=== PATIENT | female | born 1945 | race Caucasian/White ===

== ENCOUNTER 2020-12-09 00:31 | Inpatient (IN) | payer MEDICARE, SELFPAY ==
[2020-12-09] VITALS (24 sets, daily range): BP systolic 102–173; BP diastolic 44–76; PULSE 63–99; RESP 14–22; TEMP 35.9–36.9; O2SAT 63–98; BMI 30.2
--- NOTE | ~2020-12-09 | XR_ITS ---
EXAMINATION: XR CHEST CLINICAL INFORMATION: Post right thoracentesis COMPARISON: None TECHNIQUE: 2 views of the chest were obtained. FINDINGS: Post right thoracentesis is no visible pneumothorax. Bandlike atelectasis right middle lobe. There is opacification of left lung base likely from pleural effusion. The upper lungs are clear. Heart size is normal. There are surgical kimberly in the right axilla and lateral thorax from previous intervention. No gross bony abnormality seen. XR/XR chest 2V IMPRESSION: Post right thoracentesis there is no visible pneumothorax. There is a right middle lobe atelectasis. Suspect small left pleural effusion with underlying atelectasis.
--- NOTE | ~2020-12-09 | XR_ITS ---
EXAMINATION: XR ELBOW, LEFT CLINICAL INFORMATION: Fall, pain COMPARISON: None TECHNIQUE: AP, lateral, and oblique views of the left elbow. FINDINGS: Osseous alignment is anatomic. No acute fracture is seen. Small metallic foreign body is noted near the medial epicondyle of the humerus. No significant effusion is seen. XR/XR elbow LT 2V IMPRESSION: No acute findings identified.
--- NOTE | ~2020-12-09 | XR_ITS ---
EXAMINATION: XR CHEST CLINICAL INFORMATION: Respiratory failure COMPARISON: December 28, 2020 and December 25, 2020 TECHNIQUE: AP portable respiratory inspiration and expiration views FINDINGS: Compared to previous day's study there is no significant change in appearance. There remains some right base disease. Heart normal size. No evidence of pulmonary edema. No pneumothorax. Small right pleural effusion not excluded. Status post previous right axillary surgery. There is a minimally displaced left humeral head fracture evident. XR/XR chest 2V IMPRESSION: Stable appearance of the chest with right base disease.
--- NOTE | ~2020-12-09 | XR_ITS ---
EXAMINATION: XR CHEST CLINICAL INFORMATION: Hypoxia COMPARISON: Previous chest x-ray most recent 12/18/2020 TECHNIQUE: Frontal view of the chest was obtained. FINDINGS: The cardiac silhouette does not appear enlarged. Hilar and mediastinal contours are unremarkable. The lungs are clear. There are moderate bilateral pleural effusions that do not appear appreciably changed. There are degenerative changes of the spine. There are surgical clips in the right axilla. XR/XR chest 1V IMPRESSION: Moderate-sized bilateral pleural effusions not appreciably changed from previous exams.
--- NOTE | ~2020-12-09 | US_ITS ---
PROCEDURE: ULTRASOUND-GUIDED THORACENTESIS CLINICAL INFORMATION: Hypoxia. Right-sided effusion. COMPARISON: Chest x-ray 12/22/2020. TECHNIQUE: Following explaining ultrasound-guided right thoracentesis procedure, benefits and risk, a written consent was obtained from the patient. Patient was placed upright sitting on patient's stretcher and preliminary ultrasound imaging was obtained through the right mid chest. An optimal site was selected along the lateral scapular margin and marked on the skin. The skin site was cleaned and draped in the usual sterile manner. 1% lidocaine was injected at puncture site. Through a small skin incision a 5 [place] Ducatt catheter was advanced into the pleural space. After observing fluid return, stylet was withdrawn and catheter connected to vaccuum bottle via connecting cannula. After obtaining all fluid and observing no more fluid return, catheter was withdrawn making sure no air leaked in. Sterile dressing was applied postprocedure. FINDINGS: On preliminary ultrasound imaging there is small to moderate free fluid in the right pleural space. Approximately 400 mL of clear fluid was drained from the right pleural space. Part of this fluid was sent to lab as per referring physician's orders. US/US drain thoracentesis IMPRESSION: Successful ultrasound-guided right thoracentesis performed. Chest x-ray was to be obtained postprocedure.
--- NOTE | ~2020-12-09 | XR_ITS ---
EXAMINATION: XR CHEST CLINICAL INFORMATION: Follow-up effusions. COMPARISON: CTA chest 12/13/2020, chest radiograph 12/09/2020. TECHNIQUE: Portable upright AP view of the chest was obtained. FINDINGS: There are moderate bilateral effusions similar to decreased when compared with the CTA chest 12/13/2020. Comparison for subtle change is difficult because current exam is upright and prior exam is supine. The heart is normal in size. The vascularity is normal. There is no pneumothorax or pleural reaction. The hilar and mediastinal contours are normal. Bony structures are stable. Again, there is recent fracture proximal left humerus and multilevel degenerative changes thoracic spine. XR/XR chest 1V IMPRESSION: Moderate bilateral effusions similar to decreased when compared with the CTA chest 12/13/2020.
--- NOTE | ~2020-12-09 | CT_ITS ---
EXAMINATION: CT ANGIOGRAM OF THE CHEST WITH AND WITHOUT CONTRAST (CT PULMONARY ANGIOGRAM FOR PE) CLINICAL INFORMATION: Desaturations COMPARISON: None TECHNIQUE: Prior to contrast administration, noncontrast localization images were obtained. Subsequently, multidetector volumetric imaging was performed from the thoracic inlet to below the diaphragms following the administration of 70 mL Omnipaque 350 intravenous contrast. No contrast reaction reported Sagittal, coronal, and MIP oblique sagittal reformatted images were obtained on the CT workstation, uploaded to PACS, and reviewed. This CT examination was performed using dose optimization techniques as appropriate, variously including the following: *Automated exposure control *Adjustment of mA and/or kV according to patient size (this includes techniques or standardized protocols for targeted exams where dose is matched to indication/reason for exam; i.e. extremities or head) *Use of iterative reconstruction technique Total exam dose-length product 445 mGy-cm FINDINGS: QUALITY OF STUDY/CONTRAST BOLUS: Satisfactory. PULMONARY ARTERIES: Limited assessment of subsegmental pulmonary arteries in the areas of pulmonary consolidation involving the lower lobes. No filling defects are appreciated. THORACIC AORTA: Atherosclerosis thoracic aorta without evidence of aneurysm, dissection or stenosis. LUNG: Complete consolidation of the lower lobes. Centrilobular emphysematous changes of the aerated upper lobes. 0.6 cm triangular nodule lateral segment right middle lobe (series 6 image 304). PLEURA: Moderate bilateral pleural effusions. No pneumothorax. MEDIASTINUM: Heart size is normal. No pericardial effusion. Coronary artery calcifications. No mediastinal or hilar adenopathy. Limited views of the thyroid demonstrate substernal extension of a heterogeneous nodule that measures 1.6 x 1.2 cm. No evidence of septal bowing or right heart strain. CHEST WALL/AXILLA: Right axillary surgical clips. OSSEOUS STRUCTURES: Acute fracture left humeral head, better described on the dedicated radiographs performed on 12/09/2020. Degenerative changes of the spine. UPPER ABDOMEN: Nodular enlargement of the adrenal glands bilaterally. Left renal cysts, partially imaged. No reflux of contrast into the hepatic veins to suggest elevated right heart pressures. CT/CT angio chest PE protocol IMPRESSION: 1. No evidence of pulmonary embolism. Assessment of the subsegmental pulmonary arteries within the lower lobes is limited due to consolidations. 2. Complete consolidation of the lower lobes bilaterally, possibly due to compressive atelectasis from moderate bilateral pleural effusions. 3. There is a 1.6 x 1.2 cm heterogeneous nodule extending from the inferior margin of the thyroid gland into the substernal space. Although follow-up thyroid ultrasound is indicated, visualization may be difficult due to the substernal location. 4. Pulmonary emphysema. 5. Coronary artery disease. 6. Acute humeral head fracture, better seen on dedicated radiographs performed recently. 7. Nodular enlargement of the adrenal glands bilaterally, nonspecific but likely due to adrenal hyperplasia. VTE: negative
--- NOTE | ~2020-12-09 | XR_ITS ---
EXAMINATION: XR SHOULDER, LEFT CLINICAL INFORMATION: Rule out humeral fracture COMPARISON: None TECHNIQUE: Three views of the left shoulder. FINDINGS: There is a mildly displaced proximal humeral fracture involving the greater tuberosity and humeral neck. Alignment across the glenohumeral joint appears anatomic. Acromial clavicular joint is intact with mild degenerative change. XR/XR shoulder LT min 2V IMPRESSION: Mildly displaced fracture of the proximal humerus involving the neck and greater tuberosity.
--- NOTE | ~2020-12-09 | XR_ITS ---
EXAMINATION: XR HIP, LEFT CLINICAL INFORMATION: Fall, pain, unable to bear weight COMPARISON: None TECHNIQUE: Two views of the left hip. FINDINGS: There is a shortened appearance of the left femoral neck suspicious for acute fracture in the setting of trauma. Alignment across the hip joint appears maintained. Moderate degenerative changes noted in both hips. Sacroiliac joints and pubic symphysis appear intact. Vascular calcification is present. XR/XR hip LT w PEL1V IMPRESSION: Shortened appearance of the left femoral neck suspicious for impacted fracture in the setting of trauma.
--- NOTE | ~2020-12-09 | CT_ITS ---
EXAMINATION: NONCONTRAST HEAD CT NONCONTRAST CERVICAL SPINE CT INDICATION INFORMATION: Fall COMPARISON: None TECHNIQUE: Separate noncontrast CT examinations of the head and cervical spine were performed. Coronal head CT images and coronal and sagittal cervical spine images were created at the technologist workstation. DLP: 1134 mGy-cm DOSE LOWERING TECHNIQUES: This CT examination was performed using dose optimization techniques as appropriate, variously including the following: - Automated exposure control - Adjustment of mA and/or kV according to patient size (this includes techniques or standardized protocols for targeted exams were dose is matched to indication/reason for exam; i.e. extremities or head) - Use of iterative reconstruction technique FINDINGS: Head: There is no evidence of acute intracranial hemorrhage or territorial infarction. No abnormal mass-effect or midline shift is seen. Delgado to white matter differentiation is well preserved. No extra-axial fluid collections are identified. The ventricles are normal in size. There is mild periventricular white matter hypoattenuation consistent with chronic small vessel ischemic disease. The osseous structures and soft tissues are normal. There is partial opacification of the left sphenoid sinus. Partially opacified right mastoid air cells. Cervical spine: There is grade 1 anterolisthesis of C3 and C4 and minimal retrolisthesis of C5 on C6, favored to be chronic/degenerative in nature. Vertebral body heights are maintained. There is disc space narrowing throughout the mid and lower cervical spine with associated endplate osteophytes. Scattered facet arthropathy is present, left-sided greater than right. No evidence of acute fracture. No prevertebral soft tissue swelling. Visualized portions of the lung apices are well-aerated. The thyroid gland is unremarkable. CT/CT cervical spine wo con IMPRESSION: No acute findings identified in the head or cervical spine. Degenerative changes of the cervical spine.
--- NOTE | ~2020-12-09 | XR_ITS ---
EXAMINATION: XR CHEST CLINICAL INFORMATION: Shortness of breath. COMPARISON: Most recent chest radiograph dated 12/25/2020. TECHNIQUE: 2 views of the chest were obtained. FINDINGS: Trace right-sided pleural effusion, new when compared to the prior examination. Previously seen small left-sided pleural effusion no longer identified. No focal airspace consolidation. No pneumothorax. Stable cardiac mediastinal silhouette. Right axillary surgical clips. XR/XR chest 2V IMPRESSION: Trace right-sided pleural effusion, new when compared to the prior examination. Resolution of the previously seen probable left-sided pleural effusion.
--- NOTE | ~2020-12-09 | XR_ITS ---
EXAMINATION: XR CHEST CLINICAL INFORMATION: Shortness of breath COMPARISON: None TECHNIQUE: Frontal view of the chest was obtained. FINDINGS: Lung volumes are symmetric. Coarsened appearance of interstitial markings bilaterally without focal consolidation. No evidence of pneumothorax or pleural effusion. Cardiac size is within normal limits. Calcification is present at the aortic arch. Right axillary clips are noted. No acute osseous findings are seen. XR/XR chest 1V IMPRESSION: Coarsened interstitial markings may reflect acute or chronic airways disease. No focal consolidation.
--- NOTE | ~2020-12-09 | FL_ITS ---
EXAMINATION: XR FLUOROSCOPY WITH IMAGES CLINICAL INFORMATION: Left hip fracture COMPARISON: Previous x-ray December 09, 2020 TECHNIQUE: Fluoroscopy performed by Dr. Hare Instrwes. Fluoroscopy time: 1 minutes DAP: 0.2 mGycm2 Images: 2 FINDINGS: Images demonstrate 2 screws transfixing the right femoral neck fracture. FL/FL guidance in OR IMPRESSION: Fluoroscopic guidance for ORIF of right femoral neck fracture.
--- NOTE | ~2020-12-09 | XR_ITS ---
EXAMINATION: XR CHEST CLINICAL INFORMATION: Follow up pleural effusions. COMPARISON: December 29, 2020 TECHNIQUE: Respiratory and expiratory views of the chest FINDINGS: Patient is status post previous right axillary surgery. Chronic proximal left humeral fracture is seen. There is hazy density seen about the right lung base which is increased since study of December 29, 2020 and is consistent with enlarging pleural effusion. There is some blunting of the left costophrenic angle consistent with cysts small amount of fluid. There is some retroareolar cardiac disease present within the left lower lobe. This may represent atelectasis or pneumonitis. Heart normal size. No evidence of pulmonary edema. No pneumothorax is seen. XR/XR chest 2V IMPRESSION: Enlarging right pleural effusion. Left lower lobe disease which may relate to atelectasis or pneumonitis.
--- NOTE | ~2020-12-09 | XR_ITS ---
EXAMINATION: XR CHEST CLINICAL INFORMATION: Follow-up pleural effusion COMPARISON: Previous chest x-ray most recent 12/15/2020 TECHNIQUE: Frontal view of the chest was obtained. FINDINGS: The cardiac and mediastinal contours are stable. There are moderate bilateral pleural effusions similar to previous chest x-ray. The lungs are clear. There are surgical clips in the right axilla. There is a left proximal humerus fracture. There are degenerative changes of the spine. XR/XR chest 1V IMPRESSION: Moderate bilateral pleural effusions. No change from previous exam.
--- NOTE | ~2020-12-09 | XR_ITS ---
EXAMINATION: XR SHOULDER, LEFT CLINICAL INFORMATION: Humerus fracture COMPARISON: Radiographs of the left shoulder 12/09/2020 TECHNIQUE: AP and lateral scapular Y views of the left shoulder. FINDINGS: Redemonstration of comminuted left humeral head fracture which remains in alignment with the shoulder. Overall major fracture fragment components are similar to the prior study. There is acromioclavicular osteoarthritis which is unchanged. XR/XR shoulder LT min 2V IMPRESSION: Overall relatively stable appearance of the comminuted left proximal humeral fracture.
--- NOTE | ~2020-12-09 | XR_ITS ---
EXAMINATION: XR CHEST CLINICAL INFORMATION: Follow-up pleural effusion COMPARISON: January 11, 2021 TECHNIQUE: AP portable view of the chest was obtained. FINDINGS: There is again noted to be hazy density about the right lung base similar to previous study consistent with layering of pleural fluid. There is also mild blunting of the left costophrenic angle with increase in retrocardiac density and obscuration of the left hemidiaphragm likely related to small amount of fluid and increase in left lower lobe airspace disease. No pneumothorax is evident. Heart normal size. No evidence of pulmonary edema. Status post previous right axillary surgery. Old proximal left humeral fracture again noted. XR/XR chest 1V IMPRESSION: Stable appearance of right hemithorax. Increase in retrocardiac density consistent with left lower lobe disease.
--- NOTE | 2020-12-09 00:59 | ECG_ITS ---
Test Reason : FALL Blood Pressure : / mmHG Vent. Rate : 097 BPM Atrial Rate : 097 BPM P-R Int : 140 ms QRS Dur : 068 ms QT Int : 348 ms P-R-T Axes : 077 053 064 degrees QTc Int : 441 ms Normal sinus rhythm Biatrial enlargement Abnormal ECG No previous ECGs available Referred By: Andree Crocker Electronically Signed By:CECELIA RAY MD
--- NOTE | 2020-12-09 01:01 | ED_ITS ---
HPI - Fall General Chief Complaint: Fall Stated Complaint: fall shoulder leg pain Time Seen by Provider: 12/09/20 00:48 Source: patient and EMS Mode of arrival: EMS Limitations: no limitations History of Present Illness HPI Narrative: Patient comes emergency room complaining of a fall. House, patient got dizzy, left on the left side approximately 5 hours prior to arrival. Patient denies hitting her head or losing consciousness, denies being on blood thinners. Patient denies neck pain. Patient reports that she is unable to bear weight due to pain on the left hip. At this time, patient states that if she do es not move, she does not have any pain. Patient states the dizziness lasted only for a few seconds and self resolved at this time patient denies dizziness, no chest pain. Patient does have chronic shortness of breath, O2 dependent due to COPD complaint: fall Related Data Allergies Allergy/AdvReac Type Severity Reaction Status Date / Time No Known Allergies Allergy Verified 12/09/20 00:58 Review of Systems Review of Systems: Appearance: Alert. Oriented X3. No acute distress. Eyes: Pupils equal, round and reactive to light. ENT: Pharynx normal. Neck: Normal inspection. Neck supple. No lymph nodes noted. No crepitus CVS: Normal heart rate and rhythm. Pulses normal. Normal S1 and S2 Respiratory: No respiratory distress. Loud wheezing at baseline Abdomen: Soft and nontender. No rigidity. No distention. good BS x4 Skin: Skin warm and dry. Normal skin color. Normal skin turgor. Extremities: Complaining of left-sided hip pain and left shoulder pain Neuro: Oriented X 3. No motor deficit. No sensory deficit. Moving all extermities. No slurred speech. [facility] Past Medical History Medical History (Updated 12/09/20 @ 04:01 by Andree Crocker MD) COPD (chronic obstructive pulmonary disease) Hypertension Social History Social History Advance Directives: No Advance Directives Information Provided: No Physical Exam Vital Signs: Vital Signs: Last Vital Signs Temp 98.1 F 12/09/20 00:40 Pulse 92 12/09/20 02:00 Resp 18 12/09/20 02:00 BP 125/62 12/09/20 02:00 Pulse Ox 97 12/09/20 02:00 Body Mass Index 30.2 Appearance: Alert. Oriented X3. No acute distress. Eyes: Pupils equal, round and reactive to light. ENT: Pharynx normal. Neck: Normal inspection. Neck supple. No lymph nodes noted. No crepitus CVS: Normal heart rate and rhythm. Pulses normal. Normal S1 and S2 Respiratory: No respiratory distress. On oxygen, O2 dependent. Bilateral wheezing with diminished inspiratory breath sounds Abdomen: Soft and nontender. No rigidity. No distention. good BS x4 Skin: Skin warm and dry. Normal skin color. Normal skin turgor. Extremities: +1 bilateral pitting edema, pain to hip flexion and extension on the left side, pain to palpation over the left shoulder, unable to bear weight Neuro: Oriented X 3. No motor deficit. No sensory deficit. Moving all extermities. No slurred speech. Course Course Course Narrative: Patient's white blood cell count is 15.9, patient uses inhaled steroids daily for COPD. I discussed the x-rays with the patient, patient does have displaced fracture at of the proximal humeral neck and also a left femoral neck fracture. Patient will need orthopedics consult in the morning. I discussed the patient with Dr. Diaz, patient being admitted. Aware of the orthopedics consult pending for tomorrow MDM - Fall Lab Data Result diagrams: 12/09/20 01:13 12/09/20 01:13 Labs: Lab Results 12/09/20 12/09/20 12/09/20 Range/Units 01:13 01:13 01:13 WBC 15.9 H (4.8-10.8) X10*3/uL RBC 3.69 L (4.20-5.50) X10*6/uL Hgb 11.4 L (12.0-16.0) g/dl Hct 36.8 L (37-47) % MCV 99.7 H (80-98) fL MCH 30.9 (27.0-33.0) pg MCHC 31.0 (31.0-35.0) g/dl RDW 12.0 (11.0-16.0) % Plt Count 224 (160-400) X10*3/uL MPV 7.9 L (9.4-12.3) fL Immature Gran % (Auto) 0.6 H (0.0-0.4) % Neut % (Auto) 87.0 H (45-73) % Lymph % (Auto) 5.5 L (20-40) % [place] % (Auto) 6.5 (2-11) % Eos % (Auto) 0.1 (0-4) % Baso % (Auto) 0.3 (0-2) % Lymph # (Auto) 0.9 L (1.2-4.9) X10*3/uL [place] # (Auto) 1.0 (0.1-1.2) X10*3/uL Eos # (Auto) 0.0 (0.0-0.4) X10*3/uL Baso # (Auto) 0.1 (0.0-0.2) X10*3/uL Abs Immat Gran (auto) 0.09 H (0.00-0.03) X10*3/uL Absolute Neuts (auto) 13.8 H (2.0-8.3) X10*3/uL Absolute Nucleated RBC 0.000 (0.0-0.012) X10*3/uL Nucleated RBC % (auto) 0.0 (0.0-0.2) /100WBC Sodium 132 L (135-145) mmol/L Potassium 4.6 (3.3-5.1) mmol/L Chloride 83 L (96-108) mmol/L Carbon Dioxide 46 H* (22-29) mmol/L Anion Gap 8 L (12-20) BUN 10 (9-16) mg/dL Creatinine 0.55 (0.5-1.4) mg/dL Estim Creat Clear Calc 76.1 Estimated GFR > 60 Random Glucose 132 H (60-115) mg/dL Calcium 8.9 (8.4-10.2) mg/dL Troponin I High Sens 11.2 (<3.5-17.0) ng/L Urine Color Urine Appearance Urine pH (5.0-8.0) Ur Specific [place] (1.005-1.025) Urine Protein (NEG-TRACE) MG/DL Urine Glucose (UA) (NEG) MG/DL Urine Ketones (NEG) MG/DL Urine Blood (NEG) Urine Nitrite (NEG) Ur Leukocyte Esterase (NEG) Urine RBC (0) /HPF Urine WBC (0-4) /HPF Ur Squamous Epith Cells /LPF Urine Bacteria /LPF 12/09/20 Range/Units 01:13 WBC (4.8-10.8) X10*3/uL RBC (4.20-5.50) X10*6/uL Hgb (12.0-16.0) g/dl Hct (37-47) % MCV (80-98) fL MCH (27.0-33.0) pg MCHC (31.0-35.0) g/dl RDW (11.0-16.0) % Plt Count (160-400) X10*3/uL MPV (9.4-12.3) fL Immature Gran % (Auto) (0.0-0.4) % Neut % (Auto) (45-73) % Lymph % (Auto) (20-40) % [place] % (Auto) (2-11) % Eos % (Auto) (0-4) % Baso % (Auto) (0-2) % Lymph # (Auto) (1.2-4.9) X10*3/uL [place] # (Auto) (0.1-1.2) X10*3/uL Eos # (Auto) (0.0-0.4) X10*3/uL Baso # (Auto) (0.0-0.2) X10*3/uL Abs Immat Gran (auto) (0.00-0.03) X10*3/uL Absolute Neuts (auto) (2.0-8.3) X10*3/uL Absolute Nucleated RBC (0.0-0.012) X10*3/uL Nucleated RBC % (auto) (0.0-0.2) /100WBC Sodium (135-145) mmol/L Potassium (3.3-5.1) mmol/L Chloride (96-108) mmol/L Carbon Dioxide (22-29) mmol/L Anion Gap (12-20) BUN (9-16) mg/dL Creatinine (0.5-1.4) mg/dL Estim Creat Clear Calc Estimated GFR Random Glucose (60-115) mg/dL Calcium (8.4-10.2) mg/dL Troponin I High Sens (<3.5-17.0) ng/L Urine Color YELLOW Urine Appearance CLOUDY Urine pH 7.0 (5.0-8.0) Ur Specific [place] 1.020 (1.005-1.025) Urine Protein 2+ H (NEG-TRACE) MG/DL Urine Glucose (UA) NEG (NEG) MG/DL Urine Ketones 5 (NEG) MG/DL Urine Blood NEG (NEG) Urine Nitrite NEG (NEG) Ur Leukocyte Esterase 2+ H (NEG) Urine RBC 0 (0) /HPF Urine WBC 5-9 H (0-4) /HPF Ur Squamous Epith Cells 1+ /LPF Urine Bacteria 4+ /LPF Imaging Data Hip x-ray: Radiologist's impression: There is a shortened appearance of the left femoral neck suspicious for acute fracture in the setting of trauma. Alignment across the hip joint appears maintained. Moderate degenerative changes noted in both hips. Sacroiliac joints and pubic symphysis appear intact. Vascular calcification is present. XR/XR hip LT w PEL1V IMPRESSION: Shortened appearance of the left femoral neck suspicious for impacted fracture in the setting of trauma. Shoulder fracture: Radiologist's impression: FINDINGS: There is a mildly displaced proximal humeral fracture involving the greater tuberosity and humeral neck. Alignment across the glenohumeral joint appears anatomic. Acromial clavicular joint is intact with mild degenerative change. XR/XR shoulder LT min 2V IMPRESSION: Mildly displaced fracture of the proximal humerus involving the neck and greater tuberosity. Head and cervical spine CT: Radiologist's impression: Head: There is no evidence of acute intracranial hemorrhage or territorial infarction. No abnormal mass-effect or midline shift is seen. [place] to white matter differentiation is well preserved. No extra-axial fluid collections are identified. The ventricles are normal in size. There is mild periventricular white matter hypoattenuation consistent with chronic small vessel ischemic disease. The osseous structures and soft tissues are normal. There is partial opacification of the left sphenoid sinus. Partially opacified right mastoid air cells. Cervical spine: There is grade 1 anterolisthesis of C3 and C4 and minimal retrolisthesis of C5 on C6, favored to be chronic/degenerative in nature. Vertebral body heights are maintained. There is disc space narrowing throughout the mid and lower cervical spine with associated endplate osteophytes. Scattered facet arthropathy is present, left-sided greater than right. No evidence of acute fracture. No prevertebral soft tissue swelling. Visualized portions of the lung apices are well-aerated. The thyroid gland is unremarkable. CT/CT head/brain wo con IMPRESSION: No acute findings identified in the head or cervical spine. Degenerative changes of the cervical spine. Elbow fracture: Radiologist's impression: FINDINGS: Osseous alignment is anatomic. No acute fracture is seen. Small metallic foreign body is noted near the medial epicondyle of the humerus. No significant effusion is seen. XR/XR elbow LT 2V IMPRESSION: No acute findings identified. ECG Data Attestation: I personally reviewed and interpreted this ECG as follows: (Normal sinus rhythm, heart rate 97, no ST segment depression elevation, likely atrial enlargement, QTC 441) Discharge Plan Discharge Clinical Impression: Femoral neck fracture, Fracture of neck of humerus, Acute UTI Patient Disposition: Admitted As Inpatient
[2020-12-09 01:17] LABS: MANUAL DIFF FLAG NO
[2020-12-09 01:18] LABS: Basophils Absolute Auto 0.1 X10*3/uL (0.0-0.2); Basophils Percent Auto 0.3 % (0-2); Eosinophils Percent Auto 0.1 % (0-4); Hematocrit 36.8 % (37-47); Hemoglobin 11.4 g/dl (12.0-16.0); Imm Gran Abs Auto 0.09 X10*3/uL (0.00-0.03); Imm Gran Pct Auto 0.6 % (0.0-0.4); Lymphocytes Absolute Auto 0.9 X10*3/uL (1.2-4.9); Lymphocytes Percent Auto 5.5 % (20-40); Mean Corpuscular Hemoglobin 30.9 pg (27.0-33.0); Mean Corpuscular Volume 99.7 fL (80-98); Mean Platelet Volume 7.9 fL (9.4-12.3); Monocytes Percent Auto 6.5 % (2-11); Neutrophils Absolute Auto 13.8 X10*3/uL (2.0-8.3); Platelet Count 224 X10*3/uL (160-400); Red Blood Count 3.69 X10*6/uL (4.20-5.50); White Blood Count 15.9 X10*3/uL (4.8-10.8)
[2020-12-09] MEDS: traMADoL HCL 50 MG TABLET PO (01:19)
[2020-12-09 01:44] LABS: Troponin-I High Sensitivity 11.2 ng/L (<3.5-17.0)
[2020-12-09 01:45] LABS: Glucose Urine UA NEG (NEG); Leukocyte Esterase Urine 2+ (NEG); Nitrite Urine NEG (NEG); UACC Culture Trigger YES; Urine Blood NEG (NEG); Urine Ketones 5 MG/DL (NEG); Urine Protein 2+ MG/DL (NEG-TRACE)
[2020-12-09 01:46] LABS: Appearance Urine CLOUDY; Color Urine YELLOW
[2020-12-09 01:52] LABS: Bacteria Urine 4+ /LPF; RBC Urine 0 /HPF (0); Squamous Epithelial Cell Urine 1+ /LPF
[2020-12-09 01:58] LABS: Anion Gap 8 (12-20); Blood Urea Nitrogen 10 mg/dL (9-16); Calcium 8.9 mg/dL (8.4-10.2); Carbon Dioxide 46 mmol/L (22-29); Chloride 83 mmol/L (96-108); Creatinine Clr Calc Pharmacy 76.1; Estimated Glomerular Filt Rate > 60; Glucose Random 132 mg/dL (60-115); Potassium 4.6 mmol/L (3.3-5.1); Sodium 132 mmol/L (135-145)
[2020-12-09] MEDS: cefTRIAXone sodium 1 GM in 0.9 % Sodium Chloride 50 ML IV (03:08)
--- NOTE | 2020-12-09 04:25 | PM.IMHP ---
History of Present Illness Date of Service: 12/09/20 Chief Complaint: Fall 75-year-old female past medical history of hypertension, COPD-on home oxygen of 2 L continuously, depression presented to the hospital with a chief complaint of fall. Most of the history obtained from the patient, patient's family at bedside. Spoke to ER staff as well. Reportedly patient's daughter heart card on the floor and when to in check on the patient patient was alert away but lying on the floor; patient reported that she fell on the floor did not hit her head did not lose consciousness did denies any chest pain lightheadedness or dizziness at the time of the event. Complained of the pain in the hip. Subsequently brought to the ER further evaluation. For patient's daughter patient also had fall on ; denies any loss of consciousness. Patient denies any fever chills cough. Complains of mild shortness of breath. Denies any GI complaints. Review of all other systems is negative except mentioned above ER course: Per ER team patient noted to have pain and left upper and lower extremities; noted to have left femoral neck and left humerus fracture on the imaging; CT head and CT C-spine showed no acute findings. On labs noted to have abnormal urinalysis consistent UTI-given ceftriaxone; EKG was nonischemic; initial troponin negative, follow-up troponin pending [facility] Medical History (Updated 12/15/20 @ 17:26 by Mika Fernandez MD) Acute and chronic respiratory failure COPD (chronic obstructive pulmonary disease) COPD exacerbation Hypertension Pleural effusion, bacterial Respiratory failure, acute and chronic Social History Household Members: Children Housing: House Do you presently have visiting nurse or other home services: No Patient Tobacco Use Status: Current everyday Tobacco user Tobacco use type: Cigarette Cigarette Packs Per Day: 1 Cigarettes Per Day: 20.0 Smoked in Last 30 Days: Yes e-Cigarette/Vaping Use: Never Used Patient Interested in Nicotine Replacement: No Patient Given Instructions on How to Stop Smoking: Yes Date Education Initiated: 12/09/20 Use of substances other than those prescribed or required for medical reasons: No Currently Displaying Signs/Symptoms of Drug Intoxication Withdrawal: No Have you been hit, kicked, punched, or otherwise hurt by someone within the past year? If so, by whom?: No Do you feel safe in your current relationship?: Yes Is there a partner from a previous relationship who is making you feel unsafe now?: No Are you made to feel afraid or neglected: No Advance Directives: No Advance Directives Information Provided: No Do you have thoughts of harming others: None Do you have a plan to hurt others: No Plan Recently lost weight without trying: No Eating poorly because of decreased appetite: No Nutrition Risks: No Nutritional Risk Patient : No : No Poor oral hygiene: No service: No Current occupational status: retired [employer] Allergies Allergy/AdvReac Type Severity Reaction Status Date / Time No Known Allergies Allergy Verified 12/09/20 00:58 Active Medications: Current Medications Generic Name Dose Route Start Last Admin Trade Name Freq PRN Reason Stop Dose Admin Acetaminophen 650 mg 12/09/20 04:20 Acetaminophen 325 Mg Tablet PO Q6H PRN Pain, Mild (Pain Scale 1-3) Albuterol/Ipratropium 3 ml 12/09/20 08:00 Albuterol/Iprat 2.5/0.5mg 3 Ml Ampul.Neb INHALE RQ4H WHILE AWAKE OMID Albuterol/Ipratropium 3 ml 12/09/20 04:20 Albuterol/Iprat 2.5/0.5mg 3 Ml Ampul.Neb INHALE RQ4H PRN Shortness of Breath/Wheezing Azithromycin 500 mg 12/09/20 04:30 Azithromycin 500 Mg Tablet PO Q24H OMID Hydromorphone HCl 0.5 mg 12/09/20 04:20 Hydromorphone Hcl 0.5 Mg/0.5 Ml Syringe IVPUSH Q4H PRN Pain, Severe (Pain Scale 7-10) Dextrose/Sodium Chloride 1,000 mls @ 50 mls/hr 12/09/20 04:30 D51/2ns IVCONT .Q20H OMID Ceftriaxone Sodium 1 gm/ 100 mls @ 200 mls/hr 12/09/20 04:30 Sodium Chloride IV Q24H OMID Magnesium Hydroxide 30 ml 12/09/20 04:20 Milk Of Magnesia 30 Ml Oral.Susp PO DAILY PRN Constipation Melatonin 6 mg 12/09/20 04:20 Melatonin 3 Mg Tablet PO BEDTIME PRN Insomnia Methylprednisolone Sodium Succinate 40 mg 12/09/20 04:30 Methylprednisolone Sod Succ 40 Mg/Ml Vial IVPUSH Q6H OMID Sodium Chloride 3 ml 12/09/20 08:00 0.9 % Sodium Chloride Flush 3 Ml Syringe IVFLUSH QSHIFT [facility] Physical Exam Vital Signs and Narrative: Vital Signs: Last Vital Signs Temp 98.1 F 12/09/20 00:40 Pulse 92 12/09/20 02:00 Resp 18 12/09/20 02:00 BP 125/62 12/09/20 02:00 Pulse Ox 97 12/09/20 02:00 Body Mass Index 30.2 Gen: Appears be in no acute distress HEENT: NCAT, Moist mucosa. Pulmonary: Diminished breath sounds bilaterally CVS: Normal S1-S2 Abdomen: BS+, Soft, Nontender Extremities: Warm well perfused upper and lower extremity exam limited secondary to the pain. Neurovascularly intact. Neuro: Alert and awake. Results Labs CBC and Chem 7: 12/17/20 05:17 12/18/20 08:24 Labs: Laboratory Results - last 24 hr 12/09/20 12/09/20 12/09/20 01:13 01:13 01:13 MCV 99.7 H MCH 30.9 MCHC 31.0 RDW 12.0 Plt Count 224 MPV 7.9 L Immature Gran % (Auto) 0.6 H Neut % (Auto) 87.0 H Lymph % (Auto) 5.5 L [place] % (Auto) 6.5 Eos % (Auto) 0.1 Baso % (Auto) 0.3 Lymph # (Auto) 0.9 L [place] # (Auto) 1.0 Eos # (Auto) 0.0 Baso # (Auto) 0.1 Abs Immat Gran (auto) 0.09 H Absolute Neuts (auto) 13.8 H Absolute Nucleated RBC 0.000 Nucleated RBC % (auto) 0.0 Anion Gap 8 L Estim Creat Clear Calc 76.1 Estimated GFR > 60 Random Glucose 132 H Calcium 8.9 Troponin I High Sens 11.2 Urine Color Urine Appearance Urine pH Ur Specific [place] Urine Protein Urine Glucose (UA) Urine Ketones Urine Blood Urine Nitrite Ur Leukocyte Esterase Urine RBC Urine WBC Ur Squamous Epith Cells Urine Bacteria 12/09/20 01:13 MCV MCH MCHC RDW Plt Count MPV Immature Gran % (Auto) Neut % (Auto) Lymph % (Auto) [place] % (Auto) Eos % (Auto) Baso % (Auto) Lymph # (Auto) [place] # (Auto) Eos # (Auto) Baso # (Auto) Abs Immat Gran (auto) Absolute Neuts (auto) Absolute Nucleated RBC Nucleated RBC % (auto) Anion Gap Estim Creat Clear Calc Estimated GFR Random Glucose Calcium Troponin I High Sens Urine Color YELLOW Urine Appearance CLOUDY Urine pH 7.0 Ur Specific [place] 1.020 Urine Protein 2+ H Urine Glucose (UA) NEG Urine Ketones 5 Urine Blood NEG Urine Nitrite NEG Ur Leukocyte Esterase 2+ H Urine RBC 0 Urine WBC 5-9 H Ur Squamous Epith Cells 1+ Urine Bacteria 4+ Imaging Radiologist's Impressions: Impressions Cervical Spine CT 12/09/20 00:58 IMPRESSION: No acute findings identified in the head or cervical spine. Degenerative changes of the cervical spine. Elbow X-Ray 12/09/20 00:58 IMPRESSION: No acute findings identified. Head CT 12/09/20 00:58 IMPRESSION: No acute findings identified in the head or cervical spine. Degenerative changes of the cervical spine. Hip/Pelvis X-Ray 12/09/20 00:58 IMPRESSION: Shortened appearance of the left femoral neck suspicious for impacted fracture in the setting of trauma. Shoulder X-Ray 12/09/20 00:58 IMPRESSION: Mildly displaced fracture of the proximal humerus involving the neck and greater tuberosity. Assessment and Plan (1) Femoral neck fracture: Status: Acute 75-year-old female with a past medical history of COPD on home oxygen, hypertension presented to the hospital with a chief complaint of fall. Recurrent falls: Likely in the setting of UTI. Reported mechanical fall. Denies any loss of consciousness. PT/OT eventually Left femoral neck fracture/left humerus fracture: Patient is neurovascularly intact. Exam of the left upper and lower extremity limited secondary to the pain. Orthopedics consult for further input. UTI: Continue ceftriaxone; follow-up cultures COPD exacerbation: Will keep the patient on Solu-Medrol and nebulizations standing and p.r.n.. Patient is an 2 L of home oxygen. Continue home supplemental oxygen via nasal cannula with goal oxygen saturation around 93%.. Azithromycin Pulmonary consult. Patient noted to elevated serum bicarb; will obtain blood Gas; patient not in respiratory distress. Speaks in full sentences. Chest x-ray pending Hypertension: Patient was supposed to be on lisinopril. Patient self discontinued lisinopril as per the patient's daughter. Vitals currently stable. Will continue to monitor. Preop evaluation: Patient is low METs score, low RCRI score; EKG nonischemic; troponins negative; patient denies any chest pain. Patient has low cardiac risk for perioperative complications; Patient has intermediate ARISCAT score for pulmonary complications in the perioperative. Routine postoperative pulmonary toileting is recommended. Currently patient in mild COPD exacerbation-will also consult pulmonology for preop evaluation Standard DVT prophylaxis in the perioperative period. Recommended. Overall patient is [id number] risk for intermediate risk surgery. DVT prophylaxis: No Venodyne boots given pain in the legs; no pharmacological agent in anticipation for procedure. Code status: Full code. Spoke to the patient patient's family at bedside. Quality Stroke Does the patient have a stroke diagnosis?: No VTE Prior VTE?: No VTE Risk Level:: Medical - moderate - high VTE Device Contraindication: Patient Refused VTE Drug Contraindication: Patient Refused
[2020-12-09 04:32] LABS: INTERNATIONAL NORM RATIO 0.9 (0.9-1.1); Prothrombin Time 10.6 SEC (9.9-13.0)
[2020-12-09 05:13] LABS: COVID-19 Test Negative (Negative)
[2020-12-09 05:20] LABS: MANUAL DIFF FLAG NO
[2020-12-09 05:21] LABS: Basophils Percent Auto 0.3 % (0-2); Eosinophils Percent Auto 0.1 % (0-4); Hematocrit 35.2 % (37-47); Hemoglobin 10.8 g/dl (12.0-16.0); Imm Gran Abs Auto 0.04 X10*3/uL (0.00-0.03); Imm Gran Pct Auto 0.3 % (0.0-0.4); Lymphocytes Absolute Auto 0.8 X10*3/uL (1.2-4.9); Lymphocytes Percent Auto 5.7 % (20-40); Mean Corpuscular HGB Conc 30.7 g/dl (31.0-35.0); Mean Corpuscular Hemoglobin 30.7 pg (27.0-33.0); Mean Platelet Volume 8.1 fL (9.4-12.3); Monocytes Absolute Auto 0.9 X10*3/uL (0.1-1.2); Monocytes Percent Auto 6.3 % (2-11); Neutrophils Absolute Auto 12.4 X10*3/uL (2.0-8.3); Neutrophils Percent Auto 87.3 % (45-73); Platelet Count 221 X10*3/uL (160-400); Red Blood Count 3.52 X10*6/uL (4.20-5.50); Red Cell Distribution Width 12.1 % (11.0-16.0); Venous Blood Gas Refer to POC result; White Blood Count 14.2 X10*3/uL (4.8-10.8)
[2020-12-09 05:22] LABS: VBG Base Excess 24.2 mmol/L; VBG HCO3 57 mmol/L (22-26); VBG pCO2 110 mmHg; VBG pH 7.32 (7.32-7.43); VBG pO2 59 mmHg
[2020-12-09 05:41] LABS: Troponin-I High Sensitivity 11.9 ng/L (<3.5-17.0)
[2020-12-09 05:51] LABS: Alanine Aminotransferase 24 U/L (0-31); Albumin Level 3.6 g/dL (3.5-5.0); Alkaline Phosphatase 52 U/L (39-117); Anion Gap 9 (12-20); Aspartate Amino Transferase 29 U/L (5-31); Bilirubin Total 0.4 mg/dL (0.0-1.0); Blood Urea Nitrogen 11 mg/dL (9-16); Calcium 8.5 mg/dL (8.4-10.2); Carbon Dioxide 45 mmol/L (22-29); Chloride 84 mmol/L (96-108); Creatinine Clr Calc Pharmacy 77.5; Estimated Glomerular Filt Rate > 60; Glucose Random 129 mg/dL (60-115); Potassium 4.6 mmol/L (3.3-5.1); Sodium 133 mmol/L (135-145); Total Protein 5.8 g/dL (6.5-8.0)
[2020-12-09] MEDS: Dextrose 5 % and 0.45 % NaCl 1,000 ML 50 ML IVCONT (06:19)
[2020-12-09] MEDS: methylPREDNISolone Sod Succ 40 MG/ML VIAL IVPUSH ×4 (06:35→20:45)
[2020-12-09] MEDS: Albuterol/Iprat 2.5/0.5MG 3 ML AMPUL.NEB INHALE ×4 (07:53→20:19)
[2020-12-09] MEDS: Azithromycin 500 MG TABLET PO (08:30)
[2020-12-09] MEDS: HYDROmorphone HCl 0.5 MG/0.5 ML SYRINGE IVPUSH ×2 (10:12→16:09)
--- NOTE | 2020-12-09 10:39 | PM.CNPUL ---
Assessment and Plan (1) Femoral neck fracture: Status: Acute (2) Fracture of neck of humerus: Status: Acute (3) COPD exacerbation: Status: Acute This patient does have evidence of chronic obstructive pulmonary disease, Currently seems to have an acute exacerbation due to acute bronchial inflammation. Plan: Treat with IV Solu-Medrol 40 mg q.8 hours, azithromycin 500 mg IV daily, oxygen supplementation to keep O2 sat just above 90%, DuoNeb updrafts Q 6 hours while awake, and albuterol updraft q.4 hours p.r.n.. (4) Respiratory failure, acute and chronic: Status: Acute Patient has significant CO2 retention, blood gases of or grossly abnormal, pH 7.32, pCO2 110, PO2 59, bicarb 57 is consistent with chronic respiratory failure. plan : I recommend that she should be treated with noninvasive ventilatory support ( BiPAP therapy ), 15/6 cm, to optimize her respiratory status, before surgery. For starting her on the noninvasive support she should be transferred to intensive care unit. History of Present Illness History of Present Illness Consult date: 12/09/20 Reason for consult: COPD Chief complaint: COPD/Hip Fx Narrative: This 75 years old female is admitted after a fall at home , and has Fr. humerus as well as femoral neck . This patient has history of chronic obstructive pulmonary disease, and being treated with home oxygen therapy as well as, Updrafts. Recently she has the evidence of urinary tract infection, she did have some increase in the cough and congested feeling but denied any chest pain or expectoration. Does complain of says increased cough with increased shortness of breath. She does have evidence of acute on chronic respiratory failure. At present her main complaint is pain in the left shoulder as well as in the left hip area due to the fall. She is relatively immobile while and quite weak at this time Review of Systems Review of Systems: Yes all other systems are reviewed and are negative [facility] Past Medical History Medical History (Updated 12/09/20 @ 10:56 by Juan Carlos Lopez MD) COPD (chronic obstructive pulmonary disease) COPD exacerbation Hypertension Respiratory failure, acute and chronic Social History Social History Household Members: Children Housing: House Do you presently have visiting nurse or other home services: No Patient Tobacco Use Status: Current everyday Tobacco user Tobacco use type: Cigarette Cigarette Packs Per Day: 1 Cigarettes Per Day: 20.0 Smoked in Last 30 Days: Yes e-Cigarette/Vaping Use: Never Used Patient Interested in Nicotine Replacement: No Patient Given Instructions on How to Stop Smoking: Yes Date Education Initiated: 12/09/20 Use of substances other than those prescribed or required for medical reasons: No Have you been hit, kicked, punched, or otherwise hurt by someone within the past year? If so, by whom?: No Do you feel safe in your current relationship?: Yes Is there a partner from a previous relationship who is making you feel unsafe now?: No Are you made to feel afraid or neglected: No Advance Directives: No Advance Directives Information Provided: No Do you have thoughts of harming others: None Do you have a plan to hurt others: No Plan Recently lost weight without trying: No Eating poorly because of decreased appetite: No Nutrition Risks: No Nutritional Risk Patient : No : No Poor oral hygiene: No Meds Allergies Allergy/AdvReac Type Severity Reaction Status Date / Time No Known Allergies Allergy Verified 12/09/20 00:58 Active Medications: Current Medications Generic Name Dose Route Start Last Admin Trade Name Freq PRN Reason Stop Dose Admin Acetaminophen 650 mg 12/09/20 04:20 Acetaminophen 325 Mg Tablet PO Q6H PRN Pain, Mild (Pain Scale 1-3) Albuterol/Ipratropium 3 ml 12/09/20 08:00 12/09/20 07:53 Albuterol/Iprat 2.5/0.5mg 3 Ml Ampul.Neb INHALE 3 ml RQ4H WHILE AWAKE OMID Administration Albuterol/Ipratropium 3 ml 12/09/20 04:20 Albuterol/Iprat 2.5/0.5mg 3 Ml Ampul.Neb INHALE RQ4H PRN Shortness of Breath/Wheezing Azithromycin 500 mg 12/09/20 05:00 12/09/20 08:30 Azithromycin 500 Mg Tablet PO 500 mg Q24H OMID Administration Hydromorphone HCl 0.5 mg 12/09/20 04:20 12/09/20 10:12 Hydromorphone Hcl 0.5 Mg/0.5 Ml Syringe IVPUSH 0.5 mg Q4H PRN Administration Pain, Severe (Pain Scale 7-10) Dextrose/Sodium Chloride 1,000 mls @ 50 mls/hr 12/09/20 04:30 12/09/20 06:38 D51/2ns IVCONT 50 mls/hr .Q20H OMID Infusion Ceftriaxone Sodium 1 gm/ 100 mls @ 200 mls/hr 12/10/20 03:00 Sodium Chloride IV Q24H OMID Magnesium Hydroxide 30 ml 12/09/20 04:20 Milk Of Magnesia 30 Ml Oral.Susp PO DAILY PRN Constipation Melatonin 6 mg 12/09/20 04:20 Melatonin 3 Mg Tablet PO BEDTIME PRN Insomnia Methylprednisolone Sodium Succinate 40 mg 12/09/20 06:00 12/09/20 06:35 Methylprednisolone Sod Succ 40 Mg/Ml Vial IVPUSH 40 mg Q6H OMID Administration Sodium Chloride 3 ml 12/09/20 08:00 12/09/20 08:59 0.9 % Sodium Chloride Flush 3 Ml Syringe IVFLUSH Not Given QSHIFT OMID Physical Exam Vital Signs: Vital Signs: Last Vital Signs Temp 97.2 F 12/09/20 09:44 Pulse 94 12/09/20 09:44 Resp 18 12/09/20 09:44 BP 164/76 H 12/09/20 09:44 Pulse Ox 95 12/09/20 09:44 Body Mass Index 30.2 Const: Other: Appears weak of a thin build and uncomfortable, but she is alert and conversing in small sentences. Orientation/consciousness: oriented to place HENMT: Other: Head and scalp are normal, Devin pharyngeal cavity shows no acute infection Eyes: General: appearance normal, both eyes and all related structures Neck: Neck: Yes normal visual inspection, Yes no lymphadenopathy and Yes no JVD Chest: Chest palpation & inspection: normal inspection of the chest, normal palpation of entire chest wall and no tenderness Resp: Other: She does have breath sounds on both sides which are somewhat distant,. There are scattered expiratory wheezes throughout the chest, no crepitations. Cardio: Jugular venous distension: no JVD Heart sounds: no gallops and no murmurs GI: Palpation (GI): Soft to palpation, nontender and no masses : General: Yes no CVA tenderness Back/Spine/Pelvis: Back: no CVA tenderness Skin: General skin exam: no rashes or lesions noted Neuro: General: oriented to place and no focal motor deficits Extrem: Other: Painful left shoulder and left hip, No pitting edema. Results Laboratory Findings CBC and BMP: 12/09/20 05:13 12/09/20 05:13 ABG, PT/INR, D-dimer: PT/INR, D-dimer PT 10.6 SEC (9.9-13.0) 12/09/20 04:21 INR 0.9 (0.9-1.1) 12/09/20 04:21 Abnormal lab findings: Abnormal Labs 12/09/20 12/09/20 12/09/20 01:13 01:13 01:13 WBC 15.9 H RBC 3.69 L Hgb 11.4 L Hct 36.8 L MCV 99.7 H MCHC MPV 7.9 L Immature Gran % (Auto) 0.6 H Neut % (Auto) 87.0 H Lymph % (Auto) 5.5 L Lymph # (Auto) 0.9 L Abs Immat Gran (auto) 0.09 H Absolute Neuts (auto) 13.8 H VBG HCO3 Sodium 132 L Chloride 83 L Carbon Dioxide 46 H* Anion Gap 8 L Random Glucose 132 H Total Protein Urine Protein 2+ H Ur Leukocyte Esterase 2+ H Urine WBC 5-9 H 12/09/20 12/09/20 12/09/20 05:13 05:13 05:13 WBC 14.2 H RBC 3.52 L Hgb 10.8 L Hct 35.2 L MCV 100.0 H MCHC 30.7 L MPV 8.1 L Immature Gran % (Auto) Neut % (Auto) 87.3 H Lymph % (Auto) 5.7 L Lymph # (Auto) 0.8 L Abs Immat Gran (auto) 0.04 H Absolute Neuts (auto) 12.4 H VBG HCO3 57 H Sodium 133 L Chloride 84 L Carbon Dioxide 45 H* Anion Gap 9 L Random Glucose 129 H Total Protein 5.8 L Urine Protein Ur Leukocyte Esterase Urine WBC Procedures Date of Service Date of Service: 12/09/20
--- NOTE | 2020-12-09 11:23 | P.EN_ITS ---
Event Note Date of Service: 12/09/20 Event Note: Informed of patient with hypoxia, and VBG from 5 showing CO2 of 110 from earlier, nurse patient has been sating 93 on 3 liter when she came from ED and was alert and talking, she is becoming hypoxic and private duty lpn recommend transfer to ICU for BiPAP, accepted by ICU
--- NOTE | 2020-12-09 12:24 | PC.NURSE ---
1130 pt was diaphoretic. O2 in the 60s on 3L NC. Dr. Contreras notified. Respiratory notified. Patient placed on Venti mask at 10L 40%. Patient transferred down to ICU. Report given to RITESH Logan.
--- NOTE | 2020-12-09 13:16 | MHC.CM.PN ---
Pt transferred to ICU with decompensating respiratory status: presented with fx hip from fall and noted to have increasingly worse COPD related hypoxia: Information obtained from EMR and phone conversation with dtr Karey. Per Karey, pt resides with her dtr Martha and requires assistance for all ADL's, transportation and misc. care needs. Pt processes information very slowly and responds slowly per Karey but is A&O x3. She does not have additional services at home or use adaptive equipment. If pt is deemed a candidate for surgery (likely ORIF) she will need STR. Dtr is receptive but did not want to pursue placement referrals at this time as her condition is fragile and overall prognosis is unknown. CM will follow for finalization of d/c planning. Requested a copy of HCP: dtr will bring in. IMM left in pt's room.
[2020-12-09] MEDS: Dextrose 5 % and 0.9 % NaCl 1,000 ML 60 ML IVCONT (13:40)
[2020-12-09] MEDS: acetaZOLAMIDE sodium 500 MG VIAL IVPUSH ×2 (13:40→20:43)
--- NOTE | 2020-12-09 15:12 | P.PNCC_ITS ---
Subjective Subjective Date of Service: 12/09/20 Interval History: Mrs. Roa is transferred to the ICU this afternoon because of hypercarbic respiratory failure with CO2 narcosis. The patient is a 75-year-old female with a past medical history of COPD on home oxygen 2L NC x 24 hrs, and hypertension. She has five daughters and one son. She lives in a house with a daughter and the son. According to her daughter, she is a lifelong smoker since the age of 7, still smoking. She is very stubborn, refuses to stops smoking, and avoids doctors and hospitals, doesn?t tell her children what is going on with her medically. She stopped taking her blood pressure medicine sometime ago. The last time she saw a doctor was Dr. Robert, maybe 3 years ago. The last time she was in the hospital was maybe in the early s when she had a bout of breast cancer. She?s never been to [facility] before. Functionally, she has significant dyspnea on exertion and she?s very weak. She sits in a chair all day long. She goes from her bed to the chair. She has a chronic productive cough, most recently productive of yellow sputum. She sleeps a lot. She is able to toilet and dress by herself, slowly. Her daughters help her with bathing. She does no house work. Her daughters do all the housework and cooking. She is able to eat by herself. She hasn?t left the house in two years. She stopped driving two years ago because it made her too nervous. ROS: The daughter tells me that she suspects that her mother has had a urinary tract infection recently because of a last month or so, her urine has had a smell and been cloudy. HISTORY OF PRESENT ILLNESS: The patient was brought in by ambulance to the ED just past midnight this morning because of left hip and shoulder pain following a mechanical fall which happened last night. For some hours the patient had refused to go to the hospital. The patient denied loss of consciousness. Vital signs in the ED were generally unremarkable other than for high systolic blood pressure. Sats were reportedly 96-98% on room air, then mid-90?s on 3LNC. X-rays showed a left femoral neck fracture and a left humeral neck fracture. Labs in the ED were notable for a white count of 15, hemoglobin 11.4, sodium 132, BUN and creatinine 10/0.5, bicarb 46, glucose 132, normal troponin. Urinalysis showed 5-9 wbc's, 4+ urine bacteria, 2+ leukocyte esterase, and negative urine nitrite. Her left arm was put in a sling. She was admitted to Medicine. She was put on bronchodilators, steroids, and Zithromax. She was also written for ceftriaxone for presumed urinary tract infection. Her sats dropped into the 60s-80s on NC. A blood gas on ?40% venturi mask showed 7.32/110/59/+24. She was seen by Dr. Lopez who rec BiPAP. The patient was transferred to ICU. On arrival to the ICU, she is somnolent but easily arousable. Pupils are small, about 2mm. Temperature is 95.6 degrees. Heart rate 89, respiratory rate about 20, blood pressure 138/62. Sat was 90% on 10L/40% venturi mask. No JVD at 30?. Chest has diffuse coarse insp and exp crackles/rhonchi about 2/3 up. Normal exp phase. Hardly able to hear any heart tones. Abdomen is benign. At most trace edema, if any. LABORATORY DATA: As above, and below. ECHOCARDIOGRAM done by me at the bedside for hemodynamic monitoring: Image quality: Excellent. Findings: 1. Wall thickness probably normal. 2. LV cavity size is normal, with excellent LV fxn. EF at least 60%. No RWMA. 3. RV size normal. 4. Atria both normal size. 5. AoV not assessed. 6. MV morphologically normal. 7. TV morphologically normal. No Doppler done. 8. IVC small, about 1.2cm, with about 75% inspiratory collapse. Estimated CVP is about 3mm. IMPRESSION: 1. Tobacco abuse. 2. End stage COPD, oxygen dependent, with chronic CO2 retention and what sounds like chronic CO2 narcosis. Started her on Diamox. 3. Acute hypercarbic respiratory failure. Rx BDs, steroids, BiPAP. Check VBG and BNP in AM. 4. Acute COPD exacerbation, acute or [id number] bronchitis. Continue Zithromax. 5. Femoral neck fx. She needs day or two of medical mx of her COPD and resp failure before she goes to the OR. Hopefully she?ll have the procedure under spinal anesthesia. 6. Humeral neck fx. Nonoperative mx? 7. ? UTI. I agree with five days of ceftriaxone. 8. Heparin for DVT proph. I spoke to her son and one of the daughters for some time in the waiting room, about her life and medical hx, as noted above. I asked about end-of-life wishes. The son said that their mother had previously clearly expressed that she never wanted to be on machines. When I described CPR and life support to them, they were pretty sure that their mother would never want that. I showed them the [place] MOLST form, went over it with them, and gave it to them to take home and go over w the other daughters. I told them that whatever their decision is, they should have it on the MOLST form, make sure to have the form filled out before they leave the hospital, and keep it at home in case anything happens. I believe that the children will wish to establish DNR status, but until they do, she remains with full code status. When the patient?s pCO2 comes down, that should be discussed with her. Critical care time: 100 min. Critical Care Time (minutes): 100 Physical Exam Vital Signs: Vital Signs: Last Vital Signs Temp 98.4 F 12/09/20 15:00 Pulse 88 12/09/20 15:00 Resp 20 12/09/20 15:00 BP 108/49 L 12/09/20 15:00 Pulse Ox 90 L 12/09/20 15:00 Body Mass Index 30.2 Objective Data Labs CBC & Chem 7: 12/10/20 05:13 12/10/20 05:13 Labs: Laboratory Results - last 24 hr 12/09/20 12/09/20 12/09/20 01:13 01:13 01:13 WBC 15.9 H RBC 3.69 L Hgb 11.4 L Hct 36.8 L MCV 99.7 H MCH 30.9 MCHC 31.0 RDW 12.0 Plt Count 224 MPV 7.9 L Immature Gran % (Auto) 0.6 H Neut % (Auto) 87.0 H Lymph % (Auto) 5.5 L Sanders % (Auto) 6.5 Eos % (Auto) 0.1 Baso % (Auto) 0.3 Lymph # (Auto) 0.9 L Sanders # (Auto) 1.0 Eos # (Auto) 0.0 Baso # (Auto) 0.1 Abs Immat Gran (auto) 0.09 H Absolute Neuts (auto) 13.8 H Absolute Nucleated RBC 0.000 Nucleated RBC % (auto) 0.0 PT INR VBG pH VBG pCO2 VBG pO2 VBG HCO3 VBG O2 Saturation VBG Base Excess Sodium 132 L Potassium 4.6 Chloride 83 L Carbon Dioxide 46 H* Anion Gap 8 L BUN 10 Creatinine 0.55 Estim Creat Clear Calc 76.1 Estimated GFR > 60 Random Glucose 132 H Calcium 8.9 Total Bilirubin AST ALT Alkaline Phosphatase Troponin I High Sens 11.2 Total Protein Albumin Urine Color Urine Appearance Urine pH Ur Specific [place] Urine Protein Urine Glucose (UA) Urine Ketones Urine Blood Urine Nitrite Ur Leukocyte Esterase Urine RBC Urine WBC Ur Squamous Epith Cells Urine Bacteria COVID-19 ([place]) COVID-19 [employer] Com 12/09/20 12/09/20 12/09/20 01:13 04:21 04:54 WBC RBC Hgb Hct MCV MCH MCHC RDW Plt Count MPV Immature Gran % (Auto) Neut % (Auto) Lymph % (Auto) Sanders % (Auto) Eos % (Auto) Baso % (Auto) Lymph # (Auto) Sanders # (Auto) Eos # (Auto) Baso # (Auto) Abs Immat Gran (auto) Absolute Neuts (auto) Absolute Nucleated RBC Nucleated RBC % (auto) PT 10.6 INR 0.9 VBG pH VBG pCO2 VBG pO2 VBG HCO3 VBG O2 Saturation VBG Base Excess Sodium Potassium Chloride Carbon Dioxide Anion Gap BUN Creatinine Estim Creat Clear Calc Estimated GFR Random Glucose Calcium Total Bilirubin AST ALT Alkaline Phosphatase Troponin I High Sens Total Protein Albumin Urine Color YELLOW Urine Appearance CLOUDY Urine pH 7.0 Ur Specific [place] 1.020 Urine Protein 2+ H Urine Glucose (UA) NEG Urine Ketones 5 Urine Blood NEG Urine Nitrite NEG Ur Leukocyte Esterase 2+ H Urine RBC 0 Urine WBC 5-9 H Ur Squamous Epith Cells 1+ Urine Bacteria 4+ COVID-19 ([place]) Negative COVID-19 Clin Com See Note 12/09/20 12/09/20 12/09/20 05:13 05:13 05:13 WBC 14.2 H RBC 3.52 L Hgb 10.8 L Hct 35.2 L MCV 100.0 H MCH 30.7 MCHC 30.7 L RDW 12.1 Plt Count 221 MPV 8.1 L Immature Gran % (Auto) 0.3 Neut % (Auto) 87.3 H Lymph % (Auto) 5.7 L Sanders % (Auto) 6.3 Eos % (Auto) 0.1 Baso % (Auto) 0.3 Lymph # (Auto) 0.8 L Sanders # (Auto) 0.9 Eos # (Auto) 0.0 Baso # (Auto) 0.0 Abs Immat Gran (auto) 0.04 H Absolute Neuts (auto) 12.4 H Absolute Nucleated RBC 0.000 Nucleated RBC % (auto) 0.0 PT INR VBG pH VBG pCO2 VBG pO2 VBG HCO3 VBG O2 Saturation VBG Base Excess Sodium 133 L Potassium 4.6 Chloride 84 L Carbon Dioxide 45 H* Anion Gap 9 L BUN 11 Creatinine 0.54 Estim Creat Clear Calc 77.5 Estimated GFR > 60 Random Glucose 129 H Calcium 8.5 Total Bilirubin 0.4 AST 29 ALT 24 Alkaline Phosphatase 52 Troponin I High Sens 11.9 Total Protein 5.8 L Albumin 3.6 Urine Color Urine Appearance Urine pH Ur Specific [place] Urine Protein Urine Glucose (UA) Urine Ketones Urine Blood Urine Nitrite Ur Leukocyte Esterase Urine RBC Urine WBC Ur Squamous Epith Cells Urine Bacteria COVID-19 ([place]) COVID-[employer] Com 12/09/20 05:13 WBC RBC Hgb Hct MCV MCH MCHC RDW Plt Count MPV Immature Gran % (Auto) Neut % (Auto) Lymph % (Auto) Sanders % (Auto) Eos % (Auto) Baso % (Auto) Lymph # (Auto) Sanders # (Auto) Eos # (Auto) Baso # (Auto) Abs Immat Gran (auto) Absolute Neuts (auto) Absolute Nucleated RBC Nucleated RBC % (auto) PT INR VBG pH 7.32 VBG pCO2 110 VBG pO2 59 VBG HCO3 57 H VBG O2 Saturation 87.0 VBG Base Excess 24.2 Sodium Potassium Chloride Carbon Dioxide Anion Gap BUN Creatinine Estim Creat Clear Calc Estimated GFR Random Glucose Calcium Total Bilirubin AST ALT Alkaline Phosphatase Troponin I High Sens Total Protein Albumin Urine Color Urine Appearance Urine pH Ur Specific [place] Urine Protein Urine Glucose (UA) Urine Ketones Urine Blood Urine Nitrite Ur Leukocyte Esterase Urine RBC Urine WBC Ur Squamous Epith Cells Urine Bacteria COVID-19 ([place]) COVID-19 Clin Com Quality Stroke Does the patient have a stroke diagnosis?: No VTE Prior VTE?: No VTE Risk Level:: Medical - moderate - high VTE Device Contraindication: Patient Refused VTE Drug Contraindication: Patient Refused Critical Care Time Critical Care Time (minutes): 90
[2020-12-09] MEDS: 0.9 % Sodium Chloride Flush 3 ML SYRINGE IVFLUSH ×2 (16:08→23:32)
[2020-12-09] MEDS: Heparin Sodium,Porcine 5,000 UNIT/ML VIAL 5000 UNIT SUBCUT ×2 (16:10→23:29)
[2020-12-10] VITALS (35 sets, daily range): BP systolic 95–170; BP diastolic 49–83; PULSE 81–102; RESP 13–36; TEMP 36.3–37.1; O2SAT 85–97; BMI 27.1
[2020-12-10] MEDS: HYDROmorphone HCl 0.5 MG/0.5 ML SYRINGE IVPUSH ×5 (01:51→22:06)
[2020-12-10] MEDS: cefTRIAXone sodium 1 GM in 0.9 % Sodium Chloride 100 ML IV (02:03)
[2020-12-10] MEDS: acetaZOLAMIDE sodium 500 MG VIAL IVPUSH ×2 (05:12→13:24)
[2020-12-10] MEDS: methylPREDNISolone Sod Succ 40 MG/ML VIAL IVPUSH ×2 (05:14→16:02)
[2020-12-10 05:20] LABS: VBG Base Excess 11.1 mmol/L; VBG HCO3 38 mmol/L (22-26); VBG pCO2 64 mmHg; VBG pH 7.38 (7.32-7.43); VBG pO2 58 mmHg
[2020-12-10 05:21] LABS: Venous Blood Gas Refer to POC result
[2020-12-10] MEDS: Azithromycin 500 MG TABLET PO (05:23)
[2020-12-10 05:29] LABS: Hematocrit 31.7 % (37-47); Hemoglobin 9.8 g/dl (12.0-16.0); Mean Corpuscular HGB Conc 30.9 g/dl (31.0-35.0); Mean Corpuscular Hemoglobin 30.9 pg (27.0-33.0); Mean Platelet Volume 8.5 fL (9.4-12.3); Platelet Count 214 X10*3/uL (160-400); Red Blood Count 3.17 X10*6/uL (4.20-5.50); Red Cell Distribution Width 12.1 % (11.0-16.0); White Blood Count 7.3 X10*3/uL (4.8-10.8)
[2020-12-10] MEDS: Albuterol/Iprat 2.5/0.5MG 3 ML AMPUL.NEB INHALE ×5 (05:32→20:50)
[2020-12-10 05:51] LABS: B Type Natriuretic Peptide 84 pg/mL (<100)
[2020-12-10 05:53] LABS: Alanine Aminotransferase 23 U/L (0-31); Albumin Level 3.3 g/dL (3.5-5.0); Alkaline Phosphatase 42 U/L (39-117); Anion Gap 9 (12-20); Aspartate Amino Transferase 44 U/L (5-31); Bilirubin Total 0.2 mg/dL (0.0-1.0); Blood Urea Nitrogen 14 mg/dL (9-16); Calcium 7.9 mg/dL (8.4-10.2); Carbon Dioxide 38 mmol/L (22-29); Chloride 88 mmol/L (96-108); Estimated Glomerular Filt Rate > 60; Glucose Random 132 mg/dL (60-115); Phosphorus 3.7 mg/dL (2.7-4.5); Potassium 3.9 mmol/L (3.3-5.1); Sodium 131 mmol/L (135-145); Total Protein 5.4 g/dL (6.5-8.0)
[2020-12-10 06:05] LABS: Procalcitonin 0.06 ng/mL
--- NOTE | 2020-12-10 06:26 | PC.NURSE ---
Pt on bipap mask all night at settings of 15/6. O2 started at 60% and weaned to 40%. At 0600, pt awake and repositioned sitting up. C&DB exercised done. Pt coughing up clear sputum. Bipap removed and nasal cannula applied at 6L. Pt is awake and alert, confused. Am labs drawn. Pt took one pill without difficulty with a few sips of water. O2 sat currently 89%
[2020-12-10] MEDS: Heparin Sodium,Porcine 5,000 UNIT/ML VIAL 5000 UNIT SUBCUT ×3 (08:05→22:18)
[2020-12-10] MEDS: Dextrose 5 % and 0.9 % NaCl 1,000 ML 60 ML IVCONT (08:06)
--- NOTE | 2020-12-10 12:35 | PM.CCPN ---
Subjective Subjective Date of Service: 12/10/20 Interval History: Mrs. Roa is transferred to the ICU this afternoon because of hypercarbic respiratory failure with CO2 narcosis. The patient is a 75-year-old female with a past medical history of COPD on home oxygen 2L NC x 24 hrs, and hypertension. She has five daughters and one son, lives in her house with a daughter and the son. According to her daughter, she is a lifelong smoker since the age of 7, still smoking. She's very stubborn, refuses to stops smoking, and avoids doctors and hospitals, doesn?t tell her children what is going on with her medically. She stopped taking her blood pressure medicine sometime ago. The last time she saw a doctor was Dr. Robert, maybe 3 years ago. The last time she was in the hospital was maybe in the early s when she had a bout of breast cancer. She?s never been to [facility] before. Functionally, she has significant dyspnea on exertion and she?s very weak. She sleeps a lot. She gets SOB walking from bed to chair, and sits in the chair all day long. She has a chronic productive cough, most recently productive of yellow sputum. She is able to toilet and dress by herself, slowly. Her daughters help her with bathing. She does no house work, her daughters do all the housework and cooking. She is able to eat by herself. She hasn?t left the house in two years. She stopped driving two years ago because it made her too nervous. HISTORY OF PRESENT ILLNESS: The patient was brought in by ambulance to the ED early yesterday morning because of left hip and shoulder pain following a mechanical fall which happened the previous night. The patient denied loss of consciousness. For some hours after her fall the patient had refused to go to the hospital. ROS: The daughter told me that she suspected that her mother has had a urinary tract infection because over a last month or so, her urine has had a foul smell and been cloudy. Vital signs in the ED were generally unremarkable other than for high systolic blood pressure. Sats were reportedly 96-98% on room air, then mid-90?s on 3LNC. X-rays showed a left femoral neck fracture and a left humeral neck fracture. Labs in the ED were notable for a white count of 15, hemoglobin 11.4, sodium 132, BUN and creatinine 10/0.5, bicarb 46, glucose 132, normal troponin. Urinalysis showed 5-9 wbc's, 4+ urine bacteria, 2+ leukocyte esterase, and negative urine nitrite. Her left arm was put in a sling. She was admitted to Medicine. She was put on bronchodilators, steroids, and Zithromax. She was also written for ceftriaxone for presumed urinary tract infection. Her sats dropped into the 60s-80s on NC. A blood gas on 40% venturi mask showed 7.32/110/59/+24. She was seen by Dr. Lopez who rec BiPAP, so the patient was transferred to ICU. On arrival to the ICU, she was somnolent but easily arousable. Pupils were small, about 2mm. Respiratory rate about 20, sat was 90% on 10L/40% venturi mask. No JVD at 30?. Chest had diffuse coarse insp and exp crackles/rhonchi about 2/3 up. Normal exp phase. At most trace edema, if any. ECHOCARDIOGRAM done by me at the bedside showed: 1. Wall thickness probably normal. 2. LV cavity size is normal, with excellent LV fxn. EF at least 60%. No RWMA. 3. RV size normal. 4. Atria both normal size. 5. AoV not assessed. 6. MV morphologically normal. 7. TV morphologically normal. No Doppler done. 8. IVC small, about 1.2cm, with about 75% inspiratory collapse. Estimated CVP is about 3mm. The patient was put on BiPAP 12/6/50%, continued on BDs, steroids, Zithromax and ceftriaxone, and high dose Diamox was added. Peripheral venous blood gas this morning showed 7.38/64, with the base excess down to +11 on the Diamox. She was switched over to 6L nasal cannula, satting in the low 90s. At about noon, sats dropped into the 80s so we put her on high flow 60 L/55%. Respiratory rate is about 15 and sat is 90%. Follow-up peripheral venous blood gas at 1pm showed 7.33/63/+6. See vital signs below. She is afebrile. No jugular venous distention with the head of the bed at 30 degrees. Chest is now clear to auscultation, with a normal expiratory phase. Regular rate and rhythm with normal-sounding S1 and S2, with no murmur or gallops. The abdomen is benign. She has trace edema, if any. LABORATORY DATA. As below. Notably, white count is way down today. D-dimer 994. Potassium is 3.9. IMPRESSION: 1. Tobacco abuse. 2. End stage COPD, oxygen dependent, with severe dyspnea on exertion, chronic CO2 retention, and what sounds like chronic CO2 narcosis. Started her on Diamox. I?ll cut the Diamox dose now to 250 mg bid. 3. Acute COPD exacerbation, w acute hypercarbic respiratory failure. Rx BDs & steroids, w NIV prn. 4. Acute or [id number] bronchitis. Continue Zithromax. 5. Femoral neck fx. She needs another day or two of medical mx of her COPD and resp failure before she goes to the OR. Hopefully she?ll have the procedure under spinal anesthesia. Consult orthopedics Friday morning. (I have not put the consult in yet.) 6. Humeral neck fx. Nonoperative mx? 7. UTI. Written for five days of ceftriaxone. 8. Replete potassium. I have spoken with the son and daughter Martha about end-of-life issues. See my note from yesterday. Last night they filled out a MOL[facility] form, choosing DNR/DNI status, which I agree with in Alexandra's situation. I have written DNR/DNI code status orders. Time: . Critical Care Time (minutes): 0 Physical Exam Vital Signs: Vital Signs: Last Vital Signs Temp 97.5 F 12/10/20 12:00 Pulse 93 12/10/20 12:27 Resp 17 12/10/20 12:00 BP 143/59 H 12/10/20 12:00 Pulse Ox 85 L 12/10/20 12:00 Body Mass Index 27.1 Objective Data Labs CBC & Chem 7: 12/10/20 05:13 12/10/20 05:13 Labs: Laboratory Results - last 24 hr 12/10/20 12/10/20 12/10/20 05:12 05:13 05:13 WBC 7.3 RBC 3.17 L Hgb 9.8 L Hct 31.7 L MCV 100.0 H MCH 30.9 MCHC 30.9 L RDW 12.1 Plt Count 214 MPV 8.5 L Absolute Nucleated RBC 0.000 Nucleated RBC % (auto) 0.0 VBG pH 7.38 VBG pCO2 64 VBG pO2 58 VBG HCO3 38 H VBG O2 Saturation 88.0 VBG Base Excess 11.1 Sodium Potassium Chloride Carbon Dioxide Anion Gap BUN Creatinine Estim Creat Clear Calc Estimated GFR Random Glucose Calcium Phosphorus Magnesium Total Bilirubin AST ALT Alkaline Phosphatase B-Natriuretic Peptide 84 Total Protein Albumin Procalcitonin 12/10/20 12/10/20 05:13 05:13 WBC RBC Hgb Hct MCV MCH MCHC RDW Plt Count MPV Absolute Nucleated RBC Nucleated RBC % (auto) VBG pH VBG pCO2 VBG pO2 VBG HCO3 VBG O2 Saturation VBG Base Excess Sodium 131 L Potassium 3.9 Chloride 88 L Carbon Dioxide 38 H Anion Gap 9 L BUN 14 Creatinine 0.55 Estim Creat Clear Calc 72.0 Estimated GFR > 60 Random Glucose 132 H Calcium 7.9 L D Phosphorus 3.7 Magnesium 2.0 Total Bilirubin 0.2 AST 44 H D ALT 23 Alkaline Phosphatase 42 B-Natriuretic Peptide Total Protein 5.4 L Albumin 3.3 L Procalcitonin 0.06 Microbiology Microbiology Results: Microbiology 12/09/20 Unknown Urine clean catch - Clean Catch Midstream Urine Culture - Final Streptococcus viridans group Quality Stroke Does the patient have a stroke diagnosis?: No VTE Prior VTE?: No VTE Risk Level:: Medical - moderate - high VTE Device Contraindication: Patient Refused VTE Drug Contraindication: Patient Refused
[2020-12-10 13:11] LABS: VBG Base Excess 6.5 mmol/L; VBG HCO3 34 mmol/L (22-26); VBG pCO2 63 mmHg; VBG pH 7.33 (7.32-7.43); VBG pO2 61 mmHg
[2020-12-10 13:13] LABS: Venous Blood Gas Refer to POC result
[2020-12-10] MEDS: Potassium Chloride/H20 10 MEQ/100 ML PIGGYBACK 100 MEQ IV ×3 (13:24→15:12)
[2020-12-10 13:36] LABS: D Dimer 994 NG/ML
[2020-12-10] MEDS: 0.9 % Sodium Chloride Flush 3 ML SYRINGE IVFLUSH (16:01)
[2020-12-10] MEDS: acetaZOLAMIDE sodium 500 MG VIAL 250 MG IVPUSH (22:05)
[2020-12-11] VITALS (32 sets, daily range): BP systolic 125–193; BP diastolic 52–100; PULSE 83–94; RESP 13–22; TEMP 36.1–36.9; O2SAT 88–94; BMI 27.1
[2020-12-11] MEDS: cefTRIAXone sodium 1 GM in 0.9 % Sodium Chloride 100 ML IV (02:09)
[2020-12-11] MEDS: HYDROmorphone HCl 0.5 MG/0.5 ML SYRINGE IVPUSH ×5 (02:12→23:59)
[2020-12-11] MEDS: Dextrose 5 % and 0.9 % NaCl 1,000 ML 60 ML IVCONT ×3 (03:55→22:24)
--- NOTE | 2020-12-11 04:54 | PC.NURSE ---
Afebrile. NSR on tele, HR 80-90s. SBP 130-170s, MAP > 65. Pt alert to person, otherwise disoriented. Breathing easy, but orthopneic, with non-productive cough. HFNC titrated to 60L/45% to maintain SpO2 goal 88-93%. LS diminished, occasional wheezing/rhonchi. Tolerating small sips of water. Lopez in place, yellow/cloudy, UOP approx 30 mL/hr. Sling to L shoulder, repositioned as tolerated r/t hip fx- neurovascularly intact. Medicated per emar for pain. No skin integrity issues, buttocks red but blanchable.
[2020-12-11] MEDS: methylPREDNISolone Sod Succ 40 MG/ML VIAL IVPUSH ×2 (05:11→16:46)
[2020-12-11 05:18] LABS: VBG Base Excess 4.4 mmol/L; VBG HCO3 30 mmol/L (22-26); VBG pCO2 53 mmHg; VBG pH 7.36 (7.32-7.43); VBG pO2 61 mmHg
[2020-12-11 05:23] LABS: Venous Blood Gas Refer to POC result
[2020-12-11 05:35] LABS: Hemoglobin 10.1 g/dl (12.0-16.0); Mean Corpuscular HGB Conc 31.6 g/dl (31.0-35.0); Mean Corpuscular Hemoglobin 30.9 pg (27.0-33.0); Mean Corpuscular Volume 97.9 fL (80-98); Mean Platelet Volume 8.6 fL (9.4-12.3); Platelet Count 243 X10*3/uL (160-400); Red Blood Count 3.27 X10*6/uL (4.20-5.50); Red Cell Distribution Width 12.2 % (11.0-16.0); White Blood Count 9.8 X10*3/uL (4.8-10.8)
[2020-12-11 06:03] LABS: Anion Gap 8 (12-20); Blood Urea Nitrogen 18 mg/dL (9-16); Calcium 7.9 mg/dL (8.4-10.2); Carbon Dioxide 34 mmol/L (22-29); Chloride 96 mmol/L (96-108); Creatinine Clr Calc Pharmacy 74.8; Estimated Glomerular Filt Rate > 60; Glucose Random 107 mg/dL (60-115); Magnesium 2.1 mg/dL (1.6-2.6); Phosphorus 2.7 mg/dL (2.7-4.5); Potassium 4.2 mmol/L (3.3-5.1); Sodium 134 mmol/L (135-145)
[2020-12-11] MEDS: 0.9 % Sodium Chloride Flush 3 ML SYRINGE IVFLUSH ×2 (07:46→16:45)
[2020-12-11] MEDS: Heparin Sodium,Porcine 5,000 UNIT/ML VIAL 5000 UNIT SUBCUT ×2 (09:10→16:45)
[2020-12-11] MEDS: Albuterol/Iprat 2.5/0.5MG 3 ML AMPUL.NEB INHALE ×4 (09:12→20:26)
--- NOTE | 2020-12-11 12:21 | PM.CNOR ---
Assessment and Plan (1) Femoral neck fracture: Status: Acute I discussed the case with the ICU physician. The patient is maxed out on non-rebreather. If she were to be brought to the operating room she would have to be intubated and then brought right back to ICU while still intubated. They would wean her off while in ICU. If we do not operate then she would be bed-bound for at least 6 weeks which would cause more harm to her heart and lungs. I discussed the case with Dr. Medina. A discussion was had with some of the family today and they are waiting to speak with the rest of the family later today. They will decide whether or not they want their mom to proceed with surgical intervention or treat this non operatively. The patient was switched to a DNR/DNI. The ICU physician will contact the orthopedic team once the family has made a decision. (2) Fracture of neck of humerus: Status: Acute Proximal humerus fracture will be treated non operatively with the sling and range of motion of the elbow and wrist. History of Present Illness HPI Consult date: 12/11/20 Chief complaint: COPD/Hip Fx Narrative: 75-year-old female past medical history of hypertension, COPD-on home oxygen of 2 L continuously, depression presented to the hospital with a chief complaint of fall. She lives at home, has not been out of her house in 2 years. She fell on to her left side. Unable to get up and ambulate. Subsequently brought to the ER further evaluation. Xrays obtained and showed left impacted femoral neck fracture. She was admitted to the medical service and orthopedics was consulted. While in the hospital patient became Hypoxic and transferred to the ICU for acute on chronic COPD exacerbation. Patient was made DNR/DNI. Review of Systems Review of Systems: Yes all other systems are reviewed and are negative [facility] Past Medical History Medical History COPD (chronic obstructive pulmonary disease) COPD exacerbation Hypertension Respiratory failure, acute and chronic Social History Social History Household Members: Children Housing: House Do you presently have visiting nurse or other home services: No Patient Tobacco Use Status: Current everyday Tobacco user Tobacco use type: Cigarette Cigarette Packs Per Day: 1 Cigarettes Per Day: 20.0 Smoked in Last 30 Days: Yes e-Cigarette/Vaping Use: Never Used Patient Interested in Nicotine Replacement: No Patient Given Instructions on How to Stop Smoking: Yes Date Education Initiated: 12/09/20 Use of substances other than those prescribed or required for medical reasons: No Currently Displaying Signs/Symptoms of Drug Intoxication Withdrawal: No Have you been hit, kicked, punched, or otherwise hurt by someone within the past year? If so, by whom?: No Do you feel safe in your current relationship?: Yes Is there a partner from a previous relationship who is making you feel unsafe now?: No Are you made to feel afraid or neglected: No Advance Directives: No Advance Directives Information Provided: No Do you have thoughts of harming others: None Do you have a plan to hurt others: No Plan Recently lost weight without trying: No Eating poorly because of decreased appetite: No Nutrition Risks: No Nutritional Risk Patient : No : No Poor oral hygiene: No service: No Current occupational status: [employer] Allergies Allergy/AdvReac Type Severity Reaction Status Date / Time No Known Allergies Allergy Verified 12/09/20 00:58 Active Medications: Current Medications Generic Name Dose Route Start Last Admin Trade Name Freq PRN Reason Stop Dose Admin Acetaminophen 650 mg 12/09/20 04:20 Acetaminophen 325 Mg Tablet PO Q6H PRN Pain, Mild (Pain Scale 1-3) Albuterol/Ipratropium 3 ml 12/09/20 08:00 12/11/20 11:43 Albuterol/Iprat 2.5/0.5mg 3 Ml Ampul.Neb INHALE 3 ml RQ4H WHILE AWAKE OMID Administration Albuterol/Ipratropium 3 ml 12/09/20 04:20 12/10/20 05:32 Albuterol/Iprat 2.5/0.5mg 3 Ml Ampul.Neb INHALE 3 ml RQ4H PRN Administration Shortness of Breath/Wheezing Azithromycin 500 mg 12/09/20 05:00 12/10/20 21:32 Azithromycin 500 Mg Tablet PO Not Given Q24H OMID Heparin Sodium (Porcine) 5,000 unit 12/09/20 16:00 12/11/20 09:10 Heparin Sodium,Porcine 5,000 Unit/Ml Vial SUBCUT 5,000 unit Q8H OMID Administration Hydromorphone HCl 0.5 mg 12/09/20 04:20 12/11/20 09:10 Hydromorphone Hcl 0.5 Mg/0.5 Ml Syringe IVPUSH 0.5 mg Q4H PRN Administration Pain, Severe (Pain Scale 7-10) Ceftriaxone Sodium 1 gm/ 100 mls @ 200 mls/hr 12/10/20 03:00 12/11/20 02:23 Sodium Chloride IV Infused Q24H OMID Infusion Dextrose/Sodium Chloride 1,000 mls @ 60 mls/hr 12/09/20 13:00 12/11/20 03:55 D5ns IVCONT 60 mls/hr .[id number] OMID Administration Magnesium Hydroxide 30 ml 12/09/20 04:20 Milk Of Magnesia 30 Ml Oral.Susp PO DAILY PRN Constipation Methylprednisolone Sodium Succinate 40 mg 12/10/20 17:00 12/11/20 05:11 Methylprednisolone Sod Succ 40 Mg/Ml Vial IVPUSH 40 mg Q12H OMID Administration Sodium Chloride 3 ml 12/09/20 08:00 12/11/20 07:46 0.9 % Sodium Chloride Flush 3 Ml Syringe IVFLUSH 3 ml QSHIFT OMID Administration Physical Exam Vital Signs: Vital Signs: Last Vital Signs Temp 96.9 F 12/11/20 08:00 Pulse 87 12/11/20 12:00 Resp 17 12/11/20 12:00 BP 145/66 H 12/11/20 12:00 Pulse Ox 88 L 12/11/20 12:00 Body Mass Index 27.1 Const: General: cooperative and no acute distress Orientation/consciousness: patient oriented x3 Resp: Effort & Inspection: normal respiratory effort and able to speak in complete sentences Cardio: Peripheral pulses: Peripheral pulses 2+ throughout Neuro: General: patient oriented x3 Extrem: Other: Left hip skin intact. No tenderness to palpation over lateral aspect the hip. Minimal discomfort with log roll. Peripheral pulses intact. Left shoulder in a sling. Skin intact. She has mild tenderness to palpation over the proximal humerus. Anterior deltoid sensation intact. Wrist range of motion and hand finger range of motion intact. Neurovascularly intact. Results Labs Result Diagrams: 12/11/20 05:12 12/11/20 05:12 Labs: Abnormal lab results 12/10/20 12/11/20 12/11/20 Range/Units 13:03 05:10 05:12 RBC 3.27 L (4.20-5.50) X10*6/uL Hgb 10.1 L (12.0-16.0) g/dl Hct 32.0 L (37-47) % MPV 8.6 L (9.4-12.3) fL VBG HCO3 34 H 30 H (22-26) mmol/L Sodium (135-145) mmol/L Carbon Dioxide (22-29) mmol/L Anion Gap (12-20) BUN (9-16) mg/dL Calcium (8.4-10.2) mg/dL 12/11/20 Range/Units 05:12 RBC (4.20-5.50) X10*6/uL Hgb (12.0-16.0) g/dl Hct (37-47) % MPV (9.4-12.3) fL VBG HCO3 (22-26) mmol/L Sodium 134 L (135-145) mmol/L Carbon Dioxide 34 H (22-29) mmol/L Anion Gap 8 L (12-20) BUN 18 H (9-16) mg/dL Calcium 7.9 L (8.4-10.2) mg/dL H & H 12/09/20 12/09/20 12/10/20 Range/Units 01:13 05:13 05:13 Hgb 11.4 L 10.8 L 9.8 L (12.0-16.0) g/dl Hct 36.8 L 35.2 L 31.7 L (37-47) % 12/11/20 Range/Units 05:12 Hgb 10.1 L (12.0-16.0) g/dl Hct 32.0 L (37-47) % Coagulation 12/09/20 Range/Units 04:21 INR 0.9 (0.9-1.1) All other labs normal. Procedures Date of Service Date of Service: 12/11/20
--- NOTE | 2020-12-11 16:58 | PM.CCPN ---
Subjective Subjective Date of Service: 12/11/20 Interval History: 75-year-old female who had a syncopal event resulting in left hip and left [place] role head fractures probably on the basis of acute on chronic hypercarbic respiratory failure with secondary in no acute hypoxemia as well and she is known to be in oxygen-dependent COPD from chronic cigarette smoking and at this point is compensating on nasal high-flow at maximum 60 liter/minute flow with pCO2 of 53 compensated pH and were just got consent from family to proceed with an and an open reduction and internal fixation of her left hip obviously high risk also high risk because her rehab after the operation will be difficulty and hampered by the [place] oral fracture and as explained to the family she might very well also be a prolonged intubation and a difficult wean but it represents to better of the 2 options Critical Care Time (minutes): 60 Physical Exam Vital Signs: Vital Signs: Last Vital Signs Temp 98.4 F 12/11/20 15:56 Pulse 89 12/11/20 16:11 Resp 19 12/11/20 16:11 BP 169/77 H 12/11/20 15:56 Pulse Ox 93 12/11/20 15:56 Body Mass Index 27.1 Const: Other: Awake appropriate nonfocal neurologically Good bilateral carotid upstrokes and no neck vein distension and no gallops Chest with diminished breath sounds but no adventitious sounds Abdomen benign normal bowel sounds soft with no organomegaly No edema and skin color is normal with no acrocyanosis Objective Data Labs CBC & Chem 7: 12/11/20 05:12 12/11/20 05:12 Labs: Laboratory Results - last 24 hr 12/11/20 12/11/20 12/11/20 05:10 05:12 05:12 WBC 9.8 RBC 3.27 L Hgb 10.1 L Hct 32.0 L MCV 97.9 MCH 30.9 MCHC 31.6 RDW 12.2 Plt Count 243 MPV 8.6 L Absolute Nucleated RBC 0.000 Nucleated RBC % (auto) 0.0 VBG pH 7.36 VBG pCO2 53 VBG pO2 61 VBG HCO3 30 H VBG O2 Saturation 88.0 VBG Base Excess 4.4 Sodium 134 L Potassium 4.2 Chloride 96 Carbon Dioxide 34 H Anion Gap 8 L BUN 18 H Creatinine 0.53 Estim Creat Clear Calc 74.8 Estimated GFR > 60 Random Glucose 107 Calcium 7.9 L Phosphorus 2.7 Magnesium 2.1 Microbiology Microbiology Results: Microbiology 12/09/20 Unknown Urine clean catch - Clean Catch Midstream Urine Culture - Final Streptococcus viridans group Quality Stroke Does the patient have a stroke diagnosis?: No VTE Prior VTE?: No VTE Risk Level:: Medical - moderate - high VTE Device Contraindication: Patient Refused VTE Drug Contraindication: Patient Refused Progress Note: A&P Assessment and plan (1) Respiratory failure, acute and chronic: Status: Acute (2) COPD exacerbation: Status: Acute (3) Acute UTI: Status: Acute (4) Femoral neck fracture: Status: Acute (5) Fracture of neck of humerus: Status: Acute (6) Syncope and collapse: Status: Acute Assessment and Plan: Very likely syncopal episode from acute hypercarbic and hypoxic respiratory failure and compensated on nasal high-flow at at at maximum and probably will go to the OR in the morning at which time she will be intubated and probably return here for a weaning process from the ventilator We will make her NPO and withhold any further DVT prophylaxis
[2020-12-11] MEDS: Azithromycin 500 MG TABLET PO (23:45)
[2020-12-12] VITALS (31 sets, daily range): BP systolic 134–204; BP diastolic 58–91; PULSE 80–106; RESP 14–25; TEMP 36.3–36.9; O2SAT 87–95; BMI 29.2
--- NOTE | 2020-12-12 00:29 | PC.NURSE ---
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.CURRENTLY RESTFUL/NAPPING
[2020-12-12] MEDS: cefTRIAXone sodium 1 GM in 0.9 % Sodium Chloride 100 ML IV (02:06)
[2020-12-12] MEDS: methylPREDNISolone Sod Succ 40 MG/ML VIAL IVPUSH ×2 (04:13→16:23)
[2020-12-12 05:09] LABS: VBG HCO3 25 mmol/L (22-26); VBG pCO2 40 mmHg; VBG pO2 63 mmHg
[2020-12-12 05:09] LABS: MANUAL DIFF FLAG NO
[2020-12-12] MEDS: HYDROmorphone HCl 0.5 MG/0.5 ML SYRINGE IVPUSH (05:10)
[2020-12-12 05:13] LABS: Venous Blood Gas Refer to POC result
[2020-12-12 05:19] LABS: Basophils Percent Auto 0.1 % (0-2); Hematocrit 34.1 % (37-47); Hemoglobin 10.7 g/dl (12.0-16.0); Imm Gran Abs Auto 0.03 X10*3/uL (0.00-0.03); Imm Gran Pct Auto 0.4 % (0.0-0.4); Lymphocytes Absolute Auto 0.8 X10*3/uL (1.2-4.9); Lymphocytes Percent Auto 9.8 % (20-40); Mean Corpuscular HGB Conc 31.4 g/dl (31.0-35.0); Mean Corpuscular Hemoglobin 30.7 pg (27.0-33.0); Mean Corpuscular Volume 97.7 fL (80-98); Mean Platelet Volume 8.7 fL (9.4-12.3); Monocytes Absolute Auto 0.7 X10*3/uL (0.1-1.2); Neutrophils Absolute Auto 6.5 X10*3/uL (2.0-8.3); Neutrophils Percent Auto 80.7 % (45-73); Platelet Count 251 X10*3/uL (160-400); Red Blood Count 3.49 X10*6/uL (4.20-5.50); Red Cell Distribution Width 12.4 % (11.0-16.0); White Blood Count 8.1 X10*3/uL (4.8-10.8)
[2020-12-12 05:24] LABS: INTERNATIONAL NORM RATIO 0.9 (0.9-1.1); Prothrombin Time 10.7 SEC (9.9-13.0)
[2020-12-12 05:27] LABS: D Dimer 638 NG/ML; Partial Thromboplastin Time 27.5 SEC (24.1-38.0)
[2020-12-12 05:45] LABS: Anion Gap 6 (12-20); Blood Urea Nitrogen 17 mg/dL (9-16); Calcium 7.8 mg/dL (8.4-10.2); Carbon Dioxide 34 mmol/L (22-29); Chloride 100 mmol/L (96-108); Creatinine Clr Calc Pharmacy 85.6; Estimated Glomerular Filt Rate > 60; Glucose Random 124 mg/dL (60-115); Phosphorus 2.5 mg/dL (2.7-4.5); Sodium 136 mmol/L (135-145)
[2020-12-12] MEDS: hydrALAZINE HCl 20 MG/ML VIAL 10 MG IVPUSH (08:06)
[2020-12-12] MEDS: Albuterol/Iprat 2.5/0.5MG 3 ML AMPUL.NEB INHALE ×4 (08:16→20:17)
[2020-12-12] MEDS: niCARdipine HCL 25 MG in 0.9 % Sodium Chloride 250 ML 52 MG IVCONT (09:31)
[2020-12-12] MEDS: LORazepam 2 MG/ML VIAL 0.5 MG IVPUSH (10:00)
--- NOTE | 2020-12-12 11:20 | PC.NURSE ---
Addendum entered by Ellen Almaraz RN 12/12/20 17:28: Returned from OR at 12:55. Patient continues to be drowsy, responding to deep stimulation briefly. VBG done post-op show pCO2 to be 32. Remains on 50% VM maintaining SpO2 90%. Left hip surgical site with 2x2 dressing C/D/I. Heel boots in place as well as SCDs. IVfluids changed to D5 1/2NS with 20mEq KCl, ordered to infuse at 42mL/hr. Other scheduled meds as ordered. Family in to visit since return from OR. Updated with all questions answered. Original Note: Patient in ICU for monitoring of respiratory status, on NC Highflow O2. NPO since 00:00 today in prep for surgical repair (L) hip fracture. Chlorhexidine bath given as well as Oral care this AM. Upper dentures removed, place in soaking cup. Thumb rings (5) removed, placed in bedside table for return. d/t desaturation with bathing this AM, SpO2 down to 81 on 60L/45%, RT called O2 was titrated up to 60L/85% BP with systolic max 193. PRN hydralazine given IVP as ordered. Nicardipine drip hung at 0930. BPs trended down nicely to 140s systolic, but dipped to 125 after 0.5mg IVP Ativan was given per order for anxiety/mild agitation. Nicardipine drip turned off per MD once SBP reached 125; since that time SNP has remained 140s. Per anesthesia, weaned from Highflow to 100%NRB. SpO2 remained stable and climbed to 96% 11:10 patient was changed to 55% VM at 14L flow. SpO2 returned to patient's baseline goal of 88-92% Patient is sleeping at this time. Awaiting call from OR
--- NOTE | 2020-12-12 12:01 | HO.ANESPROP2 ---
[facility] Active Problems Active Problems: All Active Problems (Updated 12/11/20 @ 17:02 by Sandra Louis MD) Syncope and collapse (Acute) Respiratory failure, acute and chronic (Acute) COPD exacerbation (Acute) Acute UTI (Acute) Femoral neck fracture (Acute) Fracture of neck of humerus (Acute) Past Medical History Medical History COPD (chronic obstructive pulmonary disease) COPD exacerbation Hypertension Respiratory failure, acute and chronic Social History Social History Household Members: Children Housing: House Do you presently have visiting nurse or other home services: No Patient Tobacco Use Status: Current everyday Tobacco user Tobacco use type: Cigarette Cigarette Packs Per Day: 1 Cigarettes Per Day: 20.0 Smoked in Last 30 Days: Yes e-Cigarette/Vaping Use: Never Used Patient Interested in Nicotine Replacement: No Patient Given Instructions on How to Stop Smoking: Yes Date Education Initiated: 12/09/20 Use of substances other than those prescribed or required for medical reasons: No Currently Displaying Signs/Symptoms of Drug Intoxication Withdrawal: No Have you been hit, kicked, punched, or otherwise hurt by someone within the past year? If so, by whom?: No Do you feel safe in your current relationship?: Yes Is there a partner from a previous relationship who is making you feel unsafe now?: No Are you made to feel afraid or neglected: No Advance Directives: No Advance Directives Information Provided: No Do you have thoughts of harming others: None Do you have a plan to hurt others: No Plan Recently lost weight without trying: No Eating poorly because of decreased appetite: No Nutrition Risks: No Nutritional Risk Patient : No : No Poor oral hygiene: No service: No Current occupational status: retired [employer] Allergies Allergy/AdvReac Type Severity Reaction Status Date / Time No Known Allergies Allergy Verified 12/09/20 00:58 Active Medications: Current Medications Generic Name Dose Route Start Last Admin Trade Name Freq PRN Reason Stop Dose Admin Acetaminophen 650 mg 12/09/20 04:20 Acetaminophen 325 Mg Tablet PO Q6H PRN Pain, Mild (Pain Scale 1-3) Albuterol/Ipratropium 3 ml 12/09/20 08:00 12/12/20 08:16 Albuterol/Iprat 2.5/0.5mg 3 Ml Ampul.Neb INHALE 3 ml RQ4H WHILE AWAKE OMID Administration Albuterol/Ipratropium 3 ml 12/09/20 04:20 12/10/20 05:32 Albuterol/Iprat 2.5/0.5mg 3 Ml Ampul.Neb INHALE 3 ml RQ4H PRN Administration Shortness of Breath/Wheezing Azithromycin 500 mg 12/09/20 05:00 12/11/20 23:45 Azithromycin 500 Mg Tablet PO 500 mg Q24H OMID Administration Heparin Sodium (Porcine) 5,000 unit 12/09/20 16:00 12/11/20 16:45 Heparin Sodium,Porcine 5,000 Unit/Ml Vial SUBCUT 5,000 unit Q8H OMID Administration Hydromorphone HCl 0.5 mg 12/09/20 04:20 12/12/20 05:10 Hydromorphone Hcl 0.5 Mg/0.5 Ml Syringe IVPUSH 0.5 mg Q4H PRN Administration Pain, Severe (Pain Scale 7-10) Ceftriaxone Sodium 1 gm/ 100 mls @ 200 mls/hr 12/10/20 03:00 12/12/20 02:48 Sodium Chloride IV Infused Q24H OMID Infusion Dextrose/Sodium Chloride 1,000 mls @ 60 mls/hr 12/09/20 13:00 12/12/20 11:39 D5ns IVCONT 0 mls/hr .[id number] OMID Infusion Nicardipine HCl 25 mg/ Sodium 260 mls @ 0 mls/hr 12/12/20 09:15 12/12/20 10:15 Chloride IVCONT 0 mg/hr .Q0M OMID 0 mls/hr Titration Protocol Per Protocol Magnesium Hydroxide 30 ml 12/09/20 04:20 Milk Of Magnesia 30 Ml Oral.Susp PO DAILY PRN Constipation Methylprednisolone Sodium Succinate 40 mg 12/10/20 17:00 12/12/20 04:13 Methylprednisolone Sod Succ 40 Mg/Ml Vial IVPUSH 40 mg Q12H OMID Administration Sodium Chloride 3 ml 12/09/20 08:00 12/12/20 07:24 0.9 % Sodium Chloride Flush 3 Ml Syringe IVFLUSH Not Given QSHIFT [facility] Exam Exam Date and Time: December 12, 2020 1201 Height,Weight and Vital Signs: Height 5 ft Weight 67.8 kg Last Vital Signs Temp 98.3 F 12/12/20 08:00 Pulse 88 12/12/20 11:00 Resp 20 12/12/20 11:00 BP 141/63 H 12/12/20 11:00 Pulse Ox 95 12/12/20 11:00 Pertinent Lab Results Pertinent Lab Results: Laboratory Tests 12/09/20 12/09/20 12/09/20 01:13 01:13 01:13 WBC 15.9 H RBC 3.69 L Hgb 11.4 L Hct 36.8 L MCV 99.7 H MCH 30.9 MCHC 31.0 RDW 12.0 Plt Count 224 MPV 7.9 L Immature Gran % (Auto) 0.6 H Neut % (Auto) 87.0 H Lymph % (Auto) 5.5 L [place] % (Auto) 6.5 Eos % (Auto) 0.1 Baso % (Auto) 0.3 Lymph # (Auto) 0.9 L [place] # (Auto) 1.0 Eos # (Auto) 0.0 Baso # (Auto) 0.1 Abs Immat Gran (auto) 0.09 H Absolute Neuts (auto) 13.8 H Absolute Nucleated RBC 0.000 Nucleated RBC % (auto) 0.0 PT INR APTT D-Dimer VBG pH VBG pCO2 VBG pO2 VBG HCO3 VBG O2 Saturation VBG Base Excess Sodium 132 L Potassium 4.6 Chloride 83 L Carbon Dioxide 46 H* Anion Gap 8 L BUN 10 Creatinine 0.55 Estim Creat Clear Calc 76.1 Estimated GFR > 60 Random Glucose 132 H Calcium 8.9 Phosphorus Magnesium Total Bilirubin AST ALT Alkaline Phosphatase Troponin I High Sens 11.2 B-Natriuretic Peptide Total Protein Albumin Procalcitonin Urine Color Urine Appearance Urine pH Ur Specific [place] Urine Protein Urine Glucose (UA) Urine Ketones Urine Blood Urine Nitrite Ur Leukocyte Esterase Urine RBC Urine WBC Ur Squamous Epith Cells Urine Bacteria COVID-19 ([place]) COVID-19 Clin Com Blood Type Antibody Screen 12/09/20 12/09/20 12/09/20 01:13 04:21 04:54 WBC RBC Hgb Hct MCV MCH MCHC RDW Plt Count MPV Immature Gran % (Auto) Neut % (Auto) Lymph % (Auto) [place] % (Auto) Eos % (Auto) Baso % (Auto) Lymph # (Auto) [place] # (Auto) Eos # (Auto) Baso # (Auto) Abs Immat Gran (auto) Absolute Neuts (auto) Absolute Nucleated RBC Nucleated RBC % (auto) PT 10.6 INR 0.9 APTT D-Dimer VBG pH VBG pCO2 VBG pO2 VBG HCO3 VBG O2 Saturation VBG Base Excess Sodium Potassium Chloride Carbon Dioxide Anion Gap BUN Creatinine Estim Creat Clear Calc Estimated GFR Random Glucose Calcium Phosphorus Magnesium Total Bilirubin AST ALT Alkaline Phosphatase Troponin I High Sens B-Natriuretic Peptide Total Protein Albumin Procalcitonin Urine Color YELLOW Urine Appearance CLOUDY Urine pH 7.0 Ur Specific [place] 1.020 Urine Protein 2+ H Urine Glucose (UA) NEG Urine Ketones 5 Urine Blood NEG Urine Nitrite NEG Ur Leukocyte Esterase 2+ H Urine RBC 0 Urine WBC 5-9 H Ur Squamous Epith Cells 1+ Urine Bacteria 4+ COVID-19 ([place]) Negative COVID-19 Clin Com See Note Blood Type Antibody Screen 12/09/20 12/09/20 12/09/20 05:13 05:13 05:13 WBC 14.2 H RBC 3.52 L Hgb 10.8 L Hct 35.2 L MCV 100.0 H MCH 30.7 MCHC 30.7 L RDW 12.1 Plt Count 221 MPV 8.1 L Immature Gran % (Auto) 0.3 Neut % (Auto) 87.3 H Lymph % (Auto) 5.7 L [place] % (Auto) 6.3 Eos % (Auto) 0.1 Baso % (Auto) 0.3 Lymph # (Auto) 0.8 L [place] # (Auto) 0.9 Eos # (Auto) 0.0 Baso # (Auto) 0.0 Abs Immat Gran (auto) 0.04 H Absolute Neuts (auto) 12.4 H Absolute Nucleated RBC 0.000 Nucleated RBC % (auto) 0.0 PT INR APTT D-Dimer VBG pH VBG pCO2 VBG pO2 VBG HCO3 VBG O2 Saturation VBG Base Excess Sodium 133 L Potassium 4.6 Chloride 84 L Carbon Dioxide 45 H* Anion Gap 9 L BUN 11 Creatinine 0.54 Estim Creat Clear Calc 77.5 Estimated GFR > 60 Random Glucose 129 H Calcium 8.5 Phosphorus Magnesium Total Bilirubin 0.4 AST 29 ALT 24 Alkaline Phosphatase 52 Troponin I High Sens 11.9 B-Natriuretic Peptide Total Protein 5.8 L Albumin 3.6 Procalcitonin Urine Color Urine Appearance Urine pH Ur Specific [place] Urine Protein Urine Glucose (UA) Urine Ketones Urine Blood Urine Nitrite Ur Leukocyte Esterase Urine RBC Urine WBC Ur Squamous Epith Cells Urine Bacteria COVID-19 ([place]) COVID-19 Clin Com Blood Type Antibody Screen 12/09/20 12/10/20 12/10/20 05:13 05:12 05:13 WBC RBC Hgb Hct MCV MCH MCHC RDW Plt Count MPV Immature Gran % (Auto) Neut % (Auto) Lymph % (Auto) [place] % (Auto) Eos % (Auto) Baso % (Auto) Lymph # (Auto) [place] # (Auto) Eos # (Auto) Baso # (Auto) Abs Immat Gran (auto) Absolute Neuts (auto) Absolute Nucleated RBC Nucleated RBC % (auto) PT INR APTT D-Dimer VBG pH 7.32 7.38 VBG pCO2 110 64 VBG pO2 59 58 VBG HCO3 57 H 38 H VBG O2 Saturation 87.0 88.0 VBG Base Excess 24.2 11.1 Sodium Potassium Chloride Carbon Dioxide Anion Gap BUN Creatinine Estim Creat Clear Calc Estimated GFR Random Glucose Calcium Phosphorus Magnesium Total Bilirubin AST ALT Alkaline Phosphatase Troponin I High Sens B-Natriuretic Peptide 84 Total Protein Albumin Procalcitonin Urine Color Urine Appearance Urine pH Ur Specific [place] Urine Protein Urine Glucose (UA) Urine Ketones Urine Blood Urine Nitrite Ur Leukocyte Esterase Urine RBC Urine WBC Ur Squamous Epith Cells Urine Bacteria COVID-19 ([place]) COVID-19 [facility] Com Blood Type Antibody Screen 12/10/20 12/10/20 12/10/20 05:13 05:13 05:13 WBC 7.3 RBC 3.17 L Hgb 9.8 L Hct 31.7 L MCV 100.0 H MCH 30.9 MCHC 30.9 L RDW 12.1 Plt Count 214 MPV 8.5 L Immature Gran % (Auto) Neut % (Auto) Lymph % (Auto) [place] % (Auto) Eos % (Auto) Baso % (Auto) Lymph # (Auto) [place] # (Auto) Eos # (Auto) Baso # (Auto) Abs Immat Gran (auto) Absolute Neuts (auto) Absolute Nucleated RBC 0.000 Nucleated RBC % (auto) 0.0 PT INR APTT D-Dimer VBG pH VBG pCO2 VBG pO2 VBG HCO3 VBG O2 Saturation VBG Base Excess Sodium 131 L Potassium 3.9 Chloride 88 L Carbon Dioxide 38 H Anion Gap 9 L BUN 14 Creatinine 0.55 Estim Creat Clear Calc 72.0 Estimated GFR > 60 Random Glucose 132 H Calcium 7.9 L D Phosphorus 3.7 Magnesium 2.0 Total Bilirubin 0.2 AST 44 H D ALT 23 Alkaline Phosphatase 42 Troponin I High Sens B-Natriuretic Peptide Total Protein 5.4 L Albumin 3.3 L Procalcitonin 0.06 Urine Color Urine Appearance Urine pH Ur Specific [place] Urine Protein Urine Glucose (UA) Urine Ketones Urine Blood Urine Nitrite Ur Leukocyte Esterase Urine RBC Urine WBC Ur Squamous Epith Cells Urine Bacteria COVID-19 ([place]) COVID-19 [facility] Com Blood Type Antibody Screen 12/10/20 12/10/20 12/11/20 13:03 13:03 05:10 WBC RBC Hgb Hct MCV MCH MCHC RDW Plt Count MPV Immature Gran % (Auto) Neut % (Auto) Lymph % (Auto) [place] % (Auto) Eos % (Auto) Baso % (Auto) Lymph # (Auto) [place] # (Auto) Eos # (Auto) Baso # (Auto) Abs Immat Gran (auto) Absolute Neuts (auto) Absolute Nucleated RBC Nucleated RBC % (auto) PT INR APTT D-Dimer 994 VBG pH 7.33 7.36 VBG pCO2 63 53 VBG pO2 61 61 VBG HCO3 34 H 30 H VBG O2 Saturation 88.0 88.0 VBG Base Excess 6.5 4.4 Sodium Potassium Chloride Carbon Dioxide Anion Gap BUN Creatinine Estim Creat Clear Calc Estimated GFR Random Glucose Calcium Phosphorus Magnesium Total Bilirubin AST ALT Alkaline Phosphatase Troponin I High Sens B-Natriuretic Peptide Total Protein Albumin Procalcitonin Urine Color Urine Appearance Urine pH Ur Specific [place] Urine Protein Urine Glucose (UA) Urine Ketones Urine Blood Urine Nitrite Ur Leukocyte Esterase Urine RBC Urine WBC Ur Squamous Epith Cells Urine Bacteria COVID-19 ([place]) COVID-19 [facility] Com Blood Type Antibody Screen 12/11/20 12/11/20 12/12/20 05:12 05:12 05:00 WBC 9.8 RBC 3.27 L Hgb 10.1 L Hct 32.0 L MCV 97.9 MCH 30.9 MCHC 31.6 RDW 12.2 Plt Count 243 MPV 8.6 L Immature Gran % (Auto) Neut % (Auto) Lymph % (Auto) [place] % (Auto) Eos % (Auto) Baso % (Auto) Lymph # (Auto) [place] # (Auto) Eos # (Auto) Baso # (Auto) Abs Immat Gran (auto) Absolute Neuts (auto) Absolute Nucleated RBC 0.000 Nucleated RBC % (auto) 0.0 PT INR APTT D-Dimer VBG pH 7.40 VBG pCO2 40 VBG pO2 63 VBG HCO3 25 VBG O2 Saturation 90.0 VBG Base Excess 1.0 Sodium 134 L Potassium 4.2 Chloride 96 Carbon Dioxide 34 H Anion Gap 8 L BUN 18 H Creatinine 0.53 Estim Creat Clear Calc 74.8 Estimated GFR > 60 Random Glucose 107 Calcium 7.9 L Phosphorus 2.7 Magnesium 2.1 Total Bilirubin AST ALT Alkaline Phosphatase Troponin I High Sens B-Natriuretic Peptide Total Protein Albumin Procalcitonin Urine Color Urine Appearance Urine pH Ur Specific [place] Urine Protein Urine Glucose (UA) Urine Ketones Urine Blood Urine Nitrite Ur Leukocyte Esterase Urine RBC Urine WBC Ur Squamous Epith Cells Urine Bacteria COVID-19 ([place]) COVID-19 Clin Com Blood Type Antibody Screen 12/12/20 12/12/20 12/12/20 05:01 05:01 05:01 WBC 8.1 RBC 3.49 L Hgb 10.7 L Hct 34.1 L MCV 97.7 MCH 30.7 MCHC 31.4 RDW 12.4 Plt Count 251 MPV 8.7 L Immature Gran % (Auto) 0.4 Neut % (Auto) 80.7 H Lymph % (Auto) 9.8 L [place] % (Auto) 9.0 Eos % (Auto) 0.0 Baso % (Auto) 0.1 Lymph # (Auto) 0.8 L [place] # (Auto) 0.7 Eos # (Auto) 0.0 Baso # (Auto) 0.0 Abs Immat Gran (auto) 0.03 Absolute Neuts (auto) 6.5 Absolute Nucleated RBC 0.000 Nucleated RBC % (auto) 0.0 PT 10.7 INR 0.9 APTT 27.5 D-Dimer 638 VBG pH VBG pCO2 VBG pO2 VBG HCO3 VBG O2 Saturation VBG Base Excess Sodium 136 Potassium 4.0 Chloride 100 Carbon Dioxide 34 H Anion Gap 6 L BUN 17 H Creatinine 0.48 L Estim Creat Clear Calc 85.6 Estimated GFR > 60 Random Glucose 124 H Calcium 7.8 L Phosphorus 2.5 L Magnesium 2.0 Total Bilirubin AST ALT Alkaline Phosphatase Troponin I High Sens B-Natriuretic Peptide Total Protein Albumin Procalcitonin Urine Color Urine Appearance Urine pH Ur Specific [place] Urine Protein Urine Glucose (UA) Urine Ketones Urine Blood Urine Nitrite Ur Leukocyte Esterase Urine RBC Urine WBC Ur Squamous Epith Cells Urine Bacteria COVID-19 ([place]) COVID-19 Clin Com Blood Type Antibody Screen 12/12/20 05:01 WBC RBC Hgb Hct MCV MCH MCHC RDW Plt Count MPV Immature Gran % (Auto) Neut % (Auto) Lymph % (Auto) [place] % (Auto) Eos % (Auto) Baso % (Auto) Lymph # (Auto) [place] # (Auto) Eos # (Auto) Baso # (Auto) Abs Immat Gran (auto) Absolute Neuts (auto) Absolute Nucleated RBC Nucleated RBC % (auto) PT INR APTT D-Dimer VBG pH VBG pCO2 VBG pO2 VBG HCO3 VBG O2 Saturation VBG Base Excess Sodium Potassium Chloride Carbon Dioxide Anion Gap BUN Creatinine Estim Creat Clear Calc Estimated GFR Random Glucose Calcium Phosphorus Magnesium Total Bilirubin AST ALT Alkaline Phosphatase Troponin I High Sens B-Natriuretic Peptide Total Protein Albumin Procalcitonin Urine Color Urine Appearance Urine pH Ur Specific [place] Urine Protein Urine Glucose (UA) Urine Ketones Urine Blood Urine Nitrite Ur Leukocyte Esterase Urine RBC Urine WBC Ur Squamous Epith Cells Urine Bacteria COVID-19 ([place]) COVID-19 Clin Com Blood Type O Positive Antibody Screen NEGATIVE Airway Mallampati Class: II TM Dist: <=3cm Neck ROM: Full Denture: Upper and Lower Assessment and Plan Assessment Anesthesia Assessment: Anesthesia Plan Discussed and Chart Reviewed Final Anesthetic Review NPO: Yes ASA Class: IV Final Preanesthetic Review: No Changes in Pt Med Stat, Meds/Allgs Chart Reviewed, Consent Obtained/Reviewed and Anes Risks/Benef Reviewed Patient Risk: High Procedure Risk: Low Assessment/Block/Sedation in SS: Assess/Block/Sedation-SS Anesthetic Plan Anesthetic Plan: GA Disposition: Standard PACU
--- NOTE | 2020-12-12 12:42 | P.OP_ITS ---
Operative Note Operative Note Date of Service: 12/12/20 Narrative: OPERATIVE PROCEDURE NOTE SURGEON: Dr. Hare (Laisha) Instrum BULK TANK CAR UNLOADER: Lee Peterson PAC PREOP DIAGNOSIS: Garden 1 subcapital fracture left hip POSTOP DIAGNOSIS: OPERATIVE PROCEDURE: Same operative fixation left hip with percutaneous screws CLINICAL NOTE: This lady who is currently in ICU due to respiratory issues fell and injured her left arm in her left hip on the date of her admission. Shoulder fracture demonstrated a Neer type 1 fracture with fracture lines through the surgical neck and greater tuberosity. However she also suffered a valgus impacted Garden 1 subcapital fracture of the left hip. After discussions between the family and the retail wireless associate as well as a discussion of the risks, benefits and alternatives with the healthcare proxy it was mutually agreed upon to carry out the following procedure OPERATIVE PROCEDURE Under general anesthetic the patient placed supine on the fracture table. A standard traction boot was placed and the leg was placed in standard traction with minimal weight. The right leg was flexed abducted externally rotated out of the way. The left leg was then prepped and draped in standard fashion. A stab incision was made laterally. Under fluoroscopic guidance 2 wires were inserted in parallel fashion on AP and lateral fluoroscopy. They were measured. They both measured to an 80 mm length. They were drilled and the screws were then inserted with excellent purchase in the subchondral bone. The guidewires were then removed. Final imaging was taken in AP and lateral plane demonstrating the fracture to be reduced in a good position. The screws to be in appropriate position and length. And therefore proceeded to closure. Wound was irrigated. The skin was approximated using interrupted 2 0 Dexon. Dermabond Steri-Strips and sterile dressing were then applied. The patient then [facility] the [facility] They were then transferred supine to the room bed where there anesthesia was reversed. They were then transferred to the ICU. Intraoperatively there was 20 cc blood loss no complications.
[2020-12-12] MEDS: KCl 20 mEq in 5% Dex/0.45% Sod 20 MEQ/1,000 ML IV.SOLN 42 MEQ IVCONT (13:37)
[2020-12-12 14:24] LABS: VBG Base Excess 0.6 mmol/L; VBG HCO3 23 mmol/L (22-26); VBG pCO2 32 mmHg; VBG pH 7.46 (7.32-7.43); VBG pO2 55 mmHg
--- NOTE | 2020-12-12 14:44 | PM.CCPN ---
Subjective Subjective Date of Service: 12/12/20 Interval History: 75-year-old female with severe severe COPD from smoking presented with acute on chronic hypercarbic and hypoxic respiratory failure with syncope resulting in left femur fracture at the neck and left you murmur all fracture and just underwent a quick 1-1/2 hour operative fixation with screws in the OR never requiring intubation currently with pCO2 of 32 on a 50% Venti mask with oxygen saturation of 90% and stayed normal sinus rhythm and looking comfortable Critical Care Time (minutes): 45 Physical Exam Vital Signs: Vital Signs: Last Vital Signs Temp 97.4 F 12/12/20 14:15 Pulse 88 12/12/20 14:15 Resp 14 12/12/20 14:15 BP 144/63 H 12/12/20 14:15 Pulse Ox 91 L 12/12/20 14:15 Body Mass Index 29.2 Const: Other: Nonfocal neurologic Normal vital signs in sinus rhythm with normal skin color no acrocyanosis No neck vein distension and good bilateral carotid upstrokes no gallops and bedside echo showing normal LV size and function Chest with diminished bilateral breath sounds and no adventitious sounds Objective Data Labs CBC & Chem 7: 12/12/20 05:01 12/12/20 05:01 Labs: Laboratory Results - last 24 hr 12/12/20 12/12/20 12/12/20 05:00 05:01 05:01 WBC 8.1 RBC 3.49 L Hgb 10.7 L Hct 34.1 L MCV 97.7 MCH 30.7 MCHC 31.4 RDW 12.4 Plt Count 251 MPV 8.7 L Immature Gran % (Auto) 0.4 Neut % (Auto) 80.7 H Lymph % (Auto) 9.8 L [place] % (Auto) 9.0 Eos % (Auto) 0.0 Baso % (Auto) 0.1 Lymph # (Auto) 0.8 L [place] # (Auto) 0.7 Eos # (Auto) 0.0 Baso # (Auto) 0.0 Abs Immat Gran (auto) 0.03 Absolute Neuts (auto) 6.5 Absolute Nucleated RBC 0.000 Nucleated RBC % (auto) 0.0 PT 10.7 INR 0.9 APTT 27.5 D-Dimer 638 VBG pH 7.40 VBG pCO2 40 VBG pO2 63 VBG HCO3 25 VBG O2 Saturation 90.0 VBG Base Excess 1.0 Sodium Potassium Chloride Carbon Dioxide Anion Gap BUN Creatinine Estim Creat Clear Calc Estimated GFR Random Glucose Calcium Phosphorus Magnesium Blood Type Antibody Screen 12/12/20 12/12/20 12/12/20 05:01 05:01 14:16 WBC RBC Hgb Hct MCV MCH MCHC RDW Plt Count MPV Immature Gran % (Auto) Neut % (Auto) Lymph % (Auto) [place] % (Auto) Eos % (Auto) Baso % (Auto) Lymph # (Auto) [place] # (Auto) Eos # (Auto) Baso # (Auto) Abs Immat Gran (auto) Absolute Neuts (auto) Absolute Nucleated RBC Nucleated RBC % (auto) PT INR APTT D-Dimer VBG pH 7.46 H VBG pCO2 32 VBG pO2 55 VBG HCO3 23 VBG O2 Saturation 87.0 VBG Base Excess 0.6 Sodium 136 Potassium 4.0 Chloride 100 Carbon Dioxide 34 H Anion Gap 6 L BUN 17 H Creatinine 0.48 L Estim Creat Clear Calc 85.6 Estimated GFR > 60 Random Glucose 124 H Calcium 7.8 L Phosphorus 2.5 L Magnesium 2.0 Blood Type O Positive Antibody Screen NEGATIVE Microbiology Microbiology Results: Microbiology 12/09/20 Unknown Urine clean catch - Clean Catch Midstream Urine Culture - Final Streptococcus viridans group Quality Stroke Does the patient have a stroke diagnosis?: No VTE Prior VTE?: No VTE Risk Level:: Medical - moderate - high VTE Device Contraindication: Patient Refused VTE Drug Contraindication: Patient Refused Progress Note: A&P Assessment and plan (1) Syncope and collapse: Status: Acute (2) Respiratory failure, acute and chronic: Status: Acute (3) COPD exacerbation: Status: Acute (4) Acute UTI: Status: Acute (5) Femoral neck fracture: Status: Acute (6) Fracture of neck of humerus: Status: Acute Assessment and Plan: Status post ORIF of left hip without complication maintaining respiratory status on 50% Venti mask Will track her VBG again tonight support her with nasal high-flow if pCO2 begins to elevate
[2020-12-12 18:52] LABS: Venous Blood Gas Refer to POC result
[2020-12-12] MEDS: 0.9 % Sodium Chloride Flush 3 ML SYRINGE IVFLUSH (23:45)
[2020-12-13] VITALS (21 sets, daily range): BP systolic 132–185; BP diastolic 63–78; PULSE 85–103; RESP 16–24; TEMP 36.6–37.3; O2SAT 88–99; BMI 30.2
[2020-12-13] MEDS: cefTRIAXone sodium 1 GM in 0.9 % Sodium Chloride 100 ML IV (02:10)
--- NOTE | 2020-12-13 02:21 | PC.NURSE ---
CARE ASSUMED 23:15...DROWSY WHEN AWAKENED..SPEECH SLOW BUT CLEAR...O2 50% VIA VENTI-MASK..NO DISTRESS AT REST..OCCASSIONAL NON-PRODUCTIVE COUGH..SAO2 87-89%...RT PRESENT AND CHANGED TO HI-ALYSSA CANNULA 50% O2 AND 60 L/M...SAO2 87%..TITRATED TO 60% FIO2..SAO2 89-90%..DENIED SOB OR PAIN...SBP 185...NICARDIPINE DRIP RESUMED 3 MG/HR..ICU PA PRESENT AND AWARE..NSR..RARE PAC/PVC
[2020-12-13] MEDS: HYDROmorphone HCl 0.5 MG/0.5 ML SYRINGE IVPUSH ×4 (03:45→22:34)
[2020-12-13 05:38] LABS: VBG Base Excess 2.5 mmol/L; VBG HCO3 26 mmol/L (22-26); VBG pCO2 40 mmHg; VBG pH 7.43 (7.32-7.43); VBG pO2 58 mmHg
[2020-12-13 06:11] LABS: Hematocrit 34.7 % (37-47); Hemoglobin 11.2 g/dl (12.0-16.0); Imm Gran Abs Auto 0.09 X10*3/uL (0.00-0.03); Imm Gran Pct Auto 1.1 % (0.0-0.4); Lymphocytes Absolute Auto 0.7 X10*3/uL (1.2-4.9); Lymphocytes Percent Auto 8.8 % (20-40); MANUAL DIFF FLAG NO; Mean Corpuscular HGB Conc 32.3 g/dl (31.0-35.0); Mean Corpuscular Hemoglobin 30.8 pg (27.0-33.0); Mean Corpuscular Volume 95.3 fL (80-98); Mean Platelet Volume 8.6 fL (9.4-12.3); Monocytes Absolute Auto 0.8 X10*3/uL (0.1-1.2); Monocytes Percent Auto 10.4 % (2-11); Neutrophils Absolute Auto 6.3 X10*3/uL (2.0-8.3); Neutrophils Percent Auto 79.7 % (45-73); Platelet Count 266 X10*3/uL (160-400); Red Blood Count 3.64 X10*6/uL (4.20-5.50); Red Cell Distribution Width 12.5 % (11.0-16.0); White Blood Count 7.9 X10*3/uL (4.8-10.8)
[2020-12-13 06:20] LABS: INTERNATIONAL NORM RATIO 0.9 (0.9-1.1); Prothrombin Time 10.7 SEC (9.9-13.0)
[2020-12-13 06:22] LABS: Anion Gap 10 (12-20); Blood Urea Nitrogen 14 mg/dL (9-16); Calcium 7.7 mg/dL (8.4-10.2); Carbon Dioxide 33 mmol/L (22-29); Chloride 98 mmol/L (96-108); Creatinine Clr Calc Pharmacy 87.5; Estimated Glomerular Filt Rate > 60; Glucose Random 130 mg/dL (60-115); Partial Thromboplastin Time 25.8 SEC (24.1-38.0); Phosphorus 2.1 mg/dL (2.7-4.5); Potassium 3.9 mmol/L (3.3-5.1); Sodium 137 mmol/L (135-145)
[2020-12-13 06:33] LABS: D Dimer 1719 NG/ML
[2020-12-13] MEDS: methylPREDNISolone Sod Succ 40 MG/ML VIAL IVPUSH ×2 (06:33→16:27)
[2020-12-13] MEDS: Azithromycin 500 MG TABLET PO (06:34)
[2020-12-13] MEDS: Albuterol/Iprat 2.5/0.5MG 3 ML AMPUL.NEB INHALE ×4 (07:34→19:47)
--- NOTE | 2020-12-13 07:43 | PM.PNORT ---
Subjective Subjective Date of Service: 12/13/20 Interval history: POD1 s/p lt hip percutaneous screws with Dr. Medina. No overnight events. Pain is well managed. Patient is resting in bed. Denies CP or abd pain. Physical Exam Vital Signs: Vital Signs: Last Vital Signs Temp 97.8 F 12/13/20 04:00 Pulse 89 12/13/20 07:38 Resp 17 12/13/20 07:38 BP 138/63 12/13/20 06:00 Pulse Ox 89 L 12/13/20 06:00 Body Mass Index 30.2 Const: General: cooperative, healthy appearing and no acute distress Resp: Effort & Inspection: normal respiratory effort and able to speak in complete sentences Cardio: Rate: regular rate Peripheral pulses: Peripheral pulses 2+ throughout GI: Palpation (GI): Soft to palpation Skin: Lesions: no lesions Rashes: no rashes Extrem: Other: Left hip no ecchymosis, redness, or drainage. Bandages are clean. dry, and intact. NVI. Procedures Date of Service Date of Service: 12/13/20 Progress Note: A&P Assessment and plan (1) Femoral neck fracture: Status: Acute Assessment and Plan: Continue pain mgmnt Begin dvt ppx per ICU recommendation begin PT for left hip percutaneous screws Dispo planning-Pending PT eval, pain mgmnt Fall Risk Details Current Medications: Current Medications Generic Name Dose Route Start Last Admin Trade Name Freq PRN Reason Stop Dose Admin Acetaminophen 650 mg 12/09/20 04:20 Acetaminophen 325 Mg Tablet PO Q6H PRN Pain, Mild (Pain Scale 1-3) Albuterol/Ipratropium 3 ml 12/09/20 08:00 12/13/20 07:34 Albuterol/Iprat 2.5/0.5mg 3 Ml Ampul.Neb INHALE 3 ml RQ4H WHILE AWAKE OMID Administration Albuterol/Ipratropium 3 ml 12/09/20 04:20 12/10/20 05:32 Albuterol/Iprat 2.5/0.5mg 3 Ml Ampul.Neb INHALE 3 ml RQ4H PRN Administration Shortness of Breath/Wheezing Azithromycin 500 mg 12/09/20 05:00 12/13/20 06:34 Azithromycin 500 Mg Tablet PO 500 mg Q24H OMID Administration Heparin Sodium (Porcine) 5,000 unit 12/09/20 16:00 12/11/20 16:45 Heparin Sodium,Porcine 5,000 Unit/Ml Vial SUBCUT 5,000 unit Q8H OMID Administration Hydromorphone HCl 0.5 mg 12/09/20 04:20 12/13/20 03:45 Hydromorphone Hcl 0.5 Mg/0.5 Ml Syringe IVPUSH 0.5 mg Q4H PRN Administration Pain, Severe (Pain Scale 7-10) Ceftriaxone Sodium 1 gm/ 100 mls @ 200 mls/hr 12/10/20 03:00 12/13/20 02:45 Sodium Chloride IV Infused Q24H OMID Infusion Nicardipine HCl 25 mg/ Sodium 260 mls @ 0 mls/hr 12/12/20 09:15 12/13/20 00:29 Chloride IVCONT 3 mg/hr .Q0M OMID 31.2 mls/hr Titration Protocol Per Protocol Potassium Chloride/Dextrose/Sod Cl 20 meq in 1,000 mls @ 42 mls/hr 12/12/20 14:00 12/12/20 13:37 IVCONT 42 mls/hr .[id number] OMID Administration Magnesium Hydroxide 30 ml 12/09/20 04:20 Milk Of Magnesia 30 Ml Oral.Susp PO DAILY PRN Constipation Methylprednisolone Sodium Succinate 40 mg 12/10/20 17:00 12/13/20 06:33 Methylprednisolone Sod Succ 40 Mg/Ml Vial IVPUSH 40 mg Q12H OMID Administration Sodium Chloride 3 ml 12/12/20 16:00 12/12/20 23:45 0.9 % Sodium Chloride Flush 3 Ml Syringe IVFLUSH 3 ml QSHIFT OMID Administration Time Spent With Patient Time: Total time spent is greater than 50% in coordination of care (as documented) at patient's floor/unit and/or counseling patient: Time with patient: less than 15 minutes Quality Stroke Does the patient have a stroke diagnosis?: No VTE Prior VTE?: No VTE Risk Level:: Medical - moderate - high VTE Device Contraindication: Patient Refused VTE Drug Contraindication: Patient Refused
[2020-12-13] MEDS: niCARdipine HCL 25 MG in 0.9 % Sodium Chloride 250 ML 31.2 MG IVCONT ×2 (07:59→16:27)
[2020-12-13 08:03] LABS: VBG Base Excess 2.2 mmol/L; VBG HCO3 26 mmol/L (22-26); VBG pCO2 38 mmHg; VBG pH 7.43 (7.32-7.43); VBG pO2 66 mmHg
[2020-12-13 08:18] LABS: Venous Blood Gas Refer to POC result
--- NOTE | 2020-12-13 08:19 | HO.POSTANES ---
Post Anesthesia Evaluation Post Anesthesia Evaluation Vital Signs: Vital Signs Temp Pulse Resp BP Pulse Ox 12/13/20 07:38 89 17 12/13/20 06:18 18 12/13/20 06:00 86 20 138/63 89 L 12/13/20 05:00 90 18 149/68 H 89 L 12/13/20 04:00 97.8 F 94 18 143/67 H 90 L 12/13/20 02:57 97.9 F 92 20 151/73 H 90 L 12/13/20 02:00 86 18 132/64 88 L 12/13/20 01:00 94 20 160/71 H 99 12/13/20 00:28 100 24 H 185/78 H 89 L 12/13/20 00:07 20 12/13/20 00:00 98.0 F 100 24 H 183/76 H 88 L Anesthesia: General Mental Status: Awake Pain Control: Satisfactory Nausea/Vomiting: None Hydration: Adequate Anesthesia-Related Issues: No Anes. Related Issues
[2020-12-13] MEDS: KCl 20 mEq in 5% Dex/0.45% Sod 20 MEQ/1,000 ML IV.SOLN 42 MEQ IVCONT (14:02)
--- NOTE | 2020-12-13 14:10 | P.PNCC_ITS ---
Subjective Subjective Date of Service: 12/13/20 Interval History: 75-year-old female with syncope based on her chronic COPD and acute hypercarbic/hypoxic respiratory failure resulting in left hip fracture which also 24 hours status post nailing and never intubated currently remains on 55 liters/minute of flow as well as 55% FiO2 able to eat with with good mental status maintaining normal sinus rhythm and oxygen saturations 87-90% Also controlled hypertensive with no manifestations of failure and she is on low-dose Cardene drip Critical Care Time (minutes): 40 Physical Exam Vital Signs: Vital Signs: Last Vital Signs Temp 99.2 F 12/13/20 14:00 Pulse 91 12/13/20 14:00 Resp 20 12/13/20 14:00 BP 152/68 H 12/13/20 14:00 Pulse Ox 90 L 12/13/20 14:00 Body Mass Index 30.2 She is awake alert and nonfocal neurologically Skin is intact with no livedo no acrocyanosis and no edema Good bilateral carotid upstrokes no neck vein distension good LV function by bedside echo chest with diminished breath sounds bilaterally and no event issues sounds Abdomen soft with good bowel sounds no organomegaly Objective Data Labs CBC & Chem 7: 12/13/20 05:05 12/13/20 05:05 Labs: Laboratory Results - last 24 hr 12/12/20 12/13/20 12/13/20 14:16 05:04 05:05 WBC 7.9 RBC 3.64 L Hgb 11.2 L Hct 34.7 L MCV 95.3 MCH 30.8 MCHC 32.3 RDW 12.5 Plt Count 266 MPV 8.6 L Immature Gran % (Auto) 1.1 H Neut % (Auto) 79.7 H Lymph % (Auto) 8.[address] [place] % (Auto) 10.4 Eos % (Auto) 0.0 Baso % (Auto) 0.0 Lymph # (Auto) 0.[address] [place] # (Auto) 0.8 Eos # (Auto) 0.0 Baso # (Auto) 0.0 Abs Immat Gran (auto) 0.09 H Absolute Neuts (auto) 6.3 Absolute Nucleated RBC 0.000 Nucleated RBC % (auto) 0.0 PT INR APTT D-Dimer VBG pH 7.46 H 7.43 VBG pCO2 32 40 VBG pO2 55 58 VBG HCO3 23 26 VBG O2 Saturation 87.0 86.0 VBG Base Excess 0.6 2.5 Sodium Potassium Chloride Carbon Dioxide Anion Gap BUN Creatinine Estim Creat Clear Calc Estimated GFR Random Glucose Calcium Phosphorus Magnesium 12/13/20 12/13/20 12/13/20 05:05 05:05 07:54 WBC RBC Hgb Hct MCV MCH MCHC RDW Plt Count MPV Immature Gran % (Auto) Neut % (Auto) Lymph % (Auto) [place] % (Auto) Eos % (Auto) Baso % (Auto) Lymph # (Auto) [place] # (Auto) Eos # (Auto) Baso # (Auto) Abs Immat Gran (auto) Absolute Neuts (auto) Absolute Nucleated RBC Nucleated RBC % (auto) PT 10.7 INR 0.9 APTT 25.8 D-Dimer 1719 VBG pH 7.43 VBG pCO2 38 VBG pO2 66 VBG HCO3 26 VBG O2 Saturation 92.0 VBG Base Excess 2.2 Sodium 137 Potassium 3.9 Chloride 98 Carbon Dioxide 33 H Anion Gap 10 L BUN 14 Creatinine 0.47 L Estim Creat Clear Calc 87.5 Estimated GFR > 60 Random Glucose 130 H Calcium 7.7 L Phosphorus 2.1 L Magnesium 2.0 Microbiology Microbiology Results: Microbiology 12/09/20 Unknown Urine clean catch - Clean Catch Midstream Urine Culture - Final Streptococcus viridans group Quality Stroke Does the patient have a stroke diagnosis?: No VTE Prior VTE?: No VTE Risk Level:: Medical - moderate - high VTE Device Contraindication: Patient Refused VTE Drug Contraindication: Patient Refused Progress Note: A&P Assessment and plan (1) Syncope and collapse: Status: Acute (2) Respiratory failure, acute and chronic: Status: Acute (3) COPD exacerbation: Status: Acute (4) Acute UTI: Status: Acute (5) Femoral neck fracture: Status: Acute (6) Fracture of neck of humerus: Status: Acute Assessment and Plan: Plan is to slowly wean L flow as well as FiO2 and once down to approximately 40/40 with probably be a candidate for transfer to the floor to proceed with her physical therapy
--- NOTE | 2020-12-13 14:49 | MHC.CM.PN ---
Met with pt and dtr/HCP Karey to review d/c plans. Pt resides at home - 2 of her 5 children live in additions on the home and are available to assist pt. Pt is O2 dependent on 2 liters ([facility]) and does not have services at this time. Pt's goal is to return to home and understands rehab may be needed. Pt fell and sustained a hip and humeral fx: She had the hip surgically repaired but the right arm is in a sling. Discussed STR selection based on payor and geographical locations. Pt and dtr understood and would like a broad search initiated: Pt did not want HHN pursued. Of note, pt is not COVID vaccinated. Referrals placed: awaiting acceptance at this time. [facility] and HCP on file
--- NOTE | 2020-12-13 18:44 | PC.NURSE ---
Patient remains in ICU for monitoring while in [place]. Unable to successfully wean patient's O2 requirement. Settings since this afternoon shortly after lunchtime have remained 60L/60%. Lungs rhonchorous and wheezy Coarse, junky non-productive cough noted periodically throughout the day. No sputum produced this shift. Unable to transfer OOB with PT today. Rapid desaturation with movement and talking. (+) weakness, slightly aletered when first awakens d/t drowsiness from Dilaudid. Pain to Left hip fracture pinning 5/10 throughout most of the day while awake. Slept often in naps. Attempted PO for lunch, rapid desaturation and patient became nervous to continue eating. Tolerates small sips of water. Left hip 2x2 C/D/I from OR. Nicardipine drip continues for maintenence of SBP below 160. IV fluids continue as ordered for gentle hydration. Family visited throughout the day, updated by RN and MD.
[2020-12-13] MEDS: iohexoL 350 MG/ML 100 ML INFUS..BTL IV (21:19)
--- NOTE | 2020-12-13 22:41 | PC.NURSE ---
P- Approx 1930, patient desatting to high 70's on HFNC 55%/55LPM. Increasingly disoriented. I- FIO2 titrated to 100%/60 LPM with some effect. NRB added temporarily while sats recovering. PA and RT at bedside. Updraft given. Patient sent to [facility]. VBG's ordered. E-Patient remains on HFNC @ 100%/60 LPM, satting 88-90%. RR 20's. Any activity, including speaking, results in desat to low 80's/high 70's.
[2020-12-13 22:58] LABS: VBG Base Excess 7.5 mmol/L; VBG HCO3 30 mmol/L (22-26); VBG pCO2 37 mmHg; VBG pH 7.51 (7.32-7.43); VBG pO2 74 mmHg
[2020-12-13 23:34] LABS: Venous Blood Gas Refer to POC result
[2020-12-14] VITALS (27 sets, daily range): BP systolic 156–195; BP diastolic 57–89; PULSE 82–109; RESP 15–28; TEMP 36.3–36.8; O2SAT 82–94; BMI 29.7
[2020-12-14] MEDS: cefTRIAXone sodium 1 GM in 0.9 % Sodium Chloride 100 ML IV (03:36)
[2020-12-14] MEDS: methylPREDNISolone Sod Succ 40 MG/ML VIAL IVPUSH ×2 (03:36→16:21)
[2020-12-14] MEDS: Azithromycin 500 MG TABLET PO (03:36)
[2020-12-14 05:27] LABS: VBG Base Excess 4.9 mmol/L; VBG HCO3 29 mmol/L (22-26); VBG pCO2 43 mmHg; VBG pH 7.44 (7.32-7.43); VBG pO2 50 mmHg
[2020-12-14 05:32] LABS: Venous Blood Gas Refer to POC result
[2020-12-14 05:42] LABS: MANUAL DIFF FLAG NO
[2020-12-14 05:48] LABS: Hematocrit 36.4 % (37-47); Hemoglobin 11.9 g/dl (12.0-16.0); Imm Gran Abs Auto 0.04 X10*3/uL (0.00-0.03); Imm Gran Pct Auto 0.5 % (0.0-0.4); Lymphocytes Absolute Auto 0.5 X10*3/uL (1.2-4.9); Lymphocytes Percent Auto 6.3 % (20-40); Mean Corpuscular HGB Conc 32.7 g/dl (31.0-35.0); Mean Corpuscular Hemoglobin 30.7 pg (27.0-33.0); Mean Corpuscular Volume 94.1 fL (80-98); Mean Platelet Volume 8.4 fL (9.4-12.3); Monocytes Absolute Auto 0.6 X10*3/uL (0.1-1.2); Monocytes Percent Auto 6.8 % (2-11); Neutrophils Absolute Auto 7.5 X10*3/uL (2.0-8.3); Neutrophils Percent Auto 86.4 % (45-73); Platelet Count 295 X10*3/uL (160-400); Red Blood Count 3.87 X10*6/uL (4.20-5.50); Red Cell Distribution Width 12.5 % (11.0-16.0); White Blood Count 8.6 X10*3/uL (4.8-10.8)
[2020-12-14 05:55] LABS: Prothrombin Time 11.4 SEC (9.9-13.0)
[2020-12-14 05:57] LABS: Partial Thromboplastin Time 26.4 SEC (24.1-38.0)
[2020-12-14 06:04] LABS: D Dimer 1475 NG/ML
[2020-12-14 06:16] LABS: Anion Gap 11 (12-20); Blood Urea Nitrogen 12 mg/dL (9-16); Carbon Dioxide 32 mmol/L (22-29); Chloride 95 mmol/L (96-108); Estimated Glomerular Filt Rate > 60; Glucose Random 127 mg/dL (60-115); Magnesium 2.1 mg/dL (1.6-2.6); Phosphorus 2.6 mg/dL (2.7-4.5); Potassium 4.2 mmol/L (3.3-5.1); Sodium 134 mmol/L (135-145)
[2020-12-14] MEDS: 0.9 % Sodium Chloride Flush 3 ML SYRINGE IVFLUSH ×2 (07:45→16:22)
--- NOTE | 2020-12-14 07:59 | PM.PNORT ---
Subjective Subjective Date of Service: 12/14/20 Interval history: POD2 s/p left hip percutaneous screws with Dr. Medina. Patient states pain is well managed. No overnight events. No additional complaints. Physical Exam Vital Signs: Vital Signs: Last Vital Signs Temp 98.4 F 12/13/20 22:00 Pulse 85 12/14/20 06:00 Resp 16 12/14/20 06:00 BP 179/79 H 12/14/20 06:00 Pulse Ox 90 L 12/14/20 06:00 Body Mass Index 29.7 Extrem: Other: Left hip dressing clean. dry, and intact. No ecchymosis, redness, or drainage. NVI. Procedures Date of Service Date of Service: 12/14/20 Progress Note: A&P Assessment and plan (1) Femoral neck fracture: Status: Acute Assessment and Plan: Continue pain mgmnt Begin Lovenox for dvt ppx begin PT for left hip percutaneous screws Dispo planning-Pending PT eval, pain mgmnt (2) Fracture of neck of humerus: Status: Acute Assessment and Plan: Continue sling use Elbow hand and wrist ROM Fall Risk Details Current Medications: Current Medications Generic Name Dose Route Start Last Admin Trade Name Freq PRN Reason Stop Dose Admin Acetaminophen 650 mg 12/09/20 04:20 Acetaminophen 325 Mg Tablet PO Q6H PRN Pain, Mild (Pain Scale 1-3) Albuterol/Ipratropium 3 ml 12/09/20 08:00 12/13/20 19:47 Albuterol/Iprat 2.5/0.5mg 3 Ml Ampul.Neb INHALE 3 ml RQ4H WHILE AWAKE OMID Administration Albuterol/Ipratropium 3 ml 12/09/20 04:20 12/10/20 05:32 Albuterol/Iprat 2.5/0.5mg 3 Ml Ampul.Neb INHALE 3 ml RQ4H PRN Administration Shortness of Breath/Wheezing Azithromycin 500 mg 12/09/20 05:00 12/14/20 03:36 Azithromycin 500 Mg Tablet PO 500 mg Q24H OMID Administration Heparin Sodium (Porcine) 5,000 unit 12/09/20 16:00 12/11/20 16:45 Heparin Sodium,Porcine 5,000 Unit/Ml Vial SUBCUT 5,000 unit Q8H OMID Administration Ceftriaxone Sodium 1 gm/ 100 mls @ 200 mls/hr 12/10/20 03:00 12/14/20 04:41 Sodium Chloride IV Infused Q24H OMID Infusion Nicardipine HCl 25 mg/ Sodium 260 mls @ 0 mls/hr 12/12/20 09:15 12/14/20 00:36 Chloride IVCONT 0 mg/hr .Q0M OMID 0 mls/hr Titration Protocol Per Protocol Potassium Chloride/Dextrose/Sod Cl 20 meq in 1,000 mls @ 42 mls/hr 12/12/20 14:00 12/13/20 14:02 IVCONT 42 mls/hr .[id number] OMID Administration Magnesium Hydroxide 30 ml 12/09/20 04:20 Milk Of Magnesia 30 Ml Oral.Susp PO DAILY PRN Constipation Methylprednisolone Sodium Succinate 40 mg 12/10/20 17:00 12/14/20 03:36 Methylprednisolone Sod Succ 40 Mg/Ml Vial IVPUSH 40 mg Q12H OMID Administration Sodium Chloride 3 ml 12/12/20 16:00 12/14/20 07:45 0.9 % Sodium Chloride Flush 3 Ml Syringe IVFLUSH 3 ml QSHIFT OMID Administration Time Spent With Patient Time: Total time spent is greater than 50% in coordination of care (as documented) at patient's floor/unit and/or counseling patient: Time with patient: less than 15 minutes Quality Stroke Does the patient have a stroke diagnosis?: No VTE Prior VTE?: No VTE Risk Level:: Medical - moderate - high VTE Device Contraindication: Patient Refused VTE Drug Contraindication: Patient Refused
[2020-12-14] MEDS: Enoxaparin Sodium 40 MG/0.4 ML SYRINGE SUBCUT (08:28)
[2020-12-14] MEDS: Albuterol/Iprat 2.5/0.5MG 3 ML AMPUL.NEB INHALE ×4 (08:28→20:21)
[2020-12-14] MEDS: KCl 20 mEq in 5% Dex/0.45% Sod 20 MEQ/1,000 ML IV.SOLN 42 MEQ IVCONT (12:51)
--- NOTE | 2020-12-14 15:34 | P.PNCC_ITS ---
Subjective Subjective Date of Service: 12/14/20 Interval History: 75-year-old female severe longstanding smoking related COPD presented with acute hypercarbic and hypoxic respiratory failure with syncope resulting in left hip and left you murmur all fractures and had a nailing of the hip and and has been dependent on high L flow nasal cannula at 55 L and high FiO2 of 70% to maintain oxygen saturation of 89-90% and a normal pCO2 as been doing well with no distress has been on Rocephin because of a strep viridans urinary tract infection and on last night's CT scan done because of worsening hypoxemia we noted moderate bilateral pleural effusions probably 1 to 1.5 L with some underlying lung atelectasis In addition today we noted that she has a pustular perineal lesions wound care is going to come see her in and possibly even obtain a swab culture and I am going to start an anti staphylococcal probably vancomycin Critical Care Time (minutes): 45 Physical Exam Vital Signs: Vital Signs: Last Vital Signs Temp 98.2 F 12/14/20 12:00 Pulse 98 12/14/20 15:00 Resp 22 H 12/14/20 15:00 BP 174/78 H 12/14/20 15:00 Pulse Ox 94 12/14/20 15:00 Body Mass Index 29.7 Awake and alert oriented and nonfocal neurologically Cardiac exam with flat neck veins good bilateral carotid upstrokes no murmurs and bedside echo showing normal left ventricular size and function Chest diminished bilateral breath sounds but no adventitious sounds no increase in respiratory effort Abdomen benign no organomegaly no bruits Skin with the pustular perineal lesion but no skin breakdown no cellulitis no acrocyanosis Objective Data Labs CBC & Chem 7: 12/14/20 05:20 12/14/20 05:20 Labs: Laboratory Results - last 24 hr 12/13/20 12/14/20 12/14/20 22:50 05:19 05:20 WBC 8.6 RBC 3.87 L Hgb 11.9 L Hct 36.4 L MCV 94.1 MCH 30.7 MCHC 32.7 RDW 12.5 Plt Count 295 MPV 8.4 L Immature Gran % (Auto) 0.5 H Neut % (Auto) 86.4 H Lymph % (Auto) 6.3 L [place] % (Auto) 6.8 Eos % (Auto) 0.0 Baso % (Auto) 0.0 Lymph # (Auto) 0.5 L [place] # (Auto) 0.6 Eos # (Auto) 0.0 Baso # (Auto) 0.0 Abs Immat Gran (auto) 0.04 H Absolute Neuts (auto) 7.5 Absolute Nucleated RBC 0.000 Nucleated RBC % (auto) 0.0 PT INR APTT D-Dimer VBG pH 7.51 H 7.44 H VBG pCO2 37 43 VBG pO2 74 50 VBG HCO3 30 H 29 H VBG O2 Saturation 95.0 79.0 VBG Base Excess 7.5 4.9 Sodium Potassium Chloride Carbon Dioxide Anion Gap BUN Creatinine Estim Creat Clear Calc Estimated GFR Random Glucose Calcium Phosphorus Magnesium 12/14/20 12/14/20 05:20 05:20 WBC RBC Hgb Hct MCV MCH MCHC RDW Plt Count MPV Immature Gran % (Auto) Neut % (Auto) Lymph % (Auto) [place] % (Auto) Eos % (Auto) Baso % (Auto) Lymph # (Auto) [place] # (Auto) Eos # (Auto) Baso # (Auto) Abs Immat Gran (auto) Absolute Neuts (auto) Absolute Nucleated RBC Nucleated RBC % (auto) PT 11.4 INR 1.0 APTT 26.4 D-Dimer 1475 VBG pH VBG pCO2 VBG pO2 VBG HCO3 VBG O2 Saturation VBG Base Excess Sodium 134 L Potassium 4.2 Chloride 95 L Carbon Dioxide 32 H Anion Gap 11 L BUN 12 Creatinine 0.44 L Estim Creat Clear Calc 95.0 Estimated GFR > 60 Random Glucose 127 H Calcium 8.0 L Phosphorus 2.6 L Magnesium 2.1 Microbiology Microbiology Results: Microbiology 12/09/20 Unknown Urine clean catch - Clean Catch Midstream Urine Culture - Final Streptococcus viridans group Quality Stroke Does the patient have a stroke diagnosis?: No VTE Prior VTE?: No VTE Risk Level:: Medical - moderate - high VTE Device Contraindication: Patient Refused VTE Drug Contraindication: Patient Refused Progress Note: A&P Assessment and plan (1) Syncope and collapse: Status: Acute (2) Respiratory failure, acute and chronic: Status: Acute (3) COPD exacerbation: Status: Acute (4) Acute UTI: Status: Acute (5) Femoral neck fracture: Status: Acute (6) Fracture of neck of humerus: Status: Acute Assessment and Plan: All told on going to a add vancomycin for the skin lesions and obtain wound care consult for possible culturing of 1 of the pustules and I have offered 1 side at a time thoracentesis so I would sample the the fluid vault for cytology pH and white count but the also to gain mechanical advantage for her breathing reduce the atelectasis and the right to left shunt and hopefully be more able to wean the FiO2
[2020-12-14] MEDS: Losartan Potassium 25 MG TABLET PO (16:21)
[2020-12-14] MEDS: vancomycin HCL 1,000 MG in 0.9 % Sodium Chloride 250 ML 270 MG IV (16:21)
[2020-12-14] MEDS: Spironolactone 25 MG TABLET PO (16:22)
--- NOTE | 2020-12-14 16:48 | PC.NURSE ---
Afebrile, WBC 8.6 A&O x3, vague w/ situation ; Pupils 3mm PERRLA SR, HR 80-90's, PVCs SBP 170-180's - started on Losartan & Spironolactone Lovenox restarted by Ortho LS dim throughout, no secretions Continued on highflox 70%/55L - Spo2 88-90% Abdomen soft, nontender Last BM 12/08 - MD aware Fluids discontinued ; Tolerating regular diet, eating 25-50% Lopez discontinued @ 1500 - DTV @ 2100 - [place] in place Continued on Ceftriaxone for +UTI Significant bruising to left side of body L hip dressing C/D/I Multiple white pustules to labia - wound consult pending Started on Vancomycin 1g IV q12 for ? staph per Bathed, repo q2hr, airloss bed & prevlon system in place PT at bedside ; pending OT consult Family updated
[2020-12-14] MEDS: hydrALAZINE HCl 20 MG/ML VIAL 5 MG IVPUSH (19:59)
[2020-12-14] MEDS: LORazepam 2 MG/ML VIAL 0.5 MG IVPUSH (22:30)
--- NOTE | 2020-12-14 23:43 | PC.NURSE ---
Pt was restless and anxious. Was on High flow NC at 70% and 55L. She kept desatting as low as 77% with little improvement with C&DB or position change. High flow O2 increased to 100% and 60L and NRB mask added. Resp thereapy gave updraft treatment with some effect to bring O2 sat up to 88% but pt continued to be uncooperative and pulling mask off. She is a little confused. Lorazepam 0.5 mg iv ordered and given with good effect. Pt is much calmer now and O2 sat up to 92%
[2020-12-15] VITALS (20 sets, daily range): BP systolic 146–200; BP diastolic 68–88; PULSE 84–109; RESP 18–25; TEMP 36.1–36.7; O2SAT 88–97; BMI 29.7
[2020-12-15] MEDS: 0.9 % Sodium Chloride Flush 3 ML SYRINGE IVFLUSH ×3 (00:52→17:21)
[2020-12-15] MEDS: cefTRIAXone sodium 1 GM in 0.9 % Sodium Chloride 100 ML IV (01:54)
[2020-12-15] MEDS: vancomycin HCL 1,000 MG in 0.9 % Sodium Chloride 250 ML 270 MG IV ×2 (02:30→17:20)
[2020-12-15] MEDS: Labetalol HCL 100 MG/20 ML VIAL 10 MG IVPUSH (03:22)
[2020-12-15] MEDS: methylPREDNISolone Sod Succ 40 MG/ML VIAL IVPUSH ×2 (04:14→17:20)
[2020-12-15 05:58] LABS: MANUAL DIFF FLAG NO
[2020-12-15 06:01] LABS: VBG Base Excess 7.1 mmol/L; VBG HCO3 31 mmol/L (22-26); VBG pCO2 42 mmHg; VBG pH 7.47 (7.32-7.43); VBG pO2 32 mmHg
[2020-12-15 06:06] LABS: Basophils Percent Auto 0.1 % (0-2); Hematocrit 38.8 % (37-47); Hemoglobin 12.9 g/dl (12.0-16.0); Imm Gran Abs Auto 0.07 X10*3/uL (0.00-0.03); Imm Gran Pct Auto 0.5 % (0.0-0.4); Lymphocytes Absolute Auto 0.7 X10*3/uL (1.2-4.9); Lymphocytes Percent Auto 4.9 % (20-40); Mean Corpuscular HGB Conc 33.2 g/dl (31.0-35.0); Mean Corpuscular Hemoglobin 31.2 pg (27.0-33.0); Mean Corpuscular Volume 93.9 fL (80-98); Mean Platelet Volume 8.4 fL (9.4-12.3); Monocytes Absolute Auto 1.2 X10*3/uL (0.1-1.2); Monocytes Percent Auto 9.1 % (2-11); Neutrophils Absolute Auto 11.5 X10*3/uL (2.0-8.3); Neutrophils Percent Auto 85.4 % (45-73); Platelet Count 329 X10*3/uL (160-400); Red Blood Count 4.13 X10*6/uL (4.20-5.50); Red Cell Distribution Width 12.9 % (11.0-16.0); White Blood Count 13.4 X10*3/uL (4.8-10.8)
[2020-12-15 06:32] LABS: Anion Gap 9 (12-20); Blood Urea Nitrogen 18 mg/dL (9-16); Calcium 8.5 mg/dL (8.4-10.2); Carbon Dioxide 35 mmol/L (22-29); Chloride 96 mmol/L (96-108); Creatinine Clr Calc Pharmacy 79.7; Estimated Glomerular Filt Rate > 60; Glucose Random 115 mg/dL (60-115); Magnesium 2.1 mg/dL (1.6-2.6); Phosphorus 2.5 mg/dL (2.7-4.5); Potassium 3.7 mmol/L (3.3-5.1); Sodium 136 mmol/L (135-145)
[2020-12-15 07:00] LABS: Prothrombin Time 11.2 SEC (9.9-13.0)
[2020-12-15] MEDS: Albuterol/Iprat 2.5/0.5MG 3 ML AMPUL.NEB INHALE ×4 (07:05→19:40)
[2020-12-15 07:09] LABS: Venous Blood Gas Refer to POC result
[2020-12-15 07:10] LABS: D Dimer 2153 NG/ML
--- NOTE | 2020-12-15 07:43 | PC.NURSE ---
Skin assessment completed this morning. Patient has blanchable redness to buttocks and white pustules to labia. A wound consult has been placed for pustules, unsure of what the cause of the pustules. EPC cream applied to buttocks daily.
--- NOTE | 2020-12-15 07:44 | PM.PNORT ---
Subjective Subjective Date of Service: 12/15/20 Interval history: POD3 s/p left hip percutaneous screws with Dr. Medina. Patient states pain is well managed. No overnight events. No additional complaints. Physical Exam Vital Signs: Vital Signs: Last Vital Signs Temp 97.3 F 12/15/20 07:28 Pulse 91 12/15/20 07:28 Resp 18 12/15/20 07:28 BP 170/88 H 12/15/20 07:28 Pulse Ox 96 12/15/20 07:28 Body Mass Index 29.7 Extrem: Other: Left hip dressing clean. dry, and intact. No ecchymosis, redness, or drainage. NVI. Right upper extremity: Left shoulder in a sling.? Skin intact.? She has mild tenderness to palpation over the proximal humerus.? Anterior deltoid sensation intact.? Wrist range of motion and hand finger ROM intact. NVI. Procedures Date of Service Date of Service: 12/15/20 Progress Note: A&P Assessment and plan (1) Femoral neck fracture: Status: Acute Assessment and Plan: Continue Lovenox for dvt ppx Continue PT for left hip percutaneous screws Dispo planning-Pending PT eval, pain mgmnt, and critical care/medical clearance for d/c (2) Fracture of neck of humerus: Status: Acute Assessment and Plan: Continue sling use. Elbow, wrist and hand range of motion. Left upper extremity nonweightbearing Fall Risk Details Current Medications: Current Medications Generic Name Dose Route Start Last Admin Trade Name Freq PRN Reason Stop Dose Admin Acetaminophen 650 mg 12/09/20 04:20 Acetaminophen 325 Mg Tablet PO Q6H PRN Pain, Mild (Pain Scale 1-3) Albuterol/Ipratropium 3 ml 12/09/20 08:00 12/15/20 07:05 Albuterol/Iprat 2.5/0.5mg 3 Ml Ampul.Neb INHALE 3 ml RQ4H WHILE AWAKE OMID Administration Albuterol/Ipratropium 3 ml 12/09/20 04:20 12/10/20 05:32 Albuterol/Iprat 2.5/0.5mg 3 Ml Ampul.Neb INHALE 3 ml RQ4H PRN Administration Shortness of Breath/Wheezing Enoxaparin Sodium 40 mg 12/14/20 08:00 12/14/20 08:28 Enoxaparin Sodium 40 Mg/0.4 Ml Syringe SUBCUT 40 mg Q24H OMID Administration Ceftriaxone Sodium 1 gm/ 100 mls @ 200 mls/hr 12/10/20 03:00 12/15/20 02:30 Sodium Chloride IV Infused Q24H OMID Infusion Vancomycin HCl 1,000 mg/ 270 mls @ 270 mls/hr 12/14/20 16:00 12/15/20 03:45 Sodium Chloride IV Infused Q12H OMID Infusion Losartan Potassium 25 mg 12/14/20 15:45 12/14/20 16:21 Losartan Potassium 25 Mg Tablet PO 25 mg DAILY OMID Administration Protocol Magnesium Hydroxide 30 ml 12/09/20 04:20 Milk Of Magnesia 30 Ml Oral.Susp PO DAILY PRN Constipation Methylprednisolone Sodium Succinate 40 mg 12/10/20 17:00 12/15/20 04:14 Methylprednisolone Sod Succ 40 Mg/Ml Vial IVPUSH 40 mg Q12H OMID Administration Pharmacy Consult 1 each 12/14/20 15:30 Consult Rx Vancomycin Dosing MISCELLANE DAILY PRN Consult order Sodium Chloride 3 ml 12/12/20 16:00 12/15/20 00:52 0.9 % Sodium Chloride Flush 3 Ml Syringe IVFLUSH 3 ml QSHIFT OMID Administration Spironolactone 25 mg 12/14/20 15:45 12/14/20 16:22 Spironolactone 25 Mg Tablet PO 25 mg DAILY OMID Administration Protocol Time Spent With Patient Time: Total time spent is greater than 50% in coordination of care (as documented) at patient's floor/unit and/or counseling patient: Time with patient: less than 15 minutes Quality Stroke Does the patient have a stroke diagnosis?: No VTE Prior VTE?: No VTE Risk Level:: Medical - moderate - high VTE Device Contraindication: Patient Refused VTE Drug Contraindication: Patient Refused
[2020-12-15] MEDS: Furosemide 20 MG/2 ML VIAL IVPUSH (08:11)
[2020-12-15] MEDS: Spironolactone 25 MG TABLET PO (08:11)
[2020-12-15] MEDS: Enoxaparin Sodium 40 MG/0.4 ML SYRINGE SUBCUT (08:11)
[2020-12-15] MEDS: Losartan Potassium 25 MG TABLET PO (08:11)
[2020-12-15] MEDS: Omeprazole 40 MG CAPSULE.DR PO (10:35)
[2020-12-15] MEDS: Loperamide HCl 2 MG CAPSULE PO (10:37)
--- NOTE | 2020-12-15 11:08 | PC.NURSE ---
0750 patient's BP manually was 170/88, MD made aware, no new orders placed, given scheduled AM meds. At 1050 BP taken again still elevated at 198/78, manually, MD made aware again, awaiting response. Patient is asymptomatic, will continue to assess.
--- NOTE | 2020-12-15 14:59 | P.PNIM_ITS ---
Subjective Subjective Date of Service: 12/15/20 Interval History: the patient was seen and evaluated this morning Laying in bed, f still requiring high-flow oxygen Complaining of diarrhea Denies any fever, chills or shortness of breath No reported other overnight events. Systemic review: No fever, chills or weakness No chest pain, palpitation Shortness of breath with minimal exertion, still on high-flow oxygen No abdominal pain, nausea or vomiting but has diarrhea No urinary symptoms No any rash or wounds Physical Exam Vital Signs: Vital Signs: Last Vital Signs Temp 97.0 F 12/15/20 10:45 Pulse 89 12/15/20 11:11 Resp 20 12/15/20 11:11 BP 198/78 H 12/15/20 10:45 Pulse Ox 95 12/15/20 10:45 Body Mass Index 29.7 Const: Other: Constitutional : Alert, oriented, in mild respiratory distress, on high-flow oxygen supplement Neck : Normal inspection, Supple Cardiovascular : RRR, S1 S2, no lower extremity edema Respiratory : Decreased bilateral air entry mainly at the bases with fine bilateral basal crackles, no wheezes or rhonchi Gastrointestinal: soft, lax, Normal bowel sounds, Non tender Skin : Warm/Dry Neurological : Alert & oriented x3, No focal deficit Objective Data Current Medications Generic Name Dose Route Start Last Admin Trade Name Freq PRN Reason Stop Dose Admin Acetaminophen 650 mg 12/09/20 04:20 Acetaminophen 325 Mg Tablet PO Q6H PRN Pain, Mild (Pain Scale 1-3) Acetylcysteine 400 mg 12/15/20 08:00 12/15/20 07:53 Acetylcysteine 10 % 400 Mg/4 Ml Vial INHALE Not Given RBID OMID Albuterol/Ipratropium 3 ml 12/09/20 08:00 12/15/20 11:11 Albuterol/Iprat 2.5/0.5mg 3 Ml Ampul.Neb INHALE 3 ml RQ4H WHILE AWAKE [facility] Administration Albuterol/Ipratropium 3 ml 12/09/20 04:20 12/10/20 05:32 Albuterol/Iprat 2.5/0.5mg 3 Ml Ampul.Neb INHALE 3 ml RQ4H PRN Administration Shortness of Breath/Wheezing Amlodipine Besylate 2.5 mg 12/16/20 09:00 Amlodipine Besylate 2.5 Mg Tablet PO DAILY [facility] Protocol Enoxaparin Sodium 40 mg 12/14/20 08:00 12/15/20 08:11 Enoxaparin Sodium 40 Mg/0.4 Ml Syringe SUBCUT 40 mg Q24H [facility] Administration Furosemide 20 mg 12/15/20 09:00 12/15/20 08:11 Furosemide 20 Mg/2 Ml Vial IVPUSH 20 mg DAILY [facility] Administration Protocol Ceftriaxone Sodium 1 gm/ 100 mls @ 200 mls/hr 12/10/20 03:00 12/15/20 02:30 Sodium Chloride IV Infused Q24H [facility] Infusion Vancomycin HCl 1,000 mg/ 270 mls @ 270 mls/hr 12/14/20 16:00 12/15/20 03:45 Sodium Chloride IV Infused Q12H [facility] Infusion Loperamide HCl 2 mg 12/15/20 10:12 12/15/20 10:37 Loperamide Hcl 2 Mg Capsule PO 2 mg Q4H PRN Administration diarrhea Losartan Potassium 25 mg 12/14/20 15:45 12/15/20 08:11 Losartan Potassium 25 Mg Tablet PO 25 mg DAILY [facility] Administration Protocol Magnesium Hydroxide 30 ml 12/09/20 04:20 Milk Of Magnesia 30 Ml Oral.Susp PO DAILY PRN Constipation Methylprednisolone Sodium Succinate 40 mg 12/10/20 17:00 12/15/20 04:14 Methylprednisolone Sod Succ 40 Mg/Ml Vial IVPUSH 40 mg Q12H [facility] Administration Omeprazole 40 mg 12/15/20 10:15 12/15/20 10:35 Omeprazole 40 Mg Capsule.Dr PO 40 mg DAILY@0630 [facility] Administration Pharmacy Consult 1 each 12/14/20 15:30 Consult Rx Vancomycin Dosing MISCELLANE DAILY PRN Consult order Sodium Chloride 3 ml 12/12/20 16:00 12/15/20 08:17 0.9 % Sodium Chloride Flush 3 Ml Syringe IVFLUSH 3 ml QSHIFT [facility] Administration Spironolactone 25 mg 12/14/20 15:45 12/15/20 08:11 Spironolactone 25 Mg Tablet PO 25 mg DAILY [facility] Administration Protocol Labs CBC & Chem 7: 12/15/20 05:48 12/15/20 05:48 Labs: Laboratory Results - last 24 hr 12/15/20 12/15/20 12/15/20 05:48 05:48 05:48 MCV 93.9 MCH 31.2 MCHC 33.2 RDW 12.9 Plt Count 329 MPV 8.4 L Immature Gran % (Auto) 0.5 H Neut % (Auto) 85.4 H Lymph % (Auto) 4.9 L [place] % (Auto) 9.1 Eos % (Auto) 0.0 Baso % (Auto) 0.1 Lymph # (Auto) 0.7 L [place] # (Auto) 1.2 Eos # (Auto) 0.0 Baso # (Auto) 0.0 Abs Immat Gran (auto) 0.07 H Absolute Neuts (auto) 11.5 H Absolute Nucleated RBC 0.000 Nucleated RBC % (auto) 0.0 PT 11.2 INR 1.0 APTT 25.0 D-Dimer 2153 VBG pH VBG pCO2 VBG pO2 VBG HCO3 VBG O2 Saturation VBG Base Excess Anion Gap 9 L Estim Creat Clear Calc 79.7 Estimated GFR > 60 Random Glucose 115 Calcium 8.5 D Phosphorus 2.5 L Magnesium 2.1 12/15/20 05:51 MCV MCH MCHC RDW Plt Count MPV Immature Gran % (Auto) Neut % (Auto) Lymph % (Auto) [place] % (Auto) Eos % (Auto) Baso % (Auto) Lymph # (Auto) [place] # (Auto) Eos # (Auto) Baso # (Auto) Abs Immat Gran (auto) Absolute Neuts (auto) Absolute Nucleated RBC Nucleated RBC % (auto) PT INR APTT D-Dimer VBG pH 7.47 H VBG pCO2 42 VBG pO2 32 VBG HCO3 31 H VBG O2 Saturation 48.0 VBG Base Excess 7.1 Anion Gap Estim Creat Clear Calc Estimated GFR Random Glucose Calcium Phosphorus Magnesium Assessment and Plan (1) Respiratory failure, acute and chronic: Status: Acute (2) COPD exacerbation: Status: Acute (3) Acute UTI: Status: Acute (4) Femoral neck fracture: Status: Acute (5) Acute respiratory failure with hypoxia: Status: Acute (6) Atelectasis: Status: Acute Assessment and Plan: Acute respiratory failure with hypoxia Secondary to COPD exacerbation On high flow oxygen 100% 70 L Continue steroids Consider thoracentesis Continue nebulizers On antibiotics vancomycin and ceftriaxone Pulmonology following UTI Continue ceftriaxone day 6 Pending cultures Atelectasis Pleural effusions Start diuresis Start chest physical therapy, incentive spirometry To do Mucomyst nebulizer Covered with antibiotics Pulmonology consult Hip fracture Postop, followed by orthopedic team To do physical therapy Left humeral fracture In sling, pain under control Orthopedic team following Nonweightbearing DVT PPX Lovenox Quality Stroke Does the patient have a stroke diagnosis?: No VTE Prior VTE?: No VTE Risk Level:: Medical - moderate - high VTE Device Contraindication: Patient Refused VTE Drug Contraindication: Patient Refused
--- NOTE | 2020-12-15 15:51 | MHC.CM.PN ---
per rounds pt not expected to dc over the weekend cm will continue to follow
--- NOTE | 2020-12-15 17:21 | PM.CNPUL ---
History of Present Illness History of Present Illness Consult date: 12/15/20 Chief complaint: COPD/Hip Fx Narrative: ?75-year-old female severe longstanding smoking related COPD, O2 dependednt presented with acute hypercarbic and hypoxic respiratory failure with syncope resulting in left hip and left you murmur all fractures and had a nailing of the hip and and has been dependent on high L flow nasal cannula at 55 L and high FiO2 of 70% to maintain oxygen saturation of 89-90% and a normal pCO2 as been doing well with no distress has been on Rocephin because of a strep viridans urinary tract infection and on last night's CT scan done because of worsening hypoxemia we noted moderate bilateral pleural effusions. Now on HF 100%. Review of Systems Constitutional: Constitutional: Reports fatigue, Reports malaise and Denies night sweats ENT: Denies change in voice, Denies lip swelling, Denies mouth pain, Reports nasal congestion, Reports nasal discharge and Denies tongue swelling Cardiovascular: Cardiovascular: Denies chest pain and Reports dyspnea Respiratory: Respiratory: Reports cough and Reports dyspnea Gastrointestinal: Gastrointestinal: Denies abdominal pain Musculoskeletal: Musculoskeletal: Denies no additional musculoskeletal complaints Neurologic: Denies Neuro-related abnormal movements Psychiatric: Psychiatric: Denies no additional psychiatric complaints Endocrine: Endocrine: Reports fatigue Hematologic/Lymphatic: Hematologic/Lymphatic: Denies easy bleeding and Denies lymphadenopathy Allergic/Immunologic: Allergic/Immunologic: Denies lip swelling and Denies tongue swelling [facility] Past Medical History Medical History (Updated 12/15/20 @ 17:26 by Mika Fernandez MD) Acute and chronic respiratory failure COPD (chronic obstructive pulmonary disease) COPD exacerbation Hypertension Pleural effusion, bacterial Respiratory failure, acute and chronic Social History Social History Household Members: Children Housing: House Do you presently have visiting nurse or other home services: No Patient Tobacco Use Status: Current everyday Tobacco user Tobacco use type: Cigarette Cigarette Packs Per Day: 1 Cigarettes Per Day: 20.0 Smoked in Last 30 Days: Yes e-Cigarette/Vaping Use: Never Used Patient Interested in Nicotine Replacement: No Patient Given Instructions on How to Stop Smoking: Yes Date Education Initiated: 12/09/20 Use of substances other than those prescribed or required for medical reasons: No Currently Displaying Signs/Symptoms of Drug Intoxication Withdrawal: No Have you been hit, kicked, punched, or otherwise hurt by someone within the past year? If so, by whom?: No Do you feel safe in your current relationship?: Yes Is there a partner from a previous relationship who is making you feel unsafe now?: No Are you made to feel afraid or neglected: No Advance Directives: No Advance Directives Information Provided: No Do you have thoughts of harming others: None Do you have a plan to hurt others: No Plan Recently lost weight without trying: No Eating poorly because of decreased appetite: No Nutrition Risks: No Nutritional Risk Patient : No : No Poor oral hygiene: No service: No Current occupational status: retired [employer] Allergies Allergy/AdvReac Type Severity Reaction Status Date / Time No Known Allergies Allergy Verified 12/09/20 00:58 Active Medications: Current Medications Generic Name Dose Route Start Last Admin Trade Name Freq PRN Reason Stop Dose Admin Acetaminophen 650 mg 12/09/20 04:20 Acetaminophen 325 Mg Tablet PO Q6H PRN Pain, Mild (Pain Scale 1-3) Acetylcysteine 400 mg 12/15/20 08:00 12/15/20 07:53 Acetylcysteine 10 % 400 Mg/4 Ml Vial INHALE Not Given RBID OMID Albuterol/Ipratropium 3 ml 12/09/20 08:00 12/15/20 15:13 Albuterol/Iprat 2.5/0.5mg 3 Ml Ampul.Neb INHALE 3 ml RQ4H WHILE AWAKE [facility] Administration Albuterol/Ipratropium 3 ml 12/09/20 04:20 12/10/20 05:32 Albuterol/Iprat 2.5/0.5mg 3 Ml Ampul.Neb INHALE 3 ml RQ4H PRN Administration Shortness of Breath/Wheezing Amlodipine Besylate 5 mg 12/16/20 09:00 Amlodipine Besylate 5 Mg Tablet PO DAILY [facility] Protocol Enoxaparin Sodium 40 mg 12/14/20 08:00 12/15/20 08:11 Enoxaparin Sodium 40 Mg/0.4 Ml Syringe SUBCUT 40 mg Q24H [facility] Administration Furosemide 20 mg 12/15/20 09:00 12/15/20 08:11 Furosemide 20 Mg/2 Ml Vial IVPUSH 20 mg DAILY [facility] Administration Protocol Ceftriaxone Sodium 1 gm/ 100 mls @ 200 mls/hr 12/10/20 03:00 12/15/20 02:30 Sodium Chloride IV Infused Q24H [facility] Infusion Vancomycin HCl 1,000 mg/ 270 mls @ 270 mls/hr 12/14/20 16:00 12/15/20 17:20 Sodium Chloride IV 270 mls/hr Q12H [facility] Administration Loperamide HCl 2 mg 12/15/20 10:12 12/15/20 10:37 Loperamide Hcl 2 Mg Capsule PO 2 mg Q4H PRN Administration diarrhea Losartan Potassium 25 mg 12/14/20 15:45 12/15/20 08:11 Losartan Potassium 25 Mg Tablet PO 25 mg DAILY [facility] Administration Protocol Magnesium Hydroxide 30 ml 12/09/20 04:20 Milk Of Magnesia 30 Ml Oral.Susp PO DAILY PRN Constipation Methylprednisolone Sodium Succinate 40 mg 12/10/20 17:00 12/15/20 17:20 Methylprednisolone Sod Succ 40 Mg/Ml Vial IVPUSH 40 mg Q12H [facility] Administration Omeprazole 40 mg 12/15/20 10:15 12/15/20 10:35 Omeprazole 40 Mg Capsule. PO 40 mg DAILY@0630 [facility] Administration Pharmacy Consult 1 each 12/14/20 15:30 Consult Rx Vancomycin Dosing MISCELLANE DAILY PRN Consult order Sodium Chloride 3 ml 12/12/20 16:00 12/15/20 17:21 0.9 % Sodium Chloride Flush 3 Ml Syringe IVFLUSH 3 ml QSHIFT [facility] Administration Spironolactone 25 mg 12/14/20 15:45 12/15/20 08:11 Spironolactone 25 Mg Tablet PO 25 mg DAILY [facility] Administration Protocol Physical Exam Vital Signs: Vital Signs: Last Vital Signs Temp 97.8 F 12/15/20 15:18 Pulse 94 12/15/20 15:18 Resp 18 12/15/20 15:18 BP 146/80 H 12/15/20 15:18 Pulse Ox 93 12/15/20 15:18 Body Mass Index 29.7 Const: General: alert and tired appearing Neck: Neck: Yes normal visual inspection, Yes full ROM and Yes no lymphadenopathy Chest: Chest palpation & inspection: normal inspection of the chest Resp: Auscultation: diminished lung sounds Cardio: Rate: regular rate Rhythm: regular rhythm Heart sounds: S1 normal heart sound present and S2 normal heart sound present GI: Palpation (GI): Soft to palpation and nontender Auscultation: normal bowel sounds Skin: General skin exam: rashes and/or lesions noted Results Laboratory Findings CBC and BMP: 12/15/20 05:48 12/15/20 05:48 ABG, PT/INR, D-dimer: PT/INR, D-dimer PT 11.2 SEC (9.9-13.0) 12/15/20 05:48 INR 1.0 (0.9-1.1) 12/15/20 05:48 D-Dimer 2153 NG/ML 12/15/20 05:48 Abnormal lab findings: Abnormal Labs 12/09/20 12/09/20 12/09/20 01:13 01:13 01:13 WBC 15.9 H RBC 3.69 L Hgb 11.4 L Hct 36.8 L MCV 99.7 H MCHC MPV 7.9 L Immature Gran % (Auto) 0.6 H Neut % (Auto) 87.0 H Lymph % (Auto) 5.5 L Lymph # (Auto) 0.9 L Abs Immat Gran (auto) 0.09 H Absolute Neuts (auto) 13.8 H VBG pH VBG HCO3 Sodium 132 L Chloride 83 L Carbon Dioxide 46 H* Anion Gap 8 L BUN Creatinine Random Glucose 132 H Calcium Phosphorus AST Total Protein Albumin Urine Protein 2+ H Ur Leukocyte Esterase 2+ H Urine WBC 5-9 H 12/09/20 12/09/20 12/09/20 05:13 05:13 05:13 WBC 14.2 H RBC 3.52 L Hgb 10.8 L Hct 35.2 L MCV 100.0 H MCHC 30.7 L MPV 8.1 L Immature Gran % (Auto) Neut % (Auto) 87.3 H Lymph % (Auto) 5.7 L Lymph # (Auto) 0.8 L Abs Immat Gran (auto) 0.04 H Absolute Neuts (auto) 12.4 H VBG pH VBG HCO3 57 H Sodium 133 L Chloride 84 L Carbon Dioxide 45 H* Anion Gap 9 L BUN Creatinine Random Glucose 129 H Calcium Phosphorus AST Total Protein 5.8 L Albumin Urine Protein Ur Leukocyte Esterase Urine WBC 12/10/20 12/10/20 12/10/20 05:12 05:13 05:13 WBC RBC 3.17 L Hgb 9.8 L Hct 31.7 L MCV 100.0 H MCHC 30.9 L MPV 8.5 L Immature Gran % (Auto) Neut % (Auto) Lymph % (Auto) Lymph # (Auto) Abs Immat Gran (auto) Absolute Neuts (auto) VBG pH VBG HCO3 38 H Sodium 131 L Chloride 88 L Carbon Dioxide 38 H Anion Gap 9 L BUN Creatinine Random Glucose 132 H Calcium 7.9 L D Phosphorus AST 44 H D Total Protein 5.4 L Albumin 3.3 L Urine Protein Ur Leukocyte Esterase Urine WBC 12/10/20 12/11/20 12/11/20 13:03 05:10 05:12 WBC RBC 3.27 L Hgb 10.1 L Hct 32.0 L MCV MCHC MPV 8.6 L Immature Gran % (Auto) Neut % (Auto) Lymph % (Auto) Lymph # (Auto) Abs Immat Gran (auto) Absolute Neuts (auto) VBG pH VBG HCO3 34 H 30 H Sodium Chloride Carbon Dioxide Anion Gap BUN Creatinine Random Glucose Calcium Phosphorus AST Total Protein Albumin Urine Protein Ur Leukocyte Esterase Urine WBC 12/11/20 12/12/20 12/12/20 05:12 05:01 05:01 WBC RBC 3.49 L Hgb 10.7 L Hct 34.1 L MCV MCHC MPV 8.7 L Immature Gran % (Auto) Neut % (Auto) 80.7 H Lymph % (Auto) 9.8 L Lymph # (Auto) 0.8 L Abs Immat Gran (auto) Absolute Neuts (auto) VBG pH VBG HCO3 Sodium 134 L Chloride Carbon Dioxide 34 H 34 H Anion Gap 8 L 6 L BUN 18 H 17 H Creatinine 0.48 L Random Glucose 124 H Calcium 7.9 L 7.8 L Phosphorus 2.5 L AST Total Protein Albumin Urine Protein Ur Leukocyte Esterase Urine WBC 12/12/20 12/13/20 12/13/20 14:16 05:05 05:05 WBC RBC 3.64 L Hgb 11.2 L Hct 34.7 L MCV MCHC MPV 8.6 L Immature Gran % (Auto) 1.1 H Neut % (Auto) 79.7 H Lymph % (Auto) 8.8 L Lymph # (Auto) 0.7 L Abs Immat Gran (auto) 0.09 H Absolute Neuts (auto) VBG pH 7.46 H VBG HCO3 Sodium Chloride Carbon Dioxide 33 H Anion Gap 10 L BUN Creatinine 0.47 L Random Glucose 130 H Calcium 7.7 L Phosphorus 2.1 L AST Total Protein Albumin Urine Protein Ur Leukocyte Esterase Urine WBC 12/13/20 12/14/20 12/14/20 22:50 05:19 05:20 WBC RBC 3.87 L Hgb 11.9 L Hct 36.4 L MCV MCHC MPV 8.4 L Immature Gran % (Auto) 0.5 H Neut % (Auto) 86.4 H Lymph % (Auto) 6.3 L Lymph # (Auto) 0.5 L Abs Immat Gran (auto) 0.04 H Absolute Neuts (auto) VBG pH 7.51 H 7.44 H VBG HCO3 30 H 29 H Sodium Chloride Carbon Dioxide Anion Gap BUN Creatinine Random Glucose Calcium Phosphorus AST Total Protein Albumin Urine Protein Ur Leukocyte Esterase Urine WBC 12/14/20 12/15/20 12/15/20 05:20 05:48 05:48 WBC 13.4 H RBC 4.13 L Hgb Hct MCV MCHC MPV 8.4 L Immature Gran % (Auto) 0.5 H Neut % (Auto) 85.4 H Lymph % (Auto) 4.9 L Lymph # (Auto) 0.7 L Abs Immat Gran (auto) 0.07 H Absolute Neuts (auto) 11.5 H VBG pH VBG HCO3 Sodium 134 L Chloride 95 L Carbon Dioxide 32 H 35 H Anion Gap 11 L 9 L BUN 18 H Creatinine 0.44 L Random Glucose 127 H Calcium 8.0 L Phosphorus 2.6 L 2.5 L AST Total Protein Albumin Urine Protein Ur Leukocyte Esterase Urine WBC 12/15/20 05:51 WBC RBC Hgb Hct MCV MCHC MPV Immature Gran % (Auto) Neut % (Auto) Lymph % (Auto) Lymph # (Auto) Abs Immat Gran (auto) Absolute Neuts (auto) VBG pH 7.47 H VBG HCO3 31 H Sodium Chloride Carbon Dioxide Anion Gap BUN Creatinine Random Glucose Calcium Phosphorus AST Total Protein Albumin Urine Protein Ur Leukocyte Esterase Urine WBC Microbiology: Microbiology 12/09/20 Unknown Urine clean catch - Clean Catch Midstream Urine Culture - Final Streptococcus viridans group Assessment and Plan (1) Atelectasis: Status: Acute (2) Acute and chronic respiratory failure: Qualifiers: Respiratory failure complication: hypoxia and hypercapnia Qualified Code(s): J96.21 - Acute and chronic respiratory failure with hypoxia; J96.22 - Acute and chronic respiratory failure with hypercapnia Status: Acute (3) COPD exacerbation: Status: Acute (4) Pleural effusion, bacterial: Status: Acute Diuresis as tolerated. Consider Lasix drip Continue high-flow for now ABG if worsens Serial chest x-rays to monitor the effusions if no better by Friday the patient should undergo repeat thoracentesis Continue DuoNeb therapy Continue ceftriaxone Consider switching to p.o. prednisone to minimize adverse effects from the steroids affecting the wound healing and the recent surgery Procedures Date of Service Date of Service: 12/15/20
[2020-12-15] MEDS: Acetylcysteine 10 % 400 MG/4 ML VIAL INHALE (19:40)
--- NOTE | 2020-12-15 19:41 | PC.NURSE ---
at 1940 pt has elevated bp 200/88 manual right arm. MD notified, currently awaiting orders.
[2020-12-15] MEDS: hydrALAZINE HCl 20 MG/ML VIAL 5 MG IVPUSH (20:05)
[2020-12-16] VITALS (13 sets, daily range): BP systolic 140–186; BP diastolic 76–90; PULSE 82–96; RESP 18–20; TEMP 36.1–37.1; O2SAT 90–98; BMI 29.4
[2020-12-16] MEDS: oxyCODONE HCl Immed Release 5 MG TABLET PO (00:37)
[2020-12-16] MEDS: cefTRIAXone sodium 1 GM in 0.9 % Sodium Chloride 100 ML IV (02:54)
[2020-12-16] MEDS: 0.9 % Sodium Chloride Flush 3 ML SYRINGE IVFLUSH ×4 (02:58→20:02)
[2020-12-16 03:36] LABS: Vancomycin Trough 10.9 mcg/mL (10.0-20.0)
[2020-12-16] MEDS: vancomycin HCL 1,000 MG in 0.9 % Sodium Chloride 250 ML 270 MG IV ×2 (04:13→16:53)
[2020-12-16] MEDS: Omeprazole 40 MG CAPSULE.DR PO (05:30)
[2020-12-16] MEDS: methylPREDNISolone Sod Succ 40 MG/ML VIAL IVPUSH (05:30)
[2020-12-16 06:20] LABS: Hematocrit 34.3 % (37-47); Hemoglobin 11.2 g/dl (12.0-16.0); Mean Corpuscular HGB Conc 32.7 g/dl (31.0-35.0); Mean Corpuscular Hemoglobin 30.8 pg (27.0-33.0); Mean Corpuscular Volume 94.2 fL (80-98); Mean Platelet Volume 8.4 fL (9.4-12.3); Platelet Count 319 X10*3/uL (160-400); Red Blood Count 3.64 X10*6/uL (4.20-5.50); Red Cell Distribution Width 13.2 % (11.0-16.0); White Blood Count 13.5 X10*3/uL (4.8-10.8)
[2020-12-16 06:24] LABS: Venous Blood Gas Refer to POC result
[2020-12-16 06:25] LABS: VBG Base Excess 13.7 mmol/L; VBG HCO3 40 mmol/L (22-26); VBG pCO2 63 mmHg; VBG pH 7.41 (7.32-7.43); VBG pO2 46 mmHg
[2020-12-16 06:41] LABS: Anion Gap 8 (12-20); Blood Urea Nitrogen 21 mg/dL (9-16); Calcium 8.2 mg/dL (8.4-10.2); Carbon Dioxide 37 mmol/L (22-29); Chloride 98 mmol/L (96-108); Creatinine Clr Calc Pharmacy 84.2; Estimated Glomerular Filt Rate > 60; Glucose Random 103 mg/dL (60-115); Phosphorus 4.4 mg/dL (2.7-4.5); Potassium 4.4 mmol/L (3.3-5.1); Sodium 139 mmol/L (135-145)
[2020-12-16 07:00] LABS: Prothrombin Time 11.4 SEC (9.9-13.0)
[2020-12-16 07:03] LABS: D Dimer 1016 NG/ML; Partial Thromboplastin Time 25.3 SEC (24.1-38.0)
[2020-12-16] MEDS: Acetylcysteine 10 % 400 MG/4 ML VIAL INHALE ×2 (07:41→19:58)
[2020-12-16] MEDS: Albuterol/Iprat 2.5/0.5MG 3 ML AMPUL.NEB INHALE (07:41)
[2020-12-16] MEDS: Enoxaparin Sodium 40 MG/0.4 ML SYRINGE SUBCUT (09:29)
[2020-12-16] MEDS: predniSONE 20 MG TABLET 40 MG PO (09:30)
[2020-12-16] MEDS: amLODIPine Besylate 5 MG TABLET PO (09:30)
[2020-12-16] MEDS: Spironolactone 25 MG TABLET PO (09:30)
[2020-12-16] MEDS: Losartan Potassium 25 MG TABLET PO (09:31)
[2020-12-16] MEDS: Furosemide 20 MG/2 ML VIAL IVPUSH (09:32)
--- NOTE | 2020-12-16 13:10 | HO.PM.IMPN ---
Subjective Subjective Date of Service: 12/16/20 Interval History: the patient was seen and evaluated this morning Laying in bed, f still requiring high-flow oxygen Diarrhea Better controlled Denies any fever, chills or shortness of breath No reported other overnight events. Systemic review: No fever, chills or weakness No chest pain, palpitation Shortness of breath with minimal exertion, still on high-flow oxygen No abdominal pain, nausea or vomiting but has diarrhea No urinary symptoms No any rash or wounds Physical Exam Vital Signs: Vital Signs: Last Vital Signs Temp 97.8 F 12/16/20 10:53 Pulse 96 12/16/20 10:53 Resp 20 12/16/20 11:31 BP 178/84 H 12/16/20 10:53 Pulse Ox 90 L 12/16/20 10:53 Body Mass Index 29.4 Const: Other: Constitutional : Alert, oriented, in mild respiratory distress, on high-flow oxygen supplement Neck : Normal inspection, Supple Cardiovascular : RRR, S1 S2, no lower extremity edema Respiratory : Decreased bilateral air entry mainly at the bases with fine bilateral basal crackles, no wheezes or rhonchi Gastrointestinal: soft, lax, Normal bowel sounds, Non tender Skin : Warm/Dry Neurological : Alert & oriented x3, No focal deficit Objective Data Current Medications Generic Name Dose Route Start Last Admin Trade Name Freq PRN Reason Stop Dose Admin Acetaminophen 650 mg 12/09/20 04:20 Acetaminophen 325 Mg Tablet PO Q6H PRN Pain, Mild (Pain Scale 1-3) Acetylcysteine 400 mg 12/15/20 08:00 12/16/20 07:41 Acetylcysteine 10 % 400 Mg/4 Ml Vial INHALE 400 mg RBID [facility] Administration Amlodipine Besylate 5 mg 12/16/20 09:00 12/16/20 09:30 Amlodipine Besylate 5 Mg Tablet PO 5 mg DAILY [facility] Administration Protocol Enoxaparin Sodium 40 mg 12/14/20 08:00 12/16/20 09:29 Enoxaparin Sodium 40 Mg/0.4 Ml Syringe SUBCUT 40 mg Q24H [facility] Administration Furosemide 20 mg 12/15/20 09:00 12/16/20 09:32 Furosemide 20 Mg/2 Ml Vial IVPUSH 20 mg DAILY [facility] Administration Protocol Ceftriaxone Sodium 1 gm/ 100 mls @ 200 mls/hr 12/10/20 03:00 12/16/20 03:38 Sodium Chloride IV Infused Q24H [facility] Infusion Vancomycin HCl 1,000 mg/ 270 mls @ 270 mls/hr 12/14/20 16:00 12/16/20 05:26 Sodium Chloride IV Infused Q12H [facility] Infusion Loperamide HCl 2 mg 12/15/20 10:12 12/15/20 10:37 Loperamide Hcl 2 Mg Capsule PO 2 mg Q4H PRN Administration diarrhea Losartan Potassium 25 mg 12/14/20 15:45 12/16/20 09:31 Losartan Potassium 25 Mg Tablet PO 25 mg DAILY [facility] Administration Protocol Magnesium Hydroxide 30 ml 12/09/20 04:20 Milk Of Magnesia 30 Ml Oral.Susp PO DAILY PRN Constipation Morphine Sulfate 2 mg 12/16/20 12:59 Morphine Sulfate 2 Mg/Ml Cartridge IVPUSH Q6H PRN Pain, Severe (Pain Scale 7-10) Omeprazole 40 mg 12/15/20 10:15 12/16/20 05:30 Omeprazole 40 Mg Capsule. PO 40 mg DAILY@0630 [facility] Administration Pharmacy Consult 1 each 12/14/20 15:30 Consult Rx Vancomycin Dosing MISCELLANE DAILY PRN Consult order Prednisone 40 mg 12/16/20 09:00 12/16/20 09:30 Prednisone 20 Mg Tablet PO 40 mg DAILY [facility] Administration Sodium Chloride 3 ml 12/12/20 16:00 12/16/20 09:30 0.9 % Sodium Chloride Flush 3 Ml Syringe IVFLUSH 3 ml QSHIFT [facility] Administration Spironolactone 25 mg 12/14/20 15:45 12/16/20 09:30 Spironolactone 25 Mg Tablet PO 25 mg DAILY [facility] Administration Protocol Labs CBC & Chem 7: 12/16/20 06:03 12/16/20 06:03 Labs: Laboratory Results - last 24 hr 12/16/20 12/16/20 12/16/20 02:56 06:03 06:03 MCV 94.2 MCH 30.8 MCHC 32.7 RDW 13.2 Plt Count 319 MPV 8.4 L Immature Gran % (Auto) Cancelled Neut % (Auto) Cancelled Lymph % (Auto) Cancelled [place] % (Auto) Cancelled Eos % (Auto) Cancelled Baso % (Auto) Cancelled Lymph # (Auto) Cancelled [place] # (Auto) Cancelled Eos # (Auto) Cancelled Baso # (Auto) Cancelled Abs Immat Gran (auto) Cancelled Absolute Neuts (auto) Cancelled Absolute Nucleated RBC 0.000 Nucleated RBC % (auto) 0.0 PT INR APTT D-Dimer VBG pH VBG pCO2 VBG pO2 VBG HCO3 VBG O2 Saturation VBG Base Excess Anion Gap 8 L Estim Creat Clear Calc 84.2 Estimated GFR > 60 Random Glucose 103 Calcium 8.2 L Phosphorus 4.4 Magnesium 2.0 Vancomycin Trough 10.9 12/16/20 12/16/20 06:03 06:06 MCV MCH MCHC RDW Plt Count MPV Immature Gran % (Auto) Neut % (Auto) Lymph % (Auto) [place] % (Auto) Eos % (Auto) Baso % (Auto) Lymph # (Auto) [place] # (Auto) Eos # (Auto) Baso # (Auto) Abs Immat Gran (auto) Absolute Neuts (auto) Absolute Nucleated RBC Nucleated RBC % (auto) PT 11.4 INR 1.0 APTT 25.3 D-Dimer 1016 VBG pH 7.41 VBG pCO2 63 VBG pO2 46 VBG HCO3 40 H VBG O2 Saturation 70.0 VBG Base Excess 13.7 Anion Gap Estim Creat Clear Calc Estimated GFR Random Glucose Calcium Phosphorus Magnesium Vancomycin Trough Assessment and Plan (1) Pleural effusion, bacterial: Status: Acute (2) Acute and chronic respiratory failure: Status: Acute (3) Atelectasis: Status: Acute (4) Acute respiratory failure with hypoxia: Status: Acute (5) Syncope and collapse: Status: Acute Assessment and Plan: A 75 years old lady with PMH of COPD presented to the hospital after having syncopal episode and hip fracture. Required admission to ICU for acute hypoxic respiratory failure. Acute respiratory failure with hypoxia Secondary to COPD exacerbation On high flow oxygen 100% 70 L Continue steroids Consider thoracentesis Continue nebulizers Continue vancomycin, Azithromycin Pulmonology following UTI Discontinue, finished ceftriaxone day 7 Urine culture grew Streptococcus viridans Atelectasis Pleural effusions Start diuresis Start chest physical therapy, incentive spirometry To do Mucomyst nebulizer Covered with antibiotics Pulmonology consult Hip fracture Postop, followed by orthopedic team To do physical therapy Left humeral fracture In sling, pain under control Orthopedic team following Nonweightbearing DVT PPX Lovenox Quality Stroke Does the patient have a stroke diagnosis?: No VTE Prior VTE?: No VTE Risk Level:: Medical - moderate - high VTE Device Contraindication: Patient Refused VTE Drug Contraindication: Patient Refused
[2020-12-16] MEDS: Morphine Sulfate 2 MG/ML CARTRIDGE IVPUSH ×2 (13:26→20:02)
[2020-12-16] MEDS: Azithromycin 500 MG TABLET PO (13:26)
[2020-12-17] VITALS (17 sets, daily range): BP systolic 135–174; BP diastolic 67–88; PULSE 74–96; RESP 18–22; TEMP 36.4–36.8; O2SAT 90–100; BMI 29.5
[2020-12-17] MEDS: vancomycin HCL 1,000 MG in 0.9 % Sodium Chloride 250 ML 270 MG IV ×2 (04:22→15:54)
[2020-12-17 05:26] LABS: MANUAL DIFF FLAG NO
[2020-12-17 05:30] LABS: VBG HCO3 45 mmol/L (22-26); VBG pCO2 80 mmHg; VBG pH 7.35 (7.32-7.43); VBG pO2 101 mmHg
[2020-12-17 05:30] LABS: Venous Blood Gas Refer to POC result
[2020-12-17 05:35] LABS: Basophils Percent Auto 0.1 % (0-2); Eosinophils Percent Auto 0.2 % (0-4); Hematocrit 34.4 % (37-47); Imm Gran Abs Auto 0.09 X10*3/uL (0.00-0.03); Imm Gran Pct Auto 0.7 % (0.0-0.4); Lymphocytes Absolute Auto 1.5 X10*3/uL (1.2-4.9); Lymphocytes Percent Auto 10.7 % (20-40); Mean Corpuscular Hemoglobin 30.8 pg (27.0-33.0); Mean Corpuscular Volume 96.4 fL (80-98); Mean Platelet Volume 8.5 fL (9.4-12.3); Monocytes Absolute Auto 1.5 X10*3/uL (0.1-1.2); Monocytes Percent Auto 10.8 % (2-11); Neutrophils Absolute Auto 10.7 X10*3/uL (2.0-8.3); Neutrophils Percent Auto 77.5 % (45-73); Platelet Count 282 X10*3/uL (160-400); Red Blood Count 3.57 X10*6/uL (4.20-5.50); Red Cell Distribution Width 13.2 % (11.0-16.0); White Blood Count 13.8 X10*3/uL (4.8-10.8)
[2020-12-17 05:36] LABS: Prothrombin Time 10.8 SEC (9.9-13.0)
[2020-12-17 05:39] LABS: D Dimer 1031 NG/ML
[2020-12-17 05:48] LABS: Partial Thromboplastin Time 22.4 SEC (24.1-38.0)
[2020-12-17 06:08] LABS: Anion Gap 11 (12-20); Blood Urea Nitrogen 21 mg/dL (9-16); Carbon Dioxide 32 mmol/L (22-29); Chloride 99 mmol/L (96-108); Creatinine Clr Calc Pharmacy 88.1; Estimated Glomerular Filt Rate > 60; Glucose Random 87 mg/dL (60-115); Magnesium 2.1 mg/dL (1.6-2.6); Phosphorus 4.5 mg/dL (2.7-4.5); Potassium 4.2 mmol/L (3.3-5.1); Sodium 138 mmol/L (135-145)
[2020-12-17] MEDS: Acetylcysteine 10 % 400 MG/4 ML VIAL INHALE ×2 (07:19→19:38)
[2020-12-17] MEDS: Furosemide 20 MG/2 ML VIAL IVPUSH (08:11)
[2020-12-17] MEDS: 0.9 % Sodium Chloride Flush 3 ML SYRINGE IVFLUSH ×2 (08:11→11:46)
[2020-12-17] MEDS: amLODIPine Besylate 5 MG TABLET PO (08:15)
[2020-12-17] MEDS: Losartan Potassium 25 MG TABLET PO (08:15)
[2020-12-17] MEDS: Spironolactone 25 MG TABLET PO (08:15)
[2020-12-17] MEDS: predniSONE 20 MG TABLET 40 MG PO (08:15)
[2020-12-17] MEDS: Enoxaparin Sodium 40 MG/0.4 ML SYRINGE SUBCUT (08:16)
--- NOTE | 2020-12-17 11:36 | HO.PM.IMPN ---
Subjective Subjective Date of Service: 12/17/20 Interval History: The patient was seen and evaluated this morning Laying in bed, still requiring high-flow oxygen Diarrhea Better controlled Denies any fever, chills or shortness of breath No reported other overnight events. Systemic review: No fever, chills or weakness No chest pain, palpitation Oxygen level drops to 80s with minimal exertion, still on high-flow oxygen No abdominal pain, nausea or vomiting but has diarrhea No urinary symptoms No any rash or wounds Physical Exam Vital Signs: Vital Signs: Last Vital Signs Temp 98 F 12/17/20 11:11 Pulse 86 12/17/20 11:11 Resp 20 12/17/20 11:11 BP 135/67 12/17/20 11:11 Pulse Ox 92 12/17/20 11:11 Body Mass Index 29.5 Const: Other: Constitutional : Alert, oriented, in mild respiratory distress, on high-flow oxygen supplement Neck : Normal inspection, Supple Cardiovascular : RRR, S1 S2, no lower extremity edema Respiratory : Decreased bilateral air entry mainly at the bases with fine bilateral basal crackles, no wheezes or rhonchi Gastrointestinal: soft, lax, Normal bowel sounds, Non tender Skin : Warm/Dry Neurological : Alert & oriented x3, No focal deficit Objective Data Current Medications Generic Name Dose Route Start Last Admin Trade Name Freq PRN Reason Stop Dose Admin Acetaminophen 650 mg 12/09/20 04:20 Acetaminophen 325 Mg Tablet PO Q6H PRN Pain, Mild (Pain Scale 1-3) Acetylcysteine 400 mg 12/15/20 08:00 12/17/20 07:19 Acetylcysteine 10 % 400 Mg/4 Ml Vial INHALE 400 mg RBID [facility] Administration Amlodipine Besylate 5 mg 12/16/20 09:00 12/17/20 08:15 Amlodipine Besylate 5 Mg Tablet PO 5 mg DAILY [facility] Administration Protocol Azithromycin 500 mg 12/16/20 13:30 12/16/20 13:26 Azithromycin 500 Mg Tablet PO 500 mg Q24H [facility] Administration Enoxaparin Sodium 40 mg 12/14/20 08:00 12/17/20 08:16 Enoxaparin Sodium 40 Mg/0.4 Ml Syringe SUBCUT 40 mg Q24H [facility] Administration Furosemide 20 mg 12/15/20 09:00 12/17/20 08:11 Furosemide 20 Mg/2 Ml Vial IVPUSH 20 mg DAILY [facility] Administration Protocol Vancomycin HCl 1,000 mg/ 270 mls @ 270 mls/hr 12/14/20 16:00 12/17/20 05:22 Sodium Chloride IV Infused Q12H [facility] Infusion Loperamide HCl 2 mg 12/15/20 10:12 12/15/20 10:37 Loperamide Hcl 2 Mg Capsule PO 2 mg Q4H PRN Administration diarrhea Losartan Potassium 25 mg 12/14/20 15:45 12/17/20 08:15 Losartan Potassium 25 Mg Tablet PO 25 mg DAILY [facility] Administration Protocol Magnesium Hydroxide 30 ml 12/09/20 04:20 Milk Of Magnesia 30 Ml Oral.Susp PO DAILY PRN Constipation Morphine Sulfate 2 mg 12/16/20 12:59 12/16/20 20:02 Morphine Sulfate 2 Mg/Ml Cartridge IVPUSH 2 mg Q6H PRN Administration Pain, Severe (Pain Scale 7-10) Omeprazole 40 mg 12/15/20 10:15 12/17/20 06:31 Omeprazole 40 Mg Capsule.Dr SNYDER Not Given DAILY@0630 [facility] Pharmacy Consult 1 each 12/14/20 15:30 Consult Rx Vancomycin Dosing MISCELLANE DAILY PRN Consult order Prednisone 40 mg 12/16/20 09:00 12/17/20 08:15 Prednisone 20 Mg Tablet PO 40 mg DAILY [facility] Administration Sodium Chloride 3 ml 12/12/20 16:00 12/17/20 08:11 0.9 % Sodium Chloride Flush 3 Ml Syringe IVFLUSH 3 ml QSHIFT [facility] Administration Spironolactone 25 mg 12/14/20 15:45 12/17/20 08:15 Spironolactone 25 Mg Tablet PO 25 mg DAILY [facility] Administration Protocol Labs CBC & Chem 7: 12/17/20 05:17 12/17/20 05:17 Labs: Laboratory Results - last 24 hr 12/17/20 12/17/20 12/17/20 05:17 05:17 05:17 MCV 96.4 MCH 30.8 MCHC 32.0 RDW 13.2 Plt Count 282 MPV 8.5 L Immature Gran % (Auto) 0.7 H Neut % (Auto) 77.5 H Lymph % (Auto) 10.7 L [place] % (Auto) 10.8 Eos % (Auto) 0.2 Baso % (Auto) 0.1 Lymph # (Auto) 1.5 [place] # (Auto) 1.5 H Eos # (Auto) 0.0 Baso # (Auto) 0.0 Abs Immat Gran (auto) 0.09 H Absolute Neuts (auto) 10.7 H Absolute Nucleated RBC 0.000 Nucleated RBC % (auto) 0.0 PT 10.8 INR 1.0 APTT 22.4 L D-Dimer 1031 VBG pH VBG pCO2 VBG pO2 VBG HCO3 VBG O2 Saturation VBG Base Excess Anion Gap 11 L Estim Creat Clear Calc 88.1 Estimated GFR > 60 Random Glucose 87 Calcium 8.0 L Phosphorus 4.5 Magnesium 2.1 12/17/20 05:19 MCV MCH MCHC RDW Plt Count MPV Immature Gran % (Auto) Neut % (Auto) Lymph % (Auto) [place] % (Auto) Eos % (Auto) Baso % (Auto) Lymph # (Auto) [place] # (Auto) Eos # (Auto) Baso # (Auto) Abs Immat Gran (auto) Absolute Neuts (auto) Absolute Nucleated RBC Nucleated RBC % (auto) PT INR APTT D-Dimer VBG pH 7.35 VBG pCO2 80 VBG pO2 101 VBG HCO3 45 H VBG O2 Saturation 98.0 VBG Base Excess 16.0 Anion Gap Estim Creat Clear Calc Estimated GFR Random Glucose Calcium Phosphorus Magnesium Assessment and Plan (1) Pleural effusion, bacterial: Status: Acute (2) Acute and chronic respiratory failure: Status: Acute (3) Atelectasis: Status: Acute (4) Acute respiratory failure with hypoxia: Status: Acute Assessment and Plan: A 75 years old lady with PMH of COPD presented to the hospital after having syncopal episode and hip fracture. Required admission to ICU for acute hypoxic respiratory failure. Acute respiratory failure with hypoxia Secondary to COPD exacerbation On high flow oxygen 100% 60 L Continue steroids, started on p.o. Consider thoracentesis Continue nebulizers Continue vancomycin day 4, Azithromycin Day 2 Pulmonology following UTI Discontinue, finished ceftriaxone day 7 Urine culture grew Streptococcus viridans Atelectasis Pleural effusions Continue diuresis Continue chest physical therapy, incentive spirometry To do Mucomyst nebulizer Covered with antibiotics Pulmonology consult Hip fracture Postop, followed by orthopedic team To do physical therapy Left humeral fracture In sling, pain under control Orthopedic team following Nonweightbearing DVT PPX Lovenox Quality Stroke Does the patient have a stroke diagnosis?: No VTE Prior VTE?: No VTE Risk Level:: Medical - moderate - high VTE Device Contraindication: Patient Refused VTE Drug Contraindication: Patient Refused
[2020-12-17] MEDS: Azithromycin 500 MG TABLET PO (11:46)
--- NOTE | 2020-12-17 15:36 | PC.NURSE ---
Inquired w/MD on o2 sat goal for pt. Instructed to aim for 88-92% and to wean as lyric. Resp also closely involved.
[2020-12-17] MEDS: Morphine Sulfate 2 MG/ML CARTRIDGE IVPUSH (15:57)
--- NOTE | 2020-12-17 16:00 | PC.NURSE ---
pt complaining of pain on her bottom. Brought in waffle cushion to repo pt - pt felt cushion, refused at this time said she didnt want to be on that. Explained purpose- still refused at this time. Cont to enc repo, is on air loss mattress at this time. Pt buttocks pink & blanchable
[2020-12-17 16:06] LABS: Vancomycin Trough 13.7 mcg/mL (10.0-20.0)
[2020-12-18] VITALS (17 sets, daily range): BP systolic 135–186; BP diastolic 56–79; PULSE 79–92; RESP 20–22; TEMP 36.1–37.1; O2SAT 90–96; BMI 29.5
[2020-12-18] MEDS: 0.9 % Sodium Chloride Flush 3 ML SYRINGE IVFLUSH ×4 (00:07→23:30)
[2020-12-18] MEDS: vancomycin HCL 1,000 MG in 0.9 % Sodium Chloride 250 ML 270 MG IV (04:02)
[2020-12-18] MEDS: Omeprazole 40 MG CAPSULE.DR PO (05:29)
[2020-12-18] MEDS: Acetylcysteine 10 % 400 MG/4 ML VIAL INHALE ×2 (07:58→19:37)
[2020-12-18] MEDS: Furosemide 20 MG/2 ML VIAL IVPUSH (08:41)
[2020-12-18] MEDS: Losartan Potassium 25 MG TABLET PO (08:42)
[2020-12-18] MEDS: predniSONE 20 MG TABLET 40 MG PO (08:42)
[2020-12-18] MEDS: amLODIPine Besylate 5 MG TABLET PO (08:42)
[2020-12-18] MEDS: Spironolactone 25 MG TABLET PO (08:43)
[2020-12-18] MEDS: Enoxaparin Sodium 40 MG/0.4 ML SYRINGE SUBCUT (08:43)
[2020-12-18 09:22] LABS: Creatinine Clr Calc Pharmacy 93.9; Estimated Glomerular Filt Rate > 60
[2020-12-18 10:29] LABS: VBG Base Excess 20.5 mmol/L; VBG HCO3 49 mmol/L (22-26); VBG pCO2 77 mmHg; VBG pH 7.41 (7.32-7.43); VBG pO2 41 mmHg
[2020-12-18 10:30] LABS: Venous Blood Gas Refer to POC result
--- NOTE | 2020-12-18 13:28 | P.PNIM_ITS ---
Subjective Subjective Date of Service: 12/18/20 Interval History: The patient was seen and evaluated this morning Laying in bed, still requiring high-flow oxygen, weaning down as tolerated Feels little tired from all of this would like to be able to leave and woke Denies any fever, chills or shortness of breath No reported other overnight events. Systemic review: No fever, chills or weakness No chest pain, palpitation Oxygen level drops to 80s with minimal exertion, still on high-flow oxygen No abdominal pain, nausea or vomiting but has diarrhea No urinary symptoms No any rash or wounds Physical Exam Vital Signs: Vital Signs: Last Vital Signs Temp 98.8 F 12/18/20 11:10 Pulse 90 12/18/20 11:10 Resp 20 12/18/20 11:58 BP 135/65 12/18/20 11:10 Pulse Ox 91 L 12/18/20 11:10 Body Mass Index 29.5 Const: Other: Constitutional : Alert, oriented, in mild respiratory distress, on high-flow oxygen supplement Neck : Normal inspection, Supple Cardiovascular : RRR, S1 S2, no lower extremity edema Respiratory : Decreased bilateral air entry mainly at the bases with fine bilateral basal crackles, no wheezes or rhonchi Gastrointestinal: soft, lax, Normal bowel sounds, Non tender Skin : Warm/Dry Neurological : Alert & oriented x3, No focal deficit Objective Data Current Medications Generic Name Dose Route Start Last Admin Trade Name Freq PRN Reason Stop Dose Admin Acetaminophen 650 mg 12/09/20 04:20 Acetaminophen 325 Mg Tablet PO Q6H PRN Pain, Mild (Pain Scale 1-3) Acetylcysteine 400 mg 12/15/20 08:00 12/18/20 07:58 Acetylcysteine 10 % 400 Mg/4 Ml Vial INHALE 400 mg RBID [facility] Administration Amlodipine Besylate 5 mg 12/16/20 09:00 12/18/20 08:42 Amlodipine Besylate 5 Mg Tablet PO 5 mg DAILY [facility] Administration Protocol Azithromycin 500 mg 12/16/20 13:30 12/17/20 11:46 Azithromycin 500 Mg Tablet PO 500 mg Q24H [facility] Administration Enoxaparin Sodium 40 mg 12/14/20 08:00 12/18/20 08:43 Enoxaparin Sodium 40 Mg/0.4 Ml Syringe SUBCUT 40 mg Q24H [facility] Administration Fluticasone Propionate 1 spray 12/18/20 09:50 12/18/20 11:20 Fluticasone Propionate Nasal 16 Gm [place] NOSTRIL-B Not Given BID [facility] Furosemide 20 mg 12/15/20 09:00 12/18/20 08:41 Furosemide 20 Mg/2 Ml Vial IVPUSH 20 mg DAILY [facility] Administration Protocol Vancomycin HCl 1,000 mg/ 270 mls @ 270 mls/hr 12/14/20 16:00 12/18/20 05:05 Sodium Chloride IV Infused Q12H [facility] Infusion Loperamide HCl 2 mg 12/15/20 10:12 12/15/20 10:37 Loperamide Hcl 2 Mg Capsule PO 2 mg Q4H PRN Administration diarrhea Losartan Potassium 25 mg 12/14/20 15:45 12/18/20 08:42 Losartan Potassium 25 Mg Tablet PO 25 mg DAILY [facility] Administration Protocol Magnesium Hydroxide 30 ml 12/09/20 04:20 Milk Of Magnesia 30 Ml Oral.Susp PO DAILY PRN Constipation Morphine Sulfate 2 mg 12/16/20 12:59 12/17/20 15:57 Morphine Sulfate 2 Mg/Ml Cartridge IVPUSH 2 mg Q6H PRN Administration Pain, Severe (Pain Scale 7-10) Omeprazole 40 mg 12/15/20 10:15 12/18/20 05:29 Omeprazole 40 Mg Capsule. PO 40 mg DAILY@0630 [facility] Administration Pharmacy Consult 1 each 12/14/20 15:30 Consult Rx Vancomycin Dosing MISCELLANE DAILY PRN Consult order Prednisone 40 mg 12/16/20 09:00 12/18/20 08:42 Prednisone 20 Mg Tablet PO 40 mg DAILY [facility] Administration Sodium Chloride 3 ml 12/12/20 16:00 12/18/20 08:44 0.9 % Sodium Chloride Flush 3 Ml Syringe IVFLUSH 3 ml QSHIFT [facility] Administration Spironolactone 25 mg 12/14/20 15:45 12/18/20 08:43 Spironolactone 25 Mg Tablet PO 25 mg DAILY [facility] Administration Protocol Labs CBC & Chem 7: 12/17/20 05:17 12/18/20 08:24 Labs: Laboratory Results - last 24 hr 12/17/20 12/18/20 12/18/20 15:09 08:24 10:21 VBG pH 7.41 VBG pCO2 77 VBG pO2 41 VBG HCO3 49 H VBG O2 Saturation 63.0 VBG Base Excess 20.5 Estim Creat Clear Calc 93.9 Estimated GFR > 60 Vancomycin Trough 13.7 Assessment and Plan (1) Pleural effusion, bacterial: Status: Acute (2) Acute and chronic respiratory failure: Status: Acute (3) Atelectasis: Status: Acute (4) Acute respiratory failure with hypoxia: Status: Acute Assessment and Plan: A 75 years old lady with PMH of COPD presented to the hospital after having syncopal episode and hip fracture. Required admission to ICU for acute hypoxic respiratory failure. Acute respiratory failure with hypoxia Secondary to COPD exacerbation On high flow oxygen, down to 60% 60 L Continue steroids, started on p.o. Repeated x-ray showing bilateral effusions, consider thoracentesis Continue nebulizers Discontinue vancomycin day 5 Keep Azithromycin Day 3 Pulmonology evaluated the patient UTI Discontinue, finished ceftriaxone day 7 Urine culture grew Streptococcus viridans Atelectasis Pleural effusions Continue diuresis Continue chest physical therapy, incentive spirometry To do Mucomyst nebulizer Covered with antibiotics Pulmonology consult Hip fracture Postop, followed by orthopedic team To do physical therapy Left humeral fracture In sling, pain under control Orthopedic team following Nonweightbearing DVT PPX Lovenox Quality Stroke Does the patient have a stroke diagnosis?: No VTE Prior VTE?: No VTE Risk Level:: Medical - moderate - high VTE Device Contraindication: Patient Refused VTE Drug Contraindication: Patient Refused
[2020-12-18] MEDS: Morphine Sulfate 2 MG/ML CARTRIDGE IVPUSH ×2 (14:45→23:51)
[2020-12-18] MEDS: Azithromycin 500 MG TABLET PO (14:45)
--- NOTE | 2020-12-18 14:58 | MHC.CM.PN ---
per rounds dc plan [facility] when medically stable md weaning pt to a lower flow 02
[2020-12-19] VITALS (15 sets, daily range): BP systolic 124–160; BP diastolic 61–72; PULSE 79–91; RESP 16–20; TEMP 35.9–36.6; O2SAT 90–99; BMI 28.9
[2020-12-19 03:29] LABS: Vancomycin Trough 8.4 mcg/mL (10.0-20.0)
[2020-12-19] MEDS: Omeprazole 40 MG CAPSULE.DR PO (05:41)
[2020-12-19 06:42] LABS: Anion Gap 10 (12-20); Blood Urea Nitrogen 21 mg/dL (9-16); Calcium 8.5 mg/dL (8.4-10.2); Carbon Dioxide 42 mmol/L (22-29); Chloride 93 mmol/L (96-108); Estimated Glomerular Filt Rate > 60; Glucose Random 83 mg/dL (60-115); Potassium 4.2 mmol/L (3.3-5.1); Sodium 141 mmol/L (135-145)
--- NOTE | 2020-12-19 07:18 | PC.NURSE ---
0642; Critical carbon dioxide 42. Patient alert and oriented, currently on highflow 60 L at 75% with oxygen saturation of 96%. Dr. Diaz notified via [employer]. Per MD, bring down oxygen saturation to 93% This RN notified respiratory therapy, respiratory therapy on way to patient's room. Day shift RN made aware.
[2020-12-19] MEDS: Acetylcysteine 10 % 400 MG/4 ML VIAL INHALE ×2 (07:26→20:08)
[2020-12-19] MEDS: Furosemide 20 MG/2 ML VIAL IVPUSH (07:42)
[2020-12-19] MEDS: 0.9 % Sodium Chloride Flush 3 ML SYRINGE IVFLUSH ×3 (07:42→23:59)
[2020-12-19] MEDS: amLODIPine Besylate 5 MG TABLET PO (07:42)
[2020-12-19] MEDS: Morphine Sulfate 2 MG/ML CARTRIDGE IVPUSH (07:42)
[2020-12-19] MEDS: Losartan Potassium 25 MG TABLET PO (07:43)
[2020-12-19] MEDS: Spironolactone 25 MG TABLET PO (07:43)
[2020-12-19] MEDS: predniSONE 20 MG TABLET 40 MG PO (07:43)
[2020-12-19] MEDS: acetaZOLAMIDE 250 MG TABLET PO ×2 (08:33→20:23)
--- NOTE | 2020-12-19 14:08 | HO.PM.IMPN ---
Subjective Subjective Date of Service: 12/19/20 Interval History: The patient was seen and evaluated this morning Laying in bed, still requiring high-flow oxygen, weaning down as tolerated Denies any fever, chills or shortness of breath No reported other overnight events. Systemic review: No fever, chills or weakness No chest pain, palpitation Mild dyspnea with exertion still on high-flow oxygen No abdominal pain, nausea or vomiting but has diarrhea No urinary symptoms No any rash or wounds Physical Exam Vital Signs: Vital Signs: Last Vital Signs Temp 96.6 F L 12/19/20 10:52 Pulse 81 12/19/20 10:52 Resp 18 12/19/20 11:34 BP 131/63 12/19/20 10:52 Pulse Ox 97 12/19/20 10:52 Body Mass Index 28.9 Const: Other: Constitutional : Alert, oriented, in mild respiratory distress, on high-flow oxygen supplement Neck : Normal inspection, Supple Cardiovascular : RRR, S1 S2, no lower extremity edema Respiratory : Decreased bilateral air entry mainly at the bases with fine bilateral basal crackles, no wheezes or rhonchi Gastrointestinal: soft, lax, Normal bowel sounds, Non tender Skin : Warm/Dry Neurological : Alert & oriented x3, No focal deficit Objective Data Current Medications Generic Name Dose Route Start Last Admin Trade Name Freq PRN Reason Stop Dose Admin Acetaminophen 650 mg 12/09/20 04:20 Acetaminophen 325 Mg Tablet PO Q6H PRN Pain, Mild (Pain Scale 1-3) Acetazolamide 250 mg 12/19/20 09:00 12/19/20 08:33 Acetazolamide 250 Mg Tablet PO 250 mg BID [facility] Administration Acetylcysteine 400 mg 12/15/20 08:00 12/19/20 07:26 Acetylcysteine 10 % 400 Mg/4 Ml Vial INHALE 400 mg RBID [facility] Administration Amlodipine Besylate 5 mg 12/16/20 09:00 12/19/20 07:42 Amlodipine Besylate 5 Mg Tablet PO 5 mg DAILY [facility] Administration Protocol Azithromycin 500 mg 12/16/20 13:30 12/18/20 14:45 Azithromycin 500 Mg Tablet PO 500 mg Q24H [facility] Administration Enoxaparin Sodium 40 mg 12/14/20 08:00 12/19/20 08:23 Enoxaparin Sodium 40 Mg/0.4 Ml Syringe SUBCUT Not Given Q24H [facility] Fluticasone Propionate 1 spray 12/18/20 09:50 12/19/20 10:22 Fluticasone Propionate Nasal 16 Gm [place] NOSTRIL-B Not Given BID [facility] Furosemide 20 mg 12/15/20 09:00 12/19/20 07:42 Furosemide 20 Mg/2 Ml Vial IVPUSH 20 mg DAILY [facility] Administration Protocol Loperamide HCl 2 mg 12/15/20 10:12 12/15/20 10:37 Loperamide Hcl 2 Mg Capsule PO 2 mg Q4H PRN Administration diarrhea Losartan Potassium 25 mg 12/14/20 15:45 12/19/20 07:43 Losartan Potassium 25 Mg Tablet PO 25 mg DAILY [facility] Administration Protocol Magnesium Hydroxide 30 ml 12/09/20 04:20 Milk Of Magnesia 30 Ml Oral.Susp PO DAILY PRN Constipation Morphine Sulfate 2 mg 12/16/20 12:59 12/19/20 07:42 Morphine Sulfate 2 Mg/Ml Cartridge IVPUSH 2 mg Q6H PRN Administration Pain, Severe (Pain Scale 7-10) Omeprazole 40 mg 12/15/20 10:15 12/19/20 05:41 Omeprazole 40 Mg Capsule.Dr PO 40 mg DAILY@0630 [facility] Administration Prednisone 40 mg 12/16/20 09:00 12/19/20 07:43 Prednisone 20 Mg Tablet PO 40 mg DAILY [facility] Administration Sodium Chloride 3 ml 12/12/20 16:00 12/19/20 07:42 0.9 % Sodium Chloride Flush 3 Ml Syringe IVFLUSH 3 ml QSHIFT [facility] Administration Spironolactone 25 mg 12/14/20 15:45 12/19/20 07:43 Spironolactone 25 Mg Tablet PO 25 mg DAILY [facility] Administration Protocol Labs CBC & Chem 7: 12/17/20 05:17 12/19/20 05:27 Labs: Laboratory Results - last 24 hr 12/18/20 12/19/20 12/19/20 13:35 02:50 05:27 Anion Gap 10 L Estim Creat Clear Calc 87.0 Estimated GFR > 60 Random Glucose 83 Calcium 8.5 D Vancomycin Trough 8.4 L Blood Type O Positive Antibody Screen NEGATIVE Assessment and Plan (1) Pleural effusion, bacterial: Status: Acute (2) Acute respiratory failure with hypoxia: Status: Acute (3) Atelectasis: Status: Acute (4) Syncope and collapse: Status: Acute Assessment and Plan: A 75 years old lady with PMH of COPD presented to the hospital after having syncopal episode and hip fracture. Required admission to ICU for acute hypoxic respiratory failure. Acute respiratory failure with hypoxia Secondary to COPD exacerbation On high flow oxygen, down to 60% 55 L Continue steroids, started on p.o. Repeated x-ray showing bilateral effusions, consider thoracentesis Continue nebulizers Discontinue vancomycin day 5 Keep Azithromycin Day 4 Pulmonology evaluated the patient UTI Discontinue, finished ceftriaxone day 7 Urine culture grew Streptococcus viridans Atelectasis Pleural effusions Continue diuresis Continue chest physical therapy, incentive spirometry To do Mucomyst nebulizer Covered with antibiotics Pulmonology consult Hip fracture Postop, followed by orthopedic team To do physical therapy Left humeral fracture In sling, pain under control Orthopedic team following Nonweightbearing DVT PPX Lovenox Quality Stroke Does the patient have a stroke diagnosis?: No VTE Prior VTE?: No VTE Risk Level:: Medical - moderate - high VTE Device Contraindication: Patient Refused VTE Drug Contraindication: Patient Refused
[2020-12-19] MEDS: Azithromycin 500 MG TABLET PO (15:00)
[2020-12-20] VITALS (18 sets, daily range): BP systolic 102–160; BP diastolic 54–112; PULSE 79–89; RESP 16–20; TEMP 36.1–37; O2SAT 88–99; BMI 28.4
[2020-12-20] MEDS: Omeprazole 40 MG CAPSULE.DR PO (06:40)
[2020-12-20] MEDS: Morphine Sulfate 2 MG/ML CARTRIDGE IVPUSH ×2 (06:41→16:17)
[2020-12-20 06:46] LABS: Hematocrit 37.9 % (37-47); Hemoglobin 12.2 g/dl (12.0-16.0); Mean Corpuscular HGB Conc 32.2 g/dl (31.0-35.0); Mean Corpuscular Volume 96.2 fL (80-98); Mean Platelet Volume 9.1 fL (9.4-12.3); Platelet Count 329 X10*3/uL (160-400); Red Blood Count 3.94 X10*6/uL (4.20-5.50); Red Cell Distribution Width 12.5 % (11.0-16.0); White Blood Count 17.1 X10*3/uL (4.8-10.8)
[2020-12-20 07:10] LABS: Anion Gap 9 (12-20); Blood Urea Nitrogen 21 mg/dL (9-16); Calcium 8.7 mg/dL (8.4-10.2); Carbon Dioxide 38 mmol/L (22-29); Chloride 95 mmol/L (96-108); Creatinine Clr Calc Pharmacy 84.5; Estimated Glomerular Filt Rate > 60; Glucose Random 82 mg/dL (60-115); Potassium 3.9 mmol/L (3.3-5.1); Sodium 138 mmol/L (135-145)
[2020-12-20] MEDS: Acetylcysteine 10 % 400 MG/4 ML VIAL INHALE ×2 (07:28→20:22)
[2020-12-20] MEDS: Enoxaparin Sodium 40 MG/0.4 ML SYRINGE SUBCUT (09:05)
[2020-12-20] MEDS: acetaZOLAMIDE 250 MG TABLET PO ×2 (09:05→21:07)
[2020-12-20] MEDS: Losartan Potassium 25 MG TABLET PO (09:05)
[2020-12-20] MEDS: Furosemide 20 MG/2 ML VIAL IVPUSH (09:05)
[2020-12-20] MEDS: Spironolactone 25 MG TABLET PO (09:05)
[2020-12-20] MEDS: 0.9 % Sodium Chloride Flush 3 ML SYRINGE IVFLUSH ×3 (09:05→23:54)
[2020-12-20] MEDS: predniSONE 20 MG TABLET 40 MG PO (09:06)
[2020-12-20] MEDS: Fluticasone Propionate Nasal 16 GM SPRAY 1 SPRAY NOSTRIL-B (09:06)
[2020-12-20] MEDS: amLODIPine Besylate 5 MG TABLET PO (09:06)
[2020-12-20] MEDS: Acetaminophen 325 MG TABLET 650 MG PO (13:09)
[2020-12-20] MEDS: Azithromycin 500 MG TABLET PO (13:09)
--- NOTE | 2020-12-20 13:43 | P.PNIM_ITS ---
Subjective Subjective Date of Service: 12/20/20 Interval History: weak Cardiovascular Cardiovascular: Reports no additional cardiovascular complaints Respiratory Respiratory: Reports no additional respiratory complaints Physical Exam Vital Signs: Vital Signs: Last Vital Signs Temp 97.5 F 12/20/20 11:51 Pulse 88 12/20/20 11:51 Resp 20 12/20/20 11:51 BP 102/54 L 12/20/20 11:51 Pulse Ox 96 12/20/20 11:51 Body Mass Index 28.4 General: AO X 3, no acute distress Resp: diminsihed CVS: S1,S2,RRR GI: soft, non tender, non distended Neuro: motor grossly intact Psych: appropriate affect Objective Data Current Medications Generic Name Dose Route Start Last Admin Trade Name Freq PRN Reason Stop Dose Admin Acetaminophen 650 mg 12/09/20 04:20 12/20/20 13:09 Acetaminophen 325 Mg Tablet PO 650 mg Q6H PRN Administration Pain, Mild (Pain Scale 1-3) Acetazolamide 250 mg 12/19/20 09:00 12/20/20 09:05 Acetazolamide 250 Mg Tablet PO 250 mg BID [facility] Administration Acetylcysteine 400 mg 12/15/20 08:00 12/20/20 07:28 Acetylcysteine 10 % 400 Mg/4 Ml Vial INHALE 400 mg RBID [facility] Administration Amlodipine Besylate 5 mg 12/16/20 09:00 12/20/20 09:06 Amlodipine Besylate 5 Mg Tablet PO 5 mg DAILY [facility] Administration Protocol Azithromycin 500 mg 12/16/20 13:30 12/20/20 13:09 Azithromycin 500 Mg Tablet PO 500 mg Q24H [facility] Administration Enoxaparin Sodium 40 mg 12/14/20 08:00 12/20/20 09:05 Enoxaparin Sodium 40 Mg/0.4 Ml Syringe SUBCUT 40 mg Q24H [facility] Administration Fluticasone Propionate 1 spray 12/18/20 09:50 12/20/20 09:06 Fluticasone Propionate Nasal 16 Gm [place] NOSTRIL-B 1 spray BID [facility] Administration Furosemide 20 mg 12/15/20 09:00 12/20/20 09:05 Furosemide 20 Mg/2 Ml Vial IVPUSH 20 mg DAILY [facility] Administration Protocol Loperamide HCl 2 mg 12/15/20 10:12 12/15/20 10:37 Loperamide Hcl 2 Mg Capsule PO 2 mg Q4H PRN Administration diarrhea Losartan Potassium 25 mg 12/14/20 15:45 12/20/20 09:05 Losartan Potassium 25 Mg Tablet PO 25 mg DAILY [facility] Administration Protocol Magnesium Hydroxide 30 ml 12/09/20 04:20 Milk Of Magnesia 30 Ml Oral.Susp PO DAILY PRN Constipation Morphine Sulfate 2 mg 12/16/20 12:59 12/20/20 06:41 Morphine Sulfate 2 Mg/Ml Cartridge IVPUSH 2 mg Q6H PRN Administration Pain, Severe (Pain Scale 7-10) Omeprazole 40 mg 12/15/20 10:15 12/20/20 06:40 Omeprazole 40 Mg Capsule. PO 40 mg DAILY@0630 [facility] Administration Prednisone 40 mg 12/16/20 09:00 12/20/20 09:06 Prednisone 20 Mg Tablet PO 40 mg DAILY [facility] Administration Sodium Chloride 3 ml 12/12/20 16:00 12/20/20 09:05 0.9 % Sodium Chloride Flush 3 Ml Syringe IVFLUSH 3 ml QSHIFT [facility] Administration Spironolactone 25 mg 12/14/20 15:45 12/20/20 09:05 Spironolactone 25 Mg Tablet PO 25 mg DAILY [facility] Administration Protocol Labs CBC & Chem 7: 12/20/20 05:40 12/20/20 05:40 Labs: Laboratory Results - last 24 hr 12/20/20 12/20/20 05:40 05:40 MCV 96.2 MCH 31.0 MCHC 32.2 RDW 12.5 Plt Count 329 MPV 9.1 L Absolute Nucleated RBC 0.000 Nucleated RBC % (auto) 0.0 Anion Gap 9 L Estim Creat Clear Calc 84.5 Estimated GFR > 60 Random Glucose 82 Calcium 8.7 Assessment and Plan (1) Pleural effusion, bacterial: Status: Acute (2) Acute respiratory failure with hypoxia: Status: Acute (3) Atelectasis: Status: Acute (4) Syncope and collapse: Status: Acute Assessment and Plan: 75 years old lady with PMH of COPD presented to the hospital after having syncopal episode and hip fracture. Required admission to ICU for acute hypoxic respiratory failure. Acute respiratory failure with hypoxia Secondary to COPD exacerbation On high flow oxygen, continue to wean Continue steroids, started on p.o. Repeated x-ray showing bilateral effusions, consider thoracentesis Continue nebulizers Discontinue vancomycin day 5 Keep Azithromycin Day 5 Pulmonology following UTI Discontinue, finished ceftriaxone day 7 Urine culture grew Streptococcus viridans Atelectasis Pleural effusions Continue diuresis Continue chest physical therapy, incentive spirometry To do Mucomyst nebulizer Covered with antibiotics Hip fracture Postop, followed by orthopedic team To do physical therapy Left humeral fracture In sling, pain under control Orthopedic team following Nonweightbearing DVT PPX Lovenox Quality Stroke Does the patient have a stroke diagnosis?: No VTE Prior VTE?: No VTE Risk Level:: Medical - moderate - high VTE Device Contraindication: Patient Refused VTE Drug Contraindication: Patient Refused
--- NOTE | 2020-12-20 15:07 | MHC.CM.PN ---
per rounds no dc date at this time ..pt still being weaned from high flow o2
[2020-12-21] VITALS (17 sets, daily range): BP systolic 118–155; BP diastolic 51–72; PULSE 76–90; RESP 18–20; TEMP 35.9–37; O2SAT 91–98
[2020-12-21] MEDS: Omeprazole 40 MG CAPSULE.DR PO (06:08)
[2020-12-21] MEDS: Acetylcysteine 10 % 400 MG/4 ML VIAL INHALE ×2 (07:25→20:11)
[2020-12-21] MEDS: Spironolactone 25 MG TABLET PO (08:39)
[2020-12-21] MEDS: Losartan Potassium 25 MG TABLET PO (08:39)
[2020-12-21] MEDS: predniSONE 20 MG TABLET 40 MG PO (08:39)
[2020-12-21] MEDS: acetaZOLAMIDE 250 MG TABLET PO ×2 (08:39→21:21)
[2020-12-21] MEDS: amLODIPine Besylate 5 MG TABLET PO (08:40)
[2020-12-21] MEDS: Enoxaparin Sodium 40 MG/0.4 ML SYRINGE SUBCUT (08:40)
[2020-12-21] MEDS: 0.9 % Sodium Chloride Flush 3 ML SYRINGE IVFLUSH ×3 (08:40→21:21)
[2020-12-21] MEDS: Furosemide 20 MG/2 ML VIAL IVPUSH (08:40)
--- NOTE | 2020-12-21 11:21 | P.PNIM_ITS ---
Subjective Subjective Date of Service: 12/21/20 Interval History: sob, tired Constitutional Constitutional: Reports no additional constitutional complaints Cardiovascular Cardiovascular: Reports no additional cardiovascular complaints Physical Exam Vital Signs: Vital Signs: Last Vital Signs Temp 96.6 F L 12/21/20 07:32 Pulse 84 12/21/20 10:45 Resp 20 12/21/20 11:18 BP 135/53 L 12/21/20 10:45 Pulse Ox 93 12/21/20 07:32 Body Mass Index 28.4 General: AO X 3, no acute distress Resp:? diminsihed CVS: S1,S2,RRR GI: soft, non tender, non distended Neuro:? motor grossly intact Psych: appropriate affect Objective Data Current Medications Generic Name Dose Route Start Last Admin Trade Name Freq PRN Reason Stop Dose Admin Acetaminophen 650 mg 12/09/20 04:20 12/20/20 13:09 Acetaminophen 325 Mg Tablet PO 650 mg Q6H PRN Administration Pain, Mild (Pain Scale 1-3) Acetazolamide 250 mg 12/19/20 09:00 12/21/20 08:39 Acetazolamide 250 Mg Tablet PO 250 mg BID OMID Administration Acetylcysteine 400 mg 12/15/20 08:00 12/21/20 07:25 Acetylcysteine 10 % 400 Mg/4 Ml Vial INHALE 400 mg RBID OM[facility] Administration Amlodipine Besylate 5 mg 12/16/20 09:00 12/21/20 08:40 Amlodipine Besylate 5 Mg Tablet PO 5 mg DAILY [facility] Administration Protocol Azithromycin 500 mg 12/16/20 13:30 12/20/20 13:09 Azithromycin 500 Mg Tablet PO 500 mg Q24H [facility] Administration Enoxaparin Sodium 40 mg 12/14/20 08:00 12/21/20 08:40 Enoxaparin Sodium 40 Mg/0.4 Ml Syringe SUBCUT 40 mg Q24H [facility] Administration Fluticasone Propionate 1 spray 12/18/20 09:50 12/21/20 08:39 Fluticasone Propionate Nasal 16 Gm [place] NOSTRIL-B Not Given BID OMID Furosemide 20 mg 12/15/20 09:00 12/21/20 08:40 Furosemide 20 Mg/2 Ml Vial IVPUSH 20 mg DAILY [facility] Administration Protocol Loperamide HCl 2 mg 12/15/20 10:12 12/15/20 10:37 Loperamide Hcl 2 Mg Capsule PO 2 mg Q4H PRN Administration diarrhea Losartan Potassium 25 mg 12/14/20 15:45 12/21/20 08:39 Losartan Potassium 25 Mg Tablet PO 25 mg DAILY [facility] Administration Protocol Magnesium Hydroxide 30 ml 12/09/20 04:20 Milk Of Magnesia 30 Ml Oral.Susp PO DAILY PRN Constipation Morphine Sulfate 2 mg 12/16/20 12:59 12/20/20 16:17 Morphine Sulfate 2 Mg/Ml [place] IVPUSH 2 mg Q6H PRN Administration Pain, Severe (Pain Scale 7-10) Omeprazole 40 mg 12/15/20 10:15 12/21/20 06:08 Omeprazole 40 Mg Capsule.Dr PO 40 mg DAILY@0630 [facility] Administration Prednisone 40 mg 12/16/20 09:00 12/21/20 08:39 Prednisone 20 Mg Tablet PO 40 mg DAILY [facility] Administration Sodium Chloride 3 ml 12/12/20 16:00 12/21/20 08:40 0.9 % Sodium Chloride Flush 3 Ml Syringe IVFLUSH 3 ml QSHIFT [facility] Administration Spironolactone 25 mg 12/14/20 15:45 12/21/20 08:39 Spironolactone 25 Mg Tablet PO 25 mg DAILY OM[facility] Administration Protocol Labs CBC & Chem 7: 12/20/20 05:40 12/20/20 05:40 Assessment and Plan (1) Pleural effusion, bacterial: Status: Acute (2) Acute respiratory failure with hypoxia: Status: Acute (3) Atelectasis: Status: Acute (4) Syncope and collapse: Status: Acute Assessment and Plan: 75 years old lady with PMH of COPD presented to the hospital after having syncopal episode and hip fracture. Required admission to ICU for acute hypoxic respiratory failure. Acute respiratory failure with hypoxia Secondary to COPD exacerbation On high flow oxygen, continue to wean Continue steroids, started on p.o. Continue nebulizers Discontinue vancomycin competed 5 days Keep Azithromycin Day 6 Pulmonology following UTI Discontinue, finished ceftriaxone day 7 Urine culture grew Streptococcus viridans Atelectasis Pleural effusions Continue diuresis Continue chest physical therapy, incentive spirometry To do Mucomyst nebulizer Covered with antibiotics Hip fracture Postop, followed by orthopedic team To do physical therapy Left humeral fracture In sling, pain under control Orthopedic team following Nonweightbearing DVT PPX Lovenox Quality Stroke Does the patient have a stroke diagnosis?: No VTE Prior VTE?: No VTE Risk Level:: Medical - moderate - high VTE Device Contraindication: Patient Refused VTE Drug Contraindication: Patient Refused
[2020-12-21] MEDS: Morphine Sulfate 2 MG/ML CARTRIDGE IVPUSH (12:12)
[2020-12-21] MEDS: Azithromycin 500 MG TABLET PO (14:45)
[2020-12-21] MEDS: Acetaminophen 325 MG TABLET 650 MG PO ×2 (14:47→21:48)
[2020-12-21] MEDS: Fluticasone Propionate Nasal 16 GM SPRAY 1 SPRAY NOSTRIL-B (21:21)
[2020-12-22] VITALS (17 sets, daily range): BP systolic 116–153; BP diastolic 58–70; PULSE 74–91; RESP 18–25; TEMP 36.2–36.9; O2SAT 86–100; BMI 27.2
[2020-12-22] MEDS: Omeprazole 40 MG CAPSULE.DR PO (04:42)
[2020-12-22] MEDS: Furosemide 20 MG/2 ML VIAL IVPUSH (08:20)
[2020-12-22] MEDS: Enoxaparin Sodium 40 MG/0.4 ML SYRINGE SUBCUT (08:23)
[2020-12-22] MEDS: Losartan Potassium 25 MG TABLET PO (08:25)
[2020-12-22] MEDS: Spironolactone 25 MG TABLET PO (08:26)
[2020-12-22] MEDS: acetaZOLAMIDE 250 MG TABLET PO ×2 (08:26→20:27)
[2020-12-22] MEDS: amLODIPine Besylate 5 MG TABLET PO (08:27)
[2020-12-22] MEDS: predniSONE 20 MG TABLET 40 MG PO (08:32)
[2020-12-22] MEDS: 0.9 % Sodium Chloride Flush 3 ML SYRINGE IVFLUSH ×3 (08:46→20:27)
[2020-12-22] MEDS: Acetaminophen 325 MG TABLET 650 MG PO (10:13)
--- NOTE | 2020-12-22 11:00 | CA_ITS ---
Transthoracic Echocardiogram Patient (Last, First, Middle): Alexandra Roa A Gender: Female Date of : 1945 Age: 75 Procedure Date: 12/22/2020 Procedure Type: Transthoracic Echocardiogram [place] [facility] [place]: 152.4 cm Weight: 63.05 kg BSA: 1.60 m2 Heart Rate: bpm BP: 119 / 59 mmHg Flower Grower: MARCOS Referring MD: Mike Munoz MD Symptoms: hypoxia, pleural effusions, ?chf Study Quality: Technically Difficult Conclusions: - Technically limited study. - LV is poorly visualized and unable to comment about LVEF or RWMA. - Limited valvular assessment. - Recommend contrast in the future to improve endocardial definition. Findings Left Ventricle The left ventricle was not well visualized. Normal left ventricular cavity size. Regional wall motion abnormalities can not be excluded due to suboptimal endocardial definition. Diastolic function is indeterminate on the basis of available data. Right Ventricle Normal right ventricular cavity size and systolic function. Atria Both atria are normal in size. Aortic Valve The aortic valve structure and function is likely normal. There is no aortic valve stenosis. There is no aortic valve regurgitation. Mitral Valve There is severe mitral annular calcification. There is no mitral valve regurgitation. There is no mitral valve stenosis. Pulmonic Valve The pulmonic valve was not well visualized. Tricuspid Valve Normal tricuspid valve structure and function. There is trace tricuspid valve regurgitation. Tricuspid regurgitation envelope is inadequate for calculation of right ventricular systolic pressure. Normal right atrial pressure. Great Vessels All visible segments of the aorta are normal in size. The visualized portions of the pulmonary artery and branches are normal. Venous The inferior vena cava is normal in size and collapses greater than 50% with inspiration. Pericardium/Pleural There is no evidence of pericardial effusion. Prior Study Comparison No prior study available for comparison. Recommendations, Care & Conclusions Recommend contrast in the future to improve endocardial definition. Measurements 2D Linear Measurements Ao Root: 2.70 2.1-3.5 cm LVOT Diam: 1.90 3.0+(-)1.3 cm Mitral Valve MV VTI: 0.19 MV Pk Jorge: 1.57 MV Mn Jorge: 0.50 MV Pk Grad: 10.00 MV Mn Grad: 1.00 E'Lateral: 5.55 E'Medial: 5.55 PHT: 47.00 MVA PHT: 4.68 MVA Continuity: 2.81 Decel [place]: 3.35 Aortic Valve AoV Pk Jorge: 1.46 AoV Mn Jorge: 0.98 AoV VTI: 0.24 AoV Pk Grad: 9.00 Aov Mn Grad: 4.00 STEPHEN Cont.VTI: 2.22 LVOT LVOT Pk Jorge: 1.26 LVOT Mn Jorge: 0.81 LVOT VTI: 0.19 LVOT Pk Grad: 6.00 LVOT Mn Grad: 3.00 LVOT Diam: 1.90 LVOT Area: 2.84 Diastolic Function E'Medial: 5.55 E' Laterial: 5.55 Tricuspid Valve TR Pk Jorge: 1.53 TR Pk Grad: 9.00 RA Press: 3.00 Great Vessels Aorta Ao Root-2D: 2.70 2.0-3.7 cm Ao Asc: 2.90 2.1-3.4 cm Updated in Other Vendor System with Status of Final Johnny Buchanan MD electronically signed on 12/22/2020 10:52:53 PM with status of Final
--- NOTE | 2020-12-22 11:28 | P.PNIM_ITS ---
Subjective Subjective Date of Service: 12/22/20 Interval History: weak, sob Constitutional Constitutional: Reports no additional constitutional complaints ENT Ears, Nose, Mouth, and Throat: Reports system reviewed and no additional complaints, except as documented Physical Exam Vital Signs: Vital Signs: Last Vital Signs Temp 98.3 F 12/22/20 11:09 Pulse 91 12/22/20 11:09 Resp 18 12/22/20 11:18 BP 119/59 L 12/22/20 11:09 Pulse Ox 86 L 12/22/20 11:09 Body Mass Index 27.2 General: AO X 3, weak, ill appearing Resp: diminsihed CVS: S1,S2,RRR GI: soft, non tender, non distended Neuro: motor grossly intact Psych: appropriate affect Objective Data Current Medications Generic Name Dose Route Start Last Admin Trade Name Freq PRN Reason Stop Dose Admin Acetaminophen 650 mg 12/09/20 04:20 12/22/20 10:13 Acetaminophen 325 Mg Tablet PO 650 mg Q6H PRN Administration Pain, Mild (Pain Scale 1-3) Acetazolamide 250 mg 12/19/20 09:00 12/22/20 08:26 Acetazolamide 250 Mg Tablet PO 250 mg BID OMID Administration Acetylcysteine 400 mg 12/15/20 08:00 12/22/20 07:48 Acetylcysteine 10 % 400 Mg/4 Ml Vial INHALE Not Given RBID OMID Amlodipine Besylate 5 mg 12/16/20 09:00 12/22/20 08:27 Amlodipine Besylate 5 Mg Tablet PO 5 mg DAILY OMID Administration Protocol Azithromycin 500 mg 12/16/20 13:30 12/21/20 14:45 Azithromycin 500 Mg Tablet PO 500 mg Q24H OM[facility] Administration Enoxaparin Sodium 40 mg 12/14/20 08:00 12/22/20 08:23 Enoxaparin Sodium 40 Mg/0.4 Ml Syringe SUBCUT 40 mg Q24H OMID Administration Fluticasone Propionate 1 spray 12/18/20 09:50 12/22/20 08:37 Fluticasone Propionate Nasal 16 Gm [place] NOSTRIL-B Not Given BID OMID Furosemide 20 mg 12/15/20 09:00 12/22/20 08:20 Furosemide 20 Mg/2 Ml Vial IVPUSH 20 mg DAILY OMID Administration Protocol Loperamide HCl 2 mg 12/15/20 10:12 12/15/20 10:37 Loperamide Hcl 2 Mg Capsule PO 2 mg Q4H PRN Administration diarrhea Losartan Potassium 25 mg 12/14/20 15:45 12/22/20 08:25 Losartan Potassium 25 Mg Tablet PO 25 mg DAILY OM[facility] Administration Protocol Magnesium Hydroxide 30 ml 12/09/20 04:20 Milk Of Magnesia 30 Ml Oral.Susp PO DAILY PRN Constipation Omeprazole 40 mg 12/15/20 10:15 12/22/20 04:42 Omeprazole 40 Mg Capsule.Dr PO 40 mg DAILY@0630 [facility] Administration Prednisone 40 mg 12/16/20 09:00 12/22/20 08:32 Prednisone 20 Mg Tablet PO 40 mg DAILY OM[facility] Administration Sodium Chloride 3 ml 12/12/20 16:00 12/22/20 08:46 0.9 % Sodium Chloride Flush 3 Ml Syringe IVFLUSH 3 ml QSHIFT [facility] Administration Spironolactone 25 mg 12/14/20 15:45 12/22/20 08:26 Spironolactone 25 Mg Tablet PO 25 mg DAILY OMID Administration Protocol Labs CBC & Chem 7: 12/20/20 05:40 12/20/20 05:40 Assessment and Plan (1) Pleural effusion, bacterial: Status: Acute (2) Acute respiratory failure with hypoxia: Status: Acute (3) Atelectasis: Status: Acute (4) Syncope and collapse: Status: Acute Assessment and Plan: 75 years old lady with PMH of COPD presented to the hospital after having sync opal episode and hip fracture. Required admission to ICU for acute hypoxic respiratory failure. Acute respiratory failure with hypoxia Secondary to COPD exacerbation On high flow oxygen, continue to wean - still hypoxic on high settings Continue steroids, started on p.o. Continue nebulizers Discontinue vancomycin completed 5 days completed azithro 7 days check repeat cxr UTI Discontinue, finished ceftriaxone day 7 Urine culture grew Streptococcus viridans Atelectasis Pleural effusions Continue diuresis Continue chest physical therapy, incentive spirometry To do Mucomyst nebulizer Covered with antibiotics Hip fracture Postop, followed by orthopedic team To do physical therapy Left humeral fracture In sling, pain under control Orthopedic team following Nonweightbearing DVT PPX Lovenox Quality Stroke Does the patient have a stroke diagnosis?: No VTE Prior VTE?: No VTE Risk Level:: Medical - moderate - high VTE Device Contraindication: Patient Refused VTE Drug Contraindication: Patient Refused
--- NOTE | 2020-12-22 12:58 | HO.WOUNDCONS ---
History of Present Illness Data of Consult Service Date: 12/15/20 Requesting physician: Sandra Louis Primary Care Provider: Unknown Physician HPI Reason for consult: pustular perineal LATE ENTRY: Dr. Louis's ICU note was reviewed on December 15 prior to seeing the patient. This note indicated some type of need for culture of the perineum. The patient was then transfered to the nursing floor where she was seen briefly but declined services. [facility] Medical History (Updated 12/15/20 @ 17:26 by Mika Fernandez MD) Acute and chronic respiratory failure COPD (chronic obstructive pulmonary disease) COPD exacerbation Hypertension Pleural effusion, bacterial Respiratory failure, acute and chronic Social History Household Members: Children Housing: House Do you presently have visiting nurse or other home services: No Patient Tobacco Use Status: Current everyday Tobacco user Tobacco use type: Cigarette Cigarette Packs Per Day: 1 Cigarettes Per Day: 20.0 Smoked in Last 30 Days: Yes e-Cigarette/Vaping Use: Never Used Patient Interested in Nicotine Replacement: No Patient Given Instructions on How to Stop Smoking: Yes Date Education Initiated: 12/09/20 Use of substances other than those prescribed or required for medical reasons: No Currently Displaying Signs/Symptoms of Drug Intoxication Withdrawal: No Have you been hit, kicked, punched, or otherwise hurt by someone within the past year? If so, by whom?: No Do you feel safe in your current relationship?: Yes Is there a partner from a previous relationship who is making you feel unsafe now?: No Are you made to feel afraid or neglected: No Advance Directives: No Advance Directives Information Provided: No Do you have thoughts of harming others: None Do you have a plan to hurt others: No Plan Recently lost weight without trying: No Eating poorly because of decreased appetite: No Nutrition Risks: No Nutritional Risk Patient : No : No Poor oral hygiene: No service: No Current occupational status: retired [employer] Allergies Allergy/AdvReac Type Severity Reaction Status Date / Time No Known Allergies Allergy Verified 12/09/20 00:58 Active Medications: Current Medications Generic Name Dose Route Start Last Admin Trade Name Freq PRN Reason Stop Dose Admin Acetaminophen 650 mg 12/09/20 04:20 12/22/20 10:13 Acetaminophen 325 Mg Tablet PO 650 mg Q6H PRN Administration Pain, Mild (Pain Scale 1-3) Acetazolamide 250 mg 12/19/20 09:00 12/22/20 08:26 Acetazolamide 250 Mg Tablet PO 250 mg BID OMID Administration Acetylcysteine 400 mg 12/15/20 08:00 12/22/20 07:48 Acetylcysteine 10 % 400 Mg/4 Ml Vial INHALE Not Given RBID OMID Amlodipine Besylate 5 mg 12/16/20 09:00 12/22/20 08:27 Amlodipine Besylate 5 Mg Tablet PO 5 mg DAILY [facility] Administration Protocol Enoxaparin Sodium 40 mg 12/14/20 08:00 12/22/20 08:23 Enoxaparin Sodium 40 Mg/0.4 Ml Syringe SUBCUT 40 mg Q24H [facility] Administration Fluticasone Propionate 1 spray 12/18/20 09:50 12/22/20 08:37 Fluticasone Propionate Nasal 16 Gm [place] NOSTRIL-B Not Given BID [facility] Furosemide 20 mg 12/15/20 09:00 12/22/20 08:20 Furosemide 20 Mg/2 Ml Vial IVPUSH 20 mg DAILY [facility] Administration Protocol Loperamide HCl 2 mg 12/15/20 10:12 12/15/20 10:37 Loperamide Hcl 2 Mg Capsule PO 2 mg Q4H PRN Administration diarrhea Losartan Potassium 25 mg 12/14/20 15:45 12/22/20 08:25 Losartan Potassium 25 Mg Tablet PO 25 mg DAILY [facility] Administration Protocol Magnesium Hydroxide 30 ml 12/09/20 04:20 Milk Of Magnesia 30 Ml Oral.Susp PO DAILY PRN Constipation Omeprazole 40 mg 12/15/20 10:15 12/22/20 04:42 Omeprazole 40 Mg Capsule.Dr PO 40 mg DAILY@0630 OMID Administration Prednisone 40 mg 12/16/20 09:00 12/22/20 08:32 Prednisone 20 Mg Tablet PO 40 mg DAILY OMID Administration Sodium Chloride 3 ml 12/12/20 16:00 12/22/20 08:46 0.9 % Sodium Chloride Flush 3 Ml Syringe IVFLUSH 3 ml QSHIFT [facility]ID Administration Spironolactone 25 mg 12/14/20 15:45 12/22/20 08:26 Spironolactone 25 Mg Tablet PO 25 mg DAILY [facility] Administration Protocol Physical Exam Vital Signs and Narrative: Vital Signs: Last Vital Signs Temp 98.3 F 12/22/20 11:09 Pulse 91 12/22/20 11:16 Resp 18 12/22/20 11:18 BP 119/59 L 12/22/20 11:16 Pulse Ox 86 L 12/22/20 11:16 Body Mass Index 27.2 left arm in a sling patient tells me that wound care had already seen her Results Labs CBC and Chem 7: 12/20/20 05:40 12/20/20 05:40 Imaging Radiologist's Impressions: Impressions Chest X-Ray 12/22/20 12:02 IMPRESSION: Moderate-sized bilateral pleural effusions not appreciably changed from previous exams. Assessment and Plan (1) Femoral neck fracture: Status: Acute I checked with the nurse caring for the patient on the nursing floor. There were no concerns of device associated wounds such as valentin rectal ulceration with rectal tube placement as anticipated, nor pressure ulcer. The pustule was described to me as being on the labia. Labial cultures are not within the scope of practice for wound care. Suggest cotton program technician or ID colleagues take a look. [facility] text sent to hospitalist regarding my inability to help on December 15, which got forwarded to Payam Aguayo. My supervising physician, Dr. Edouard, was notified immediately following the above described event.
[2020-12-22] MEDS: Gabapentin 100 MG CAPSULE PO ×2 (16:34→20:27)
[2020-12-22] MEDS: Acetylcysteine 10 % 400 MG/4 ML VIAL INHALE (20:19)
[2020-12-22] MEDS: Fluticasone Propionate Nasal 16 GM SPRAY 1 SPRAY NOSTRIL-B (20:27)
[2020-12-23] VITALS (19 sets, daily range): BP systolic 90–139; BP diastolic 52–68; PULSE 75–97; RESP 15–20; TEMP 36.1–37.2; O2SAT 88–96; BMI 23.3
[2020-12-23] MEDS: Omeprazole 40 MG CAPSULE.DR PO (05:36)
[2020-12-23 06:52] LABS: Hematocrit 35.9 % (37-47); Hemoglobin 11.8 g/dl (12.0-16.0); Mean Corpuscular HGB Conc 32.9 g/dl (31.0-35.0); Mean Corpuscular Hemoglobin 31.1 pg (27.0-33.0); Mean Corpuscular Volume 94.5 fL (80-98); Mean Platelet Volume 9.2 fL (9.4-12.3); Platelet Count 296 X10*3/uL (160-400); Red Cell Distribution Width 12.7 % (11.0-16.0); White Blood Count 13.1 X10*3/uL (4.8-10.8)
[2020-12-23 07:19] LABS: Anion Gap 13 (12-20); Blood Urea Nitrogen 23 mg/dL (9-16); Calcium 8.2 mg/dL (8.4-10.2); Carbon Dioxide 29 mmol/L (22-29); Chloride 97 mmol/L (96-108); Creatinine Clr Calc Pharmacy 64.9; Estimated Glomerular Filt Rate > 60; Glucose Fasting 76 mg/dL (60-99); Potassium 4.3 mmol/L (3.3-5.1); Sodium 135 mmol/L (135-145)
[2020-12-23] MEDS: Acetylcysteine 10 % 400 MG/4 ML VIAL INHALE ×2 (07:35→19:45)
[2020-12-23] MEDS: Furosemide 20 MG/2 ML VIAL IVPUSH ×2 (07:49→18:03)
[2020-12-23] MEDS: Enoxaparin Sodium 40 MG/0.4 ML SYRINGE SUBCUT (07:52)
[2020-12-23] MEDS: predniSONE 20 MG TABLET 40 MG PO (07:54)
[2020-12-23] MEDS: acetaZOLAMIDE 250 MG TABLET PO (07:56)
[2020-12-23] MEDS: Gabapentin 100 MG CAPSULE PO ×3 (07:57→20:15)
[2020-12-23] MEDS: Losartan Potassium 25 MG TABLET PO (08:01)
[2020-12-23] MEDS: amLODIPine Besylate 5 MG TABLET PO (08:02)
[2020-12-23] MEDS: Spironolactone 25 MG TABLET PO (08:03)
[2020-12-23] MEDS: 0.9 % Sodium Chloride Flush 3 ML SYRINGE IVFLUSH ×3 (08:09→20:15)
--- NOTE | 2020-12-23 10:17 | P.PNIM_ITS ---
Subjective Subjective Date of Service: 12/23/20 Interval History: unchanged Constitutional Constitutional: Reports no additional constitutional complaints Eyes Eyes: Reports no additional eye complaints Physical Exam Vital Signs: Vital Signs: Last Vital Signs Temp 98.2 F 12/23/20 07:59 Pulse 77 12/23/20 08:03 Resp 16 12/23/20 07:59 BP 139/56 L 12/23/20 08:03 Pulse Ox 88 L 12/23/20 07:59 Body Mass Index 23.3 General: AO X 3, weak, ill appearing Resp:? diminsihed CVS: S1,S2,RRR GI: soft, non tender, non distended Neuro:? motor grossly intact Psych: appropriate affect Objective Data Current Medications Generic Name Dose Route Start Last Admin Trade Name Freq PRN Reason Stop Dose Admin Acetaminophen 650 mg 12/09/20 04:20 12/22/20 10:13 Acetaminophen 325 Mg Tablet PO 650 mg Q6H PRN Administration Pain, Mild (Pain Scale 1-3) Acetazolamide 250 mg 12/19/20 09:00 12/23/20 07:56 Acetazolamide 250 Mg Tablet PO 250 mg BID OMID Administration Acetylcysteine 400 mg 12/15/20 08:00 12/23/20 07:35 Acetylcysteine 10 % 400 Mg/4 Ml Vial INHALE 400 mg RBID [facility] Administration Amlodipine Besylate 5 mg 12/16/20 09:00 12/23/20 08:02 Amlodipine Besylate 5 Mg Tablet PO 5 mg DAILY [facility] Administration Protocol Enoxaparin Sodium 40 mg 12/14/20 08:00 12/23/20 07:52 Enoxaparin Sodium 40 Mg/0.4 Ml Syringe SUBCUT 40 mg Q24H [facility] Administration Fluticasone Propionate 1 spray 12/18/20 09:50 12/23/20 08:10 Fluticasone Propionate Nasal 16 Gm [place] NOSTRIL-B Not Given BID OMID Furosemide 20 mg 12/15/20 09:00 12/23/20 07:49 Furosemide 20 Mg/2 Ml Vial IVPUSH 20 mg DAILY [facility] Administration Protocol Gabapentin 100 mg 12/22/20 16:05 12/23/20 07:57 Gabapentin 100 Mg Capsule PO 100 mg TID OMID Administration Loperamide HCl 2 mg 12/15/20 10:12 12/15/20 10:37 Loperamide Hcl 2 Mg Capsule PO 2 mg Q4H PRN Administration diarrhea Losartan Potassium 25 mg 12/14/20 15:45 12/23/20 08:01 Losartan Potassium 25 Mg Tablet PO 25 mg DAILY OMID Administration Protocol Magnesium Hydroxide 30 ml 12/09/20 04:20 Milk Of Magnesia 30 Ml Oral.Susp PO DAILY PRN Constipation Omeprazole 40 mg 12/15/20 10:15 12/23/20 05:36 Omeprazole 40 Mg Capsule.Dr PO 40 mg DAILY@0630 OMID Administration Prednisone 40 mg 12/16/20 09:00 12/23/20 07:54 Prednisone 20 Mg Tablet PO 40 mg DAILY [facility] Administration Sodium Chloride 3 ml 12/12/20 16:00 12/23/20 08:09 0.9 % Sodium Chloride Flush 3 Ml Syringe IVFLUSH 3 ml QSHIFT [facility]ID Administration Spironolactone 25 mg 12/14/20 15:45 12/23/20 08:03 Spironolactone 25 Mg Tablet PO 25 mg DAILY [facility]ID Administration Protocol Labs CBC & Chem 7: 12/23/20 05:39 12/23/20 05:39 Labs: Laboratory Results - last 24 hr 12/23/20 12/23/20 05:39 05:39 MCV 94.5 MCH 31.1 MCHC 32.9 RDW 12.7 Plt Count 296 MPV 9.2 L Absolute Nucleated RBC 0.000 Nucleated RBC % (auto) 0.0 Anion Gap 13 Estim Creat Clear Calc 64.9 Estimated GFR > 60 Fasting Glucose 76 Calcium 8.2 L Assessment and Plan (1) Pleural effusion, bacterial: Status: Acute (2) Acute respiratory failure with hypoxia: Status: Acute (3) Atelectasis: Status: Acute (4) Syncope and collapse: Status: Acute Assessment and Plan: 75 years old lady with PMH of COPD presented to the hospital after having syncopal episode and hip fracture. Required admission to ICU for acute hypoxic respiratory failure. Acute respiratory failure with hypoxia Secondary to COPD exacerbation On high flow oxygen, continue to wean - still hypoxic on high settings Continue steroids, started on p.o. Continue nebulizers vancomycin completed 5 days completed azithro 7 days cxr unchanged UTI finished ceftriaxone day 7 Urine culture grew Streptococcus viridans Atelectasis Pleural effusions Continue diuresis - dc diamox, increased lasix to 20mg iv bid Continue chest physical therapy, incentive spirometry Hip fracture Postop, followed by orthopedic team To do physical therapy Left humeral fracture In sling, pain under control Orthopedic team following Nonweightbearing DVT PPX Lovenox Quality Stroke Does the patient have a stroke diagnosis?: No VTE Prior VTE?: No VTE Risk Level:: Medical - moderate - high VTE Device Contraindication: Patient Refused VTE Drug Contraindication: Patient Refused
[2020-12-23] MEDS: Acetaminophen 325 MG TABLET 650 MG PO (12:28)
[2020-12-23] MEDS: Fluticasone Propionate Nasal 16 GM SPRAY 1 SPRAY NOSTRIL-B (20:15)
[2020-12-24] VITALS (18 sets, daily range): BP systolic 80–146; BP diastolic 44–68; PULSE 77–98; RESP 18–20; TEMP 36.2–36.9; O2SAT 90–922
[2020-12-24] MEDS: Omeprazole 40 MG CAPSULE.DR PO (05:45)
[2020-12-24] MEDS: Furosemide 20 MG/2 ML VIAL IVPUSH ×2 (07:46→17:16)
[2020-12-24] MEDS: Enoxaparin Sodium 40 MG/0.4 ML SYRINGE SUBCUT (07:50)
[2020-12-24] MEDS: Gabapentin 100 MG CAPSULE PO ×2 (07:53→20:00)
[2020-12-24] MEDS: predniSONE 20 MG TABLET 40 MG PO (07:55)
[2020-12-24] MEDS: Losartan Potassium 25 MG TABLET PO (07:57)
[2020-12-24] MEDS: Acetylcysteine 10 % 400 MG/4 ML VIAL INHALE ×2 (07:58→20:08)
[2020-12-24] MEDS: Spironolactone 25 MG TABLET PO (07:58)
[2020-12-24] MEDS: amLODIPine Besylate 5 MG TABLET PO (07:59)
[2020-12-24] MEDS: 0.9 % Sodium Chloride Flush 3 ML SYRINGE IVFLUSH ×3 (08:11→20:00)
--- NOTE | 2020-12-24 09:43 | P.PNIM_ITS ---
Subjective Subjective Date of Service: 12/24/20 Interval History: sob Constitutional Constitutional: Reports no additional constitutional complaints Eyes Eyes: Reports no additional eye complaints Physical Exam Vital Signs: Vital Signs: Last Vital Signs Temp 98.4 F 12/24/20 08:00 Pulse 89 12/24/20 08:00 Resp 18 12/24/20 08:00 BP 146/61 H 12/24/20 08:00 Pulse Ox 90 L 12/24/20 08:00 Body Mass Index 23.3 General: AO X 3, weak, ill appearing Resp:? diminsihed CVS: S1,S2,RRR GI: soft, non tender, non distended Neuro:? motor grossly intact Psych: appropriate affect Objective Data Current Medications Generic Name Dose Route Start Last Admin Trade Name Freq PRN Reason Stop Dose Admin Acetaminophen 650 mg 12/09/20 04:20 12/23/20 12:28 Acetaminophen 325 Mg Tablet PO 650 mg Q6H PRN Administration Pain, Mild (Pain Scale 1-3) Acetylcysteine 400 mg 12/15/20 08:00 12/24/20 07:58 Acetylcysteine 10 % 400 Mg/4 Ml Vial INHALE 400 mg RBID [facility] Administration Amlodipine Besylate 5 mg 12/16/20 09:00 12/24/20 07:59 Amlodipine Besylate 5 Mg Tablet PO 5 mg DAILY [facility] Administration Protocol Fluticasone Propionate 1 spray 12/18/20 09:50 12/24/20 08:13 Fluticasone Propionate Nasal 16 Gm [place] NOSTRIL-B Not Given BID OMID Furosemide 20 mg 12/23/20 18:00 12/24/20 07:46 Furosemide 20 Mg/2 Ml Vial IVPUSH 20 mg BID@0900,1800 [facility] Administration Protocol Gabapentin 100 mg 12/22/20 16:05 12/24/20 07:53 Gabapentin 100 Mg Capsule PO 100 mg TID [facility] Administration Loperamide HCl 2 mg 12/15/20 10:12 12/15/20 10:37 Loperamide Hcl 2 Mg Capsule PO 2 mg Q4H PRN Administration diarrhea Losartan Potassium 25 mg 12/14/20 15:45 12/24/20 07:57 Losartan Potassium 25 Mg Tablet PO 25 mg DAILY [facility] Administration Protocol Magnesium Hydroxide 30 ml 12/09/20 04:20 Milk Of Magnesia 30 Ml Oral.Susp PO DAILY PRN Constipation Omeprazole 40 mg 12/15/20 10:15 12/24/20 05:45 Omeprazole 40 Mg Capsule. PO 40 mg DAILY@0630 [facility] Administration Prednisone 40 mg 12/16/20 09:00 12/24/20 07:55 Prednisone 20 Mg Tablet PO 40 mg DAILY [facility] Administration Sodium Chloride 3 ml 12/12/20 16:00 12/24/20 08:11 0.9 % Sodium Chloride Flush 3 Ml Syringe IVFLUSH 3 ml QSHIFT [facility] Administration Spironolactone 25 mg 12/14/20 15:45 12/24/20 07:58 Spironolactone 25 Mg Tablet PO 25 mg DAILY [facility] Administration Protocol Labs CBC & Chem 7: 12/23/20 05:39 12/23/20 05:39 Assessment and Plan (1) Pleural effusion, bacterial: Status: Acute (2) Acute respiratory failure with hypoxia: Status: Acute (3) Atelectasis: Status: Acute (4) Syncope and collapse: Status: Acute Assessment and Plan: 75 years old lady with PMH of COPD presented to the hospital after having syncopal episode and hip fracture. Required admission to ICU for acute hypoxic respiratory failure. Acute respiratory failure with hypoxia Secondary to COPD exacerbation/ pleyral effusions On high flow oxygen, continue to wean - still hypoxic on high settings Continue steroids Continue nebulizers vancomycin completed 5 days completed azithro 7 days cxr unchanged plan for right sided therapeutic thoracocentesis tomorrow UTI finished ceftriaxone day 7 Urine culture grew Streptococcus viridans Atelectasis Pleural effusions Continue lasix 20mg iv bid Continue chest physical therapy, incentive spirometry Hip fracture Postop, followed by orthopedic team physical therapy Left humeral fracture In sling, pain under control Orthopedic team following Nonweightbearing DVT PPX Lovenox Quality Stroke Does the patient have a stroke diagnosis?: No VTE Prior VTE?: No VTE Risk Level:: Medical - moderate - high VTE Device Contraindication: Patient Refused VTE Drug Contraindication: Patient Refused
[2020-12-24] MEDS: Acetaminophen 325 MG TABLET 650 MG PO ×2 (09:56→20:00)
--- NOTE | 2020-12-24 13:52 | PC.NURSE ---
At 1323 pt had 32 burst VT, Photo of EKG strip taken and DR Dr Munoz notified. Pt asymtomatic. No new orders
[2020-12-25] VITALS (19 sets, daily range): BP systolic 110–143; BP diastolic 53–75; PULSE 54–93; RESP 18–22; TEMP 36–37.1; O2SAT 84–100; BMI 26.9
[2020-12-25 05:55] LABS: Hematocrit 39.2 % (37-47); Hemoglobin 12.5 g/dl (12.0-16.0); Mean Corpuscular HGB Conc 31.9 g/dl (31.0-35.0); Mean Corpuscular Hemoglobin 30.9 pg (27.0-33.0); Mean Platelet Volume 9.1 fL (9.4-12.3); Platelet Count 319 X10*3/uL (160-400); Red Blood Count 4.04 X10*6/uL (4.20-5.50); Red Cell Distribution Width 13.1 % (11.0-16.0); White Blood Count 14.5 X10*3/uL (4.8-10.8)
[2020-12-25 06:13] LABS: Anion Gap 12 (12-20); Blood Urea Nitrogen 42 mg/dL (9-16); Calcium 8.7 mg/dL (8.4-10.2); Carbon Dioxide 40 mmol/L (22-29); Chloride 91 mmol/L (96-108); Creatinine Clr Calc Pharmacy 61.7; Estimated Glomerular Filt Rate > 60; Glucose Fasting 103 mg/dL (60-99); Potassium 4.7 mmol/L (3.3-5.1); Sodium 138 mmol/L (135-145)
[2020-12-25] MEDS: Acetylcysteine 10 % 400 MG/4 ML VIAL INHALE ×2 (09:20→19:46)
[2020-12-25] MEDS: Spironolactone 25 MG TABLET PO (09:36)
[2020-12-25] MEDS: Furosemide 20 MG/2 ML VIAL IVPUSH (09:37)
[2020-12-25] MEDS: predniSONE 20 MG TABLET 40 MG PO (09:37)
[2020-12-25] MEDS: Gabapentin 100 MG CAPSULE PO ×3 (09:49→21:58)
[2020-12-25] MEDS: 0.9 % Sodium Chloride Flush 3 ML SYRINGE IVFLUSH ×2 (09:50→21:58)
--- NOTE | 2020-12-25 11:16 | HO.PM.IMPN ---
Subjective Subjective Date of Service: 12/25/20 Interval History: sob Constitutional Constitutional: Reports no additional constitutional complaints Eyes Eyes: Reports no additional eye complaints Physical Exam Vital Signs: Vital Signs: Last Vital Signs Temp 97.6 F 12/25/20 07:29 Pulse 82 12/25/20 09:36 Resp 20 12/25/20 09:22 BP 119/57 L 12/25/20 09:36 Pulse Ox 90 L 12/25/20 07:29 Body Mass Index 26.9 General: AO X 3, weak, ill appearing Resp:? diminsihed CVS: S1,S2,RRR GI: soft, non tender, non distended Neuro:? motor grossly intact Psych: appropriate affect Objective Data Current Medications Generic Name Dose Route Start Last Admin Trade Name Freq PRN Reason Stop Dose Admin Acetaminophen 650 mg 12/09/20 04:20 12/24/20 20:00 Acetaminophen 325 Mg Tablet PO 650 mg Q6H PRN Administration Pain, Mild (Pain Scale 1-3) Acetylcysteine 400 mg 12/15/20 08:00 12/25/20 09:20 Acetylcysteine 10 % 400 Mg/4 Ml Vial INHALE 400 mg RBID OM[facility] Administration Amlodipine Besylate 5 mg 12/16/20 09:00 12/24/20 07:59 Amlodipine Besylate 5 Mg Tablet PO 5 mg DAILY [facility] Administration Protocol Fluticasone Propionate 1 spray 12/18/20 09:50 12/24/20 20:05 Fluticasone Propionate Nasal 16 Gm [place] NOSTRIL-B Not Given BID [facility] Furosemide 20 mg 12/23/20 18:00 12/25/20 09:37 Furosemide 20 Mg/2 Ml Vial IVPUSH 20 mg BID@0900,1800 [facility] Administration Protocol Gabapentin 100 mg 12/22/20 16:05 12/25/20 09:49 Gabapentin 100 Mg Capsule PO 100 mg TID [facility] Administration Loperamide HCl 2 mg 12/15/20 10:12 12/15/20 10:37 Loperamide Hcl 2 Mg Capsule PO 2 mg Q4H PRN Administration diarrhea Losartan Potassium 25 mg 12/14/20 15:45 12/24/20 07:57 Losartan Potassium 25 Mg Tablet PO 25 mg DAILY [facility] Administration Protocol Magnesium Hydroxide 30 ml 12/09/20 04:20 Milk Of Magnesia 30 Ml Oral.Susp PO DAILY PRN Constipation Omeprazole 40 mg 12/15/20 10:15 12/25/20 05:56 Omeprazole 40 Mg Capsule. PO Not Given DAILY@0630 [facility] Prednisone 40 mg 12/16/20 09:00 12/25/20 09:37 Prednisone 20 Mg Tablet PO 40 mg DAILY [facility] Administration Sodium Chloride 3 ml 12/12/20 16:00 12/25/20 09:50 0.9 % Sodium Chloride Flush 3 Ml Syringe IVFLUSH 3 ml QSHIFT [facility] Administration Spironolactone 25 mg 12/14/20 15:45 12/25/20 09:36 Spironolactone 25 Mg Tablet PO 25 mg DAILY [facility] Administration Protocol Labs CBC & Chem 7: 12/25/20 05:01 12/25/20 05:01 Labs: Laboratory Results - last 24 hr 12/25/20 12/25/20 05:01 05:01 MCV 97.0 MCH 30.9 MCHC 31.9 RDW 13.1 Plt Count 319 MPV 9.1 L Absolute Nucleated RBC 0.000 Nucleated RBC % (auto) 0.0 Anion Gap 12 Estim Creat Clear Calc 61.7 Estimated GFR > 60 Fasting Glucose 103 H D Calcium 8.7 D Assessment and Plan (1) Pleural effusion, bacterial: Status: Acute (2) Acute respiratory failure with hypoxia: Status: Acute (3) Atelectasis: Status: Acute (4) Syncope and collapse: Status: Acute Assessment and Plan: 75 years old lady with PMH of COPD presented to the hospital after having syncopal episode and hip fracture. Required admission to ICU for acute hypoxic respiratory failure. Acute respiratory failure with hypoxia Secondary to COPD exacerbation/ pleyral effusions On high flow oxygen, continue to wean - still hypoxic on high settings Continue steroids Continue nebulizers vancomycin completed 5 days completed azithro 7 days plan for right sided therapeutic thoracocentesis today UTI finished ceftriaxone day 7 Urine culture grew Streptococcus viridans Atelectasis Pleural effusions Continue lasix 20mg iv bid Continue chest physical therapy, incentive spirometry Hip fracture Postop, followed by orthopedic team physical therapy Left humeral fracture In sling, pain under control Orthopedic team following Nonweightbearing DVT PPX Lovenox Quality Stroke Does the patient have a stroke diagnosis?: No VTE Prior VTE?: No VTE Risk Level:: Medical - moderate - high VTE Device Contraindication: Patient Refused VTE Drug Contraindication: Patient Refused
[2020-12-25] MEDS: Acetaminophen 325 MG TABLET 650 MG PO (11:30)
--- NOTE | 2020-12-25 11:39 | MHC.CM.PN ---
per multi dis rounds pt remains on high flow 02 ,plan is for pt to have throrencitisis
[2020-12-25] MEDS: acetaZOLAMIDE 250 MG TABLET PO ×2 (15:25→21:58)
--- NOTE | 2020-12-25 15:34 | PC.NURSE ---
Skin assessment completed today. Due to patients refusal to be repositioned or moved from chair patient now has deep tissue injury to bilateral buttocks. A foam dressing applied for protection.
[2020-12-25] MEDS: Lidocaine HCl 1 % MPF 5 ML VIAL SUBCUT (16:48)
[2020-12-25 17:20] LABS: MN% 81.5 %; PMN% 18.5 %; WBC Pleural Fluid 0.124 X10*3/uL
[2020-12-25 17:23] LABS: RBC Pleural Fluid < 0.002 X10*3/uL
[2020-12-25 17:52] LABS: BF Shift QC OK YES; Lymphocytes Pleural Fluid 9 %; Monocytes Pleural Fluid 50 %; Neutrophils Pleural Fluid 24 %
[2020-12-25 17:53] LABS: Other Cells Plerual Fl 17 %
[2020-12-26] VITALS (15 sets, daily range): BP systolic 112–134; BP diastolic 58–80; PULSE 70–90; RESP 16–20; TEMP 36.1–36.9; O2SAT 91–97; BMI 26.6
[2020-12-26] MEDS: Acetaminophen 325 MG TABLET 650 MG PO ×2 (03:53→17:57)
[2020-12-26] MEDS: Omeprazole 40 MG CAPSULE.DR PO (05:57)
[2020-12-26] MEDS: Enoxaparin Sodium 40 MG/0.4 ML SYRINGE SUBCUT (05:57)
[2020-12-26 07:03] LABS: Hematocrit 38.6 % (37-47); Hemoglobin 12.4 g/dl (12.0-16.0); Mean Corpuscular HGB Conc 32.1 g/dl (31.0-35.0); Mean Corpuscular Hemoglobin 31.5 pg (27.0-33.0); Mean Platelet Volume 9.3 fL (9.4-12.3); Platelet Count 293 X10*3/uL (160-400); Red Blood Count 3.94 X10*6/uL (4.20-5.50); White Blood Count 13.9 X10*3/uL (4.8-10.8)
[2020-12-26 07:14] LABS: Glucose Pleural Fluid 140; LDH Pleural Fluid 219; Total Protein Pleural Fluid 2.5
[2020-12-26] MEDS: Acetylcysteine 10 % 400 MG/4 ML VIAL INHALE ×2 (07:27→19:45)
[2020-12-26 07:30] LABS: Anion Gap 12 (12-20); Blood Urea Nitrogen 47 mg/dL (9-16); Calcium 8.4 mg/dL (8.4-10.2); Carbon Dioxide 38 mmol/L (22-29); Chloride 91 mmol/L (96-108); Creatinine Clr Calc Pharmacy 53.8; Estimated Glomerular Filt Rate > 60; Glucose Fasting 113 mg/dL (60-99); Potassium 4.2 mmol/L (3.3-5.1); Sodium 137 mmol/L (135-145)
[2020-12-26 07:44] LABS: TSH reflex Free T4 0.19 uIU/mL (0.32-4.0)
[2020-12-26 08:16] LABS: Free T4 (Free Thyroxine) 1.03 ng/dL (0.71-1.85)
[2020-12-26] MEDS: predniSONE 20 MG TABLET 40 MG PO (08:25)
[2020-12-26] MEDS: Spironolactone 25 MG TABLET PO (08:25)
[2020-12-26] MEDS: acetaZOLAMIDE 250 MG TABLET PO ×2 (08:25→21:29)
[2020-12-26] MEDS: Gabapentin 100 MG CAPSULE PO ×3 (08:26→21:29)
[2020-12-26] MEDS: 0.9 % Sodium Chloride Flush 3 ML SYRINGE IVFLUSH (08:26)
--- NOTE | 2020-12-26 09:57 | HO.PM.IMPN ---
Subjective Subjective Date of Service: 12/26/20 Interval History: weak, sob Constitutional Constitutional: Reports no additional constitutional complaints Eyes Eyes: Reports no additional eye complaints Physical Exam Vital Signs: Vital Signs: Last Vital Signs Temp 97.7 F 12/26/20 08:00 Pulse 75 12/26/20 08:25 Resp 19 12/26/20 08:00 BP 112/62 12/26/20 08:25 Pulse Ox 95 12/26/20 08:00 Body Mass Index 26.6 General: AO X 3, weak, ill appearing Resp:? diminished CVS: S1,S2,RRR GI: soft, non tender, non distended Neuro:? motor grossly intact Psych: appropriate affect Objective Data Current Medications Generic Name Dose Route Start Last Admin Trade Name Freq PRN Reason Stop Dose Admin Acetaminophen 650 mg 12/09/20 04:20 12/26/20 03:53 Acetaminophen 325 Mg Tablet PO 650 mg Q6H PRN Administration Pain, Mild (Pain Scale 1-3) Acetazolamide 250 mg 12/25/20 14:00 12/26/20 08:25 Acetazolamide 250 Mg Tablet PO 12/27/20 13:59 250 mg BID [facility] Administration Acetylcysteine 400 mg 12/15/20 08:00 12/26/20 07:27 Acetylcysteine 10 % 400 Mg/4 Ml Vial INHALE 400 mg RBID [facility] Administration Amlodipine Besylate 5 mg 12/16/20 09:00 12/24/20 07:59 Amlodipine Besylate 5 Mg Tablet PO 5 mg DAILY [facility] Administration Protocol Enoxaparin Sodium 40 mg 12/26/20 06:00 12/26/20 05:57 Enoxaparin Sodium 40 Mg/0.4 Ml Syringe SUBCUT 40 mg Q24H [facility] Administration Fluticasone Propionate 1 spray 12/18/20 09:50 12/26/20 08:27 Fluticasone Propionate Nasal 16 Gm [place] NOSTRIL-B Not Given BID [facility] Gabapentin 100 mg 12/22/20 16:05 12/26/20 08:26 Gabapentin 100 Mg Capsule PO 100 mg TID [facility] Administration Loperamide HCl 2 mg 12/15/20 10:12 12/15/20 10:37 Loperamide Hcl 2 Mg Capsule PO 2 mg Q4H PRN Administration diarrhea Losartan Potassium 25 mg 12/14/20 15:45 12/24/20 07:57 Losartan Potassium 25 Mg Tablet PO 25 mg DAILY [facility] Administration Protocol Magnesium Hydroxide 30 ml 12/09/20 04:20 Milk Of Magnesia 30 Ml Oral.Susp PO DAILY PRN Constipation Omeprazole 40 mg 12/15/20 10:15 12/26/20 05:57 Omeprazole 40 Mg Capsule.Dr PO 40 mg DAILY@0630 [facility] Administration Prednisone 40 mg 12/16/20 09:00 12/26/20 08:25 Prednisone 20 Mg Tablet PO 40 mg DAILY [facility] Administration Sodium Chloride 3 ml 12/12/20 16:00 12/26/20 08:26 0.9 % Sodium Chloride Flush 3 Ml Syringe IVFLUSH 3 ml QSHIFT [facility] Administration Spironolactone 25 mg 12/14/20 15:45 12/26/20 08:25 Spironolactone 25 Mg Tablet PO 25 mg DAILY [facility] Administration Protocol Labs CBC & Chem 7: 12/26/20 05:51 12/26/20 05:51 Labs: Laboratory Results - last 24 hr 12/25/20 12/25/20 12/26/20 15:40 15:40 05:51 MCV 98.0 MCH 31.5 MCHC 32.1 RDW 13.0 Plt Count 293 MPV 9.3 L Absolute Nucleated RBC 0.000 Nucleated RBC % (auto) 0.0 Anion Gap Estim Creat Clear Calc Estimated GFR Fasting Glucose Calcium TSH Free T4 Pleural WBC 0.124 Pleural RBC < 0.002 Pleural Neutrophils 24 Pleural Lymphocytes 9 Pleural Monocytes 50 Pleural Other Cells 17 Pleural Total Protein 2.5 Pleural LDH 219 Pleural Glucose 140 12/26/20 05:51 MCV MCH MCHC RDW Plt Count MPV Absolute Nucleated RBC Nucleated RBC % (auto) Anion Gap 12 Estim Creat Clear Calc 53.8 Estimated GFR > 60 Fasting Glucose 113 H Calcium 8.4 TSH 0.19 L Free T4 1.03 Pleural WBC Pleural RBC Pleural Neutrophils Pleural Lymphocytes Pleural Monocytes Pleural Other Cells Pleural Total Protein Pleural LDH Pleural Glucose Assessment and Plan (1) Pleural effusion, bacterial: Status: Acute (2) Acute respiratory failure with hypoxia: Status: Acute (3) Atelectasis: Status: Acute (4) Syncope and collapse: Status: Acute Assessment and Plan: 75 years old lady with PMH of COPD presented to the hospital after having syncopal episode and hip fracture. Required admission to ICU for acute hypoxic respiratory failure. Acute respiratory failure with hypoxia Secondary to COPD exacerbation/ pleyral effusions On high flow oxygen - still hypoxic on high settings Continue prednisone Continue nebulizers vancomycin completed 5 days completed azithro 7 days CTA negative for PE on 12/13 s/p thoracocentesis 12/25/20, 400cc removed UTI finished ceftriaxone day 7 Urine culture grew Streptococcus viridans Atelectasis Continue chest physical therapy, incentive spirometry Hip fracture Postop, followed by orthopedic team physical therapy Left humeral fracture In sling, pain under control Orthopedic team following Nonweightbearing DVT PPX Lovenox DNR/DNI - overall poor porgnosis Quality Stroke Does the patient have a stroke diagnosis?: No VTE Prior VTE?: No VTE Risk Level:: Medical - moderate - high VTE Device Contraindication: Patient Refused VTE Drug Contraindication: Patient Refused
--- NOTE | 2020-12-26 12:09 | P.PNPL_ITS ---
Subjective Subjective Date of Service: 12/26/20 Principal diagnosis: RESP. FAILURE Interval history: I AM SEEING THIS 75 YEARS OLD FEMALE FOR PULMONARY FOLLOW-UP THIS MORNING. SHE IS A KNOWN CASE OF ADVANCED CHRONIC OBSTRUCTIVE PULMONARY DISEASE. ADMITTED AFTER A FALL DUE TO CO2 NARCOSIS, HAS HAD FRACTURE OF THE RIGHT HUMERUS WHICH IS BEING TREATED WITH A SLING, AND FRACTURE LEFT HIP WHICH HAS BEEN REPAIRED SURGICALLY. PATIENT HAS BEEN TREATED INITIALLY WITH NONINVASIVE VENTILATORY SUPPORT, FOLLOWED BY HIGH-FLOW OXYGEN, CURRENT PROBLEM IS THAT SHE CONTINUES TO NEED HIGH-FLOW O2 , TO MAINTAIN O2 SAT AROUND 90%. PCO2 LEVEL HAS COME DOWN TO A REASONABLE BASELINE LEVEL, BUT STILL SIGNIFICANTLY HIGH. AT PRESENT SHE DOES NOT HAVE ANY ACUTE RESPIRATORY INFECTION. PLEURAL EFFUSION ON THE RIGHT SIDE WAS DRAINED A FEW DAYS AGO IN THE FLUID CORRECTED WRIST [place] IS MORE LIKE TRANSUDATE. REPEAT CHEST X-RAY DOES NOT SHOW ANY RESIDUAL EFFUSION OR PNEUMOTHORAX, SHE DOES HAVE HYPERINFLATED LUNGS WITH SOME DEGREE OF ATELECTASIS OF THE RIGHT MIDDLE LOBE. Objective Data Labs CBC & Chem 7: 12/26/20 05:51 12/26/20 05:51 Labs: Laboratory Results - last 24 hr 12/25/20 12/25/20 12/26/20 15:40 15:40 05:51 WBC 13.9 H RBC 3.94 L Hgb 12.4 Hct 38.6 MCV 98.0 MCH 31.5 MCHC 32.1 RDW 13.0 Plt Count 293 MPV 9.3 L Absolute Nucleated RBC 0.000 Nucleated RBC % (auto) 0.0 Sodium Potassium Chloride Carbon Dioxide Anion Gap BUN Creatinine Estim Creat Clear Calc Estimated GFR Fasting Glucose Calcium TSH Free T4 Pleural WBC 0.124 Pleural RBC < 0.002 Pleural Neutrophils 24 Pleural Lymphocytes 9 Pleural Monocytes 50 Pleural Other Cells 17 Pleural Total Protein 2.5 Pleural LDH 219 Pleural Glucose 140 12/26/20 05:51 WBC RBC Hgb Hct MCV MCH MCHC RDW Plt Count MPV Absolute Nucleated RBC Nucleated RBC % (auto) Sodium 137 Potassium 4.2 Chloride 91 L Carbon Dioxide 38 H Anion Gap 12 BUN 47 H Creatinine 0.73 Estim Creat Clear Calc 53.8 Estimated GFR > 60 Fasting Glucose 113 H Calcium 8.4 TSH 0.19 L Free T4 1.03 Pleural WBC Pleural RBC Pleural Neutrophils Pleural Lymphocytes Pleural Monocytes Pleural Other Cells Pleural Total Protein Pleural LDH Pleural Glucose Microbiology Microbiology Results: Microbiology 12/09/20 Unknown Urine clean catch - Clean Catch Midstream Urine Culture - Final Streptococcus viridans group Review of Systems Constitutional: Reports fatigue and Reports weakness Eyes: Reports no additional eye complaints Reports system reviewed and no additional complaints, except as documented Cardiovascular: Denies chest pain, Denies leg edema and Reports dyspnea Respiratory: Reports as per HPI and Reports dyspnea Reports Abnormal speech present and Reports weakness Endocrine: Reports fatigue Physical Exam Vital Signs: Vital Signs: Last Vital Signs Temp 97.1 F 12/26/20 11:21 Pulse 70 12/26/20 11:21 Resp 19 12/26/20 11:21 BP 124/58 L 12/26/20 11:21 Pulse Ox 91 L 12/26/20 11:21 Body Mass Index 26.6 Const: General: comfortable (BUT VERY WEAK AND BED BOUND AT THIS TIME), no acute distress, alert and awake Orientation/consciousness: patient oriented x3 HENMT: Head: Yes normal to inspection General nose exam: No nasal polyps present and No nasal discharge present Face and sinus: Yes sinuses nontender Mouth: oropharynx normal Throat: Yes posterior oropharynx normal Eyes: General: appearance normal, both eyes and all related structures Neck: Neck: Yes normal visual inspection, Yes no lymphadenopathy, Yes trachea midline and Yes no JVD Thyroid: Thyroid normal Chest: Chest palpation & inspection: abnormal inspection of the chest, abnormal palpation of chest wall and no tenderness Resp: Other: SHE DOES HAVE EQUAL BREATH SOUNDS ON BOTH SIDES BUT THE BREATH SOUNDS ARE QUITE DISTANT WITH PROLONGED EXPIRATORY PHASE. NO WHEEZES OR RHONCHI ARE HEARD. Cardio: Palpation: normal PMI Rate: regular rate Rhythm: regular rhythm Heart sounds: no gallops and no murmurs GI: Palpation (GI): Soft to palpation, nontender, No hepatosplenomegaly presen t and no masses Auscultation: normal bowel sounds Back/Spine/Pelvis: Thoracic/Lumbar Spine: thoraco-lumbar ROM limited and thoraco-lumbar spasm Skin: General skin exam: no rashes or lesions noted Neuro: General: patient oriented x3, No gait normal (NON AMBULATORY ) and no focal motor deficits Cranial nerves: Yes CN's II-XII intact bilaterally Speech: Abnormal speech present Extrem: General: Yes normal to inspection, Yes no clubbing, cyanosis or edema, Yes no calf tenderness and Yes venous stasis dermatitis Psych: Speech and movement: Normal speech and movement present Procedures Date of Service Date of Service: 12/26/20 Assessment and Plan Assessment and plan (1) Respiratory failure, acute and chronic: Problem details: THIS PATIENT HAS CONTINUED RESPIRATORY FAILURE SECONDARY TO ADVANCED CHRONIC OBSTRUCTIVE PULMONARY DISEASE. LAST BLOOD GAS STUDY ON PH 7.41 PCO2 77 PO2 OF 40 BICARB OF 49, REPEAT SINCE CHRONIC, RESPIRATORY FAILURE. CURRENT ISSUE IS THAT SHE IS REQUIRING HIGH-FLOW O2, CODE STATUS DNR DNI IS NOTED. PATIENT WOULD NOT BE ABLE TO GO TO EVEN A REHAB FACILITY LONG SHE IS REQUIRING HIGH-FLOW OXYGEN. I SUGGEST THAT WE CAN TRY BIPAP 12/6 CMs ALONG WITH OXYGEN 4-5 L/MINUTE AND SEE IF ADEQUATE OXYGENATION CAN BE ACHIEVED. THAT WILL ALLOW HER TO GO TO A LONG-TERM REHAB FACILITY. ACETAZOLAMIDE CAN BE DROPPED DOWN TO 250 MG DAILY. REPEAT BLOOD GASES TODAY OR TOMORROW MORNING. Status: Acute (2) COPD exacerbation: Problem details: SHE HAS ADVANCED CHRONIC OBSTRUCTIVE PULMONARY DISEASE WHICH SEEMED TO BE RELATIVELY STABLE AT THIS TIME. I RECOMMEND THAT WE CONTINUE TO TREAT HER WITH DUONEB UPDRAFTS Q 6 HOURS W/A WEAN OFF PREDNISONE BY 10 MG EVERY WEEK. Status: Acute (3) Atelectasis: Status: Acute (4) Pleural effusion, bacterial: Problem details: STATUS POST THORACENTESIS, 400 ML THE FLUID CRACKED THIS TAKES ARE ONLY BORDERLINE EXUDATE EVENT THIS TIME. Status: Acute Time Spent With Patient Time: Total time spent is greater than 50% in coordination of care (as documented) at patient's floor/unit and/or counseling patient: Time with patient: 15 - 24 minutes Progress Note: Quality Stroke Does the patient have a stroke diagnosis?: No
[2020-12-26] MEDS: Milk of Magnesia 30 ML ORAL.SUSP PO (17:57)
[2020-12-27] VITALS (19 sets, daily range): BP systolic 90–130; BP diastolic 54–68; PULSE 62–78; RESP 12–20; TEMP 36.2–36.5; O2SAT 89–96; BMI 26.9
[2020-12-27] MEDS: 0.9 % Sodium Chloride Flush 3 ML SYRINGE IVFLUSH ×4 (00:40→19:45)
[2020-12-27] MEDS: Omeprazole 40 MG CAPSULE.DR PO (06:26)
[2020-12-27] MEDS: Enoxaparin Sodium 40 MG/0.4 ML SYRINGE SUBCUT (06:26)
[2020-12-27 07:24] LABS: Hematocrit 35.8 % (37-47); Hemoglobin 11.6 g/dl (12.0-16.0); Mean Corpuscular HGB Conc 32.4 g/dl (31.0-35.0); Mean Corpuscular Hemoglobin 31.1 pg (27.0-33.0); Mean Platelet Volume 9.2 fL (9.4-12.3); Platelet Count 282 X10*3/uL (160-400); Red Blood Count 3.73 X10*6/uL (4.20-5.50); Red Cell Distribution Width 12.7 % (11.0-16.0); White Blood Count 11.7 X10*3/uL (4.8-10.8)
[2020-12-27] MEDS: Acetylcysteine 10 % 400 MG/4 ML VIAL INHALE ×2 (07:28→19:40)
[2020-12-27 07:50] LABS: Anion Gap 9 (12-20); Blood Urea Nitrogen 36 mg/dL (9-16); Calcium 8.2 mg/dL (8.4-10.2); Carbon Dioxide 39 mmol/L (22-29); Chloride 89 mmol/L (96-108); Creatinine Clr Calc Pharmacy 61.6; Estimated Glomerular Filt Rate > 60; Glucose Fasting 89 mg/dL (60-99); Potassium 4.3 mmol/L (3.3-5.1); Sodium 133 mmol/L (135-145)
[2020-12-27] MEDS: Metoprolol Tartrate 25 MG TABLET PO (08:12)
[2020-12-27] MEDS: acetaZOLAMIDE 250 MG TABLET PO (08:12)
[2020-12-27] MEDS: Gabapentin 100 MG CAPSULE PO ×3 (08:12→19:45)
[2020-12-27] MEDS: Spironolactone 25 MG TABLET PO (08:13)
[2020-12-27] MEDS: predniSONE 20 MG TABLET 40 MG PO (08:13)
[2020-12-27] MEDS: Milk of Magnesia 30 ML ORAL.SUSP PO (08:38)
[2020-12-27] MEDS: 0.9 % Sodium Chloride 500 ML 999 ML IV (12:25)
--- NOTE | 2020-12-27 13:11 | P.PNIM_ITS ---
Subjective Subjective Date of Service: 12/27/20 Interval History: The patient was seen and evaluated this morning Laying in bed, still requiring high-flow oxygen, weaning down as tolerated Denies any fever, chills or shortness of breath No reported other overnight events. Systemic review: No fever, chills or weakness No chest pain, palpitation Mild dyspnea with exertion still on high-flow oxygen No abdominal pain, nausea or vomiting but has diarrhea No urinary symptoms No any rash or wounds Physical Exam Vital Signs: Vital Signs: Last Vital Signs Temp 97.4 F 12/27/20 11:20 Pulse 65 12/27/20 11:20 Resp 20 12/27/20 11:25 BP 90/54 L 12/27/20 11:20 Pulse Ox 90 L 12/27/20 11:20 Body Mass Index 26.9 Const: Other: Constitutional : Alert, oriented, in mild respiratory distress, on high-flow oxygen supplement Neck : Normal inspection, Supple Cardiovascular : RRR, S1 S2, no lower extremity edema Respiratory : Decreased bilateral air entry mainly at the bases with fine bilateral basal crackles, no wheezes or rhonchi Gastrointestinal: soft, lax, Normal bowel sounds, Non tender Skin : Warm/Dry Neurological : Alert & oriented x3, No focal deficit Objective Data Current Medications Generic Name Dose Route Start Last Admin Trade Name Freq PRN Reason Stop Dose Admin Acetaminophen 650 mg 12/09/20 04:20 12/26/20 17:57 Acetaminophen 325 Mg Tablet PO 650 mg Q6H PRN Administration Pain, Mild (Pain Scale 1-3) Acetazolamide 250 mg 12/25/20 14:00 12/27/20 08:12 Acetazolamide 250 Mg Tablet PO 12/27/20 13:59 250 mg BID [facility] Administration Acetylcysteine 400 mg 12/15/20 08:00 12/27/20 07:28 Acetylcysteine 10 % 400 Mg/4 Ml Vial INHALE 400 mg RBID [facility] Administration Enoxaparin Sodium 40 mg 12/26/20 06:00 12/27/20 06:26 Enoxaparin Sodium 40 Mg/0.4 Ml Syringe SUBCUT 40 mg Q24H [facility] Administration Fluticasone Propionate 1 spray 12/18/20 09:50 12/27/20 08:41 Fluticasone Propionate Nasal 16 Gm [place] NOSTRIL-B Not Given BID [facility] Gabapentin 100 mg 12/22/20 16:05 12/27/20 08:12 Gabapentin 100 Mg Capsule PO 100 mg TID [facility] Administration Loperamide HCl 2 mg 12/15/20 10:12 12/15/20 10:37 Loperamide Hcl 2 Mg Capsule PO 2 mg Q4H PRN Administration diarrhea Magnesium Hydroxide 30 ml 12/09/20 04:20 12/27/20 08:38 Milk Of Magnesia 30 Ml Oral.Susp PO 30 ml DAILY PRN Administration Constipation Metoprolol Tartrate 12.5 mg 12/27/20 21:00 Metoprolol Tartrate 12.5 Mg Halftab PO BID [facility] Protocol Omeprazole 40 mg 12/15/20 10:15 12/27/20 06:26 Omeprazole 40 Mg Capsule. PO 40 mg DAILY@0630 [facility] Administration Prednisone 40 mg 12/16/20 09:00 12/27/20 08:13 Prednisone 20 Mg Tablet PO 40 mg DAILY [facility] Administration Sodium Chloride 3 ml 12/12/20 16:00 12/27/20 08:12 0.9 % Sodium Chloride Flush 3 Ml Syringe IVFLUSH 3 ml QSHIFT [facility] Administration Spironolactone 25 mg 12/14/20 15:45 12/27/20 08:13 Spironolactone 25 Mg Tablet PO 25 mg DAILY [facility] Administration Protocol Labs CBC & Chem 7: 12/27/20 06:25 12/27/20 06:25 Labs: Laboratory Results - last 24 hr 12/27/20 12/27/20 06:25 06:25 MCV 96.0 MCH 31.1 MCHC 32.4 RDW 12.7 Plt Count 282 MPV 9.2 L Absolute Nucleated RBC 0.000 Nucleated RBC % (auto) 0.0 Anion Gap 9 L Estim Creat Clear Calc 61.6 Estimated GFR > 60 Fasting Glucose 89 Calcium 8.2 L Assessment and Plan (1) Acute respiratory failure with hypoxia: Status: Acute (2) COPD exacerbation: Status: Acute Assessment and Plan: 75 years old lady with PMH of COPD presented to the hospital after having syncopal episode and hip fracture.? Required admission to ICU for acute hypoxic respiratory failure. Acute respiratory failure with hypoxia Secondary to COPD exacerbation/ pleyral effusions On high flow oxygen - still hypoxic on high settings Continue prednisone Continue nebulizers vancomycin completed 5 days completed azithro 7 days CTA negative for PE on 12/13 s/p thoracocentesis 12/25/20, 400cc removed UTI ?finished ceftriaxone day 7 Urine culture grew Streptococcus viridans Atelectasis Continue chest physical therapy, incentive spirometry Hip fracture Postop, followed by orthopedic team physical therapy Left humeral fracture In sling, pain under control Orthopedic team following Nonweightbearing DVT PPX Lovenox DNR/DNI - overall poor porgnosisedic team following Nonweightbearing DVT PPX Lovenox Quality Stroke Does the patient have a stroke diagnosis?: No VTE Prior VTE?: No VTE Risk Level:: Medical - moderate - high VTE Device Contraindication: Patient Refused VTE Drug Contraindication: Patient Refused
[2020-12-27] MEDS: Metoprolol Tartrate 12.5 MG HALFTAB PO (19:45)
[2020-12-28] VITALS (14 sets, daily range): BP systolic 111–168; BP diastolic 55–73; PULSE 57–83; RESP 16–22; TEMP 36–36.9; O2SAT 88–100; BMI 25.9
[2020-12-28] MEDS: Enoxaparin Sodium 40 MG/0.4 ML SYRINGE SUBCUT (06:24)
[2020-12-28] MEDS: Omeprazole 40 MG CAPSULE.DR PO (06:24)
[2020-12-28 07:01] LABS: B Type Natriuretic Peptide 72 pg/mL (<100)
[2020-12-28 07:06] LABS: Anion Gap 10 (12-20); Blood Urea Nitrogen 27 mg/dL (9-16); Calcium 7.9 mg/dL (8.4-10.2); Carbon Dioxide 34 mmol/L (22-29); Chloride 94 mmol/L (96-108); Creatinine Clr Calc Pharmacy 71.9; Estimated Glomerular Filt Rate > 60; Glucose Random 79 mg/dL (60-115); Sodium 134 mmol/L (135-145)
[2020-12-28] MEDS: Acetylcysteine 10 % 400 MG/4 ML VIAL INHALE ×2 (07:14→19:05)
[2020-12-28] MEDS: predniSONE 20 MG TABLET 40 MG PO (08:19)
[2020-12-28] MEDS: Gabapentin 100 MG CAPSULE PO ×3 (08:20→21:19)
[2020-12-28] MEDS: Spironolactone 25 MG TABLET PO (08:20)
[2020-12-28] MEDS: 0.9 % Sodium Chloride Flush 3 ML SYRINGE IVFLUSH ×3 (08:20→21:19)
[2020-12-28] MEDS: Metoprolol Tartrate 12.5 MG HALFTAB PO ×2 (08:20→21:18)
--- NOTE | 2020-12-28 09:36 | PM.PNPUL ---
Subjective Subjective Date of Service: 12/28/20 Principal diagnosis: RESP. FAILURE Interval history: 75 YEARS OLD VERY PLEASANT LADY WITH ADVANCED CHRONIC OBSTRUCTIVE PULMONARY DISEASE, AND CHRONIC VENTILATORY FAILURE, CURRENTLY BEING TREATED WITH HIGH-FLOW BECAUSE SHE IS INTOLERANT TO BIPAP OR VENTIMASK. SHE IS RECOVERING FROM THE HIP SURGERY. CHEST X-RAY DOES SHOW HYPERINFLATED LUNGS BUT AND AN AREA OF ATELECTASIS IN THE RIGHT MIDDLE LOBE. TODAY SHE IS ON O2 40 L/MINUTE BY HIGH-FLOW. OTHERWISE SHE IS COMFORTABLE AND ALERT, AND DENIES ANY DISTRESS. Objective Data Labs CBC & Chem 7: 12/27/20 06:25 12/28/20 05:41 Labs: Laboratory Results - last 24 hr 12/28/20 12/28/20 05:41 05:41 Sodium 134 L Potassium 4.0 Chloride 94 L Carbon Dioxide 34 H Anion Gap 10 L BUN 27 H Creatinine 0.54 Estim Creat Clear Calc 71.9 Estimated GFR > 60 Random Glucose 79 Calcium 7.9 L B-Natriuretic Peptide 72 Microbiology Microbiology Results: Microbiology 12/09/20 Unknown Urine clean catch - Clean Catch Midstream Urine Culture - Final Streptococcus viridans group Physical Exam Vital Signs: Vital Signs: Last Vital Signs Temp 97.4 F 12/28/20 07:23 Pulse 68 12/28/20 07:23 Resp 16 12/28/20 07:23 BP 122/60 12/28/20 07:23 Pulse Ox 91 L 12/28/20 07:23 Body Mass Index 25.9 Const: Other: SHE IS ALERT, COMFORTABLE, HERE NOSE THROAT EXAMINATION IS NORMAL. NECK EXAMINATION NO JUGULAR VENOUS DISTENTION NOTED TRACHEA MIDLINE. CHEST TO HYPER-RESONANT BREATH SOUNDS ARE DISTANT WITH PROLONGED EXPIRATORY PHASE. INSPIRATORY CRACKLES ARE PRESENT OVER THE RIGHT MID CHEST, NO WHEEZES. O2 SAT 91% ON 40 L/MINUTE. Procedures Date of Service Date of Service: 12/28/20 Assessment and Plan Assessment and plan (1) Pleural effusion, bacterial: Problem details: STATUS POST THORACENTESIS, 400 ML THE FLUID CRACKED THIS TAKES ARE ONLY BORDERLINE EXUDATIVE AT THIS TIME. WATCH FOR RECURRENCE Status: Acute (2) COPD exacerbation: Problem details: SHE HAS ADVANCED CHRONIC OBSTRUCTIVE PULMONARY DISEASE WHICH SEEMS TO BE RELATIVELY STABLE AT THIS TIME. I RECOMMEND THAT WE CONTINUE TO TREAT HER WITH DUONEB UPDRAFTS Q 6 HOURS W/A WEAN OFF PREDNISONE BY 10 MG EVERY WEEK. Status: Acute (3) Acute and chronic respiratory failure: Status: Acute Assessment and Plan: SHE DOES HAVE EVIDENCE OF HYPOXEMIA AND HYPERCAPNIA. ACUTE HYPERCAPNIA WITH CO2 NARCOSIS ON ADMISSION HAS RESOLVED. SHE CONTINUES TO HAVE HYPOXEMIA REQUIRING HIGH-FLOW O2. THE IDEAL TREATMENT FOR IN HER CASE WOULD BE USE OF BIPAP OR TRILOGY WITH O2 SUPPLEMENTATION, BUT SHE JUST DID NOT TOLERATE THE BIPAP. SHOULD CONTINUE TO WEAN OFF HIGH-FLOW, SLOWLY. (4) Atelectasis: Status: Acute Assessment and Plan: ON THE CHEST X-RAY SHE DOES HAVE EVIDENCE OF 0 ATELECTASIS IN THE RIGHT MID CHEST, MAY BE SECONDARY TO MUCUS PLUGGING. CONTINUE TREATMENT WITH DUONEB UPDRAFTS, MUCOMYST, , FLUTTER VALVE , AT THIS TIME Time Spent With Patient Time: Total time spent is greater than 50% in coordination of care (as documented) at patient's floor/unit and/or counseling patient: Time with patient: 15 - 24 minutes Progress Note: Quality Stroke Does the patient have a stroke diagnosis?: No
--- NOTE | 2020-12-28 17:31 | HO.PM.IMPN ---
Subjective Subjective Date of Service: 12/28/20 Interval History: The patient was seen and evaluated this morning Laying in bed, increased oxygen requirement to high-flow and non-rebreather Complaining of chest tightness this afternoon Denies any fever, chills but reports feeling weak and shortness of breath No reported other overnight events. Systemic review: No fever, chills or weakness No chest pain, palpitation Dyspnea, chest tightness but no pain, mild shortness of breath No abdominal pain, nausea or vomiting but has diarrhea No urinary symptoms No any rash or wounds Physical Exam Vital Signs: Vital Signs: Last Vital Signs Temp 97.2 F 12/28/20 15:37 Pulse 70 12/28/20 15:37 Resp 20 12/28/20 15:37 BP 117/62 12/28/20 15:37 Pulse Ox 89 L 12/28/20 15:37 Body Mass Index 25.9 Const: Other: Constitutional : Alert, oriented, moderate respiratory distress, on high-flow oxygen supplement and non-rebreather mask Neck : Normal inspection, Supple Cardiovascular : RRR, S1 S2, no lower extremity edema Respiratory : Decreased bilateral air entry mainly at the bases with fine bilateral basal crackles, no wheezes or rhonchi Gastrointestinal: soft, lax, Normal bowel sounds, Non tender Skin : Warm/Dry Neurological : Alert & oriented x3, No focal deficit Objective Data Current Medications Generic Name Dose Route Start Last Admin Trade Name Freq PRN Reason Stop Dose Admin Acetaminophen 650 mg 12/09/20 04:20 12/26/20 17:57 Acetaminophen 325 Mg Tablet PO 650 mg Q6H PRN Administration Pain, Mild (Pain Scale 1-3) Acetylcysteine 400 mg 12/15/20 08:00 12/28/20 07:14 Acetylcysteine 10 % 400 Mg/4 Ml Vial INHALE 400 mg RBID OMID Administration Enoxaparin Sodium 40 mg 12/26/20 06:00 12/28/20 06:24 Enoxaparin Sodium 40 Mg/0.4 Ml Syringe SUBCUT 40 mg Q24H OMID Administration Fluticasone Propionate 1 spray 12/18/20 09:50 12/28/20 08:34 Fluticasone Propionate Nasal 16 Gm [place] NOSTRIL-B Not Given BID OMID Gabapentin 100 mg 12/22/20 16:05 12/28/20 17:11 Gabapentin 100 Mg Capsule PO 100 mg TID OMID Administration Loperamide HCl 2 mg 12/15/20 10:12 12/15/20 10:37 Loperamide Hcl 2 Mg Capsule PO 2 mg Q4H PRN Administration diarrhea Lorazepam 0.5 mg 12/28/20 21:00 Lorazepam 2 Mg/Ml Vial IVPUSH Q6H PRN anxiety/restlessness Magnesium Hydroxide 30 ml 12/09/20 04:20 12/27/20 08:38 Milk Of Magnesia 30 Ml Oral.Susp PO 30 ml DAILY PRN Administration Constipation Metoprolol Tartrate 12.5 mg 12/27/20 21:00 12/28/20 08:20 Metoprolol Tartrate 12.5 Mg Halftab PO 12.5 mg BID OMID Administration Protocol Morphine Sulfate 1 mg 12/28/20 16:42 Morphine Sulfate 2 Mg/Ml Cartridge IVPUSH Q2H PRN Shortness of Breath Protocol Omeprazole 40 mg 12/15/20 10:15 12/28/20 06:24 Omeprazole 40 Mg Capsule. PO 40 mg DAILY@0630 OMID Administration Prednisone 40 mg 12/16/20 09:00 12/28/20 08:19 Prednisone 20 Mg Tablet PO 40 mg DAILY OMID Administration Sodium Chloride 3 ml 12/12/20 16:00 12/28/20 16:11 0.9 % Sodium Chloride Flush 3 Ml Syringe IVFLUSH 3 ml QSHIFT OMID Administration Spironolactone 25 mg 12/14/20 15:45 12/28/20 08:20 Spironolactone 25 Mg Tablet PO 25 mg DAILY OMID Administration Protocol Labs CBC & Chem 7: 12/27/20 06:25 12/28/20 05:41 Labs: Laboratory Results - last 24 hr 12/28/20 12/28/20 05:41 05:41 Anion Gap 10 L Estim Creat Clear Calc 71.9 Estimated GFR > 60 Random Glucose 79 Calcium 7.9 L B-Natriuretic Peptide 72 Assessment and Plan (1) Acute and chronic respiratory failure: Status: Acute (2) Pleural effusion, bacterial: Status: Acute (3) Atelectasis: Status: Acute (4) Acute respiratory failure with hypoxia: Status: Acute Assessment and Plan: 75 years old lady with PMH of COPD presented to the hospital after having syncopal episode and hip fracture.? Required admission to ICU for acute hypoxic respiratory failure. Acute respiratory failure with hypoxia Secondary to COPD exacerbation/ pleyral effusions On high flow and non-rebreather oxygen Continue prednisone Continue nebulizers vancomycin completed 5 days completed azithro 7 days CTA negative for PE on 12/13 s/p thoracocentesis 12/25/20, 400cc removed After discussion with she agreed to use morphine and Ativan but she would like to continue the treatment until she sees her children Add morphine and Ativan p.r.n. UTI ?finished ceftriaxone day 7 Urine culture grew Streptococcus viridans Atelectasis Continue chest physical therapy, incentive spirometry Hip fracture Postop, followed by orthopedic team physical therapy Left humeral fracture In sling, pain under control Orthopedic team following Nonweightbearing DVT PPX Lovenox DNR/DNI - overall poor porgnosisedic team following Nonweightbearing DVT PPX Lovenox Quality Stroke Does the patient have a stroke diagnosis?: No VTE Prior VTE?: No VTE Risk Level:: Medical - moderate - high VTE Device Contraindication: Patient Refused VTE Drug Contraindication: Patient Refused
[2020-12-28] MEDS: Albuterol/Iprat 2.5/0.5MG 3 ML AMPUL.NEB INHALE (19:05)
[2020-12-28 20:35] LABS: Glucose, Whole Blood 128 mg/dL (60-115)
[2020-12-29] VITALS (15 sets, daily range): BP systolic 114–152; BP diastolic 56–82; PULSE 63–107; RESP 18–22; TEMP 35.8–36.7; O2SAT 84–102; BMI 26.4
[2020-12-29] MEDS: Enoxaparin Sodium 40 MG/0.4 ML SYRINGE SUBCUT (05:49)
[2020-12-29] MEDS: Omeprazole 40 MG CAPSULE.DR PO (05:49)
[2020-12-29] MEDS: Metoprolol Tartrate 12.5 MG HALFTAB PO ×2 (08:13→22:09)
[2020-12-29] MEDS: Spironolactone 25 MG TABLET PO (08:14)
[2020-12-29] MEDS: Albuterol/Iprat 2.5/0.5MG 3 ML AMPUL.NEB INHALE ×4 (08:14→20:14)
[2020-12-29] MEDS: Gabapentin 100 MG CAPSULE PO ×3 (08:14→22:09)
[2020-12-29] MEDS: Acetylcysteine 10 % 400 MG/4 ML VIAL INHALE ×2 (08:14→20:14)
[2020-12-29] MEDS: 0.9 % Sodium Chloride Flush 3 ML SYRINGE IVFLUSH ×3 (08:14→22:10)
[2020-12-29] MEDS: predniSONE 20 MG TABLET 40 MG PO (08:14)
--- NOTE | 2020-12-29 12:19 | PC.NURSE ---
Primary nurse was off unit with another patient. 454's o2 sats were dropping into low 70's. Currently on high flow and PNRB. Discussed with patient possible need to place her on BiPAP again. Patient adamantly refused. She states that she is tired and wants to go see her mother (who is ) . She knows the negative effects on low o2 sats and doesn't care . Will discuss with primary RN when she returns. Resp at bedside giving duoneb. o2 sats improving to 97%
[2020-12-29] MEDS: Morphine Sulfate 2 MG/ML CARTRIDGE 1 MG IVPUSH (13:35)
--- NOTE | 2020-12-29 15:01 | P.PNIM_ITS ---
Subjective Subjective Date of Service: 12/29/20 Interval History: The patient was seen and evaluated this morning Laying in bed, feels little bit better with decrease oxygen requirement but report overall weakness Feels comfortable otherwise with usage of morphine as needed Denies any fever, chills but reports feeling weak and shortness of breath No reported other overnight events. Systemic review: No fever, chills feels week weakness No chest pain, palpitation shortness of breath No abdominal pain, nausea or vomiting but has diarrhea No urinary symptoms No any rash or wounds Physical Exam Vital Signs: Vital Signs: Last Vital Signs Temp 98.0 F 12/29/20 11:00 Pulse 107 H 12/29/20 11:53 Resp 22 H 12/29/20 11:53 BP 114/56 L 12/29/20 11:00 Pulse Ox 90 L 12/29/20 11:00 Body Mass Index 26.4 Const: Other: Constitutional : Alert, oriented, moderate respiratory distress, on high-flow oxygen supplement Neck : Normal inspection, Supple Cardiovascular : RRR, S1 S2, no lower extremity edema Respiratory :? Decreased bilateral air entry mainly at the bases with fine bilateral basal crackles, no wheezes or rhonchi Gastrointestinal:? soft, lax, Normal bowel sounds, Non tender Skin : Warm/Dry Neurological : Alert & oriented x3, No focal deficit Objective Data Current Medications Generic Name Dose Route Start Last Admin Trade Name Freq PRN Reason Stop Dose Admin Acetaminophen 650 mg 12/09/20 04:20 12/26/20 17:57 Acetaminophen 325 Mg Tablet PO 650 mg Q6H PRN Administration Pain, Mild (Pain Scale 1-3) Acetylcysteine 400 mg 12/15/20 08:00 12/29/20 08:14 Acetylcysteine 10 % 400 Mg/4 Ml Vial INHALE 400 mg RBID OMID Administration Albuterol/Ipratropium 3 ml 12/28/20 17:40 12/29/20 11:50 Albuterol/Iprat 2.5/0.5mg 3 Ml Ampul.Neb INHALE 3 ml RQ4H WHILE AWAKE OMID Administration Enoxaparin Sodium 40 mg 12/26/20 06:00 12/29/20 05:49 Enoxaparin Sodium 40 Mg/0.4 Ml Syringe SUBCUT 40 mg Q24H OMID Administration Fluticasone Propionate 1 spray 12/18/20 09:50 12/29/20 08:28 Fluticasone Propionate Nasal 16 Gm [place] NOSTRIL-B Not Given BID OMID Gabapentin 100 mg 12/22/20 16:05 12/29/20 08:14 Gabapentin 100 Mg Capsule PO 100 mg TID OMID Administration Loperamide HCl 2 mg 12/15/20 10:12 12/15/20 10:37 Loperamide Hcl 2 Mg Capsule PO 2 mg Q4H PRN Administration diarrhea Lorazepam 0.5 mg 12/28/20 21:00 Lorazepam 2 Mg/Ml Vial IVPUSH Q6H PRN anxiety/restlessness Magnesium Hydroxide 30 ml 12/09/20 04:20 12/27/20 08:38 Milk Of Magnesia 30 Ml Oral.Susp PO 30 ml DAILY PRN Administration Constipation Metoprolol Tartrate 12.5 mg 12/27/20 21:00 12/29/20 08:13 Metoprolol Tartrate 12.5 Mg Halftab PO 12.5 mg BID OMID Administration Protocol Morphine Sulfate 1 mg 12/28/20 16:42 12/29/20 13:35 Morphine Sulfate 2 Mg/Ml Cartridge IVPUSH 1 mg Q2H PRN Administration Shortness of Breath Protocol Omeprazole 40 mg 12/15/20 10:15 12/29/20 05:49 Omeprazole 40 Mg Capsule. PO 40 mg DAILY@0630 OMID Administration Prednisone 40 mg 12/16/20 09:00 12/29/20 08:14 Prednisone 20 Mg Tablet PO 40 mg DAILY OMID Administration Sodium Chloride 3 ml 12/12/20 16:00 12/29/20 08:14 0.9 % Sodium Chloride Flush 3 Ml Syringe IVFLUSH 3 ml QSHIFT OMID Administration Spironolactone 25 mg 12/14/20 15:45 12/29/20 08:14 Spironolactone 25 Mg Tablet PO 25 mg DAILY OMID Administration Protocol Labs CBC & Chem 7: 12/27/20 06:25 12/28/20 05:41 Labs: Laboratory Results - last 24 hr 12/28/20 20:27 POC Glucose 128 H Assessment and Plan (1) Acute and chronic respiratory failure: Status: Acute (2) Acute respiratory failure with hypoxia: Status: Acute (3) Atelectasis: Status: Acute Assessment and Plan: 75 years old lady with PMH of COPD presented to the hospital after having syncopal episode and hip fracture.? Required admission to ICU for acute hypoxic respiratory failure. Acute respiratory failure with hypoxia Secondary to COPD exacerbation/ pleyral effusions On high flow Continue prednisone Continue nebulizers vancomycin completed 5 days completed azithro 7 days CTA negative for PE on 12/13 s/p thoracocentesis 12/25/20, 400cc removed After discussion with she agreed to use morphine and Ativan but she would like to continue the treatment until she sees her children Add morphine and Ativan p.r.n. To repeat chest x-ray UTI ?finished ceftriaxone day 7 Urine culture grew Streptococcus viridans Atelectasis Continue chest physical therapy, incentive spirometry Hip fracture Postop, followed by orthopedic team physical therapy Left humeral fracture In sling, pain under control Orthopedic team following Nonweightbearing DVT PPX Lovenox DNR/DNI - overall poor porgnosisedic team following Nonweightbearing DVT PPX Lovenox Quality Stroke Does the patient have a stroke diagnosis?: No VTE Prior VTE?: No VTE Risk Level:: Medical - moderate - high VTE Device Contraindication: Patient Refused VTE Drug Contraindication: Patient Refused
[2020-12-29] MEDS: Fluticasone Propionate Nasal 16 GM SPRAY 1 SPRAY NOSTRIL-B (22:09)
[2020-12-30] VITALS (20 sets, daily range): BP systolic 107–144; BP diastolic 52–61; PULSE 54–77; RESP 18–22; TEMP 35.8–36.5; O2SAT 81–100; BMI 25.7
[2020-12-30 05:16] LABS: Hematocrit 37.3 % (37-47); Hemoglobin 11.6 g/dl (12.0-16.0); Mean Corpuscular HGB Conc 31.1 g/dl (31.0-35.0); Mean Corpuscular Hemoglobin 30.9 pg (27.0-33.0); Mean Corpuscular Volume 99.5 fL (80-98); Platelet Count 275 X10*3/uL (160-400); Red Blood Count 3.75 X10*6/uL (4.20-5.50); Red Cell Distribution Width 12.4 % (11.0-16.0)
[2020-12-30] MEDS: Enoxaparin Sodium 40 MG/0.4 ML SYRINGE SUBCUT (05:36)
[2020-12-30] MEDS: Omeprazole 40 MG CAPSULE.DR PO (05:36)
[2020-12-30 05:46] LABS: Anion Gap 11 (12-20); Blood Urea Nitrogen 24 mg/dL (9-16); Calcium 8.3 mg/dL (8.4-10.2); Carbon Dioxide 38 mmol/L (22-29); Chloride 94 mmol/L (96-108); Estimated Glomerular Filt Rate > 60; Glucose Random 85 mg/dL (60-115); Sodium 138 mmol/L (135-145)
[2020-12-30] MEDS: Albuterol/Iprat 2.5/0.5MG 3 ML AMPUL.NEB INHALE ×4 (07:40→18:43)
[2020-12-30] MEDS: Sodium Polystyrene Sulfon/Sorb 15 GM/60 ML ORAL.SUSP 30 GM PO (09:07)
[2020-12-30] MEDS: predniSONE 20 MG TABLET 40 MG PO (09:08)
[2020-12-30] MEDS: Spironolactone 25 MG TABLET PO (09:08)
[2020-12-30] MEDS: 0.9 % Sodium Chloride Flush 3 ML SYRINGE IVFLUSH ×3 (09:08→21:17)
[2020-12-30] MEDS: Gabapentin 100 MG CAPSULE PO ×3 (09:08→21:16)
[2020-12-30] MEDS: Metoprolol Tartrate 12.5 MG HALFTAB PO ×2 (09:09→21:15)
[2020-12-30] MEDS: Morphine Sulfate 2 MG/ML CARTRIDGE 1 MG IVPUSH ×3 (09:48→22:31)
--- NOTE | 2020-12-30 11:56 | P.PNOP_ITS ---
Subjective Subjective Date of Service: 12/30/20 Principal diagnosis: RESP. FAILURE Interval history: s/p Left hip perc. pinning and left prox humerus fx no c/o left hip or left shoulder pain Physical Exam Vital Signs: Vital Signs: Last Vital Signs Temp 97.5 F 12/30/20 11:27 Pulse 63 12/30/20 11:32 Resp 20 12/30/20 11:31 BP 107/56 L 12/30/20 11:27 Pulse Ox 93 12/30/20 11:27 Body Mass Index 25.7 Const: Other: resting in bed comfortably no apparent distress Extrem: Other: Left hip incision c/d/i. No erythema , ecchymosis or edema. NVI. Left shoulder: no bony abnormality. No tenderness over the proximal humerus. Ant. deltoid sensation intact. Radial nerve fxn intact. pulses present. xrays of the left shoulder obtained today: Overall relatively stable appearance of the comminuted left proximal humeral fracture. Procedures Date of Service Date of Service: 12/30/20 Progress Note: A&P Assessment and plan (1) Femoral neck fracture: Status: Acute Assessment and Plan: continue PT/OT wbat continue dvt ppx x 6 weeks ok to d/c from ortho standpoint-will need 4 week f .u in office with xrays (2) Fracture of neck of humerus: Status: Acute Assessment and Plan: begin PT/OT for left shoulder AAROM, pendulums No wb of left shoulder sling for comfort / sleeping f/u with orthopedics in office 4 weeks with xrays Fall Risk Details Current Medications: Current Medications Generic Name Dose Route Start Last Admin Trade Name Freq PRN Reason Stop Dose Admin Acetaminophen 650 mg 12/09/20 04:20 12/26/20 17:57 Acetaminophen 325 Mg Tablet PO 650 mg Q6H PRN Administration Pain, Mild (Pain Scale 1-3) Acetylcysteine 400 mg 12/15/20 08:00 12/30/20 07:46 Acetylcysteine 10 % 400 Mg/4 Ml Vial INHALE Not Given RBID OMID Albuterol/Ipratropium 3 ml 12/28/20 17:40 12/30/20 11:23 Albuterol/Iprat 2.5/0.5mg 3 Ml Ampul.Neb INHALE 3 ml RQ4H WHILE AWAKE OMID Administration Enoxaparin Sodium 40 mg 12/26/20 06:00 12/30/20 05:36 Enoxaparin Sodium 40 Mg/0.4 Ml Syringe SUBCUT 40 mg Q24H OMID Administration Fluticasone Propionate 1 spray 12/18/20 09:50 12/30/20 11:51 Fluticasone Propionate Nasal 16 Gm [place] NOSTRIL-B Not Given BID OMID Gabapentin 100 mg 12/22/20 16:05 12/30/20 09:08 Gabapentin 100 Mg Capsule PO 100 mg TID OMID Administration Loperamide HCl 2 mg 12/15/20 10:12 12/15/20 10:37 Loperamide Hcl 2 Mg Capsule PO 2 mg Q4H PRN Administration diarrhea Lorazepam 0.5 mg 12/28/20 21:00 Lorazepam 2 Mg/Ml Vial IVPUSH Q6H PRN anxiety/restlessness Magnesium Hydroxide 30 ml 12/09/20 04:20 12/27/20 08:38 Milk Of Magnesia 30 Ml Oral.Susp PO 30 ml DAILY PRN Administration Constipation Metoprolol Tartrate 12.5 mg 12/27/20 21:00 12/30/20 09:09 Metoprolol Tartrate 12.5 Mg Halftab PO 12.5 mg BID OMID Administration Protocol Morphine Sulfate 1 mg 12/28/20 16:42 12/30/20 09:48 Morphine Sulfate 2 Mg/Ml Cartridge IVPUSH 1 mg Q2H PRN Administration Shortness of Breath Protocol Omeprazole 40 mg 12/15/20 10:15 12/30/20 05:36 Omeprazole 40 Mg Capsule. PO 40 mg DAILY@0630 OMID Administration Prednisone 40 mg 12/16/20 09:00 12/30/20 09:08 Prednisone 20 Mg Tablet PO 40 mg DAILY OMID Administration Sodium Chloride 3 ml 12/12/20 16:00 12/30/20 09:08 0.9 % Sodium Chloride Flush 3 Ml Syringe IVFLUSH 3 ml QSHIFT OMID Administration Spironolactone 25 mg 12/14/20 15:45 12/30/20 09:08 Spironolactone 25 Mg Tablet PO 25 mg DAILY OMID Administration Protocol Time Spent With Patient Time: Total time spent is greater than 50% in coordination of care (as documented) at patient's floor/unit and/or counseling patient: Time with patient: less than 15 minutes Quality Stroke Does the patient have a stroke diagnosis?: No VTE Prior VTE?: No VTE Risk Level:: Medical - moderate - high VTE Device Contraindication: Patient Refused VTE Drug Contraindication: Patient Refused
--- NOTE | 2020-12-30 12:49 | P.PNIM_ITS ---
Subjective Subjective Date of Service: 12/30/20 Interval History: The patient was seen and evaluated this morning Laying in bed, feels tired and out of energy Decrease oxygen requirement to 40 L high-flow Feels comfortable otherwise with usage of morphine as needed Denies any fever, chills but reports feeling weak and shortness of breath No reported other overnight events. Systemic review: No fever, chills feels week weakness No chest pain, palpitation shortness of breath No abdominal pain, nausea or vomiting but has diarrhea No urinary symptoms No any rash or wounds Physical Exam Vital Signs: Vital Signs: Last Vital Signs Temp 97.5 F 12/30/20 11:27 Pulse 63 12/30/20 11:32 Resp 20 12/30/20 11:31 BP 107/56 L 12/30/20 11:27 Pulse Ox 93 12/30/20 11:27 Body Mass Index 25.7 Const: Other: Constitutional : Alert, oriented, looks weak and ill, cold extre mities, mild respiratory distress, on high-flow oxygen supplement Neck : Normal inspection, Supple Cardiovascular : RRR, S1 S2, no lower extremity edema Respiratory :? Decreased bilateral air entry mainly at the bases with fine bilateral basal crackles, no wheezes or rhonchi Gastrointestinal:? soft, lax, Normal bowel sounds, Non tender Skin : Warm/Dry Neurological : Alert & oriented x3, No focal deficit Objective Data Current Medications Generic Name Dose Route Start Last Admin Trade Name Freq PRN Reason Stop Dose Admin Acetaminophen 650 mg 12/09/20 04:20 12/26/20 17:57 Acetaminophen 325 Mg Tablet PO 650 mg Q6H PRN Administration Pain, Mild (Pain Scale 1-3) Acetylcysteine 400 mg 12/15/20 08:00 12/30/20 07:46 Acetylcysteine 10 % 400 Mg/4 Ml Vial INHALE Not Given RBID OMID Albuterol/Ipratropium 3 ml 12/28/20 17:40 12/30/20 11:23 Albuterol/Iprat 2.5/0.5mg 3 Ml Ampul.Neb INHALE 3 ml RQ4H WHILE AWAKE OMID Administration Enoxaparin Sodium 40 mg 12/26/20 06:00 12/30/20 05:36 Enoxaparin Sodium 40 Mg/0.4 Ml Syringe SUBCUT 40 mg Q24H OMID Administration Fluticasone Propionate 1 spray 12/18/20 09:50 12/30/20 11:51 Fluticasone Propionate Nasal 16 Gm [place] NOSTRIL-B Not Given BID OMID Gabapentin 100 mg 12/22/20 16:05 12/30/20 09:08 Gabapentin 100 Mg Capsule PO 100 mg TID OMID Administration Loperamide HCl 2 mg 12/15/20 10:12 12/15/20 10:37 Loperamide Hcl 2 Mg Capsule PO 2 mg Q4H PRN Administration diarrhea Lorazepam 0.5 mg 12/28/20 21:00 Lorazepam 2 Mg/Ml Vial IVPUSH Q6H PRN anxiety/restlessness Magnesium Hydroxide 30 ml 12/09/20 04:20 12/27/20 08:38 Milk Of Magnesia 30 Ml Oral.Susp PO 30 ml DAILY PRN Administration Constipation Metoprolol Tartrate 12.5 mg 12/27/20 21:00 12/30/20 09:09 Metoprolol Tartrate 12.5 Mg Halftab PO 12.5 mg BID OMID Administration Protocol Morphine Sulfate 1 mg 12/28/20 16:42 12/30/20 09:48 Morphine Sulfate 2 Mg/Ml Cartridge IVPUSH 1 mg Q2H PRN Administration Shortness of Breath Protocol Omeprazole 40 mg 12/15/20 10:15 12/30/20 05:36 Omeprazole 40 Mg Capsule. PO 40 mg DAILY@0630 OMID Administration Prednisone 40 mg 12/16/20 09:00 12/30/20 09:08 Prednisone 20 Mg Tablet PO 40 mg DAILY OMID Administration Sodium Chloride 3 ml 12/12/20 16:00 12/30/20 09:08 0.9 % Sodium Chloride Flush 3 Ml Syringe IVFLUSH 3 ml QSHIFT OMID Administration Spironolactone 25 mg 12/14/20 15:45 12/30/20 09:08 Spironolactone 25 Mg Tablet PO 25 mg DAILY OMID Administration Protocol Labs CBC & Chem 7: 12/30/20 04:47 12/30/20 04:47 Labs: Laboratory Results - last 24 hr 12/30/20 12/30/20 04:47 04:47 MCV 99.5 H MCH 30.9 MCHC 31.1 RDW 12.4 Plt Count 275 MPV 9.0 L Absolute Nucleated RBC 0.000 Nucleated RBC % (auto) 0.0 Anion Gap 11 L Estim Creat Clear Calc 70.0 Estimated GFR > 60 Random Glucose 85 Calcium 8.3 L Assessment and Plan (1) Acute and chronic respiratory failure: Status: Acute (2) Acute respiratory failure with hypoxia: Status: Acute Assessment and Plan: 75 years old lady with PMH of COPD presented to the hospital after having syncopal episode and hip fracture.? Required admission to ICU for acute hypoxic respiratory failure. Acute respiratory failure with hypoxia Secondary to COPD exacerbation/ pleyral effusions On high flow Continue prednisone Continue nebulizers vancomycin completed 5 days completed azithro 7 days CTA negative for PE on 12/13 s/p thoracocentesis 12/25/20, 400cc removed After discussion with she agreed to use morphine and Ativan but she would like to continue the treatment until she sees her children Add morphine and Ativan p.r.n. Repeated chest x-ray showing no significant changes Pulmonology input appreciated UTI ?finished ceftriaxone day 7 Urine culture grew Streptococcus viridans Atelectasis Continue chest physical therapy, incentive spirometry Hip fracture Postop, followed by orthopedic team physical therapy Left humeral fracture In sling, pain under control Orthopedic team following Nonweightbearing DVT PPX Lovenox DNR/DNI - overall poor porgnosisedic team following Nonweightbearing DVT PPX Lovenox Quality Stroke Does the patient have a stroke diagnosis?: No VTE Prior VTE?: No VTE Risk Level:: Medical - moderate - high VTE Device Contraindication: Patient Refused VTE Drug Contraindication: Patient Refused
--- NOTE | 2020-12-30 19:18 | PC.NURSE ---
Repositioning Pt has been complaining of pain in her buttocks, however she has been refusing to be repositioned. She allowed a pillow once the shift which she complained is uncomfortable. Pt was encouraged and educated of repositioning as she has DTI and need to prevent further break down.
[2020-12-30] MEDS: Acetaminophen 325 MG TABLET 650 MG PO (22:33)
[2020-12-31] VITALS (19 sets, daily range): BP systolic 117–142; BP diastolic 56–70; PULSE 65–78; RESP 16–24; TEMP 36–36.9; O2SAT 88–97; BMI 26.4; BMI 26.2
[2020-12-31] MEDS: Omeprazole 40 MG CAPSULE.DR PO (05:20)
[2020-12-31] MEDS: Enoxaparin Sodium 40 MG/0.4 ML SYRINGE SUBCUT (05:20)
[2020-12-31] MEDS: Albuterol/Iprat 2.5/0.5MG 3 ML AMPUL.NEB INHALE ×4 (07:36→19:44)
[2020-12-31] MEDS: Morphine Sulfate 2 MG/ML CARTRIDGE 1 MG IVPUSH ×2 (08:12→15:28)
[2020-12-31] MEDS: predniSONE 20 MG TABLET 40 MG PO (08:12)
[2020-12-31] MEDS: Gabapentin 100 MG CAPSULE PO ×3 (08:12→21:39)
[2020-12-31] MEDS: 0.9 % Sodium Chloride Flush 3 ML SYRINGE IVFLUSH ×2 (08:12→15:29)
[2020-12-31] MEDS: Metoprolol Tartrate 12.5 MG HALFTAB PO ×2 (08:13→21:39)
[2020-12-31] MEDS: Spironolactone 25 MG TABLET PO (08:14)
--- NOTE | 2020-12-31 12:54 | P.PNIM_ITS ---
Subjective Subjective Date of Service: 12/31/20 Interval History: The patient was seen and evaluated this morning Laying in bed, feels tired and out of energy No major changes from yesterday as she still wants to try treatment Still with Decrease oxygen requirement to 40 L high-flow Feels comfortable otherwise with usage of morphine as needed Denies any fever, chills but reports feeling weak and shortness of breath No reported other overnight events. Systemic review: No fever, chills feels week weakness No chest pain, palpitation shortness of breath No abdominal pain, nausea or vomiting but has diarrhea No urinary symptoms No any rash or wounds Physical Exam Vital Signs: Vital Signs: Last Vital Signs Temp 97.5 F 12/31/20 11:34 Pulse 68 12/31/20 11:34 Resp 20 12/31/20 11:34 BP 138/62 12/31/20 11:34 Pulse Ox 93 12/31/20 11:34 Body Mass Index 26.2 Const: Other: Constitutional : Alert, oriented, looks weak and ill, cold extremities, mild respiratory distress, on high-flow oxygen supplement Neck : Normal inspection, Supple Cardiovascular : RRR, S1 S2, no lower extremity edema Respiratory :? Decreased bilateral air entry mainly at the bases with fine bilateral basal crackles, no wheezes or rhonchi Gastrointestinal:? soft, lax, Normal bowel sounds, Non tender Skin : Warm/Dry Neurological : Alert & oriented x3, No focal deficit Objective Data Current Medications Generic Name Dose Route Start Last Admin Trade Name Freq PRN Reason Stop Dose Admin Acetaminophen 650 mg 12/09/20 04:20 12/30/20 22:33 Acetaminophen 325 Mg Tablet PO 650 mg Q6H PRN Administration Pain, Mild (Pain Scale 1-3) Acetylcysteine 400 mg 12/15/20 08:00 12/31/20 07:39 Acetylcysteine 10 % 400 Mg/4 Ml Vial INHALE Not Given RBID OMID Albuterol/Ipratropium 3 ml 12/28/20 17:40 12/31/20 11:14 Albuterol/Iprat 2.5/0.5mg 3 Ml Ampul.Neb INHALE 3 ml RQ4H WHILE AWAKE OMID Administration Enoxaparin Sodium 40 mg 12/26/20 06:00 12/31/20 05:20 Enoxaparin Sodium 40 Mg/0.4 Ml Syringe SUBCUT 40 mg Q24H OMID Administration Fluticasone Propionate 1 spray 12/18/20 09:50 12/31/20 11:12 Fluticasone Propionate Nasal 16 Gm [place] NOSTRIL-B Not Given BID OMID Gabapentin 100 mg 12/22/20 16:05 12/31/20 08:12 Gabapentin 100 Mg Capsule PO 100 mg TID OMID Administration Loperamide HCl 2 mg 12/15/20 10:12 12/15/20 10:37 Loperamide Hcl 2 Mg Capsule PO 2 mg Q4H PRN Administration diarrhea Lorazepam 0.5 mg 12/28/20 21:00 Lorazepam 2 Mg/Ml Vial IVPUSH Q6H PRN anxiety/restlessness Magnesium Hydroxide 30 ml 12/09/20 04:20 12/27/20 08:38 Milk Of Magnesia 30 Ml Oral.Susp PO 30 ml DAILY PRN Administration Constipation Metoprolol Tartrate 12.5 mg 12/27/20 21:00 12/31/20 08:13 Metoprolol Tartrate 12.5 Mg Halftab PO 12.5 mg BID OMID Administration Protocol Morphine Sulfate 1 mg 12/28/20 16:42 12/31/20 08:12 Morphine Sulfate 2 Mg/Ml Cartridge IVPUSH 1 mg Q2H PRN Administration Shortness of Breath Protocol Omeprazole 40 mg 12/15/20 10:15 12/31/20 05:20 Omeprazole 40 Mg Capsule.Dr PO 40 mg DAILY@0630 OMID Administration Prednisone 40 mg 12/16/20 09:00 12/31/20 08:12 Prednisone 20 Mg Tablet PO 40 mg DAILY OMID Administration Sodium Chloride 3 ml 12/12/20 16:00 12/31/20 08:12 0.9 % Sodium Chloride Flush 3 Ml Syringe IVFLUSH 3 ml QSHIFT OMID Administration Spironolactone 25 mg 12/14/20 15:45 12/31/20 08:14 Spironolactone 25 Mg Tablet PO 25 mg DAILY OMID Administration Protocol Labs CBC & Chem 7: 12/30/20 04:47 12/30/20 04:47 Assessment and Plan (1) Pleural effusion, bacterial: Status: Acute (2) Acute and chronic respiratory failure: Status: Acute (3) Acute respiratory failure with hypoxia: Status: Acute Assessment and Plan: 75 years old lady with PMH of COPD presented to the hospital after having syncopal episode and hip fracture.? Required admission to ICU for acute hypoxic respiratory failure. Acute respiratory failure with hypoxia Secondary to COPD exacerbation/ pleyral effusions On high flow Continue prednisone Continue nebulizers vancomycin completed 5 days completed azithro 7 days CTA negative for PE on 12/13 s/p thoracocentesis 12/25/20, 400cc removed After discussion with she agreed to use morphine and Ativan but she would like to continue the treatment until she sees her children Add morphine and Ativan p.r.n. Repeated chest x-ray showing no significant changes Pulmonology input appreciated UTI ?finished ceftriaxone day 7 Urine culture grew Streptococcus viridans Atelectasis Continue chest physical therapy, incentive spirometry Hip fracture Postop, followed by orthopedic team physical therapy Left humeral fracture In sling, pain under control Orthopedic team following Nonweightbearing DVT PPX Lovenox DNR/DNI - overall poor porgnosisedic team following Nonweightbearing DVT PPX Lovenox Quality Stroke Does the patient have a stroke diagnosis?: No VTE Prior VTE?: No VTE Risk Level:: Medical - moderate - high VTE Device Contraindication: Patient Refused VTE Drug Contraindication: Patient Refused
[2020-12-31] MEDS: Acetaminophen 325 MG TABLET 650 MG PO (23:46)
[2021-01-01] VITALS (16 sets, daily range): BP systolic 124–162; BP diastolic 58–72; PULSE 66–92; RESP 18–20; TEMP 36.6–37.1; O2SAT 89–100; BMI 23.1
[2021-01-01] MEDS: Fluticasone Propionate Nasal 16 GM SPRAY 1 SPRAY NOSTRIL-B
[2021-01-01] MEDS: Enoxaparin Sodium 40 MG/0.4 ML SYRINGE SUBCUT (05:42)
[2021-01-01] MEDS: Omeprazole 40 MG CAPSULE.DR PO (05:42)
[2021-01-01 06:01] LABS: Hematocrit 34.7 % (37-47); Mean Corpuscular HGB Conc 31.7 g/dl (31.0-35.0); Mean Corpuscular Hemoglobin 30.8 pg (27.0-33.0); Mean Corpuscular Volume 97.2 fL (80-98); Mean Platelet Volume 8.8 fL (9.4-12.3); Platelet Count 309 X10*3/uL (160-400); Red Blood Count 3.57 X10*6/uL (4.20-5.50); Red Cell Distribution Width 12.6 % (11.0-16.0); White Blood Count 10.6 X10*3/uL (4.8-10.8)
[2021-01-01 06:05] LABS: VBG Base Excess 20.1 mmol/L; VBG HCO3 47 mmol/L (22-26); VBG pCO2 65 mmHg; VBG pH 7.46 (7.32-7.43); VBG pO2 29 mmHg
[2021-01-01 06:05] LABS: Venous Blood Gas Refer to POC result
[2021-01-01 06:28] LABS: Anion Gap 12 (12-20); Blood Urea Nitrogen 19 mg/dL (9-16); Calcium 8.4 mg/dL (8.4-10.2); Carbon Dioxide 38 mmol/L (22-29); Chloride 90 mmol/L (96-108); Creatinine Clr Calc Pharmacy 76.6; Estimated Glomerular Filt Rate > 60; Glucose Random 86 mg/dL (60-115); Potassium 5.3 mmol/L (3.3-5.1); Sodium 135 mmol/L (135-145)
[2021-01-01] MEDS: Albuterol/Iprat 2.5/0.5MG 3 ML AMPUL.NEB INHALE ×4 (07:24→19:40)
[2021-01-01] MEDS: 0.9 % Sodium Chloride Flush 3 ML SYRINGE IVFLUSH ×3 (07:57→15:29)
[2021-01-01] MEDS: Gabapentin 100 MG CAPSULE PO ×3 (10:12→21:36)
[2021-01-01] MEDS: predniSONE 10 MG TABLET 30 MG PO (10:13)
[2021-01-01] MEDS: Sodium Zirconium Cyclosilicate 5 GM POWD.PACK PO (10:13)
[2021-01-01] MEDS: Spironolactone 25 MG TABLET PO (10:14)
[2021-01-01] MEDS: Metoprolol Tartrate 12.5 MG HALFTAB PO ×2 (10:14→21:36)
--- NOTE | 2021-01-01 13:19 | P.PNIM_ITS ---
Subjective Subjective Date of Service: 01/01/21 Interval History: The patient was seen and evaluated this morning Laying in bed, feels tired and out of energy No major changes over the last few days as her saturation remains around 90 with episodes of dropping requiring more oxygen supplement Stable oxygen requirement to 40 L high-flow for the last few days Feels comfortable otherwise with usage of morphine as needed Denies any fever, chills but reports feeling weak and shortness of breath No reported other overnight events. Systemic review: No fever, chills feels week weakness No chest pain, palpitation shortness of breath No abdominal pain, nausea or vomiting but has diarrhea No urinary symptoms No any rash or wounds Physical Exam Vital Signs: Vital Signs: Last Vital Signs Temp 98.2 F 01/01/21 12:00 Pulse 67 01/01/21 12:00 Resp 18 01/01/21 12:00 BP 129/58 L 01/01/21 12:00 Pulse Ox 100 01/01/21 12:00 Body Mass Index 23.1 Const: Other: Constitutional : Alert, oriented, looks weak and ill, cold extremities, mild respiratory distress, on high-flow oxygen supplement Neck : Normal inspection, Supple Cardiovascular : RRR, S1 S2, no lower extremity edema Respiratory :? Decreased bilateral air entry mainly at the bases with fine bilateral basal crackles, no wheezes or rhonchi Gastrointestinal:? soft, lax, Normal bowel sounds, Non tender Skin : Warm/Dry Neurological : Alert & oriented x3, No focal deficit Objective Data Current Medications Generic Name Dose Route Start Last Admin Trade Name Freq PRN Reason Stop Dose Admin Acetaminophen 650 mg 12/09/20 04:20 12/31/20 23:46 Acetaminophen 325 Mg Tablet PO 650 mg Q6H PRN Administration Pain, Mild (Pain Scale 1-3) Acetylcysteine 400 mg 12/15/20 08:00 01/01/21 07:28 Acetylcysteine 10 % 400 Mg/4 Ml Vial INHALE Not Given RBID OMID Albuterol/Ipratropium 3 ml 12/28/20 17:40 01/01/21 11:19 Albuterol/Iprat 2.5/0.5mg 3 Ml Ampul.Neb INHALE 3 ml RQ4H WHILE AWAKE OMID Administration Enoxaparin Sodium 40 mg 12/26/20 06:00 01/01/21 05:42 Enoxaparin Sodium 40 Mg/0.4 Ml Syringe SUBCUT 40 mg Q24H OMID Administration Fluticasone Propionate 1 spray 12/18/20 09:50 01/01/21 10:16 Fluticasone Propionate Nasal 16 Gm [place] NOSTRIL-B Not Given BID OMID Gabapentin 100 mg 12/22/20 16:05 01/01/21 10:12 Gabapentin 100 Mg Capsule PO 100 mg TID OMID Administration Loperamide HCl 2 mg 12/15/20 10:12 12/15/20 10:37 Loperamide Hcl 2 Mg Capsule PO 2 mg Q4H PRN Administration diarrhea Lorazepam 0.5 mg 12/28/20 21:00 Lorazepam 2 Mg/Ml Vial IVPUSH Q6H PRN anxiety/restlessness Magnesium Hydroxide 30 ml 12/09/20 04:20 12/27/20 08:38 Milk Of Magnesia 30 Ml Oral.Susp PO 30 ml DAILY PRN Administration Constipation Metoprolol Tartrate 12.5 mg 12/27/20 21:00 01/01/21 10:14 Metoprolol Tartrate 12.5 Mg Halftab PO 12.5 mg BID OMID Administration Protocol Morphine Sulfate 1 mg 12/28/20 16:42 12/31/20 15:28 Morphine Sulfate 2 Mg/Ml Cartridge IVPUSH 1 mg Q2H PRN Administration Shortness of Breath Protocol Omeprazole 40 mg 12/15/20 10:15 01/01/21 05:42 Omeprazole 40 Mg Capsule.Dr PO 40 mg DAILY@0630 OMID Administration Prednisone 30 mg 01/01/21 09:00 01/01/21 10:13 Prednisone 10 Mg Tablet PO 30 mg DAILY OMID Administration Sodium Chloride 3 ml 12/12/20 16:00 01/01/21 07:57 0.9 % Sodium Chloride Flush 3 Ml Syringe IVFLUSH 3 ml QSHIFT OMID Administration Spironolactone 25 mg 12/14/20 15:45 01/01/21 10:14 Spironolactone 25 Mg Tablet PO 25 mg DAILY OMID Administration Protocol Labs CBC & Chem 7: 01/01/21 05:50 01/01/21 05:50 Labs: Laboratory Results - last 24 hr 01/01/21 01/01/21 01/01/21 05:50 05:50 05:52 MCV 97.2 MCH 30.8 MCHC 31.7 RDW 12.6 Plt Count 309 MPV 8.8 L Absolute Nucleated RBC 0.000 Nucleated RBC % (auto) 0.0 VBG pH 7.46 H VBG pCO2 65 VBG pO2 29 VBG HCO3 47 H VBG O2 Saturation 42.0 VBG Base Excess 20.1 Anion Gap 12 Estim Creat Clear Calc 76.6 Estimated GFR > 60 Random Glucose 86 Calcium 8.4 Assessment and Plan (1) Pleural effusion, bacterial: Status: Acute (2) Acute and chronic respiratory failure: Status: Acute (3) Acute respiratory failure with hypoxia: Status: Acute Assessment and Plan: 75 years old lady with PMH of COPD presented to the hospital after having syncopal episode and hip fracture.? Required admission to ICU for acute hypoxic respiratory failure. Acute respiratory failure with hypoxia Secondary to COPD exacerbation/ pleyral effusions On high flow, to wean down as tolerated Continue prednisone Continue nebulizers vancomycin completed 5 days completed azithro 7 days CTA negative for PE on 12/13 s/p thoracocentesis 12/25/20, 400cc removed After discussion with she agreed to use morphine and Ativan but she would like to continue the treatment until she sees her children Add morphine and Ativan p.r.n. Repeated chest x-ray showing no significant changes Pulmonology input appreciated Hyperkalemia Potassium of 5.3 To give local and repeat BMP UTI ?finished ceftriaxone day 7 Urine culture grew Streptococcus viridans Atelectasis Continue chest physical therapy, incentive spirometry Hip fracture Postop, followed by orthopedic team physical therapy Left humeral fracture In sling, pain under control Orthopedic team following Nonweightbearing DVT PPX Lovenox DNR/DNI - overall poor porgnosisedic team following Nonweightbearing DVT PPX Lovenox Quality Stroke Does the patient have a stroke diagnosis?: No VTE Prior VTE?: No VTE Risk Level:: Medical - moderate - high VTE Device Contraindication: Patient Refused VTE Drug Contraindication: Patient Refused
--- NOTE | 2021-01-01 14:45 | PC.NURSE ---
Skin/Wound assessment completed today. Patient has deep tissue injury to bilateral buttocks from refusing to move. Patient has now understood the importance of repositioning to prevent further damage to skin. Heels are pink and intact with booties on both feet. Patient also has a puncture wound from a thoracentesis. Bandage C/D/I. No other skin issues noted.
[2021-01-01] MEDS: Acetylcysteine 10 % 400 MG/4 ML VIAL INHALE (19:40)
[2021-01-02] VITALS (13 sets, daily range): BP systolic 115–156; BP diastolic 53–70; PULSE 72–100; RESP 12–20; TEMP 36.2–37.2; O2SAT 90–98; BMI 26.1
[2021-01-02] MEDS: Acetaminophen 325 MG TABLET 650 MG PO ×2 (01:28→09:38)
[2021-01-02] MEDS: 0.9 % Sodium Chloride Flush 3 ML SYRINGE IVFLUSH ×2 (01:32→09:44)
[2021-01-02] MEDS: Omeprazole 40 MG CAPSULE.DR PO (05:40)
[2021-01-02] MEDS: Enoxaparin Sodium 40 MG/0.4 ML SYRINGE SUBCUT (05:40)
[2021-01-02] MEDS: Acetylcysteine 10 % 400 MG/4 ML VIAL INHALE (07:23)
[2021-01-02] MEDS: Albuterol/Iprat 2.5/0.5MG 3 ML AMPUL.NEB INHALE ×3 (07:23→15:01)
--- NOTE | 2021-01-02 09:31 | P.PNPL_ITS ---
Subjective Subjective Date of Service: 01/02/21 Principal diagnosis: RESP. FAILURE Interval history: The patient was seen on exam. Having difficulties getting off high-flow. She is very congested. Acetylcysteine was attempted without any significant improvement. She has weak cough and difficult to expectorate her secretions. At this point her x-rays demonstrate significant atelectasis at the bases. Her pleural effusions have improved. Her volume status is better. She does have extensive emphysema. Is not on reasonable to consider bronchoscopy for therapeutic cleaning in order to see if we can transition her to regular nasal cannula or Ventimask. Objective Data Labs CBC & Chem 7: 01/01/21 05:50 01/01/21 05:50 Microbiology Microbiology Results: Microbiology 12/09/20 Unknown Urine clean catch - Clean Catch Midstream Urine Culture - F inal Streptococcus viridans group Review of Systems Constitutional: Reports fatigue and Reports weakness Eyes: Reports no additional eye complaints Reports system reviewed and no additional complaints, except as documented Cardiovascular: Denies chest pain, Denies leg edema and Reports dyspnea Respiratory: Reports as per HPI and Reports dyspnea Reports Abnormal speech present and Reports weakness Endocrine: Reports fatigue Physical Exam Vital Signs: Vital Signs: Last Vital Signs Temp 99.0 F 01/02/21 07:35 Pulse 81 01/02/21 07:35 Resp 20 01/02/21 07:35 BP 138/70 01/02/21 07:35 Pulse Ox 90 L 01/02/21 07:35 Body Mass Index 26.1 Const: General: alert Neck: Neck: Yes normal visual inspection, Yes full ROM and Yes no lymphadenopathy Chest: Chest palpation & inspection: normal inspection of the chest Resp: Auscultation: diminished lung sounds Cardio: Rate: regular rate Rhythm: regular rhythm Heart sounds: S1 normal heart sound present and S2 normal heart sound present GI: Palpation (GI): Soft to palpation and nontender Auscultation: normal bowel sounds Skin: General skin exam: rashes and/or lesions noted Neuro: Speech: Abnormal speech present Procedures Date of Service Date of Service: 01/02/21 Assessment and Plan Assessment and plan (1) Atelectasis: Status: Acute (2) COPD (chronic obstructive pulmonary disease): Status: Acute (3) Acute and chronic respiratory failure: Status: Acute Assessment and Plan: Continue CPT with flutter valve Taper prednisone Consider Bronchoscopy this week if the pt agrees for therapeutic cleaning OOB to chair, ISS, Acapella valve PT/OT Time Spent With Patient Time: Total time spent is greater than 50% in coordination of care (as documented) at patient's floor/unit and/or counseling patient: Time with patient: 15 - 24 minutes Progress Note: Quality Stroke Does the patient have a stroke diagnosis?: No
[2021-01-02] MEDS: predniSONE 10 MG TABLET 30 MG PO (09:41)
[2021-01-02] MEDS: Gabapentin 100 MG CAPSULE PO ×2 (09:44→15:33)
[2021-01-02] MEDS: Spironolactone 25 MG TABLET PO (10:14)
[2021-01-02] MEDS: Metoprolol Tartrate 12.5 MG HALFTAB PO (10:16)
--- NOTE | 2021-01-02 13:26 | HO.PM.IMPN ---
Subjective Subjective Date of Service: 01/02/21 Interval History: The patient was seen and evaluated this morning Laying in bed, feels tired and out of energy Patient feeling more tired from the prolonged hospital stay and the hypoxia Stable oxygen requirement to 40 L high-flow for the last few days Denies any fever, chills but reports feeling weak and shortness of breath No reported other overnight events. Systemic review: No fever, chills feels week weakness No chest pain, palpitation shortness of breath No abdominal pain, nausea or vomiting but has diarrhea No urinary symptoms No any rash or wounds Physical Exam Vital Signs: Vital Signs: Last Vital Signs Temp 97.1 F 01/02/21 11:14 Pulse 100 01/02/21 11:14 Resp 20 01/02/21 11:14 BP 145/53 H 01/02/21 11:14 Pulse Ox 91 L 01/02/21 11:14 Body Mass Index 26.1 Const: Other: Constitutional : Alert, oriented, looks weak and ill, cold extremities, mild respiratory distress, on high-flow oxygen supplement Neck : Normal inspection, Supple Cardiovascular : RRR, S1 S2, no lower extremity edema Respiratory :? Decreased bilateral air entry mainly at the bases with fine bilateral basal crackles, no wheezes or rhonchi Gastrointestinal:? soft, lax, Normal bowel sounds, Non tender Skin : Warm/Dry Neurological : Alert & oriented x3, No focal deficit Objective Data Current Medications Generic Name Dose Route Start Last Admin Trade Name Freq PRN Reason Stop Dose Admin Acetaminophen 650 mg 12/09/20 04:20 01/02/21 09:38 Acetaminophen 325 Mg Tablet PO 650 mg Q6H PRN Administration Pain, Mild (Pain Scale 1-3) Acetylcysteine 400 mg 12/15/20 08:00 01/02/21 07:23 Acetylcysteine 10 % 400 Mg/4 Ml Vial INHALE 400 mg RBID OMID Administration Albuterol/Ipratropium 3 ml 12/28/20 17:40 01/02/21 11:01 Albuterol/Iprat 2.5/0.5mg 3 Ml Ampul.Neb INHALE 3 ml RQ4H WHILE AWAKE OMID Administration Enoxaparin Sodium 40 mg 12/26/20 06:00 01/02/21 05:40 Enoxaparin Sodium 40 Mg/0.4 Ml Syringe SUBCUT 40 mg Q24H OMID Administration Fluticasone Propionate 1 spray 12/18/20 09:50 01/02/21 09:43 Fluticasone Propionate Nasal 16 Gm [place] NOSTRIL-B Not Given BID OMID Gabapentin 100 mg 12/22/20 16:05 01/02/21 09:44 Gabapentin 100 Mg Capsule PO 100 mg TID OMID Administration Loperamide HCl 2 mg 12/15/20 10:12 12/15/20 10:37 Loperamide Hcl 2 Mg Capsule PO 2 mg Q4H PRN Administration diarrhea Lorazepam 0.5 mg 12/28/20 21:00 Lorazepam 2 Mg/Ml Vial IVPUSH Q6H PRN anxiety/restlessness Magnesium Hydroxide 30 ml 12/09/20 04:20 12/27/20 08:38 Milk Of Magnesia 30 Ml Oral.Susp PO 30 ml DAILY PRN Administration Constipation Metoprolol Tartrate 12.5 mg 12/27/20 21:00 01/02/21 10:16 Metoprolol Tartrate 12.5 Mg Halftab PO 12.5 mg BID OMID Administration Protocol Morphine Sulfate 1 mg 12/28/20 16:42 12/31/20 15:28 Morphine Sulfate 2 Mg/Ml Cartridge IVPUSH 1 mg Q2H PRN Administration Shortness of Breath Protocol Omeprazole 40 mg 12/15/20 10:15 01/02/21 05:40 Omeprazole 40 Mg Capsule.Dr PO 40 mg DAILY@0630 OMID Administration Prednisone 30 mg 01/01/21 09:00 01/02/21 09:41 Prednisone 10 Mg Tablet PO 30 mg DAILY OMID Administration Sodium Chloride 3 ml 12/12/20 16:00 01/02/21 09:44 0.9 % Sodium Chloride Flush 3 Ml Syringe IVFLUSH 3 ml QSHIFT OMID Administration Spironolactone 25 mg 12/14/20 15:45 01/02/21 10:14 Spironolactone 25 Mg Tablet PO 25 mg DAILY OMID Administration Protocol Labs CBC & Chem 7: 01/01/21 05:50 01/01/21 05:50 Assessment and Plan (1) Pleural effusion, bacterial: Status: Acute (2) Acute and chronic respiratory failure: Status: Acute (3) Acute respiratory failure with hypoxia: Status: Acute Assessment and Plan: 75 years old lady with PMH of COPD presented to the hospital after having syncopal episode and hip fracture.? Required admission to ICU for acute hypoxic respiratory failure. Acute respiratory failure with hypoxia Secondary to COPD exacerbation/ pleyral effusions On high flow, to wean down as tolerated Continue prednisone tapering dose Continue nebulizers vancomycin completed 5 days completed azithro 7 days CTA negative for PE on 12/13 s/p thoracocentesis 12/25/20, 400cc removed After discussion with she agreed to use morphine and Ativan but she would like to continue the treatment for the time being Add morphine and Ativan p.r.n. Repeated chest x-ray showing no significant changes Pulmonology input appreciated Hyperkalemia Received lokelma Follow BMP UTI ?finished ceftriaxone day 7 Urine culture grew Streptococcus viridans Atelectasis Continue chest physical therapy, incentive spirometry, flutter valve Hip fracture Postop, followed by orthopedic team physical therapy Left humeral fracture In sling, pain under control Orthopedic team following Nonweightbearing DVT PPX Lovenox DNR/DNI - overall poor porgnosis team following DVT PPX Lovenox Quality Stroke Does the patient have a stroke diagnosis?: No VTE Prior VTE?: No VTE Risk Level:: Medical - moderate - high VTE Device Contraindication: Patient Refused VTE Drug Contraindication: Patient Refused
[2021-01-02] MEDS: Morphine Sulfate 2 MG/ML CARTRIDGE 1 MG IVPUSH (15:35)
--- NOTE | 2021-01-02 17:34 | P.ACPN_ITS ---
Advanced Care Planning Note Advanced Care Planning Note Discussed with: patient and family member(s) Time spent (in minutes): 12 Narrative: I had a chance to speak with the patient and her son at the bedside. She called earlier to the nurse asking to interview with me regarding her goals of care. The patient has been admitted to the hospital for more than 3 weeks now with no significant improvement in her oxygenation as she is requiring high- flow oxygen. I explained to her that pulmonology thing him about doing bronchoscopy trying to clean her lungs. She told me she is not interested in treatment anymore and she would like to be comfortable only. I explained to her that removing the oxygen means end of her life and she understand and accept that but she wants to be comfortable and would like to meet with her children before taking that stay. She is in her right mind and the son at the bedside confirmed that and agrees with her wishes. Problems Discussed (1) Pleural effusion, bacterial: (2) Acute and chronic respiratory failure: (3) Acute respiratory failure with hypoxia:
[2021-01-02] MEDS: Morphine Sulfate 2 MG/ML CARTRIDGE IVPUSH (20:14)
[2021-01-03] VITALS (11 sets, daily range): BP systolic 140; BP diastolic 68; PULSE 64–82; RESP 14–20; TEMP 36.6; O2SAT 92–98; BMI 22.8
[2021-01-03] MEDS: 0.9 % Sodium Chloride Flush 3 ML SYRINGE IVFLUSH ×3 (00:07→17:49)
[2021-01-03] MEDS: Morphine Sulfate 2 MG/ML CARTRIDGE IVPUSH ×5 (09:20→20:58)
--- NOTE | 2021-01-03 09:31 | PM.PNPUL ---
Subjective Subjective Date of Service: 01/03/21 Principal diagnosis: RESP. FAILURE Interval history: The patient was seen on exam. I spoke to her family in the patient. The patient confirmed that she does not want to undergo additional interventions. Therefore, we canceled the bronchoscopy. The family talked to the doctor last night and opted on focusing on comfort. Therefore the patient is currently on high-flow. She will start receiving morphine on the comfort measures only protocol. The family understands once the patient is comfortable will see about titrating down the oxygen. Objective Data Labs CBC & Chem 7: 01/01/21 05:50 01/01/21 05:50 Microbiology Microbiology Results: Microbiology 12/09/20 Unknown Urine clean catch - Clean Catch Midstream Urine Culture - Final Streptococcus viridans group Review of Systems Constitutional: Reports fatigue and Reports weakness Eyes: Reports no additional eye complaints Reports system reviewed and no additional complaints, except as documented Cardiovascular: Denies chest pain, Denies leg edema and Reports dyspnea Respiratory: Reports as per HPI and Reports dyspnea Reports Abnormal speech present and Reports weakness Endocrine: Reports fatigue Physical Exam Vital Signs: Vital Signs: Last Vital Signs Temp 98.5 F 01/02/21 16:00 Pulse 82 01/03/21 07:28 Resp 20 01/03/21 07:30 BP 115/57 L 01/02/21 16:00 Pulse Ox 94 01/03/21 07:28 Body Mass Index 22.8 Const: General: alert Neck: Neck: Yes normal visual inspection, Yes full ROM and Yes no lymphadenopathy Chest: Chest palpation & inspection: normal inspection of the chest Resp: Auscultation: diminished lung sounds Cardio: Rate: regular rate Rhythm: regular rhythm Heart sounds: S1 normal heart sound present and S2 normal heart sound present GI: Palpation (GI): Soft to palpation and nontender Auscultation: normal bowel sounds Skin: General skin exam: rashes and/or lesions noted Neuro: Speech: Abnormal speech present Procedures Date of Service Date of Service: 01/03/21 Assessment and Plan Assessment and plan (1) COPD (chronic obstructive pulmonary disease): Status: Acute (2) Acute and chronic respiratory failure: Status: Acute (3) Atelectasis: Status: Acute Assessment and Plan: The patient and the family are opting for comfort measures only. Continue high-flow onto the patient is comfortable enough to titrate down off the high-flow to nasal cannula or Ventimask Morphine as needed for work of breathing she will receive some right now Cancel bronchoscopy at this time Time Spent With Patient Time: Total time spent is greater than 50% in coordination of care (as documented) at patient's floor/unit and/or counseling patient: Time with patient: 15 - 24 minutes Progress Note: Quality Stroke Does the patient have a stroke diagnosis?: No
--- NOTE | 2021-01-03 13:57 | HO.PM.IMPN ---
Subjective Subjective Date of Service: 01/03/21 Interval History: comfortable Constitutional Constitutional: Reports no additional constitutional complaints Eyes Eyes: Reports no additional eye complaints Physical Exam Vital Signs: Vital Signs: Last Vital Signs Temp 98.5 F 01/02/21 16:00 Pulse 75 01/03/21 11:16 Resp 14 01/03/21 11:47 BP 115/57 L 01/02/21 16:00 Pulse Ox 95 01/03/21 11:16 Body Mass Index 22.8 General: AO X 3, no acute distress Objective Data Current Medications Generic Name Dose Route Start Last Admin Trade Name Freq PRN Reason Stop Dose Admin Acetaminophen 650 mg 12/09/20 04:20 01/02/21 09:38 Acetaminophen 325 Mg Tablet PO 650 mg Q6H PRN Administration Pain, Mild (Pain Scale 1-3) Atropine Sulfate 2 drop 01/02/21 17:33 Atropine Sulfate 1 % Ophth Sybil 2 Ml Bottle SUBLINGUAL Q4H PRN Secretions Loperamide HCl 2 mg 12/15/20 10:12 12/15/20 10:37 Loperamide Hcl 2 Mg Capsule PO 2 mg Q4H PRN Administration diarrhea Lorazepam 0.5 mg 01/02/21 17:33 Lorazepam 2 Mg/Ml Vial IVPUSH Q4H PRN anxiety/restlessness Magnesium Hydroxide 30 ml 12/09/20 04:20 12/27/20 08:38 Milk Of Magnesia 30 Ml Oral.Susp PO 30 ml DAILY PRN Administration Constipation Morphine Sulfate 2 mg 01/03/21 11:26 01/03/21 11:47 Morphine Sulfate 2 Mg/Ml Cartridge IVPUSH 2 mg Q1H PRN Administration Shortness Of Breath/Pain Protocol Sodium Chloride 3 ml 12/12/20 16:00 01/03/21 09:20 0.9 % Sodium Chloride Flush 3 Ml Syringe IVFLUSH 3 ml QSHIFT OMID Administration Labs CBC & Chem 7: 01/01/21 05:50 01/01/21 05:50 Assessment and Plan (1) Pleural effusion, bacterial: Status: Acute (2) Acute and chronic respiratory failure: Status: Acute (3) Acute respiratory failure with hypoxia: Status: Acute Assessment and Plan: 75 years old lady with PMH of COPD presented to the hospital after having syncopal episode and hip fracture.? Required admission to ICU for acute hypoxic respiratory failure. Acute respiratory failure with hypoxia Secondary to COPD exacerbation/ pleyral effusions no improvement, transitioned to comfort measures continue morphine, ativan appears comfotable today Quality Stroke Does the patient have a stroke diagnosis?: No VTE Prior VTE?: No VTE Risk Level:: Medical - moderate - high VTE Device Contraindication: Patient Refused VTE Drug Contraindication: Patient Refused
--- NOTE | 2021-01-03 15:32 | MHC.CM.PN ---
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
[2021-01-03] MEDS: Calcium Carbonate 750 MG TAB.CHEW PO (17:48)
[2021-01-03] MEDS: ondansetron HCL 4 MG/2 ML VIAL IVPUSH (17:49)
[2021-01-04] VITALS: TEMP 36.3; O2SAT 98
[2021-01-04 06:00] VITALS: BMI 22.8
[2021-01-04 08:00] VITALS: RESP 16
[2021-01-04 08:53] VITALS: RESP 16
[2021-01-04] MEDS: Morphine Sulfate 2 MG/ML CARTRIDGE IVPUSH ×3 (08:53→21:40)
[2021-01-04] MEDS: 0.9 % Sodium Chloride Flush 3 ML SYRINGE IVFLUSH ×3 (08:54→21:40)
--- NOTE | 2021-01-04 12:11 | HO.PM.IMPN ---
Subjective Subjective Date of Service: 01/04/21 Interval History: reports being comfortable Constitutional Constitutional: Reports no additional constitutional complaints Eyes Eyes: Reports no additional eye complaints Physical Exam Vital Signs: Vital Signs: Last Vital Signs Temp 97.3 F 01/04/21 00:00 Pulse 78 01/03/21 15:45 Resp 16 01/04/21 08:53 BP 140/68 H 01/03/21 15:45 Pulse Ox 98 01/04/21 00:00 Body Mass Index 22.8 General: AO X 3, no acute distress, ill appearing Objective Data Current Medications Generic Name Dose Route Start Last Admin Trade Name Freq PRN Reason Stop Dose Admin Acetaminophen 650 mg 12/09/20 04:20 01/02/21 09:38 Acetaminophen 325 Mg Tablet PO 650 mg Q6H PRN Administration Pain, Mild (Pain Scale 1-3) Atropine Sulfate 2 drop 01/02/21 17:33 Atropine Sulfate 1 % Ophth Sybil 2 Ml Bottle SUBLINGUAL Q4H PRN Secretions Calcium Carbonate 750 mg 01/03/21 17:38 01/03/21 17:48 Calcium Carbonate 750 Mg Tab.Chew PO 750 mg Q6H PRN Administration heartburn Loperamide HCl 2 mg 12/15/20 10:12 12/15/20 10:37 Loperamide Hcl 2 Mg Capsule PO 2 mg Q4H PRN Administration diarrhea Lorazepam 0.5 mg 01/02/21 17:33 Lorazepam 2 Mg/Ml Vial IVPUSH Q4H PRN anxiety/restlessness Magnesium Hydroxide 30 ml 12/09/20 04:20 12/27/20 08:38 Milk Of Magnesia 30 Ml Oral.Susp PO 30 ml DAILY PRN Administration Constipation Morphine Sulfate 2 mg 01/03/21 11:26 01/04/21 08:53 Morphine Sulfate 2 Mg/Ml Cartridge IVPUSH 2 mg Q1H PRN Administration Shortness Of Breath/Pain Protocol Ondansetron HCl 4 mg 01/03/21 17:37 01/03/21 17:49 Ondansetron Hcl 4 Mg/2 Ml Vial IVPUSH 4 mg Q8H PRN Administration nausea Sodium Chloride 3 ml 12/12/20 16:00 01/04/21 08:54 0.9 % Sodium Chloride Flush 3 Ml Syringe IVFLUSH 3 ml QSHIFT OMID Administration Labs CBC & Chem 7: 01/01/21 05:50 01/01/21 05:50 Assessment and Plan (1) Pleural effusion, bacterial: Status: Acute (2) Acute and chronic respiratory failure: Status: Acute (3) Acute respiratory failure with hypoxia: Status: Acute Assessment and Plan: 75 years old lady with PMH of COPD presented to the hospital after having syncopal episode and hip fracture.? Required admission to ICU for acute hypoxic respiratory failure. Acute respiratory failure with hypoxia Secondary to COPD exacerbation/ pleural effusions no improvement, transitioned to comfort measures continue morphine, ativan appears comfortable would like to continue high flow for now Quality Stroke Does the patient have a stroke diagnosis?: No VTE Prior VTE?: No VTE Risk Level:: Medical - moderate - high VTE Device Contraindication: Patient Refused VTE Drug Contraindication: Patient Refused
[2021-01-04 15:23] VITALS: BP 116/65; PULSE 79; RESP 18; TEMP 36.9; O2SAT 95
[2021-01-05] VITALS: TEMP 36.1; O2SAT 95
[2021-01-05] MEDS: Morphine Sulfate 2 MG/ML CARTRIDGE IVPUSH ×5 (08:42→19:45)
[2021-01-05] MEDS: 0.9 % Sodium Chloride Flush 3 ML SYRINGE IVFLUSH ×2 (08:42→15:22)
--- NOTE | 2021-01-05 12:27 | HO.PM.IMPN ---
Subjective Subjective Date of Service: 01/05/21 Interval History: comfortable Constitutional Constitutional: Reports no additional constitutional complaints Eyes Eyes: Reports no additional eye complaints Physical Exam Vital Signs: Vital Signs: Last Vital Signs Temp 97 F 01/05/21 00:00 Pulse 79 01/04/21 15:23 Resp 18 01/04/21 15:23 BP 116/65 01/04/21 15:23 Pulse Ox 95 01/05/21 00:00 Body Mass Index 22.8 General: AO X 3, no acute distress, ill appearing Objective Data Current Medications Generic Name Dose Route Start Last Admin Trade Name Freq PRN Reason Stop Dose Admin Acetaminophen 650 mg 12/09/20 04:20 01/02/21 09:38 Acetaminophen 325 Mg Tablet PO 650 mg Q6H PRN Administration Pain, Mild (Pain Scale 1-3) Atropine Sulfate 2 drop 01/02/21 17:33 Atropine Sulfate 1 % Ophth Sybil 2 Ml Bottle SUBLINGUAL Q4H PRN Secretions Calcium Carbonate 750 mg 01/03/21 17:38 01/03/21 17:48 Calcium Carbonate 750 Mg Tab.Chew PO 750 mg Q6H PRN Administration heartburn Loperamide HCl 2 mg 12/15/20 10:12 12/15/20 10:37 Loperamide Hcl 2 Mg Capsule PO 2 mg Q4H PRN Administration diarrhea Lorazepam 0.5 mg 01/02/21 17:33 Lorazepam 2 Mg/Ml Vial IVPUSH Q4H PRN anxiety/restlessness Magnesium Hydroxide 30 ml 12/09/20 04:20 12/27/20 08:38 Milk Of Magnesia 30 Ml Oral.Susp PO 30 ml DAILY PRN Administration Constipation Morphine Sulfate 2 mg 01/03/21 11:26 01/05/21 10:26 Morphine Sulfate 2 Mg/Ml Cartridge IVPUSH 2 mg Q1H PRN Administration Shortness Of Breath/Pain Protocol Ondansetron HCl 4 mg 01/03/21 17:37 01/03/21 17:49 Ondansetron Hcl 4 Mg/2 Ml Vial IVPUSH 4 mg Q8H PRN Administration nausea Sodium Chloride 3 ml 12/12/20 16:00 01/05/21 08:42 0.9 % Sodium Chloride Flush 3 Ml Syringe IVFLUSH 3 ml QSHIFT OMID Administration Labs CBC & Chem 7: 01/01/21 05:50 01/01/21 05:50 Assessment and Plan (1) Pleural effusion, bacterial: Status: Acute (2) Acute and chronic respiratory failure: Status: Acute (3) Acute respiratory failure with hypoxia: Status: Acute Assessment and Plan: 75 years old lady with PMH of COPD presented to the hospital after having syncopal episode and hip fracture.? Required admission to ICU for acute hypoxic respiratory failure. Acute respiratory failure with hypoxia Secondary to COPD exacerbation/ pleural effusions no improvement, transitioned to comfort measures continue morphine, ativan appears comfortable will try weaning off high flow, Quality Stroke Does the patient have a stroke diagnosis?: No VTE Prior VTE?: No VTE Risk Level:: Medical - moderate - high VTE Device Contraindication: Patient Refused VTE Drug Contraindication: Patient Refused
[2021-01-05 15:40] VITALS: PULSE 68; RESP 18; O2SAT 93
[2021-01-05 19:28] VITALS: PULSE 79; RESP 22; O2SAT 95
[2021-01-05 19:45] VITALS: RESP 18
[2021-01-06] VITALS (10 sets, daily range): BP systolic 98; BP diastolic 49; PULSE 68–86; RESP 18–22; O2SAT 89–95
[2021-01-06] MEDS: Morphine Sulfate 2 MG/ML CARTRIDGE IVPUSH ×5 (00:04→20:04)
[2021-01-06] MEDS: 0.9 % Sodium Chloride Flush 3 ML SYRINGE IVFLUSH ×3 (05:19→16:05)
--- NOTE | 2021-01-06 10:24 | P.PNIM_ITS ---
Subjective Subjective Date of Service: 01/06/21 Interval History: comfortable Cardiovascular Cardiovascular: Reports no additional cardiovascular complaints Respiratory Respiratory: Reports no additional respiratory complaints Physical Exam 2 Vital Signs: Vital Signs: Last Vital Signs Temp 97 F 01/05/21 00:00 Pulse 79 01/04/21 15:23 Resp 18 01/06/21 09:11 BP 116/65 01/04/21 15:23 Pulse Ox 95 01/05/21 00:00 Body Mass Index 22.8 General: AO X 3, no acute distress, ill appearing Objective Data Current Medications Generic Name Dose Route Start Last Admin Trade Name Freq PRN Reason Stop Dose Admin Acetaminophen 650 mg 12/09/20 04:20 01/02/21 09:38 Acetaminophen 325 Mg Tablet PO 650 mg Q6H PRN Administration Pain, Mild (Pain Scale 1-3) Atropine Sulfate 2 drop 01/02/21 17:33 Atropine Sulfate 1 % Ophth Sybil 2 Ml Bottle SUBLINGUAL Q4H PRN Secretions Calcium Carbonate 750 mg 01/03/21 17:38 01/03/21 17:48 Calcium Carbonate 750 Mg Tab.Chew PO 750 mg Q6H PRN Administration heartburn Loperamide HCl 2 mg 12/15/20 10:12 12/15/20 10:37 Loperamide Hcl 2 Mg Capsule PO 2 mg Q4H PRN Administration diarrhea Lorazepam 0.5 mg 01/02/21 17:33 Lorazepam 2 Mg/Ml Vial IVPUSH Q4H PRN anxiety/restlessness Magnesium Hydroxide 30 ml 12/09/20 04:20 12/27/20 08:38 Milk Of Magnesia 30 Ml Oral.Susp PO 30 ml DAILY PRN Administration Constipation Morphine Sulfate 2 mg 01/03/21 11:26 01/06/21 09:11 Morphine Sulfate 2 Mg/Ml Cartridge IVPUSH 2 mg Q1H PRN Administration Shortness Of Breath/Pain Protocol Ondansetron HCl 4 mg 01/03/21 17:37 01/03/21 17:49 Ondansetron Hcl 4 Mg/2 Ml Vial IVPUSH 4 mg Q8H PRN Administration nausea Sodium Chloride 3 ml 12/12/20 16:00 01/06/21 09:04 0.9 % Sodium Chloride Flush 3 Ml Syringe IVFLUSH 3 ml QSHIFT OMID Administration Labs CBC & Chem 7: 01/01/21 05:50 01/01/21 05:50 Assessment and Plan (1) Pleural effusion, bacterial: Status: Acute (2) Acute and chronic respiratory failure: Status: Acute (3) Acute respiratory failure with hypoxia: Status: Acute Assessment and Plan: 75 years old lady with PMH of COPD presented to the hospital after having syncopal episode and hip fracture.? Required admission to ICU for acute hypoxic respiratory failure. Acute respiratory failure with hypoxia Secondary to COPD exacerbation/ pleural effusions no improvement, transitioned to comfort measures continue morphine, ativan appears comfortable will try weaning off high flow, if able to transition to nc and remains stable, will possibly discharge to facility for end of life care Quality Stroke Does the patient have a stroke diagnosis?: No VTE Prior VTE?: No VTE Risk Level:: Medical - moderate - high VTE Device Contraindication: Patient Refused VTE Drug Contraindication: Patient Refused
[2021-01-07] VITALS (7 sets, daily range): RESP 18–20; O2SAT 87–90
[2021-01-07] MEDS: Morphine Sulfate 2 MG/ML CARTRIDGE IVPUSH ×6 (00:12→20:14)
[2021-01-07] MEDS: 0.9 % Sodium Chloride Flush 3 ML SYRINGE IVFLUSH ×4 (04:40→20:15)
--- NOTE | 2021-01-07 10:20 | P.PNIM_ITS ---
Subjective Subjective Date of Service: 01/07/21 Interval History: more comfortable off high flow ENT Ears, Nose, Mouth, and Throat: Reports system reviewed and no additional complaints, except as documented Cardiovascular Cardiovascular: Reports no additional cardiovascular complaints Physical Exam Vital Signs: Vital Signs: Last Vital Signs Temp 97 F 01/05/21 00:00 Pulse 79 01/04/21 15:23 Resp 18 01/07/21 09:33 BP 98/49 L 01/06/21 12:50 Pulse Ox 88 L 01/07/21 04:41 Body Mass Index 22.8 General: AO X 3, no acute distress, ill appearing Objective Data Current Medications Generic Name Dose Route Start Last Admin Trade Name Freq PRN Reason Stop Dose Admin Acetaminophen 650 mg 12/09/20 04:20 01/02/21 09:38 Acetaminophen 325 Mg Tablet PO 650 mg Q6H PRN Administration Pain, Mild (Pain Scale 1-3) Atropine Sulfate 2 drop 01/02/21 17:33 Atropine Sulfate 1 % Ophth Sybil 2 Ml Bottle SUBLINGUAL Q4H PRN Secretions Calcium Carbonate 750 mg 01/03/21 17:38 01/03/21 17:48 Calcium Carbonate 750 Mg Tab.Chew PO 750 mg Q6H PRN Administration heartburn Loperamide HCl 2 mg 12/15/20 10:12 12/15/20 10:37 Loperamide Hcl 2 Mg Capsule PO 2 mg Q4H PRN Administration diarrhea Lorazepam 0.5 mg 01/02/21 17:33 Lorazepam 2 Mg/Ml Vial IVPUSH Q4H PRN anxiety/restlessness Magnesium Hydroxide 30 ml 12/09/20 04:20 12/27/20 08:38 Milk Of Magnesia 30 Ml Oral.Susp PO 30 ml DAILY PRN Administration Constipation Morphine Sulfate 2 mg 01/03/21 11:26 01/07/21 09:09 Morphine Sulfate 2 Mg/Ml Cartridge IVPUSH 2 mg Q1H PRN Administration Shortness Of Breath/Pain Protocol Ondansetron HCl 4 mg 01/03/21 17:37 01/03/21 17:49 Ondansetron Hcl 4 Mg/2 Ml Vial IVPUSH 4 mg Q8H PRN Administration nausea Sodium Chloride 3 ml 12/12/20 16:00 01/07/21 09:11 0.9 % Sodium Chloride Flush 3 Ml Syringe IVFLUSH 3 ml QSHIFT OMID Administration Labs CBC & Chem 7: 01/01/21 05:50 01/01/21 05:50 Assessment and Plan (1) Pleural effusion, bacterial: Status: Acute (2) Acute and chronic respiratory failure: Status: Acute (3) Acute respiratory failure with hypoxia: Status: Acute Assessment and Plan: 75 years old lady with PMH of COPD presented to the hospital after having synco pal episode and hip fracture.? Required admission to ICU for acute hypoxic respiratory failure. Acute respiratory failure with hypoxia Secondary to COPD exacerbation/ pleural effusions no improvement, transitioned to comfort measures continue morphine, ativan appears comfortable was weaned to nasal canula and reports increased comfort, will monitor for a couple days, if stable will consider continuing comfort measure at outside facility Quality Stroke Does the patient have a stroke diagnosis?: No VTE Prior VTE?: No VTE Risk Level:: Medical - moderate - high VTE Device Contraindication: Patient Refused VTE Drug Contraindication: Patient Refused
[2021-01-08] MEDS: Morphine Sulfate 2 MG/ML CARTRIDGE IVPUSH ×8 (00:36→23:54)
[2021-01-08] MEDS: 0.9 % Sodium Chloride Flush 3 ML SYRINGE IVFLUSH ×3 (10:02→20:37)
[2021-01-08] MEDS: polyethylene glycoL 3350 17 GM POWD.PACK PO (11:19)
--- NOTE | 2021-01-08 12:15 | P.PNIM_ITS ---
Subjective Subjective Date of Service: 01/08/21 Interval History: consitpated Cardiovascular Cardiovascular: Reports no additional cardiovascular complaints Respiratory Respiratory: Reports no additional respiratory complaints Physical Exam 2 Vital Signs: Vital Signs: Last Vital Signs Temp 97 F 01/05/21 00:00 Pulse 79 01/04/21 15:23 Resp 18 01/07/21 09:33 BP 98/49 L 01/06/21 12:50 Pulse Ox 87 L 01/07/21 20:13 Body Mass Index 22.8 General: AO X 3, no acute distress, ill appearing Objective Data Current Medications Generic Name Dose Route Start Last Admin Trade Name Freq PRN Reason Stop Dose Admin Acetaminophen 650 mg 12/09/20 04:20 01/02/21 09:38 Acetaminophen 325 Mg Tablet PO 650 mg Q6H PRN Administration Pain, Mild (Pain Scale 1-3) Atropine Sulfate 2 drop 01/02/21 17:33 Atropine Sulfate 1 % Ophth Sybil 2 Ml Bottle SUBLINGUAL Q4H PRN Secretions Calcium Carbonate 750 mg 01/03/21 17:38 01/03/21 17:48 Calcium Carbonate 750 Mg Tab.Chew PO 750 mg Q6H PRN Administration heartburn Loperamide HCl 2 mg 12/15/20 10:12 12/15/20 10:37 Loperamide Hcl 2 Mg Capsule PO 2 mg Q4H PRN Administration diarrhea Magnesium Hydroxide 30 ml 12/09/20 04:20 12/27/20 08:38 Milk Of Magnesia 30 Ml Oral.Susp PO 30 ml DAILY PRN Administration Constipation Morphine Sulfate 2 mg 01/03/21 11:26 01/08/21 11:16 Morphine Sulfate 2 Mg/Ml Cartridge IVPUSH 2 mg Q1H PRN Administration Shortness Of Breath/Pain Protocol Ondansetron HCl 4 mg 01/03/21 17:37 01/03/21 17:49 Ondansetron Hcl 4 Mg/2 Ml Vial IVPUSH 4 mg Q8H PRN Administration nausea Polyethylene Glycol 17 gm 01/08/21 10:45 01/08/21 11:19 Polyethylene Glycol 3350 17 Gm Powd.Pack PO 17 gm DAILY OMID Administration Sodium Chloride 3 ml 12/12/20 16:00 01/08/21 10:02 0.9 % Sodium Chloride Flush 3 Ml Syringe IVFLUSH 3 ml QSHIFT OMID Administration Labs CBC & Chem 7: 01/01/21 05:50 08/16/21 05:50 Assessment and Plan (1) Pleural effusion, bacterial: Status: Acute (2) Acute and chronic respiratory failure: Status: Acute (3) Acute respiratory failure with hypoxia: Status: Acute Assessment and Plan: 75 years old lady with PMH of COPD presented to the hospital after having syncopal episode and hip fracture.? Required admission to ICU for acute hypoxic respiratory failure. Acute respiratory failure with hypoxia Secondary to COPD exacerbation/ pleural effusions no improvement, transitioned to comfort measures continue morphine, ativan appears comfortable was weaned to nasal canula and reports increased comfort, will monitor for a couple days, if stable will consider continuing comfort measure at outside facility constipation mirlax, abd soft non distended Quality Stroke Does the patient have a stroke diagnosis?: No VTE Prior VTE?: No VTE Risk Level:: Medical - moderate - high VTE Device Contraindication: Patient Refused VTE Drug Contraindication: Patient Refused
--- NOTE | 2021-01-08 14:43 | MHC.CM.PN ---
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
[2021-01-08 15:24] VITALS: BP 126/65; PULSE 86; RESP 15; TEMP 36.6; O2SAT 90
[2021-01-08 19:28] VITALS: RESP 15; O2SAT 90
[2021-01-08 23:54] VITALS: RESP 22
[2021-01-09] MEDS: Morphine Sulfate 2 MG/ML CARTRIDGE IVPUSH ×6 (01:51→21:31)
[2021-01-09] MEDS: 0.9 % Sodium Chloride Flush 3 ML SYRINGE IVFLUSH ×3 (08:44→21:32)
--- NOTE | 2021-01-09 10:37 | HO.PM.IMPN ---
Subjective Subjective Date of Service: 01/09/21 Interval History: successful bm Respiratory Respiratory: Reports no additional respiratory complaints Gastrointestinal Gastrointestinal: Reports no additional gastrointestinal complaints Physical Exam Vital Signs: Vital Signs: Last Vital Signs Temp 98 F 01/08/21 15:24 Pulse 86 01/08/21 15:24 Resp 22 H 01/08/21 23:54 BP 126/65 01/08/21 15:24 Pulse Ox 90 L 01/08/21 19:28 Body Mass Index 22.8 General: AO X 3, no acute distress, ill appearing Objective Data Current Medications Generic Name Dose Route Start Last Admin Trade Name Freq PRN Reason Stop Dose Admin Acetaminophen 650 mg 12/09/20 04:20 01/02/21 09:38 Acetaminophen 325 Mg Tablet PO 650 mg Q6H PRN Administration Pain, Mild (Pain Scale 1-3) Atropine Sulfate 2 drop 01/02/21 17:33 Atropine Sulfate 1 % Ophth Sybil 2 Ml Bottle SUBLINGUAL Q4H PRN Secretions Calcium Carbonate 750 mg 01/03/21 17:38 01/03/21 17:48 Calcium Carbonate 750 Mg Tab.Chew PO 750 mg Q6H PRN Administration heartburn Loperamide HCl 2 mg 12/15/20 10:12 12/15/20 10:37 Loperamide Hcl 2 Mg Capsule PO 2 mg Q4H PRN Administration diarrhea Magnesium Hydroxide 30 ml 12/09/20 04:20 12/27/20 08:38 Milk Of Magnesia 30 Ml Oral.Susp PO 30 ml DAILY PRN Administration Constipation Morphine Sulfate 2 mg 01/03/21 11:26 01/09/21 08:44 Morphine Sulfate 2 Mg/Ml Cartridge IVPUSH 2 mg Q1H PRN Administration Shortness Of Breath/Pain Protocol Ondansetron HCl 4 mg 01/03/21 17:37 01/03/21 17:49 Ondansetron Hcl 4 Mg/2 Ml Vial IVPUSH 4 mg Q8H PRN Administration nausea Polyethylene Glycol 17 gm 01/09/21 09:28 Polyethylene Glycol 3350 17 Gm Powd.Pack PO DAILY PRN constipation Sodium Chloride 3 ml 12/12/20 16:00 01/09/21 08:44 0.9 % Sodium Chloride Flush 3 Ml Syringe IVFLUSH 3 ml QSHIFT OMID Administration Labs CBC & Chem 7: 01/01/21 05:50 01/01/21 05:50 Assessment and Plan (1) Pleural effusion, bacterial: Status: Acute (2) Acute and chronic respiratory failure: Status: Acute (3) Acute respiratory failure with hypoxia: Status: Acute Assessment and Plan: 75 years old lady with PMH of COPD presented to the hospital after having syncopal episode and hip fracture.? Required admission to ICU for acute hypoxic respiratory failure. Acute respiratory failure with hypoxia Secondary to COPD exacerbation/ pleural effusions no improvement, transitioned to comfort measures continue morphine, ativan appears comfortable was weaned to nasal canula and reports increased comfort, will consider continuing comfort measure at outside facility constipation succesful bm, change laxatives to prn Quality Stroke Does the patient have a stroke diagnosis?: No VTE Prior VTE?: No VTE Risk Level:: Medical - moderate - high VTE Device Contraindication: Patient Refused VTE Drug Contraindication: Patient Refused
[2021-01-10] VITALS (7 sets, daily range): BP systolic 135–152; BP diastolic 57–71; PULSE 88–90; RESP 15–20; TEMP 36.1–36.6; O2SAT 93–99
[2021-01-10] MEDS: Morphine Sulfate 2 MG/ML CARTRIDGE IVPUSH ×5 (04:08→23:17)
[2021-01-10] MEDS: 0.9 % Sodium Chloride Flush 3 ML SYRINGE IVFLUSH ×2 (08:35→23:18)
--- NOTE | 2021-01-10 09:28 | MHC.CM.PN ---
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 The two Respiratory SNFs in this area ([facility] and [facility]) have a max limit of 10L of O@; they continue to follow for dc planning.
--- NOTE | 2021-01-10 10:47 | P.PNIM_ITS ---
Subjective Subjective Date of Service: 01/10/21 Interval History: comfortable Cardiovascular Cardiovascular: Reports no additional cardiovascular complaints Respiratory Respiratory: Reports no additional respiratory complaints Physical Exam 2 Vital Signs: Vital Signs: Last Vital Signs Temp 96.9 F 01/10/21 07:57 Pulse 88 01/10/21 07:57 Resp 18 01/10/21 07:57 BP 152/71 H 01/10/21 07:57 Pulse Ox 98 01/10/21 07:57 Body Mass Index 22.8 General: AO X 3, no acute distress, ill appearing Objective Data Current Medications Generic Name Dose Route Start Last Admin Trade Name Freq PRN Reason Stop Dose Admin Acetaminophen 650 mg 12/09/20 04:20 01/02/21 09:38 Acetaminophen 325 Mg Tablet PO 650 mg Q6H PRN Administration Pain, Mild (Pain Scale 1-3) Atropine Sulfate 2 drop 01/02/21 17:33 Atropine Sulfate 1 % Ophth Sybil 2 Ml Bottle SUBLINGUAL Q4H PRN Secretions Calcium Carbonate 750 mg 01/03/21 17:38 01/03/21 17:48 Calcium Carbonate 750 Mg Tab.Chew PO 750 mg Q6H PRN Administration heartburn Loperamide HCl 2 mg 12/15/20 10:12 12/15/20 10:37 Loperamide Hcl 2 Mg Capsule PO 2 mg Q4H PRN Administration diarrhea Magnesium Hydroxide 30 ml 12/09/20 04:20 12/27/20 08:38 Milk Of Magnesia 30 Ml Oral.Susp PO 30 ml DAILY PRN Administration Constipation Morphine Sulfate 2 mg 01/03/21 11:26 01/10/21 04:08 Morphine Sulfate 2 Mg/Ml Cartridge IVPUSH 2 mg Q1H PRN Administration Shortness Of Breath/Pain Protocol Ondansetron HCl 4 mg 01/03/21 17:37 01/03/21 17:49 Ondansetron Hcl 4 Mg/2 Ml Vial IVPUSH 4 mg Q8H PRN Administration nausea Polyethylene Glycol 17 gm 01/09/21 09:28 Polyethylene Glycol 3350 17 Gm Powd.Pack PO DAILY PRN constipation Sodium Chloride 3 ml 12/12/20 16:00 01/10/21 08:35 0.9 % Sodium Chloride Flush 3 Ml Syringe IVFLUSH 3 ml QSHIFT OMID Administration Labs CBC & Chem 7: 01/01/21 05:50 01/01/21 05:50 Assessment and Plan (1) Pleural effusion, bacterial: Status: Acute (2) Acute and chronic respiratory failure: Status: Acute (3) Acute respiratory failure with hypoxia: Status: Acute Assessment and Plan: 75 years old lady with PMH of COPD presented to the hospital after having syncopal episode and hip fracture.? Required admission to ICU for acute hypoxic respiratory failure. Acute respiratory failure with hypoxia Secondary to COPD exacerbation/ pleural effusions was not improving so was transitioned to comfort measures continued morphine, ativan has been comfortable was then able to be weaned to nasal canula and has been stable, plan is to continue comfort measures at outside facility once titrated down to 10L/min constipation succesful bm, changed laxatives to prn Quality Stroke Does the patient have a stroke diagnosis?: No VTE Prior VTE?: No VTE Risk Level:: Medical - moderate - high VTE Device Contraindication: Patient Refused VTE Drug Contraindication: Patient Refused
--- NOTE | 2021-01-10 12:22 | MHC.CLN ---
F/U AJ =11 WITH DTI BILATERAL BUTTOCKS. COMFORT MEASURES. DIET=REGULAR. NO NEW NUTRITION INTERVENTIONS.
[2021-01-10] MEDS: Calcium Carbonate 750 MG TAB.CHEW PO (21:14)
[2021-01-11] VITALS (10 sets, daily range): BP systolic 109–134; BP diastolic 59–72; PULSE 79–96; RESP 15–18; TEMP 36.5–36.9; O2SAT 89–98
[2021-01-11] MEDS: 0.9 % Sodium Chloride Flush 3 ML SYRINGE IVFLUSH ×3 (08:09→21:17)
[2021-01-11] MEDS: Morphine Sulfate 2 MG/ML CARTRIDGE IVPUSH ×3 (08:10→14:34)
--- NOTE | 2021-01-11 11:26 | MHC.CM.PN ---
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 10 L O2 is the max that can be done at [facility]; a referral has been made to [facility] and CM will continue to follow for dc planning.
[2021-01-11] MEDS: Albuterol/Iprat 2.5/0.5MG 3 ML AMPUL.NEB INHALE ×3 (11:56→20:32)
--- NOTE | 2021-01-11 11:56 | HO.PM.IMPN ---
Subjective Subjective Date of Service: 01/11/21 Interval History: the patient was seen and evaluated this morning Laying in bed, looks comfortable overall After discussing her wishes she said she does not want to Decided to change her status back to DNR DNI and not comfort measures anymore Feeling weak with low energy No reported other overnight events. Systemic review: No fever, chills but generalized weakness No chest pain, palpitation No shortness of breath or coughing No abdominal pain, nausea or vomiting No urinary symptoms No any rash or wounds Physical Exam Vital Signs: Vital Signs: Last Vital Signs Temp 97.8 F 01/11/21 08:00 Pulse 79 01/11/21 08:00 Resp 18 01/11/21 11:07 BP 134/72 01/11/21 08:00 Pulse Ox 92 01/11/21 10:16 Body Mass Index 22.8 Const: Other: Constitutional : Alert, oriented, in mild distress on 15 L O2 nasal cannula Neck : Normal inspection, Supple Cardiovascular : RRR, S1 S2, no lower extremity edema Respiratory : Decrease bilateral air entry, no crackles, scattered wheezes or rhonchi Gastrointestinal: soft, lax, Normal bowel sounds, Non tender Skin : Warm, Dry Neurological : Alert & oriented x3, No focal deficit Objective Data Current Medications Generic Name Dose Route Start Last Admin Trade Name Freq PRN Reason Stop Dose Admin Acetaminophen 650 mg 12/09/20 04:20 01/02/21 09:38 Acetaminophen 325 Mg Tablet PO 650 mg Q6H PRN Administration Pain, Mild (Pain Scale 1-3) Albuterol/Ipratropium 3 ml 01/11/21 12:00 Albuterol/Iprat 2.5/0.5mg 3 Ml Ampul.Neb INHALE RQ4H WHILE AWAKE OMID Atropine Sulfate 2 drop 01/02/21 17:33 Atropine Sulfate 1 % Ophth Sybil 2 Ml Bottle SUBLINGUAL Q4H PRN Secretions Calcium Carbonate 750 mg 01/03/21 17:38 01/10/21 21:14 Calcium Carbonate 750 Mg Tab.Chew PO 750 mg Q6H PRN Administration heartburn Guaifenesin 600 mg 01/11/21 21:00 Guaifenesin La 600 Mg Tab.Er.12h PO BID OMID Loperamide HCl 2 mg 12/15/20 10:12 12/15/20 10:37 Loperamide Hcl 2 Mg Capsule PO 2 mg Q4H PRN Administration diarrhea Magnesium Hydroxide 30 ml 12/09/20 04:20 12/27/20 08:38 Milk Of Magnesia 30 Ml Oral.Susp PO 30 ml DAILY PRN Administration Constipation Morphine Sulfate 2 mg 01/03/21 11:26 01/11/21 11:07 Morphine Sulfate 2 Mg/Ml Cartridge IVPUSH 2 mg Q1H PRN Administration Shortness Of Breath/Pain Protocol Ondansetron HCl 4 mg 01/03/21 17:37 01/03/21 17:49 Ondansetron Hcl 4 Mg/2 Ml Vial IVPUSH 4 mg Q8H PRN Administration nausea Polyethylene Glycol 17 gm 01/09/21 09:28 Polyethylene Glycol 3350 17 Gm Powd.Pack PO DAILY PRN constipation Sodium Chloride 3 ml 12/12/20 16:00 01/11/21 08:09 0.9 % Sodium Chloride Flush 3 Ml Syringe IVFLUSH 3 ml QSHIFT OMID Administration Labs CBC & Chem 7: 01/01/21 05:50 01/01/21 05:50 Assessment and Plan (1) Acute and chronic respiratory failure: Status: Acute (2) Atelectasis: Status: Acute (3) COPD exacerbation: Status: Acute Assessment and Plan: 75 years old lady with PMH of COPD presented to the hospital after having syncopal episode and hip fracture.? Required admission to ICU for acute hypoxic respiratory failure. Acute respiratory failure with hypoxia Secondary to COPD exacerbation/ pleural effusions/ Atelactasis Weaned down to 15L NC restart Prednisone start nebulizers REpeated CXR showing increase in Rt Plueral effusion Pulmonology to be contacted Atelectasis Start chest physical therapy, incentive spirometry, flutter valve To do Mucomyst Nebs Hip fracture Start physical therapy Left humeral fracture In sling, pain under control Orthopedic team, Nonweightbearing DVT PPX Xarelto Quality Stroke Does the patient have a stroke diagnosis?: No VTE Prior VTE?: No VTE Risk Level:: Medical - moderate - high VTE Device Contraindication: Patient Refused VTE Drug Contraindication: Patient Refused
[2021-01-11] MEDS: predniSONE 20 MG TABLET 40 MG PO (14:02)
--- NOTE | 2021-01-11 16:14 | PC.RT ---
Tempted CPT with cupping post treatment. Pt is a bit confused at this time. Pushing away from me while trying to do CPT. Unable to follow direction with acapella
[2021-01-11] MEDS: Acetylcysteine 10 % 400 MG/4 ML VIAL INHALE (20:32)
[2021-01-11] MEDS: guaiFENesin LA 600 MG TAB.ER.12H PO (21:11)
[2021-01-12] VITALS (10 sets, daily range): BP systolic 119–140; BP diastolic 62–69; PULSE 74–109; RESP 17–20; TEMP 36–36.6; O2SAT 91–95
[2021-01-12 00:37] LABS: Basophils Percent Auto 0.1 % (0-2); Hematocrit 34.7 % (37-47); Hemoglobin 11.2 g/dl (12.0-16.0); Imm Gran Abs Auto 0.03 X10*3/uL (0.00-0.03); Imm Gran Pct Auto 0.4 % (0.0-0.4); Lymphocytes Absolute Auto 0.5 X10*3/uL (1.2-4.9); Lymphocytes Percent Auto 5.7 % (20-40); MANUAL DIFF FLAG SCAN; Mean Corpuscular HGB Conc 32.3 g/dl (31.0-35.0); Mean Corpuscular Hemoglobin 31.1 pg (27.0-33.0); Mean Corpuscular Volume 96.4 fL (80-98); Mean Platelet Volume 8.8 fL (9.4-12.3); Monocytes Absolute Auto 0.1 X10*3/uL (0.1-1.2); Monocytes Percent Auto 1.2 % (2-11); Neutrophils Absolute Auto 7.6 X10*3/uL (2.0-8.3); Neutrophils Percent Auto 92.6 % (45-73); Platelet Count 269 X10*3/uL (160-400); Red Cell Distribution Width 12.7 % (11.0-16.0); SCAN SMEAR FLAG 1; White Blood Count 8.2 X10*3/uL (4.8-10.8)
[2021-01-12 00:43] LABS: INTERNATIONAL NORM RATIO 1.2 (0.9-1.1); Prothrombin Time 13.5 SEC (9.9-13.0)
[2021-01-12 01:30] LABS: SLIDE REVIEW VERIFIED
[2021-01-12 06:37] LABS: Hematocrit 35.3 % (37-47); Hemoglobin 11.2 g/dl (12.0-16.0); Mean Corpuscular HGB Conc 31.7 g/dl (31.0-35.0); Mean Corpuscular Hemoglobin 30.7 pg (27.0-33.0); Mean Corpuscular Volume 96.7 fL (80-98); Mean Platelet Volume 8.9 fL (9.4-12.3); Platelet Count 304 X10*3/uL (160-400); Red Blood Count 3.65 X10*6/uL (4.20-5.50); Red Cell Distribution Width 12.7 % (11.0-16.0); White Blood Count 7.1 X10*3/uL (4.8-10.8)
[2021-01-12 06:54] LABS: Anion Gap 10 (12-20); Blood Urea Nitrogen 18 mg/dL (9-16); Calcium 7.9 mg/dL (8.4-10.2); Carbon Dioxide 37 mmol/L (22-29); Chloride 95 mmol/L (96-108); Creatinine Clr Calc Pharmacy 59.2; Estimated Glomerular Filt Rate > 60; Glucose Random 124 mg/dL (60-115); Potassium 5.4 mmol/L (3.3-5.1); Sodium 137 mmol/L (135-145)
[2021-01-12] MEDS: Albuterol/Iprat 2.5/0.5MG 3 ML AMPUL.NEB INHALE ×4 (07:33→20:00)
[2021-01-12] MEDS: Acetylcysteine 10 % 400 MG/4 ML VIAL INHALE ×2 (07:33→20:01)
[2021-01-12] MEDS: Rivaroxaban 10 MG TABLET PO (08:18)
[2021-01-12] MEDS: predniSONE 20 MG TABLET 40 MG PO (08:18)
[2021-01-12] MEDS: 0.9 % Sodium Chloride Flush 3 ML SYRINGE IVFLUSH ×2 (08:18→13:53)
[2021-01-12] MEDS: guaiFENesin LA 600 MG TAB.ER.12H PO ×2 (08:18→20:57)
--- NOTE | 2021-01-12 11:03 | MHC.CM.PN ---
CM met with Patient and Daughter/HCP/LIBBY @ [phone] at bedside to discuss dc planning. Per ROUNDS discussion- working towards a dc on 01/15/21. Libby is really hoping that dc to [facility] is not necessary and she did indicate that she would appeal that dc plan.The goal for dc is STR @ [facility], who is near to Libby's home and able to accommodate higher O2 requirements(Patient now on 8L). [facility] would require a private room for Patient if she were to continue on nebs;MD will attempt to change to Inhalers so that a private room (that [facility] does not have) would not be necessary. CM will continue to follow for dc plan.Patient and Libby fully updated and in agreement with the plan/goal to go to [facility].
--- NOTE | 2021-01-12 13:34 | MHC.CLN ---
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 HAS PRESSURE INJURY, DTI, TO BILATERAL BUTTOCKS. ADDING ENSURE 240 ML BID AND CONNOR 1 PACKET BID (880 KCAL, 45 G/PROTEIN) TO PROMOTE WOUND HEALING. CONTINUE TO FOLLOW.
[2021-01-12] MEDS: Morphine Sulfate 2 MG/ML CARTRIDGE IVPUSH ×2 (13:44→21:03)
[2021-01-12] MEDS: Omeprazole 20 MG CAPSULE.DR PO ×2 (13:44→18:11)
[2021-01-12] MEDS: Sodium Zirconium Cyclosilicate 10 GM POWD.PACK PO (13:44)
--- NOTE | 2021-01-12 14:28 | P.PNIM_ITS ---
Subjective Subjective Date of Service: 01/12/21 Interval History: The patient was seen and evaluated this morning Laying in bed, looks comfortable overall on 8 L of oxygen Still feeling weak with no much energy No reported other overnight events. Systemic review: No fever, chills but generalized weakness No chest pain, palpitation No shortness of breath or coughing No abdominal pain, nausea or vomiting No urinary symptoms No any rash or wounds Physical Exam Vital Signs: Vital Signs: Last Vital Signs Temp 97.5 F 01/12/21 07:17 Pulse 104 H 01/12/21 11:44 Resp 18 01/12/21 13:44 BP 119/63 01/12/21 11:44 Pulse Ox 91 L 01/12/21 11:44 Body Mass Index 22.8 Const: Other: Constitutional : Alert, oriented, not in distress, on 8 L nasal cannula Neck : Normal inspection, Supple Cardiovascular : RRR, S1 S2, no lower extremity edema Respiratory : Decrease bilateral air entry, no crackles, scattered wheezes Gastrointestinal: soft, lax, Normal bowel sounds, Non tender Skin : Warm, Dry Neurological : Alert & oriented x3, No focal deficit Objective Data Current Medications Generic Name Dose Route Start Last Admin Trade Name Freq PRN Reason Stop Dose Admin Acetaminophen 650 mg 12/09/20 04:20 01/02/21 09:38 Acetaminophen 325 Mg Tablet PO 650 mg Q6H PRN Administration Pain, Mild (Pain Scale 1-3) Acetylcysteine 400 mg 01/11/21 12:10 01/12/21 07:33 Acetylcysteine 10 % 400 Mg/4 Ml Vial INHALE 400 mg RBID OMID Administration Albuterol/Ipratropium 3 ml 01/11/21 12:00 01/12/21 11:18 Albuterol/Iprat 2.5/0.5mg 3 Ml Ampul.Neb INHALE 3 ml RQ4H WHILE AWAKE OMID Administration Atropine Sulfate 2 drop 01/02/21 17:33 Atropine Sulfate 1 % Ophth Sybil 2 Ml Bottle SUBLINGUAL Q4H PRN Secretions Calcium Carbonate 750 mg 01/03/21 17:38 01/10/21 21:14 Calcium Carbonate 750 Mg Tab.Chew PO 750 mg Q6H PRN Administration heartburn Guaifenesin 600 mg 01/11/21 21:00 01/12/21 08:18 Guaifenesin La 600 Mg Tab.Er.12h PO 600 mg BID OMID Administration Loperamide HCl 2 mg 12/15/20 10:12 12/15/20 10:37 Loperamide Hcl 2 Mg Capsule PO 2 mg Q4H PRN Administration diarrhea Magnesium Hydroxide 30 ml 12/09/20 04:20 12/27/20 08:38 Milk Of Magnesia 30 Ml Oral.Susp PO 30 ml DAILY PRN Administration Constipation Morphine Sulfate 2 mg 01/11/21 15:30 01/12/21 13:44 Morphine Sulfate 2 Mg/Ml Cartridge IVPUSH 2 mg RQ4H PRN Administration Shortness Of Breath/Pain Protocol Omeprazole 20 mg 01/12/21 12:20 01/12/21 13:44 Omeprazole 20 Mg Capsule. PO 20 mg BID@0630,6640 OMID Administration Ondansetron HCl 4 mg 01/03/21 17:37 01/03/21 17:49 Ondansetron Hcl 4 Mg/2 Ml Vial IVPUSH 4 mg Q8H PRN Administration nausea Polyethylene Glycol 17 gm 01/09/21 09:28 Polyethylene Glycol 3350 17 Gm Powd.Pack PO DAILY PRN constipation Prednisone 40 mg 01/11/21 12:10 01/12/21 08:18 Prednisone 20 Mg Tablet PO 40 mg DAILY OMID Administration Sodium Chloride 3 ml 12/12/20 16:00 01/12/21 13:53 0.9 % Sodium Chloride Flush 3 Ml Syringe IVFLUSH 3 ml QSHIFT OMID Administration Labs CBC & Chem 7: 01/12/21 05:31 01/12/21 05:31 Labs: Laboratory Results - last 24 hr 01/12/21 01/12/21 01/12/21 00:30 00:30 05:31 MCV 96.4 96.7 MCH 31.1 30.7 MCHC 32.3 31.7 RDW 12.7 12.7 Plt Count 269 304 MPV 8.8 L 8.9 L Immature Gran % (Auto) 0.4 Neut % (Auto) 92.6 H Lymph % (Auto) 5.7 L [place] % (Auto) 1.2 L Eos % (Auto) 0.0 Baso % (Auto) 0.1 Lymph # (Auto) 0.5 L [place] # (Auto) 0.1 Eos # (Auto) 0.0 Baso # (Auto) 0.0 Abs Immat Gran (auto) 0.03 Absolute Neuts (auto) 7.6 Absolute Nucleated RBC 0.000 0.000 Nucleated RBC % (auto) 0.0 0.0 Smear Tech's Comments VERIFIED PT 13.5 H D INR 1.2 H Anion Gap Estim Creat Clear Calc Estimated GFR Random Glucose Calcium 01/12/21 05:31 MCV MCH MCHC RDW Plt Count MPV Immature Gran % (Auto) Neut % (Auto) Lymph % (Auto) [place] % (Auto) Eos % (Auto) Baso % (Auto) Lymph # (Auto) [place] # (Auto) Eos # (Auto) Baso # (Auto) Abs Immat Gran (auto) Absolute Neuts (auto) Absolute Nucleated RBC Nucleated RBC % (auto) Smear Tech's Comments PT INR Anion Gap 10 L Estim Creat Clear Calc 59.2 Estimated GFR > 60 Random Glucose 124 H D Calcium 7.9 L Assessment and Plan (1) Atelectasis: Status: Acute (2) Acute respiratory failure with hypoxia: Status: Acute Assessment and Plan: 75 years old lady with PMH of COPD presented to the hospital after having syncopal episode and hip fracture.? Required admission to ICU for acute hypoxic respiratory failure. Acute respiratory failure with hypoxia Secondary to COPD exacerbation/ pleural effusions/ Atelactasis Weaned down to 8-10L NC Continue Prednisone for short-term Continue nebulizers, to wean down to inhalers REpeated CXR showing increase in Rt Plueral effusion, patient against idea of tapping get Pulmonology to be contacted Atelectasis Continue chest physical therapy, incentive spirometry, flutter valve Continue Mucomyst Nebs Hip fracture Start physical therapy Left humeral fracture pain under control Orthopedic team, Nonweightbearing DVT PPX Xarelto Quality Stroke Does the patient have a stroke diagnosis?: No VTE Prior VTE?: No VTE Risk Level:: Medical - moderate - high VTE Device Contraindication: Patient Refused VTE Drug Contraindication: Patient Refused
--- NOTE | 2021-01-12 21:10 | PC.NURSE ---
patient very teary when this rn entered the room. she expressed that she wanted her daughter (the proxy) to get all her family together so she could say goodbye. when asked why she felt the need to say goodbye she stated i'm tired and I don't want this hanging over my families head. this rn reiterated that she has been doing better when compared to a few days ago and attempted to get further information of the sudden mood change. She appeared confused, most of her sentences not making full sense, most statements were stated as past tense. She is also becoming suspicious of the staff taking care of her, reporting she thinks people are trying to take her away.
[2021-01-13] VITALS (8 sets, daily range): BP systolic 108–138; BP diastolic 58–76; PULSE 86–95; RESP 18–20; TEMP 36–36.6; O2SAT 94–97
[2021-01-13 06:10] LABS: Anion Gap 10 (12-20); Blood Urea Nitrogen 15 mg/dL (9-16); Calcium 7.8 mg/dL (8.4-10.2); Carbon Dioxide 36 mmol/L (22-29); Chloride 93 mmol/L (96-108); Creatinine Clr Calc Pharmacy 63.6; Estimated Glomerular Filt Rate > 60; Glucose Random 87 mg/dL (60-115); Potassium 3.9 mmol/L (3.3-5.1); Sodium 135 mmol/L (135-145)
[2021-01-13] MEDS: Acetylcysteine 10 % 400 MG/4 ML VIAL INHALE ×2 (08:05→19:37)
[2021-01-13] MEDS: Albuterol/Iprat 2.5/0.5MG 3 ML AMPUL.NEB INHALE ×2 (08:05→11:32)
[2021-01-13] MEDS: predniSONE 10 MG TABLET 30 MG PO (10:16)
[2021-01-13] MEDS: 0.9 % Sodium Chloride Flush 3 ML SYRINGE IVFLUSH ×2 (10:17→17:44)
[2021-01-13] MEDS: guaiFENesin LA 600 MG TAB.ER.12H PO ×2 (10:17→20:49)
[2021-01-13] MEDS: Omeprazole 20 MG CAPSULE.DR PO (10:17)
[2021-01-13] MEDS: polyethylene glycoL 3350 17 GM POWD.PACK PO (13:58)
[2021-01-13] MEDS: Acetaminophen 325 MG TABLET 650 MG PO (13:58)
--- NOTE | 2021-01-13 14:20 | HO.PM.IMPN ---
Subjective Subjective Date of Service: 01/13/21 Interval History: The patient was seen and evaluated this morning Laying in bed, looks comfortable overall on 8-10 L of oxygen Still feeling weak with no much energy and does not feel like fighting this more No reported other overnight events. Systemic review: No fever, chills but generalized weakness No chest pain, palpitation No shortness of breath or coughing No abdominal pain, nausea or vomiting No urinary symptoms No any rash or wounds Physical Exam Vital Signs: Vital Signs: Last Vital Signs Temp 97.1 F 01/13/21 11:21 Pulse 95 01/13/21 11:34 Resp 20 01/13/21 11:21 BP 108/58 L 01/13/21 11:21 Pulse Ox 95 01/13/21 11:21 Body Mass Index 22.8 Const: Other: Constitutional : Alert, oriented, not in distress, on 8-10 L nasal cannula Neck : Normal inspection, Supple Cardiovascular : RRR, S1 S2, no lower extremity edema Respiratory : Decrease bilateral air entry, no crackles, scattered wheezes Gastrointestinal: soft, lax, Normal bowel sounds, Non tender Skin : Warm, Dry Neurological : Alert & oriented x3, No focal deficit Objective Data Current Medications Generic Name Dose Route Start Last Admin Trade Name Freq PRN Reason Stop Dose Admin Acetaminophen 650 mg 12/09/20 04:20 01/13/21 13:58 Acetaminophen 325 Mg Tablet PO 650 mg Q6H PRN Administration Pain, Mild (Pain Scale 1-3) Acetylcysteine 400 mg 01/11/21 12:10 01/13/21 08:05 Acetylcysteine 10 % 400 Mg/4 Ml Vial INHALE 400 mg RBID OMID Administration Albuterol/Ipratropium 3 ml 01/11/21 12:00 01/13/21 11:32 Albuterol/Iprat 2.5/0.5mg 3 Ml Ampul.Neb INHALE 3 ml RQ4H WHILE AWAKE OMID Administration Calcium Carbonate 750 mg 01/03/21 17:38 01/10/21 21:14 Calcium Carbonate 750 Mg Tab.Chew PO 750 mg Q6H PRN Administration heartburn Guaifenesin 600 mg 01/11/21 21:00 01/13/21 10:17 Guaifenesin La 600 Mg Tab.Er.12h PO 600 mg BID OMID Administration Loperamide HCl 2 mg 12/15/20 10:12 12/15/20 10:37 Loperamide Hcl 2 Mg Capsule PO 2 mg Q4H PRN Administration diarrhea Magnesium Hydroxide 30 ml 12/09/20 04:20 12/27/20 08:38 Milk Of Magnesia 30 Ml Oral.Susp PO 30 ml DAILY PRN Administration Constipation Morphine Sulfate 2 mg 01/11/21 15:30 01/12/21 21:03 Morphine Sulfate 2 Mg/Ml Cartridge IVPUSH 2 mg RQ4H PRN Administration Shortness Of Breath/Pain Protocol Omeprazole 20 mg 01/12/21 12:20 01/13/21 10:17 Omeprazole 20 Mg Capsule. PO 20 mg BID@0630,1300 OMID Administration Ondansetron HCl 4 mg 01/03/21 17:37 01/03/21 17:49 Ondansetron Hcl 4 Mg/2 Ml Vial IVPUSH 4 mg Q8H PRN Administration nausea Polyethylene Glycol 17 gm 01/09/21 09:28 01/13/21 13:58 Polyethylene Glycol 3350 17 Gm Powd.Pack PO 17 gm DAILY PRN Administration constipation Prednisone 30 mg 01/13/21 09:00 01/13/21 10:16 Prednisone 10 Mg Tablet PO 30 mg DAILY OMID Administration Sodium Chloride 3 ml 12/12/20 16:00 01/13/21 10:17 0.9 % Sodium Chloride Flush 3 Ml Syringe IVFLUSH 3 ml QSHIFT OMID Administration Labs CBC & Chem 7: 01/12/21 05:31 01/13/21 04:54 Labs: Laboratory Results - last 24 hr 01/13/21 04:54 Anion Gap 10 L Estim Creat Clear Calc 63.6 Estimated GFR > 60 Random Glucose 87 Calcium 7.8 L Assessment and Plan (1) Acute respiratory failure with hypoxia: Status: Acute (2) Atelectasis: Status: Acute Assessment and Plan: 75 years old lady with PMH of COPD presented to the hospital after having syncopal episode and hip fracture.? Required admission to ICU for acute hypoxic respiratory failure. Acute respiratory failure with hypoxia Secondary to COPD exacerbation/ pleural effusions/ Atelactasis Weaned down to 8-10L NC Continue Prednisone for short-term Continue nebulizers, to wean down to inhalers REpeated CXR showing increase in Rt Plueral effusion, patient against idea of tapping it again Pulmonology to be contacted Atelectasis Continue chest physical therapy, incentive spirometry, flutter valve Continue Mucomyst Nebs Hip fracture Start physical therapy Left humeral fracture pain under control Orthopedic team, Nonweightbearing DVT PPX Xarelto Quality Stroke Does the patient have a stroke diagnosis?: No VTE Prior VTE?: No VTE Risk Level:: Medical - moderate - high VTE Device Contraindication: Patient Refused VTE Drug Contraindication: Patient Refused
[2021-01-14] VITALS (11 sets, daily range): BP systolic 117–156; BP diastolic 60–90; PULSE 82–95; RESP 15–20; TEMP 36.2–36.8; O2SAT 92–96
[2021-01-14] MEDS: 0.9 % Sodium Chloride Flush 3 ML SYRINGE IVFLUSH ×4 (00:32→21:22)
[2021-01-14] MEDS: Omeprazole 20 MG CAPSULE.DR PO ×2 (05:33→16:31)
[2021-01-14] MEDS: Morphine Sulfate 2 MG/ML CARTRIDGE IVPUSH ×4 (06:01→21:20)
[2021-01-14] MEDS: Acetylcysteine 10 % 400 MG/4 ML VIAL INHALE (07:52)
[2021-01-14] MEDS: guaiFENesin LA 600 MG TAB.ER.12H PO (08:43)
[2021-01-14] MEDS: Acetaminophen 325 MG TABLET 650 MG PO (08:43)
[2021-01-14] MEDS: predniSONE 20 MG TABLET PO (08:44)
--- NOTE | 2021-01-14 10:26 | MHC.CM.PN ---
request a hospice imformational visit referral made to [facility]
--- NOTE | 2021-01-14 12:00 | HO.PM.IMPN ---
Subjective Subjective Date of Service: 01/14/21 Interval History: The patient was seen and evaluated this morning Laying in bed, on 8-10 L of oxygen Feels weak with no much energy left inhaler Report that she wants to as she does not want her children to suffer anymore and she has no energy to keep fighting this any longer No reported other overnight events. Systemic review: No fever, chills but generalized weakness No chest pain, palpitation On oxygen supplement does not feel short of breath No abdominal pain, nausea or vomiting No urinary symptoms No any rash or wounds Physical Exam Vital Signs: Vital Signs: Last Vital Signs Temp 97.1 F 01/14/21 10:58 Pulse 90 01/14/21 10:58 Resp 15 01/14/21 11:49 BP 117/60 01/14/21 10:58 Pulse Ox 95 01/14/21 10:58 Body Mass Index 22.8 Const: Other: Constitutional : Alert, oriented, not in distress, on 8-10 L nasal cannula Neck : Normal inspection, Supple Cardiovascular : RRR, S1 S2, no lower extremity edema Respiratory : Decrease bilateral air entry, no crackles, scattered wheezes Gastrointestinal: soft, lax, Normal bowel sounds, Non tender Skin : Warm, Dry Neurological : Alert & oriented x3, No focal deficit Objective Data Current Medications Generic Name Dose Route Start Last Admin Trade Name Pabloq PRN Reason Stop Dose Admin Acetaminophen 650 mg 12/09/20 04:20 01/14/21 08:43 Acetaminophen 325 Mg Tablet PO 650 mg Q6H PRN Administration Pain, Mild (Pain Scale 1-3) Acetylcysteine 400 mg 01/11/21 12:10 01/14/21 07:52 Acetylcysteine 10 % 400 Mg/4 Ml Vial INHALE 400 mg RBID OMID Administration Calcium Carbonate 750 mg 01/03/21 17:38 01/10/21 21:14 Calcium Carbonate 750 Mg Tab.Chew PO 750 mg Q6H PRN Administration heartburn Fluticasone/Vilanterol 1 puff 01/15/21 08:00 Fluticasone/Vilanterol 200/25 Blst.W.Dev INHALE RDAILY [facility] Guaifenesin 600 mg 01/11/21 21:00 01/14/21 08:43 Guaifenesin La 600 Mg Tab.Er.12h PO 600 mg BID OMID Administration Loperamide HCl 2 mg 12/15/20 10:12 12/15/20 10:37 Loperamide Hcl 2 Mg Capsule PO 2 mg Q4H PRN Administration diarrhea Magnesium Hydroxide 30 ml 12/09/20 04:20 12/27/20 08:38 Milk Of Magnesia 30 Ml Oral.Susp PO 30 ml DAILY PRN Administration Constipation Morphine Sulfate 2 mg 01/11/21 15:30 01/14/21 11:49 Morphine Sulfate 2 Mg/Ml Cartridge IVPUSH 2 mg RQ4H PRN Administration Shortness Of Breath/Pain Protocol Omeprazole 20 mg 01/12/21 12:20 01/14/21 05:33 Omeprazole 20 Mg Capsule. PO 20 mg BID@4352,0330 OMID Administration Ondansetron HCl 4 mg 01/03/21 17:37 01/03/21 17:49 Ondansetron Hcl 4 Mg/2 Ml Vial IVPUSH 4 mg Q8H PRN Administration nausea Polyethylene Glycol 17 gm 01/09/21 09:28 01/13/21 13:58 Polyethylene Glycol 3350 17 Gm Powd.Pack PO 17 gm DAILY PRN Administration constipation Prednisone 20 mg 01/14/21 09:00 01/14/21 08:44 Prednisone 20 Mg Tablet PO 20 mg DAILY OMID Administration Sodium Chloride 3 ml 12/12/20 16:00 01/14/21 08:44 0.9 % Sodium Chloride Flush 3 Ml Syringe IVFLUSH 3 ml QSHIFT OMID Administration Tiotropium Norco 1 puff 01/15/21 08:00 Tiotropium Norco 18 Mcg Cap.W.Dev INHALE RDAILY [facility] Labs CBC & Chem 7: 01/12/21 05:31 01/13/21 04:54 Assessment and Plan (1) Acute respiratory failure with hypoxia: Status: Acute Assessment and Plan: 75 years old lady with PMH of COPD presented to the hospital after having syncopal episode and hip fracture.? Required admission to ICU for acute hypoxic respiratory failure. Acute respiratory failure with hypoxia Secondary to COPD exacerbation/ pleural effusions/ Atelactasis Weaned down to 8-10L NC Continue Prednisone for short-term, tapering Discontinue nebulizers, start inhalers Breo and Spiriva REpeated CXR showing increase in Rt Plueral effusion, patient against idea of tapping it again Pulmonology to be contacted Atelectasis Continue chest physical therapy, incentive spirometry, flutter valve Continue Mucomyst Nebs Hip fracture As tolerated physical therapy Left humeral fracture pain under control Orthopedic team, Nonweightbearing Dispo Patient does not feel that she has enough energy to fly this and she does not want to go to nursing homes. She oriented to self and place. She reported that she would like to change her status back to hospice care. Her family is concerned that she is not in the right mind to take such decision. I will contact psychiatry team to address her capacity and will get hospice team evaluation to speak with the patient and family. DVT PPX SCDs, she had rectal bleeding on Xarelto Quality Stroke Does the patient have a stroke diagnosis?: No VTE Prior VTE?: No VTE Risk Level:: Medical - moderate - high VTE Device Contraindication: Patient Refused VTE Drug Contraindication: Patient Refused
[2021-01-14] MEDS: LORazepam 0.5 MG TABLET 0.25 MG PO (13:34)
--- NOTE | 2021-01-14 15:42 | MHC.CM.PN ---
met with tom from [facility] who came into have a imformational with pt and visiting family,,pt does not want to go to [facility] ,does not want to go to live with family wants to stay in hosptial and here .. imformed
[2021-01-15] VITALS (8 sets, daily range): BP systolic 102–170; BP diastolic 54–90; PULSE 68–94; RESP 14–20; TEMP 35.7–37.1; O2SAT 90–100
[2021-01-15] MEDS: Morphine Sulfate 2 MG/ML CARTRIDGE IVPUSH ×2 (06:16→11:37)
[2021-01-15] MEDS: Acetaminophen 325 MG TABLET 650 MG PO (08:44)
[2021-01-15] MEDS: LORazepam 0.5 MG TABLET 0.25 MG PO (08:44)
[2021-01-15] MEDS: Omeprazole 20 MG CAPSULE.DR PO (08:45)
[2021-01-15] MEDS: guaiFENesin LA 600 MG TAB.ER.12H PO ×2 (08:45→19:45)
[2021-01-15] MEDS: 0.9 % Sodium Chloride Flush 3 ML SYRINGE IVFLUSH ×3 (08:45→19:45)
[2021-01-15] MEDS: predniSONE 20 MG TABLET PO (08:45)
--- NOTE | 2021-01-15 15:11 | MHC.CM.PN ---
awaiting psych eval..bed search continues
--- NOTE | 2021-01-15 15:58 | PM.PSYCN ---
History of Present Illness Date of Service: 01/15/21 Chief Complaint: COPD/Hip Fx Reason for Consult: decisional capacity HPI Narrative: admitted with hip fx, COPD. period of severe illness once hospitalized such that pt was requiring up to 50L O2. consideration with given to withdrawing care. pt vacillated between NAVIGATING OFFICER and standard care. pt's clinical course improved such that now she is requiring only 6-7L O2 per minute. despite her radical clinical improvement and lack of likely demise should care be withdrawn, she remains somewhat ambivalent re NAVIGATING OFFICER versus usual care. inpt provider has requested consult for decisional capacity out of concern for illogical position and apparent waxing and waning mental status. on interview with MD, pt presents as calm, cooperative, and agreeable. much of the interaction was WNL for mental status examination, and the patient was likable and well-related. pertinent symptoms include her regularly losing the thread of the conversation and asking for questions to be repeated, her regularly having difficulty expressing her meaning and becoming frustrated with herself, her lack of orientation to year (in error by 120 years), and her apparent rigidity of thought and inability to appreciate her current medical position. she appeared overly attached to her previous condition and promises which had been made to her about allowing her to quickly and painlessly at the time, according to her recollection. she did not seem to be able to integrate that her clinical condition had changed and with it options for responding. she expressed some paranoia that her attending physician and her daughter are acting in cahoots in order to take away her autonomy. she strongly valued her autonomy and right to self-determination and bristled at the thought of anyone else attempting to direct her care. in addition to the various somewhat subtle attentional and cognitive deficits described above, she also reported a severely depressed mood over many months, very much predating her relatively recent medical problems. that she would express such a severe level of consistently depressed mood over such a substantial period of time is also very concerning for unrecognized and treated depression. her imprairment in attention so substantially affects her ability to receive, retain, and integrate new information such that it is the opinion of this publicity writer that this patient presently lacks medical decision making capacity. Past Psychiatric History: denies h/o psych hospitalizations. denies h/o psychiatric treatment of any sort (aside from a single consultation regarding her relationship with her daughter). denies h/o suicide attempt, self-injurious behavior, or harm to others. denies any trauma history. Medical Evaluation Reviewed: Yes Personal & Social History: did not finish 8th grade. 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 states she has 6 children and was in 2008. [facility] Medical History (Updated 01/15/21 @ 16:14 by Bryson Larson) Acute and chronic respiratory failure COPD (chronic obstructive pulmonary disease) COPD exacerbation Hypertension Pleural effusion, bacterial Respiratory failure, acute and chronic Family History: denies any FH of mental health or substance use illness Substance History: smoking - regularly until present hospitalization (about one month ago). alcohol - drinks 1-2 nights weekly, about 4 drinks per episode. denies use or abuse of other substances. Trauma History: denies Diagnostics Vital Signs (24Hr): Vital Signs - 24 hr 01/14/21 16:32 01/14/21 19:35 01/14/21 21:20 Temperature 98.2 F Pulse Rate 83 Respiratory Rate 15 18 15 Blood Pressure 153/75 H Pulse Oximetry 94 01/14/21 23:21 01/15/21 03:35 01/15/21 06:16 Temperature 98.0 F 96.3 F L Pulse Rate 82 79 Respiratory Rate 20 18 14 Blood Pressure 140/90 H 170/90 H Pulse Oximetry 96 100 01/15/21 07:21 01/15/21 11:39 01/15/21 15:13 Temperature 97.5 F 97.6 F 97.2 F Pulse Rate 80 94 81 Respiratory Rate 19 18 17 Blood Pressure 152/78 H 102/54 L 142/76 H Pulse Oximetry 97 90 L 92 Body Mass Index 22.8 Labs Results: 01/12/21 05:31 01/13/21 04:54 Imaging Radiology Impressions: ITS Impressions Cervical Spine CT 12/09/20 00:58 IMPRESSION: No acute findings identified in the head or cervical spine. Degenerative changes of the cervical spine. Elbow X-Ray 12/09/20 00:58 IMPRESSION: No acute findings identified. Head CT 12/09/20 00:58 IMPRESSION: No acute findings identified in the head or cervical spine. Degenerative changes of the cervical spine. Hip/Pelvis X-Ray 12/09/20 00:58 IMPRESSION: Shortened appearance of the left femoral neck suspicious for impacted fracture in the setting of trauma. Shoulder X-Ray 12/09/20 00:58 IMPRESSION: Mildly displaced fracture of the proximal humerus involving the neck and greater tuberosity. Chest X-Ray 12/09/20 05:55 IMPRESSION: Coarsened interstitial markings may reflect acute or chronic airways disease. No focal consolidation. Guidance Fluoroscopy 12/12/20 10:20 IMPRESSION: Fluoroscopic guidance for ORIF of right femoral neck fracture. Chest CTA 12/13/20 21:22 IMPRESSION: 1. No evidence of pulmonary embolism. Assessment of the subsegmental pulmonary arteries within the lower lobes is limited due to consolidations. 2. Complete consolidation of the lower lobes bilaterally, possibly due to compressive atelectasis from moderate bilateral pleural effusions. 3. There is a 1.6 x 1.2 cm heterogeneous nodule extending from the inferior margin of the thyroid gland into the substernal space. Although follow-up thyroid ultrasound is indicated, visualization may be difficult due to the substernal location. 4. Pulmonary emphysema. 5. Coronary artery disease. 6. Acute humeral head fracture, better seen on dedicated radiographs performed recently. 7. Nodular enlargement of the adrenal glands bilaterally, nonspecific but likely due to adrenal hyperplasia. VTE: negative Chest X-Ray 12/15/20 10:10 IMPRESSION: Moderate bilateral effusions similar to decreased when compared with the CTA chest 12/13/2020. Chest X-Ray 12/18/20 09:23 IMPRESSION: Moderate bilateral pleural effusions. No change from previous exam. Chest X-Ray 12/22/20 12:02 IMPRESSION: Moderate-sized bilateral pleural effusions not appreciably changed from previous exams. Thoracentesis/Paracentesis US 12/25/20 16:00 IMPRESSION: Successful ultrasound-guided right thoracentesis performed. Chest x-ray was to be obtained postprocedure. Chest X-Ray 12/25/20 16:35 IMPRESSION: Post right thoracentesis there is no visible pneumothorax. There is a right middle lobe atelectasis. Suspect small left pleural effusion with underlying atelectasis. Chest X-Ray 12/28/20 22:20 IMPRESSION: Trace right-sided pleural effusion, new when compared to the prior examination. Resolution of the previously seen probable left-sided pleural effusion. Chest X-Ray 12/29/20 15:30 IMPRESSION: Stable appearance of the chest with right base disease. Shoulder X-Ray 12/30/20 10:45 IMPRESSION: Overall relatively stable appearance of the comminuted left proximal humeral fracture. Chest X-Ray 01/11/21 10:47 IMPRESSION: Enlarging right pleural effusion. Left lower lobe disease which may relate to atelectasis or pneumonitis. Mental Status Exam Mental Status Exam Narrative: dressed in hospital heather, reclining in bed. adequately groomed, which is to say, disheveled. cooperative with interview. speech nml in rate, amount, loudness, tone, latency. thoughts linear and logical although sometimes losing train of thought and appearing forgetful. affect full range, appropriate to context, normo-intense, non-labile. mood very sad and depressed. reports daily SI. no HI/AVH expressed. noted the day to be fridaydecember 28 or so, in the year 1900. states the season is going into fall. reports she is in [place] today. able to say a hospital fairly quickly. took a longer time to be able to assert she is at [facility]. unable to do serial 7s from 100, serial 3s from 20, or spell WORLD backward (although she is able to spell it forward quickly and accurately). has 2/3 recall at several minutes. Medications Medications Current Medications Generic Name Dose Route Start Last Admin Trade Name Freq PRN Reason Stop Dose Admin Acetaminophen 650 mg 12/09/20 04:20 01/15/21 08:44 Acetaminophen 325 Mg Tablet PO 650 mg Q6H PRN Administration Pain, Mild (Pain Scale 1-3) Calcium Carbonate 750 mg 01/03/21 17:38 01/10/21 21:14 Calcium Carbonate 750 Mg Tab.Chew PO 750 mg Q6H PRN Administration heartburn Fluticasone/Vilanterol 1 puff 01/15/21 08:00 01/15/21 07:18 Fluticasone/Vilanterol 200/25 Blst.W.Dev INHALE Not Given RDAILY [facility] Guaifenesin 600 mg 01/11/21 21:00 01/15/21 08:45 Guaifenesin [place] 600 Mg Tab.Er.12h PO 600 mg BID [facility] Administration Loperamide HCl 2 mg 12/15/20 10:12 12/15/20 10:37 Loperamide Hcl 2 Mg Capsule PO 2 mg Q4H PRN Administration diarrhea Lorazepam 0.25 mg 01/14/21 12:03 01/15/21 08:44 Lorazepam 0.5 Mg Tablet PO 0.25 mg Q6H PRN Administration anxiety/restlessness Magnesium Hydroxide 30 ml 12/09/20 04:20 12/27/20 08:38 Milk Of Magnesia 30 Ml Oral.Susp PO 30 ml DAILY PRN Administration Constipation Morphine Sulfate 2 mg 01/14/21 12:04 01/15/21 11:37 Morphine Sulfate 2 Mg/Ml Cartridge IVPUSH 2 mg Q3H PRN Administration Shortness Of Breath/Pain Protocol Nystatin 1 appl 01/15/21 21:00 Nystatin Cream 15 Gm Tube TOPICAL BID [facility] Protocol Omeprazole 20 mg 01/12/21 12:20 01/15/21 08:45 Omeprazole 20 Mg Capsule. PO 20 mg BID@0630,3110 [facility] Administration Ondansetron HCl 4 mg 01/03/21 17:37 01/03/21 17:49 Ondansetron Hcl 4 Mg/2 Ml Vial IVPUSH 4 mg Q8H PRN Administration nausea Polyethylene Glycol 17 gm 01/09/21 09:28 01/13/21 13:58 Polyethylene Glycol 3350 17 Gm Powd.Pack PO 17 gm DAILY PRN Administration constipation Prednisone 20 mg 01/14/21 09:00 01/15/21 08:45 Prednisone 20 Mg Tablet PO 20 mg DAILY [facility] Administration Sodium Chloride 3 ml 12/12/20 16:00 01/15/21 08:45 0.9 % Sodium Chloride Flush 3 Ml Syringe IVFLUSH 3 ml QSHIFT [facility] Administration Tiotropium [place] 1 puff 01/15/21 08:00 01/15/21 07:19 Tiotropium [place] 18 Mcg Cap.W.Dev INHALE Not Given RDAILY [facility] Allergies Allergies Allergy/AdvReac Type Severity Reaction Status Date / Time No Known Allergies Allergy Verified 12/09/20 00:58 Assessment & Plan Assessment & Plan (1) Delirium due to another medical condition: Status: Acute Code(s): F05 - Delirium due to known physiological condition Assessment and Plan: pt has delirium due to her prolonged medical illness during the present hospitalization. Assessment and Plan: the patient's cognitive performance is sufficiently impaired by her delirium (and perhaps depression) that she is currently assessed as lacking in decisional capacity for medical decisions. her HCP oir alternate medical decision maker should be invoked. this is a fluid circumstance and the opinion may need to be updated if conditions are perceived to have changed. Greater than 50% of the session was spent on counseling and/or coordination of care
--- NOTE | 2021-01-15 17:05 | HO.PM.IMPN ---
Subjective Subjective Date of Service: 01/15/21 Interval History: The patient was seen and evaluated this morning Laying in bed, on 6-8 L of oxygen Less interactive today and looks weaker More confused per nursing staff No reported other overnight events. Systemic review: No fever, chills but generalized weakness No chest pain, palpitation On oxygen supplement does not feel short of breath No abdominal pain, nausea or vomiting No urinary symptoms No any rash or wounds Physical Exam Vital Signs: Vital Signs: Last Vital Signs Temp 97.2 F 01/15/21 15:13 Pulse 81 01/15/21 15:13 Resp 17 01/15/21 15:13 BP 142/76 H 01/15/21 15:13 Pulse Ox 92 01/15/21 15:13 Body Mass Index 22.8 Const: Other: Constitutional : Alert, oriented to self only not in distress, on 6-8 L nasal cannula Neck : Normal inspection, Supple Cardiovascular : RRR, S1 S2, no lower extremity edema Respiratory : Decrease bilateral air entry, no crackles, scattered wheezes Gastrointestinal: soft, lax, Normal bowel sounds, Non tender Skin : Warm, Dry Neurological : Alert & oriented to self but otherwise confused, No focal deficit Objective Data Current Medications Generic Name Dose Route Start Last Admin Trade Name Freq PRN Reason Stop Dose Admin Acetaminophen 650 mg 12/09/20 04:20 01/15/21 08:44 Acetaminophen 325 Mg Tablet PO 650 mg Q6H PRN Administration Pain, Mild (Pain Scale 1-3) Calcium Carbonate 750 mg 01/03/21 17:38 01/10/21 21:14 Calcium Carbonate 750 Mg Tab.Chew PO 750 mg Q6H PRN Administration heartburn Fluticasone/Vilanterol 1 puff 01/15/21 08:00 01/15/21 07:18 Fluticasone/Vilanterol 200/25 Blst.W.Dev INHALE Not Given RDAILY [facility] Guaifenesin 600 mg 01/11/21 21:00 01/15/21 08:45 Guaifenesin [place] 600 Mg Tab.Er.12h PO 600 mg BID [facility] Administration Loperamide HCl 2 mg 12/15/20 10:12 12/15/20 10:37 Loperamide Hcl 2 Mg Capsule PO 2 mg Q4H PRN Administration diarrhea Magnesium Hydroxide 30 ml 12/09/20 04:20 12/27/20 08:38 Milk Of Magnesia 30 Ml Oral.Susp PO 30 ml DAILY PRN Administration Constipation Morphine Sulfate 1 mg 01/15/21 17:05 Morphine Sulfate 2 Mg/Ml Cartridge IVPUSH Q3H PRN Shortness Of Breath/Pain Protocol Nystatin 1 appl 01/15/21 21:00 Nystatin Cream 15 Gm Tube TOPICAL BID [facility] Protocol Omeprazole 20 mg 01/12/21 12:20 01/15/21 08:45 Omeprazole 20 Mg Capsule.Dr PO 20 mg BID@0630,1630 [facility] Administration Ondansetron HCl 4 mg 01/03/21 17:37 01/03/21 17:49 Ondansetron Hcl 4 Mg/2 Ml Vial IVPUSH 4 mg Q8H PRN Administration nausea Polyethylene Glycol 17 gm 01/09/21 09:28 01/13/21 13:58 Polyethylene Glycol 3350 17 Gm Powd.Pack PO 17 gm DAILY PRN Administration constipation Prednisone 20 mg 01/14/21 09:00 01/15/21 08:45 Prednisone 20 Mg Tablet PO 20 mg DAILY [facility] Administration Sodium Chloride 3 ml 12/12/20 16:00 01/15/21 08:45 0.9 % Sodium Chloride Flush 3 Ml Syringe IVFLUSH 3 ml QSHIFT [facility] Administration Tiotropium [place] 1 puff 01/15/21 08:00 01/15/21 07:19 Tiotropium [place] 18 Mcg Cap.W.Dev INHALE Not Given RDAILY [facility] Labs CBC & Chem 7: 01/12/21 05:31 01/13/21 04:54 Assessment and Plan (1) Delirium due to another medical condition: Status: Acute (2) Acute respiratory failure with hypoxia: Status: Acute (3) COPD (chronic obstructive pulmonary disease): Status: Acute Assessment and Plan: 75 years old lady with PMH of COPD presented to the hospital after having syncopal episode and hip fracture.? Required admission to ICU for acute hypoxic respiratory failure. Acute respiratory failure with hypoxia Secondary to COPD exacerbation/ pleural effusions/ Atelactasis Weaned down to 8-10L NC Continue Prednisone for short-term, tapering Continue inhalers Breo and Spiriva REpeated CXR showing Rt Plueral effusion, patient against idea of tapping it again Atelectasis Continue chest physical therapy, incentive spirometry, flutter valve Discontinue Mucomyst Nebs Metabolic encephalopathy Secondary to inpatient delirium Decrease Ativan morphine Recurrent reorientation Psychiatry input appreciated, invoke healthcare proxy Hip fracture As tolerated physical therapy Left humeral fracture pain under control Orthopedic team, Nonweightbearing Dispo Healthcare proxy improved and contacted regarding plan. Consider short-term rehab for the time being and possible hospice care if patient is not improving down the road. DVT PPX SCDs, she had rectal bleeding on Xarelto Quality Stroke Does the patient have a stroke diagnosis?: No VTE Prior VTE?: No VTE Risk Level:: Medical - moderate - high VTE Device Contraindication: Patient Refused VTE Drug Contraindication: Patient Refused
[2021-01-15] MEDS: Morphine Sulfate 2 MG/ML CARTRIDGE 1 MG IVPUSH (19:45)
[2021-01-15] MEDS: Nystatin Cream 15 GM TUBE 1 APPL TOPICAL (19:49)
[2021-01-16] VITALS (9 sets, daily range): BP systolic 110–158; BP diastolic 66–76; PULSE 82–92; RESP 16–22; TEMP 36.2–37; O2SAT 91–98
[2021-01-16] MEDS: Morphine Sulfate 2 MG/ML CARTRIDGE 1 MG IVPUSH ×3 (05:09→23:39)
[2021-01-16] MEDS: Omeprazole 20 MG CAPSULE.DR PO ×2 (05:09→17:41)
[2021-01-16] MEDS: Fluticasone/Vilanterol 200/25 BLST.W.DEV 1 PUFF INHALE (08:28)
[2021-01-16] MEDS: Acetaminophen 325 MG TABLET 650 MG PO (08:46)
[2021-01-16] MEDS: 0.9 % Sodium Chloride Flush 3 ML SYRINGE IVFLUSH ×3 (08:47→19:43)
[2021-01-16] MEDS: guaiFENesin LA 600 MG TAB.ER.12H PO ×2 (10:00→19:43)
[2021-01-16] MEDS: Nystatin Cream 15 GM TUBE 1 APPL TOPICAL ×2 (10:02→19:45)
--- NOTE | 2021-01-16 10:21 | PC.NURSE ---
pt states she thinks decisions are being made without her knowledge/consent. Pt also states she is tired of being alive but states she does not want to kill or harm herself, she states she has been ill for a long time and is ready to go . Pt calm, cooperative and oriented. Was able to discuss pt's wishes with her, also explained case management would assist her in finding a plan that she is comfortable with. She states she is in no distress at this time, states her appetite has been poor. will continue to monitor
--- NOTE | 2021-01-16 11:01 | MHC.CLN ---
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
--- NOTE | 2021-01-16 11:28 | P.PNIM_ITS ---
Subjective Subjective Date of Service: 01/16/21 Interval History: The patient was seen and evaluated this morning Laying in bed, on 5L of oxygen Looks comfortable overall, we discussed the plan of either hospice care or start physical therapy Sometimes aggressive confused per nursing staff No reported other overnight events. Systemic review: No fever, chills but generalized weakness No chest pain, palpitation On oxygen supplement does not feel short of breath No abdominal pain, nausea or vomiting No urinary symptoms No any rash or wounds Physical Exam Vital Signs: Vital Signs: Last Vital Signs Temp 97.3 F 01/16/21 11:00 Pulse 82 01/16/21 11:00 Resp 20 01/16/21 11:00 BP 130/72 01/16/21 11:00 Pulse Ox 91 L 01/16/21 11:00 Body Mass Index 22.8 Const: Other: Constitutional : Alert, oriented to self only not in distress, on 5L nasal cannula Neck : Normal inspection, Supple Cardiovascular : RRR, S1 S2, no lower extremity edema Respiratory : Decrease bilateral air entry, no crackles, scattered wheezes Gastrointestinal: soft, lax, Normal bowel sounds, Non tender Skin : Warm, Dry Neurological : Alert & oriented to self but otherwise confused, No focal deficit Objective Data Current Medications Generic Name Dose Route Start Last Admin Trade Name Freq PRN Reason Stop Dose Admin Acetaminophen 650 mg 12/09/20 04:20 01/16/21 08:46 Acetaminophen 325 Mg Tablet PO 650 mg Q6H PRN Administration Pain, Mild (Pain Scale 1-3) Calcium Carbonate 750 mg 01/03/21 17:38 01/10/21 21:14 Calcium Carbonate 750 Mg Tab.Chew PO 750 mg Q6H PRN Administration heartburn Fluticasone/Vilanterol 1 puff 01/15/21 08:00 01/16/21 08:28 Fluticasone/Vilanterol 200/25 Blst.W.Dev INHALE 1 puff RDAILY [facility] Administration Guaifenesin 600 mg 01/11/21 21:00 01/16/21 10:00 Guaifenesin [place] 600 Mg Tab.Er.12h PO 600 mg BID [facility] Administration Loperamide HCl 2 mg 12/15/20 10:12 12/15/20 10:37 Loperamide Hcl 2 Mg Capsule PO 2 mg Q4H PRN Administration diarrhea Magnesium Hydroxide 30 ml 12/09/20 04:20 12/27/20 08:38 Milk Of Magnesia 30 Ml Oral.Susp PO 30 ml DAILY PRN Administration Constipation Nystatin 1 appl 01/15/21 21:00 01/16/21 10:02 Nystatin Cream 15 Gm Tube TOPICAL 1 appl BID [facility] Administration Protocol Omeprazole 20 mg 01/12/21 12:20 01/16/21 05:09 Omeprazole 20 Mg Capsule.Dr PO 20 mg BID@0630,1630 [facility] Administration Ondansetron HCl 4 mg 01/03/21 17:37 01/03/21 17:49 Ondansetron Hcl 4 Mg/2 Ml Vial IVPUSH 4 mg Q8H PRN Administration nausea Polyethylene Glycol 17 gm 01/09/21 09:28 01/13/21 13:58 Polyethylene Glycol 3350 17 Gm Powd.Pack PO 17 gm DAILY PRN Administration constipation Sodium Chloride 3 ml 12/12/20 16:00 01/16/21 08:47 0.9 % Sodium Chloride Flush 3 Ml Syringe IVFLUSH 3 ml QSHIFT [facility] Administration Tiotropium [place] 1 puff 01/15/21 08:00 01/16/21 08:28 Tiotropium [place] 18 Mcg Cap.W.Dev INHALE 1 puff RDAILY [facility] Administration Labs CBC & Chem 7: 01/12/21 05:31 01/13/21 04:54 Assessment and Plan (1) Delirium due to another medical condition: Status: Acute (2) Acute respiratory failure with hypoxia: Status: Acute Assessment and Plan: 75 years old lady with PMH of COPD presented to the hospital after having syncopal episode and hip fracture.? Required admission to ICU for acute hypoxic respiratory failure. Acute respiratory failure with hypoxia Secondary to COPD exacerbation/ pleural effusions/ Atelactasis Weaned down to 5L NC Discontinue prednisone Continue inhalers Breo and Spiriva REpeated CXR on 01/11 showing Rt Plueral effusion, patient against idea of t apping it again Atelectasis Continue chest physical therapy, incentive spirometry, flutter valve Discontinue Mucomyst Nebs Metabolic encephalopathy Secondary to inpatient delirium Decrease Ativan morphine Recurrent reorientation Psychiatry input appreciated, invoke healthcare proxy Hip fracture As tolerated physical therapy Left humeral fracture pain under control Orthopedic team, Nonweightbearing Dispo Healthcare proxy improved and contacted regarding plan. Consider short-term rehab for the time being and possible hospice care if patient is not improving down the road. DVT PPX SCDs, she had rectal bleeding on Xarelto 10mg Quality Stroke Does the patient have a stroke diagnosis?: No VTE Prior VTE?: No VTE Risk Level:: Medical - moderate - high VTE Device Contraindication: Patient Refused VTE Drug Contraindication: Patient Refused
--- NOTE | 2021-01-16 14:45 | MHC.CM.PN ---
per rn pt appears to be suicidal will contact md peterson same..?psych placement
--- NOTE | 2021-01-16 15:40 | MHC.CM.PN ---
MET WITH PT AND LIBBY PT IS NOW AGREEABLE TO HOME WITH HOSPICE T/W HAS ASKED HOSPICE TO CONTACT [facility] TO COMPLETE ARRANGEMENTS PT IS READY FOR DC HOPEFUL FOR TOMORROW.PT LIVES WITH A DGTER AND SON WITH ATTACHED HOUSING TO PT./
--- NOTE | 2021-01-16 16:36 | PM.PSYCN ---
History of Present Illness Date of Service: 01/16/21 Chief Complaint: COPD/Hip Fx Reason for Consult: medication consult Requesting physician: Payam Aguayo Discussed with referring provider: Yes Sources of Information: patient interviewed and chart reviewed HPI Narrative: 75 y.o. Female who presented to the ED on 12/09/20 with chief complaint of fall after having syncopal episode (no loss of consciousness). She required admission to [facility] for acute hypoxic respiratory failure. She has a medical history of COPD on home oxygen, HTN, repeated falls. She was diagnosed with a UTI in the ED, treated with ceftriaxone. She was noted to have left femoral neck and left humerus fracture on imaging. No cardiac concerns, EKG wnl.? During the course of hospitalization, she had periods of severe dyspnea requiring up to 50 L O2, vacillated between [facility] INFORMATION CLERK and standard care. She is not improved, requiring only 5L O2 via nasal cannula.? Psych consult was requested due to patient?s ambivalence regarding HEALTH INFORMATION CLERK versus standard care to determine decisional capacity out of concern for waxing and waning mental status. She was seen by Dr. Larson on 01/15/21 and he determined she lacks decisional capacity for medical decisions due to insufficient cognitive performance, impaired by her delirium and perhaps depression. Her HCP was invoked, who is her daughter Karey. Most recent plans for discharge are to either hospice or short term rehab for physical therapy.? ? Consult was requested for re-assessment today due to Alexandra stating to nursing staff she has a plan to refuse PO fluids and nutrition in an attempt at precipitous .?Of note, per RN she stated this while drinking water. I evaluated the patient this afternoon and upon interview she stated she feels ?crappy.? She is forthcoming with her passive suicidal thoughts, states ?I dont want to be here,? but denies plan or intent to harm herself. However, she does make statements such as ?do you have a gun,? or ?I would overdose to be out of this body i?m in, i?d be grateful? but then says she is ?joking.? And she does say that she should not be reliant on having access to her medications due to risk of overdose. Says ?I want some peace.? I asked about her history of depression, states ?sometimes I get a little depressed,? notes that this is not a new symptom and she has felt this way for ?a while.? She was prescribed prozac 10 mg in the OP setting, last filled 10/31/20, she is unsure why this was stopped but does not think it was helping as she says she felt the same way on the antidepressant. She reports exacerbating factors for her mood are stress, feeling physically uncomfortable. Says she misses her , who in 2008, tearful talking about him, has his photo by her bed. Also says she misses her mom and step-dad. Alexandra states her sleep is poor, even prior to the hospital, only sleeps ?a couple hours? at night. Also says her appetite is low, this is baseline. I asked about her discharge plans and she stated ?I dont know whats going on,? but thinks her daughters are working on getting her home with nursing support.? I spoke with patient?s daughter, Karey, who reports her mother has had a passive wish for some time. Says the plan is to bring her mother home and have both daughters (Karey and Martha, neither are employed at this time) help care for her along with nursing support. She agrees that her mom will not have access to her medications and will have someone else responsible for medication administration. Discussed having a locked box. Karey reports her mom has had issues with sleep and eats ?like a bird? at baseline. Past Psychiatric History: denies h/o psych hospitalizations. denies h/o psychiatric treatment of any sort (aside from a single consultation regarding her relationship with her daughter). denies h/o suicide attempt, self-injurious behavior, or harm to others. denies any trauma history. Medical Evaluation Reviewed: Yes [facility] Medical History (Updated 01/17/21 @ 10:24 by Romina Mayo NP) Acute and chronic respiratory failure COPD (chronic obstructive pulmonary disease) COPD exacerbation Hypertension Pleural effusion, bacterial Respiratory failure, acute and chronic Family History: denies any FH of mental health or substance use illness Trauma History: denies Diagnostics Vital Signs (24Hr): Vital Signs - 24 hr 01/15/21 19:42 01/15/21 19:45 01/15/21 23:10 Temperature 97.1 F 98.7 F Pulse Rate 81 68 Respiratory Rate 18 20 18 Blood Pressure 140/71 H 167/86 H Pulse Oximetry 93 92 01/16/21 03:14 01/16/21 05:09 01/16/21 07:21 Temperature 98.6 F 97.2 F Pulse Rate 86 83 Respiratory Rate 18 20 18 Blood Pressure 158/68 H 119/66 Pulse Oximetry 98 92 01/16/21 11:00 01/16/21 15:39 Temperature 97.3 F 97.7 F Pulse Rate 82 87 Respiratory Rate 20 16 Blood Pressure 130/72 110/66 Pulse Oximetry 91 L 93 Body Mass Index 22.8 Labs Results: 01/12/21 05:31 01/13/21 04:54 Imaging Radiology Impressions: ITS Impressions Cervical Spine CT 12/09/20 00:58 IMPRESSION: No acute findings identified in the head or cervical spine. Degenerative changes of the cervical spine. Elbow X-Ray 12/09/20 00:58 IMPRESSION: No acute findings identified. Head CT 12/09/20 00:58 IMPRESSION: No acute findings identified in the head or cervical spine. Degenerative changes of the cervical spine. Hip/Pelvis X-Ray 12/09/20 00:58 IMPRESSION: Shortened appearance of the left femoral neck suspicious for impacted fracture in the setting of trauma. Shoulder X-Ray 12/09/20 00:58 IMPRESSION: Mildly displaced fracture of the proximal humerus involving the neck and greater tuberosity. Chest X-Ray 12/09/20 05:55 IMPRESSION: Coarsened interstitial markings may reflect acute or chronic airways disease. No focal consolidation. Guidance Fluoroscopy 12/12/20 10:20 IMPRESSION: Fluoroscopic guidance for ORIF of right femoral neck fracture. Chest CTA 12/13/20 21:22 IMPRESSION: 1. No evidence of pulmonary embolism. Assessment of the subsegmental pulmonary arteries within the lower lobes is limited due to consolidations. 2. Complete consolidation of the lower lobes bilaterally, possibly due to compressive atelectasis from moderate bilateral pleural effusions. 3. There is a 1.6 x 1.2 cm heterogeneous nodule extending from the inferior margin of the thyroid gland into the substernal space. Although follow-up thyroid ultrasound is indicated, visualization may be difficult due to the substernal location. 4. Pulmonary emphysema. 5. Coronary artery disease. 6. Acute humeral head fracture, better seen on dedicated radiographs performed recently. 7. Nodular enlargement of the adrenal glands bilaterally, nonspecific but likely due to adrenal hyperplasia. VTE: negative Chest X-Ray 12/15/20 10:10 IMPRESSION: Moderate bilateral effusions similar to decreased when compared with the CTA chest 12/13/2020. Chest X-Ray 12/18/20 09:23 IMPRESSION: Moderate bilateral pleural effusions. No change from previous exam. Chest X-Ray 12/22/20 12:02 IMPRESSION: Moderate-sized bilateral pleural effusions not appreciably changed from previous exams. Thoracentesis/Paracentesis US 12/25/20 16:00 IMPRESSION: Successful ultrasound-guided right thoracentesis performed. Chest x-ray was to be obtained postprocedure. Chest X-Ray 12/25/20 16:35 IMPRESSION: Post right thoracentesis there is no visible pneumothorax. There is a right middle lobe atelectasis. Suspect small left pleural effusion with underlying atelectasis. Chest X-Ray 12/28/20 22:20 IMPRESSION: Trace right-sided pleural effusion, new when compared to the prior examination. Resolution of the previously seen probable left-sided pleural effusion. Chest X-Ray 12/29/20 15:30 IMPRESSION: Stable appearance of the chest with right base disease. Shoulder X-Ray 12/30/20 10:45 IMPRESSION: Overall relatively stable appearance of the comminuted left proximal humeral fracture. Chest X-Ray 01/11/21 10:47 IMPRESSION: Enlarging right pleural effusion. Left lower lobe disease which may relate to atelectasis or pneumonitis. Mental Status Exam Mental Status Exam Narrative: In hospital attire, lying down, somewhat unkempt and frail looking. Good eye contact, mostly attentive. No Tics or Tremors. No abnormal involuntary movements. Calm, cooperative, engaged. Non-pressured speech, spontaneous with regular rate and rhythm, normal volume and prosody. No prolonged speech latency or dysarthria. Mood is ?crappy,? affect is constricted. Endorses SI with vague plans, denies intent at this time. Denies SIB/HI upon inquiry. Denies A/VH or delusional thought content. Thoughts are coherent, ruminative. Has cognitive/ memory impairment secondary to depression, delirium. Insight/ Judgment limited. Medications Medications Current Medications Generic Name Dose Route Start Last Admin Trade Name Freq PRN Reason Stop Dose Admin Acetaminophen 650 mg 12/09/20 04:20 01/16/21 08:46 Acetaminophen 325 Mg Tablet PO 650 mg Q6H PRN Administration Pain, Mild (Pain Scale 1-3) Calcium Carbonate 750 mg 01/03/21 17:38 01/10/21 21:14 Calcium Carbonate 750 Mg Tab.Chew PO 750 mg Q6H PRN Administration heartburn Fluticasone/Vilanterol 1 puff 01/15/21 08:00 01/16/21 08:28 Fluticasone/Vilanterol 200/25 Blst.W.Dev INHALE 1 puff RDAILY OMID Administration Guaifenesin 600 mg 01/11/21 21:00 01/16/21 10:00 Guaifenesin [place] 600 Mg Tab.Er.12h PO 600 mg BID OMID Administration Loperamide HCl 2 mg 12/15/20 10:12 12/15/20 10:37 Loperamide Hcl 2 Mg Capsule PO 2 mg Q4H PRN Administration diarrhea Magnesium Hydroxide 30 ml 12/09/20 04:20 12/27/20 08:38 Milk Of Magnesia 30 Ml Oral.Susp PO 30 ml DAILY PRN Administration Constipation Morphine Sulfate 1 mg 01/16/21 11:37 Morphine Sulfate 2 Mg/Ml Cartridge IVPUSH Q4H PRN Pain, Severe (Pain Scale 7-10) Protocol Nystatin 1 appl 01/15/21 21:00 01/16/21 10:02 Nystatin Cream 15 Gm Tube TOPICAL 1 appl BID OMID Administration Protocol Omeprazole 20 mg 01/12/21 12:20 01/16/21 05:09 Omeprazole 20 Mg Capsule.Dr PO 20 mg BID@0630,1630 OMID Administration Ondansetron HCl 4 mg 01/03/21 17:37 01/03/21 17:49 Ondansetron Hcl 4 Mg/2 Ml Vial IVPUSH 4 mg Q8H PRN Administration nausea Polyethylene Glycol 17 gm 01/09/21 09:28 01/13/21 13:58 Polyethylene Glycol 3350 17 Gm Powd.Pack PO 17 gm DAILY PRN Administration constipation Sodium Chloride 3 ml 12/12/20 16:00 01/16/21 08:47 0.9 % Sodium Chloride Flush 3 Ml Syringe IVFLUSH 3 ml QSHIFT OMID Administration Tiotropium [place] 1 puff 01/15/21 08:00 01/16/21 08:28 Tiotropium [place] 18 Mcg Cap.W.Dev INHALE 1 puff RDAILY OMID Administration Allergies Allergies Allergy/AdvReac Type Severity Reaction Status Date / Time No Known Allergies Allergy Verified 12/09/20 00:58 Assessment & Plan Assessment & Plan (1) Delirium due to another medical condition: Status: Acute Code(s): F05 - Delirium due to known physiological condition (2) Major depressive disorder, recurrent, unspecified: Status: Acute Code(s): F33.9 - Major depressive disorder, recurrent, unspecified Assessment and Plan: I discussed starting remeron low dose to target sx of depression, anxiety, sleep, and poor appetite. Both Alexandra and Karey are in agreement with the plan. She continues to lack decisional capacity due to impaired cognition secondary to confusion and depression. Plan: 1. Start remeron 7.5 mg QHS, may increase to 15 mg if tolerable. Reviewed risks and benefits. 2. Pt cannot leave against medical advice, lack decisional capacity for medical decisions at this current time, will continue to invoke HCP Greater than 50% of the session was spent on counseling and/or coordination of care
[2021-01-16] MEDS: Mirtazapine 7.5 MG TABLET PO (19:43)
[2021-01-17] VITALS (10 sets, daily range): BP systolic 109–133; BP diastolic 58–73; PULSE 83–101; RESP 18–20; TEMP 36.3–36.8; O2SAT 90–96
[2021-01-17] MEDS: Morphine Sulfate 2 MG/ML CARTRIDGE 1 MG IVPUSH ×3 (03:43→17:53)
[2021-01-17] MEDS: Fluticasone/Vilanterol 200/25 BLST.W.DEV 1 PUFF INHALE (07:18)
[2021-01-17] MEDS: 0.9 % Sodium Chloride Flush 3 ML SYRINGE IVFLUSH ×3 (10:05→21:06)
[2021-01-17] MEDS: guaiFENesin LA 600 MG TAB.ER.12H PO ×2 (10:05→21:06)
--- NOTE | 2021-01-17 11:41 | MHC.CM.PN ---
IMM 01/16/21 Male S/P fall w lac. Patient is discharge home with family and [employer] [facility]. DC info has been sent to [employer]. Family is providing transport.
[2021-01-17] MEDS: Milk of Magnesia 30 ML ORAL.SUSP PO (11:59)
--- NOTE | 2021-01-17 12:29 | MHC.CM.PN ---
IMM 01/17/21. Dispo change from Hospice to STR. Hospice has been notified of the change. PT eval complete and sent to referral sources. The IMM was reviewed. HCP/dtr verbalized understanding of medicare rights. Information has been sent for review. CM will follow.
--- NOTE | 2021-01-17 12:30 | PC.NURSE ---
Wound assessment completed today. Patient has a stage 2 on sacrum/coccyx area which is slowly improving. Triad is being applied to area and left TASHA.
--- NOTE | 2021-01-17 15:19 | P.PNIM_ITS ---
Subjective Subjective Date of Service: 01/17/21 Interval History: On 6L O2 but denies dyspnea or cough Participated in PT today Per daughter now plan is for STR No fever Review of Systems Review of Systems: Yes all other systems are reviewed and are negative Physical Exam Vital Signs: Vital Signs: Last Vital Signs Temp 98.2 F 01/17/21 15:11 Pulse 89 01/17/21 15:11 Resp 20 01/17/21 15:11 BP 118/62 01/17/21 15:11 Pulse Ox 91 L 01/17/21 15:11 Body Mass Index 22.8 Gen: in no acute distress HEENT: sclera anicteric, moist mucus membranes Neck: supple Lungs: decreased air entry L base Heart: regular rate and rhythm, no murmurs Abd: soft, non-tender, non-distended Ext: no edema Skin: warm/well-perfused Neuro: alert and oriented x3, no focal findings Psych: appropriate affect Objective Data Current Medications Generic Name Dose Route Start Last Admin Trade Name Freq PRN Reason Stop Dose Admin Acetaminophen 650 mg 12/09/20 04:20 01/16/21 08:46 Acetaminophen 325 Mg Tablet PO 650 mg Q6H PRN Administration Pain, Mild (Pain Scale 1-3) Calcium Carbonate 750 mg 01/03/21 17:38 01/10/21 21:14 Calcium Carbonate 750 Mg Tab.Chew PO 750 mg Q6H PRN Administration heartburn Fluticasone/Vilanterol 1 puff 01/15/21 08:00 01/17/21 07:18 Fluticasone/Vilanterol 200/25 Blst.W.Dev INHALE 1 puff RDAILY OIMD Administration Guaifenesin 600 mg 01/11/21 21:00 01/17/21 10:05 Guaifenesin La 600 Mg Tab.Er.12h PO 600 mg BID OMID Administration Loperamide HCl 2 mg 12/15/20 10:12 12/15/20 10:37 Loperamide Hcl 2 Mg Capsule PO 2 mg Q4H PRN Administration diarrhea Magnesium Hydroxide 30 ml 12/09/20 04:20 01/17/21 11:59 Milk Of Magnesia 30 Ml Oral.Susp PO 30 ml DAILY PRN Administration Constipation Mirtazapine 7.5 mg 01/16/21 21:00 01/16/21 19:43 Mirtazapine 7.5 Mg Tablet PO 7.5 mg BEDTIME OMID Administration Morphine Sulfate 1 mg 01/16/21 11:37 01/17/21 10:06 Morphine Sulfate 2 Mg/Ml Cartridge IVPUSH 1 mg Q4H PRN Administration Pain, Severe (Pain Scale 7-10) Protocol Nystatin 1 appl 01/15/21 21:00 01/17/21 10:05 Nystatin Cream 15 Gm Tube TOPICAL Not Given BID [facility] Protocol Omeprazole 20 mg 01/12/21 12:20 01/17/21 06:10 Omeprazole 20 Mg Capsule. PO Not Given BID@0630,1630 [facility] Ondansetron HCl 4 mg 01/03/21 17:37 01/03/21 17:49 Ondansetron Hcl 4 Mg/2 Ml Vial IVPUSH 4 mg Q8H PRN Administration nausea Polyethylene Glycol 17 gm 01/09/21 09:28 01/13/21 13:58 Polyethylene Glycol 3350 17 Gm Powd.Pack PO 17 gm DAILY PRN Administration constipation Sodium Chloride 3 ml 12/12/20 16:00 01/17/21 10:05 0.9 % Sodium Chloride Flush 3 Ml Syringe IVFLUSH 3 ml QSHIFT [facility] Administration Tiotropium [employer] 1 puff 01/15/21 08:00 01/17/21 07:18 Tiotropium [employer] 18 Mcg Cap.W.Dev INHALE 1 puff RDAILY OMID Administration Labs CBC & Chem 7: 01/12/21 05:31 01/13/21 04:54 Assessment and Plan (1) Delirium due to another medical condition: Status: Acute (2) Acute and chronic respiratory failure: Status: Acute (3) Pleural effusion, bacterial: Status: Acute Assessment and Plan: hospital d#40 75yo with COPD admitted after syncope -> hip + humerus fx, admitted to ICU for acute hypoxic respiratory failure s/p percutaneous screw fixation 12/12/20 stepped down to IMC 12/14/20 # acute respiratory failure with hypoxia # COPD exacerbation # atelectasis # pleural effusion - weaned off steroids; continue LAMA + LABA/ICS, standing/prn ARIANNA/MASOUD - pulmonary toilet - thoracentesis done 12/25/20 - declined bronchscopy 01/03/21 - check CBCd, PCT; Pulm consult f/u # toxic/metabolic encephalopathy # delirium - d/c'ed benzodiazepine - frequent reorientation - per Psych, invoked HCP # L femoral neck fx - s/p percutaneous screw fixation # L proximal humerus fx - nonoperative # dispo - plan STR # VTE ppx - SCDs; had rectal bleeding on rivaroxaban Quality Stroke Does the patient have a stroke diagnosis?: No VTE Prior VTE?: No VTE Risk Level:: Medical - moderate - high VTE Device Contraindication: Patient Refused VTE Drug Contraindication: Patient Refused
[2021-01-17] MEDS: Albuterol/Iprat 2.5/0.5MG 3 ML AMPUL.NEB INHALE ×2 (15:54→18:28)
[2021-01-17] MEDS: Omeprazole 20 MG CAPSULE.DR PO (16:08)
--- NOTE | 2021-01-17 16:14 | MHC.CM.PN ---
Female 75 DX COPD HIP FX. [facility] does not have a quarantine bed for this unvaccinated Pt. Looking for other facilities while waiting for [facility].
[2021-01-17 16:28] LABS: Hemoglobin 12.2 g/dl (12.0-16.0); Mean Corpuscular HGB Conc 32.1 g/dl (31.0-35.0); Mean Corpuscular Hemoglobin 30.8 pg (27.0-33.0); Mean Platelet Volume 8.1 fL (9.4-12.3); Platelet Count 327 X10*3/uL (160-400); Red Blood Count 3.96 X10*6/uL (4.20-5.50); Red Cell Distribution Width 13.1 % (11.0-16.0); White Blood Count 10.4 X10*3/uL (4.8-10.8)
[2021-01-17 16:44] LABS: Anion Gap 12 (12-20); Blood Urea Nitrogen 12 mg/dL (9-16); Calcium 8.1 mg/dL (8.4-10.2); Carbon Dioxide 35 mmol/L (22-29); Chloride 96 mmol/L (96-108); Creatinine Clr Calc Pharmacy 61.4; Estimated Glomerular Filt Rate > 60; Glucose Random 108 mg/dL (60-115); Sodium 139 mmol/L (135-145)
[2021-01-17 17:03] LABS: Procalcitonin 0.04 ng/mL
[2021-01-17] MEDS: Mirtazapine 7.5 MG TABLET PO (21:06)
[2021-01-17] MEDS: Acetaminophen 325 MG TABLET 650 MG PO (21:06)
[2021-01-17] MEDS: Nystatin Cream 15 GM TUBE 1 APPL TOPICAL (21:06)
[2021-01-18] VITALS (8 sets, daily range): BP systolic 129–165; BP diastolic 64–78; PULSE 87–96; RESP 18–20; TEMP 36.1–36.9; O2SAT 90–99
[2021-01-18] MEDS: Albuterol/Iprat 2.5/0.5MG 3 ML AMPUL.NEB INHALE ×2 (07:51→12:06)
[2021-01-18] MEDS: Fluticasone/Vilanterol 200/25 BLST.W.DEV 1 PUFF INHALE (07:52)
[2021-01-18] MEDS: Acetaminophen 325 MG TABLET 650 MG PO (09:07)
[2021-01-18] MEDS: Nystatin Cream 15 GM TUBE 1 APPL TOPICAL ×2 (09:07→22:14)
[2021-01-18] MEDS: guaiFENesin LA 600 MG TAB.ER.12H PO ×2 (09:07→22:14)
[2021-01-18] MEDS: 0.9 % Sodium Chloride Flush 3 ML SYRINGE IVFLUSH ×3 (09:07→23:58)
--- NOTE | 2021-01-18 10:21 | P.PNPL_ITS ---
Subjective Subjective Date of Service: 01/18/21 Principal diagnosis: RESP. FAILURE Interval history: This 75 years old female with advanced chronic obstructive pulmonary disease, and chronic respiratory failure, Has been here in the hospital for the last 40 days. During the past 1 week she has been weaned down on the oxygen and is tolerating O2 of 5 L/minute by nasal cannula. This is a big improvement as she was dependent on high-flow for several days. Currently the plan is being made for her placement into a rehab facility. I was us to evaluate her for pulmonary status. The patient is comfortable lying down in the bed and she is conversing well. She denies any acute respiratory distress at this time. Denies much cough, sometimes feels an urge to expectorates. She has no wheezes. Mental status seems to be stable, but she remains slow in on sitting question. Objective Data Labs CBC & Chem 7: 01/17/21 16:14 01/17/21 16:14 Labs: Laboratory Results - last 24 hr 01/17/21 01/17/21 01/17/21 16:14 16:14 16:15 WBC 10.4 RBC 3.96 L Hgb 12.2 Hct 38.0 MCV 96.0 MCH 30.8 MCHC 32.1 RDW 13.1 Plt Count 327 MPV 8.1 L Absolute Nucleated RBC 0.000 Nucleated RBC % (auto) 0.0 Sodium 139 Potassium 4.0 Chloride 96 Carbon Dioxide 35 H Anion Gap 12 BUN 12 Creatinine 0.56 Estim Creat Clear Calc 61.4 Estimated GFR > 60 Random Glucose 108 Calcium 8.1 L Procalcitonin 0.04 ABG ABG results: Last venous blood gas study was if few weeks ago. So I will be ordering 1 for today Microbiology Microbiology Results: Microbiology 12/09/20 Unknown Urine clean catch - Clean Catch Midstream Urine Culture - Final Streptococcus viridans group Physical Exam Vital Signs: Vital Signs: Last Vital Signs Temp 97.0 F 01/18/21 07:21 Pulse 87 01/18/21 07:56 Resp 20 01/18/21 07:21 BP 129/66 01/18/21 07:21 Pulse Ox 92 01/18/21 07:21 Body Mass Index 22.8 Const: Other: Looks quite weak, of a thin build, alert, on not sure if she is well orientated. Does not seem to be in distress HENMT: Head: Yes normal to inspection General nose exam: Normal nares pr esent Mouth: Normal oral and palatal mucosa present Neck: Neck: Yes no lymphadenopathy, Yes trachea midline and Yes no JVD Chest: Other: Symmetrical, percussion note is resonant, no local tenderness Resp: Other: Breath sounds are distant with prolonged expiratory phase, slight ly diminished over the left base, No wheezes or rhonchi are noted at this time Cardio: Jugular venous distension: no JVD Rate: regular rate Rhythm: regular rhythm Heart sounds: no gallops and no murmurs GI: Palpation (GI): Soft to palpation, nontender and no masses Extrem: General: No edema Procedures Date of Service Date of Service: 01/18/21 Assessment and Plan Assessment and plan (1) COPD (chronic obstructive pulmonary disease): Problem details: Patient has advanced chronic obstructive pulmonary disease, She has been receiving maximum medical treatment, Plan is to keep her on maximum medical treatment. Continue the present regimen. Status: Acute (2) Pleural effusion, bacterial: Problem details: STATUS POST THORACENTESIS, 400 ML THE FLUID WAS C/W BORDERLINE EXUDATIVE AT THIS TIME. NO RE ACCUMULATION NOTICED Status: Acute (3) Respiratory failure, acute and chronic: Problem details: THIS PATIENT REQUIRED HIGH-FLOW FOR SEVERAL WEEKS BUT NOW HAS BEEN WEANED DOWN TO 5 L/MINUTE BY NASAL CANNULA. SHE HAS CHRONIC CO2 RETENTION, AND COMPENSATED CHRONIC RESPIRATORY FAILURE, I WILL CHECK HER VENOUS BLOOD GASES TODAY, BECAUSE SHE HAS SOME DEGREE OF ALKALOSIS, WITH HIGH BICARB LEVELS, I THINK SHE SHOULD BE ON A SMALL DOSE OF DIAMOX, LIKE 250 MG DAILY ON ONGOING BASIS. Status: Acute Assessment and Plan: * FROM RESPIRATORY POINT OF VIEW SHE IS FIT TO GO TO REHAB FACILITY. PROGNOSIS REMAINS GUARDED. GOAL SHOULD BE PALLIATIVE TREATMENT. PATIENT AND FAMILY UNDERSTAND THIS WELL. Time Spent With Patient Time: Total time spent is greater than 50% in coordination of care (as documented) at patient's floor/unit and/or counseling patient: Time with patient: 25 - 35 minutes Progress Note: Quality Stroke Does the patient have a stroke diagnosis?: No
[2021-01-18 11:14] LABS: Venous Blood Gas Refer to POC result
[2021-01-18 11:15] LABS: VBG Base Excess 15.5 mmol/L; VBG HCO3 42 mmol/L (22-26); VBG pCO2 59 mmHg; VBG pH 7.46 (7.32-7.43); VBG pO2 31 mmHg
--- NOTE | 2021-01-18 11:21 | MHC.CLN ---
F/U PO INTAKE 25% DIET RX: REGULAR-APPROPRIATE PT RECEIVING ENSURE BID AND CONNOR TO PROMOTE WOUND HEALING SUPPLEMENTS PROVIDE [id number] (54% EST. KCAL NEEDS), 45G PROTEIN (58% EST. PROTEIN NEEDS) CONTINUE TO ENCOURAGE PO AND MONITOR CLOSELY
[2021-01-18] MEDS: acetaZOLAMIDE 250 MG TABLET PO (11:44)
[2021-01-18] MEDS: Calcium Carbonate 750 MG TAB.CHEW PO (11:44)
--- NOTE | 2021-01-18 14:42 | HO.PM.IMPN ---
Subjective Subjective Date of Service: 01/18/21 Interval History: participated in PT yesterday breathing is about the same, denies dyspnea or cough; on 5L O2 via NC no fever Review of Systems Review of Systems: Yes all other systems are reviewed and are negative Physical Exam Vital Signs: Vital Signs: Last Vital Signs Temp 97.4 F 01/18/21 12:00 Pulse 91 01/18/21 12:08 Resp 20 01/18/21 12:00 BP 129/64 01/18/21 12:00 Pulse Ox 99 01/18/21 12:00 Body Mass Index 22.8 Gen: in no acute distress HEENT: sclera anicteric, moist mucus membranes Neck: supple Lungs: decreased air entry L base Heart: regular rate and rhythm, no murmurs Abd: soft, non-tender, non-distended Ext: no edema Skin: warm/well-perfused Neuro: alert and oriented x3, no focal findings Psych: appropriate affect Objective Data Active Medications Acetaminophen (Acetaminophen 325 Mg Tablet) 650 mg PO Q6H PRN PRN Reason: Pain, Mild (Pain Scale 1-3) Last Admin: 01/18/21 09:07 Dose: 650 mg Documented by: MINNIE Acetazolamide (Acetazolamide 250 Mg Tablet) 250 mg PO DAILY [facility] Last Admin: 01/18/21 11:44 Dose: 250 mg Documented by: MINNIE Albuterol Sulfate (Albuterol Sulfate (0.083%) 2.5 Mg/3 Ml Vial.Neb) 2.5 mg INHALE Q2H PRN PRN Reason: shortness of breath/wheeze Albuterol/Ipratropium (Albuterol/Iprat 2.5/0.5mg 3 Ml Ampul.Neb) 3 ml INHALE RQ4H WHILE AWAKE [facility] Last Admin: 01/18/21 12:06 Dose: 3 ml Documented by: BRESNE Calcium Carbonate (Calcium Carbonate 750 Mg Tab.Chew) 750 mg PO Q6H PRN PRN Reason: heartburn Last Admin: 01/18/21 11:44 Dose: 750 mg Documented by: COTEMA Fluticasone/Vilanterol (Fluticasone/Vilanterol 200/25 Blst.W.Dev) 1 puff INHALE RDAILY [facility] Last Admin: 01/18/21 07:52 Dose: 1 puff Documented by: MALORIE Guaifenesin (Guaifenesin La 600 Mg Tab.Er.12h) 600 mg PO BID [facility] Last Admin: 01/18/21 09:07 Dose: 600 mg Documented by: COTEMA Loperamide HCl (Loperamide Hcl 2 Mg Capsule) 2 mg PO Q4H PRN PRN Reason: diarrhea Last Admin: 12/15/20 10:37 Dose: 2 mg Documented by: RETA-NAGBS Magnesium Hydroxide (Milk Of Magnesia 30 Ml Oral.Susp) 30 ml PO DAILY PRN PRN Reason: Constipation Last Admin: 01/17/21 11:59 Dose: 30 ml Documented by: RETA-ASKEP Mirtazapine (Mirtazapine 7.5 Mg Tablet) 7.5 mg PO BEDTIME [facility] Last Admin: 01/17/21 21:06 Dose: 7.5 mg Documented by: ELVIA Morphine Sulfate (Morphine Sulfate 2 Mg/Ml Cartridge) 1 mg IVPUSH Q4H PRN; Protocol PRN Reason: Pain, Severe (Pain Scale 7-10) Last Admin: 01/17/21 17:53 Dose: 1 mg Documented by: RETA-ASKEP Nystatin (Nystatin Cream 15 Gm Tube) 1 appl TOPICAL BID [facility]; Protocol Last Admin: 01/18/21 09:07 Dose: 1 appl Documented by: COTEMA Omeprazole (Omeprazole 20 Mg Capsule.Dr) 20 mg PO BID@0630,1630 [facility] Last Admin: 01/18/21 06:17 Dose: Not Given Documented by: ANDERM Non-Admin Reason: refused, wants to sleep Ondansetron HCl (Ondansetron Hcl 4 Mg/2 Ml Vial) 4 mg IVPUSH Q8H PRN PRN Reason: nausea Last Admin: 01/03/21 17:49 Dose: 4 mg Documented by: JEREMIAHIANM Polyethylene Glycol (Polyethylene Glycol 3350 17 Gm Powd.Pack) 17 gm PO DAILY PRN PRN Reason: constipation Last Admin: 01/13/21 13:58 Dose: 17 gm Documented by: CHICOIC Sodium Chloride (0.9 % Sodium Chloride Flush 3 Ml Syringe) 3 ml IVFLUSH QSHIFT [facility] Last Admin: 01/18/21 09:07 Dose: 3 ml Documented by: MINNIE Tiotropium [place] (Tiotropium [place] 18 Mcg Cap.W.Dev) 1 puff INHALE RDAILY [facility] Last Admin: 01/18/21 07:52 Dose: 1 puff Documented by: MALORIE Labs CBC & Chem 7: 01/17/21 16:14 01/17/21 16:14 Labs: Laboratory Results - last 24 hr 01/17/21 01/17/21 01/17/21 16:14 16:14 16:15 MCV 96.0 MCH 30.8 MCHC 32.1 RDW 13.1 Plt Count 327 MPV 8.1 L Absolute Nucleated RBC 0.000 Nucleated RBC % (auto) 0.0 VBG pH VBG pCO2 VBG pO2 VBG HCO3 VBG O2 Saturation VBG Base Excess Anion Gap 12 Estim Creat Clear Calc 61.4 Estimated GFR > 60 Random Glucose 108 Calcium 8.1 L Procalcitonin 0.04 01/18/21 10:47 MCV MCH MCHC RDW Plt Count MPV Absolute Nucleated RBC Nucleated RBC % (auto) VBG pH 7.46 H VBG pCO2 59 VBG pO2 31 VBG HCO3 42 H VBG O2 Saturation 45.0 VBG Base Excess 15.5 Anion Gap Estim Creat Clear Calc Estimated GFR Random Glucose Calcium Procalcitonin Assessment and Plan (1) Delirium due to another medical condition: Status: Acute (2) Acute and chronic respiratory failure: Status: Acute (3) Pleural effusion, bacterial: Status: Acute Assessment and Plan: hospital d#41 75yo with COPD admitted after syncope -> hip + humerus fx, admitted to ICU for acute hypoxic respiratory failure s/p percutaneous screw fixation 12/12/20 stepped down to [facility] [place] [place] 12/14/20 # acute respiratory failure with hypoxia + hypercarbia # COPD exacerbation # atelectasis # pleural effusion - weaned off steroids; continue LAMA + LABA/ICS, standing/prn ARIANNA/MASOUD - pulmonary toilet - thoracentesis done 12/25/20 - declined bronchscopy 01/03/21 - Pulm consulted; started acetazolamide; OK to d/c to rehab # toxic/metabolic encephalopathy # delirium - d/c'ed benzodiazepine - frequent reorientation - per Psych, invoked HCP due to altered mental status # L femoral neck fx - s/p percutaneous screw fixation # L proximal humerus fx - nonoperative # depression - mirtazapine as per psych, low dose 7.5 mg qhs started 01/16, may increase eventually to 15 mg qhs # dispo - plan STR- has bed at [facility] in [place], awaiting authorization # VTE ppx - SCDs; had rectal bleeding on rivaroxaban Quality Stroke Does the patient have a stroke diagnosis?: No VTE Prior VTE?: No VTE Risk Level:: Medical - moderate - high VTE Device Contraindication: Patient Refused VTE Drug Contraindication: Patient Refused
[2021-01-18 15:16] LABS: COVID-19 Test Negative (Negative); IDNOW Serial# 9DD0AD1C
[2021-01-18] MEDS: Omeprazole 20 MG CAPSULE.DR PO (16:18)
[2021-01-18] MEDS: Mirtazapine 7.5 MG TABLET PO (22:14)
[2021-01-19] VITALS (11 sets, daily range): BP systolic 112–143; BP diastolic 62–74; PULSE 86–98; RESP 15–20; TEMP 36.1–37.1; O2SAT 91–98
[2021-01-19] MEDS: Omeprazole 20 MG CAPSULE.DR PO ×2 (06:11→16:38)
[2021-01-19] MEDS: 0.9 % Sodium Chloride Flush 3 ML SYRINGE IVFLUSH ×3 (08:14→20:53)
[2021-01-19] MEDS: Fluticasone/Vilanterol 200/25 BLST.W.DEV 1 PUFF INHALE (08:18)
[2021-01-19] MEDS: Albuterol/Iprat 2.5/0.5MG 3 ML AMPUL.NEB INHALE ×3 (08:18→15:44)
--- NOTE | 2021-01-19 09:27 | MHC.CM.PN ---
01/19/21 Female 75 DX COPD HIP FX DP [facility] has accepted pt, pending authorization. BLS will transport.
[2021-01-19] MEDS: Nystatin Cream 15 GM TUBE 1 APPL TOPICAL ×2 (09:50→20:53)
[2021-01-19] MEDS: acetaZOLAMIDE 250 MG TABLET PO (09:50)
[2021-01-19] MEDS: guaiFENesin LA 600 MG TAB.ER.12H PO ×2 (09:50→20:53)
--- NOTE | 2021-01-19 11:15 | MHC.CLN ---
F/U PT PENDING D/C TO STR PO INTAKE VARIABLE PER PT DIET RX: REGULAR-APPROPRIATE PT RECEIVING ENSURE BID AND CONNOR TO PROMOTE WOUND HEALING SUPPLEMENTS PROVIDE 860KCALS (54% EST. KCAL NEEDS), 45G PROTEIN (58% EST. PROTEIN NEEDS) CONTINUE TO ENCOURAGE PO AND MONITOR CLOSELY
--- NOTE | 2021-01-19 14:10 | P.PNIM_ITS ---
Subjective Subjective Date of Service: 01/19/21 Interval History: sob Review of Systems Shortness of breath seems to be improving. Physical Exam Vital Signs: Vital Signs: Last Vital Signs Temp 98.0 F 01/19/21 12:00 Pulse 98 01/19/21 12:00 Resp 20 01/19/21 12:00 BP 116/70 01/19/21 12:00 Pulse Ox 96 01/19/21 12:00 Body Mass Index 22.8 Gen: in no acute distress HEENT: sclera anicteric, moist mucus membranes Neck: supple Lungs: decreased air entry L base Heart: regular rate and rhythm, no murmurs Abd: soft, non-tender, non-distended Ext: no edema Skin: warm/well-perfused Neuro: alert and oriented x3, no focal findings Psych: appropriate affect Objective Data Active Medications Acetaminophen (Acetaminophen 325 Mg Tablet) 650 mg PO Q6H PRN PRN Reason: Pain, Mild (Pain Scale 1-3) Last Admin: 01/18/21 09:07 Dose: 650 mg Documented by: MINNIE Acetazolamide (Acetazolamide 250 Mg Tablet) 250 mg PO DAILY [facility] Last Admin: 01/19/21 09:50 Dose: 250 mg Documented by: NICCI Albuterol Sulfate (Albuterol Sulfate (0.083%) 2.5 Mg/3 Ml Vial.Neb) 2.5 mg I NHALE Q2H PRN PRN Reason: shortness of breath/wheeze Albuterol/Ipratropium (Albuterol/Iprat 2.5/0.5mg 3 Ml Ampul.Neb) 3 ml INHALE RQ4H WHILE AWAKE [facility] Last Admin: 01/19/21 11:16 Dose: 3 ml Documented by: MALORIE Calcium Carbonate (Calcium Carbonate 750 Mg Tab.Chew) 750 mg PO Q6H PRN PRN Reason: heartburn Last Admin: 01/18/21 11:44 Dose: 750 mg Documented by: MINNIE Fluticasone/Vilanterol (Fluticasone/Vilanterol 200/25 Blst.W.Dev) 1 puff INHALE RDAILY [facility] Last Admin: 01/19/21 08:18 Dose: 1 puff Documented by: MALORIE Guaifenesin (Guaifenesin La 600 Mg Tab.Er.12h) 600 mg PO BID [facility] Last Admin: 01/19/21 09:50 Dose: 600 mg Documented by: NICCI Loperamide HCl (Loperamide Hcl 2 Mg Capsule) 2 mg PO Q4H PRN PRN Reason: diarrhea Last Admin: 12/15/20 10:37 Dose: 2 mg Documented by: RETA-NAGBS Magnesium Hydroxide (Milk Of Magnesia 30 Ml Oral.Susp) 30 ml PO DAILY PRN PRN Reason: Constipation Last Admin: 01/17/21 11:59 Dose: 30 ml Documented by: ANAI Mirtazapine (Mirtazapine 7.5 Mg Tablet) 7.5 mg PO BEDTIME [facility] Last Admin: 01/18/21 22:14 Dose: 7.5 mg Documented by: JOSHUA Morphine Sulfate (Morphine Sulfate 2 Mg/Ml Cartridge) 1 mg IVPUSH Q4H PRN; Protocol PRN Reason: Pain, Severe (Pain Scale 7-10) Last Admin: 01/17/21 17:53 Dose: 1 mg Documented by: ANAI Nystatin (Nystatin Cream 15 Gm Tube) 1 appl TOPICAL BID [facility]; Protocol Last Admin: 01/19/21 09:50 Dose: 1 appl Documented by: NICCI Omeprazole (Omeprazole 20 Mg Capsule.) 20 mg PO BID@0630,1630 [facility] Last Admin: 01/19/21 06:11 Dose: 20 mg Documented by: JOSHUA Ondansetron HCl (Ondansetron Hcl 4 Mg/2 Ml Vial) 4 mg IVPUSH Q8H PRN PRN Reason: nausea Last Admin: 01/03/21 17:49 Dose: 4 mg Documented by: ABIMBOLA Polyethylene Glycol (Polyethylene Glycol 3350 17 Gm Powd.Pack) 17 gm PO DAILY PRN PRN Reason: constipation Last Admin: 01/13/21 13:58 Dose: 17 gm Documented by: ALEXANDEROIC Sodium Chloride (0.9 % Sodium Chloride Flush 3 Ml Syringe) 3 ml IVFLUSH QSHIFT [facility] Last Admin: 01/19/21 08:14 Dose: 3 ml Documented by: NICCI Tiotropium [place] (Tiotropium [place] 18 Mcg Cap.W.Dev) 1 puff INHALE RDAILY [facility] Last Admin: 01/19/21 08:18 Dose: 1 puff Documented by: MALORIE Labs CBC & Chem 7: 01/17/21 16:14 01/17/21 16:14 Labs: Laboratory Results - last 24 hr 01/18/21 14:53 COVID-19 ([place]) Negative COVID-19 Clin Com See Note Assessment and Plan (1) Acute and chronic respiratory failure: Status: Acute Assessment and Plan: 75yo with COPD admitted after syncope -> hip + humerus fx, admitted to ICU for acute hypoxic respiratory failure s/p percutaneous screw fixation 12/12/20 stepped down to [facility] [place] 12/14/20 1. acute respiratory failure with hypoxia + hypercarbia COPD exacerbation/ atelectasis/ pleural effusion - weaned off steroids; continue LAMA + LABA/ICS, standing/prn ARIANNA/MASOUD - pulmonary toilet - thoracentesis done 12/25/20 - declined bronchscopy 01/03/21 - Pulm consulted; started acetazolamide; OK to d/c to rehab # toxic/metabolic encephalopathy # delirium - d/c'ed benzodiazepine - frequent reorientation - per Psych, invoked HCP due to altered mental status # L femoral neck fx - s/p percutaneous screw fixation # L proximal humerus fx - nonoperative # depression - mirtazapine as per psych, low dose 7.5 mg qhs started 01/16, may increase eventually to 15 mg qhs # dispo - plan STR- has bed at [facility] in [place], awaiting authorization # VTE ppx - SCDs; had rectal bleeding on rivaroxaban awaiting placement Quality Stroke Does the patient have a stroke diagnosis?: No VTE Prior VTE?: No VTE Risk Level:: Medical - moderate - high VTE Device Contraindication: Patient Refused VTE Drug Contraindication: Patient Refused
[2021-01-19] MEDS: Acetaminophen 325 MG TABLET 650 MG PO (17:48)
[2021-01-19] MEDS: Morphine Sulfate 2 MG/ML CARTRIDGE 1 MG IVPUSH (17:52)
[2021-01-19] MEDS: Mirtazapine 7.5 MG TABLET PO (20:53)
[2021-01-20 04:00] VITALS: BP 117/67; PULSE 88; RESP 18; TEMP 37.1; O2SAT 95
[2021-01-20] MEDS: Omeprazole 20 MG CAPSULE.DR PO (05:47)
[2021-01-20 07:03] VITALS: BP 118/64; PULSE 84; RESP 18; TEMP 37; O2SAT 94
[2021-01-20] MEDS: Fluticasone/Vilanterol 200/25 BLST.W.DEV 1 PUFF INHALE (07:44)
[2021-01-20] MEDS: Albuterol/Iprat 2.5/0.5MG 3 ML AMPUL.NEB INHALE ×2 (07:44→12:03)
[2021-01-20 07:45] VITALS: PULSE 80; O2SAT 95
--- NOTE | 2021-01-20 08:30 | P.DS_ITS ---
DS: Providers Provider Date of Service: 01/20/21 Date of admission: 12/09/20 04:20 Primary care physician: Unknown Physician Consults: 12/09/20 04:20 Consult to Pulmonology Routine Consulting Provider: Juan Carlos Lopez Reason for consultation: pt with COPD exacerbation; p/w Fall/hip fx; preop eval 12/11/20 06:38 Consult to Orthopedics Routine Consulting Provider: Payam Medina Reason for consultation: fracture femoral neck/huneral neck Has provider been notified: No 12/14/20 15:33 Consult to Wound Care Routine Consulting Provider: Becka Lugo Reason for consultation: pustular perineal Has provider been notified: Yes 12/15/20 07:50 Consult to Pulmonology Routine Consulting Provider: Mika Fernandez Reason for consultation: REsp failure, Atelactasis, Effusions for your eval. 12/26/20 10:05 Consult to Pulmonology Routine Consulting Provider: Juan Carlos Lopez Reason for consultation: hypoxia 01/14/21 08:31 Consult to Psychiatry Routine Consulting Provider: Psych Covering Reason for consultation: Depressed, wants TECHNOLOGY APPLICATIONS TEACHER while she is improving clinically, question capacity? 01/17/21 15:32 Consult to Pulmonology Routine Consulting Provider: Juan Carlos Lopez Reason for consultation: f/u COPD/atelectasis/hypxoia DS: Diagnosis Discharge Diagnosis (1) Acute and chronic respiratory failure: Status: Acute (2) COPD exacerbation: Status: Acute (3) Femoral neck fracture: Status: Acute (4) Fracture of neck of humerus: Status: Acute (5) Delirium due to another medical condition: Status: Acute (6) Atelectasis: Status: Acute (7) Pleural effusion, bacterial: Status: Acute DS: Summary Hospital Course Hospital Course: patient had prolonged hospital course, for full details please see medical record, in summary: patient was admitted for syncope complicated by left femoral neck fracture and left proximal humerus fracture. humerus fracture is being treated non operatively, she underwent percutaneuos screw fixation of left femur 12/12/20. postop course was complicated by acute hyopxic and hypercapneic respiratory failure requiring ICU transfer due to COPD exacerbation, atelectasis, and pleural effusion. requiring both NIV and high flow oxygen for prolonged period. was treated with steroids and pulmonary toilet. due to slow progression of improvement, at one point patient decided to opt for comfort measures, but wanted to remain on high flow, however, after several more days she eventually improved and reversed decision. course was also complicated by metabolic encephalopathy and delerium, her benzodiazepenes were discontinued, she was seen by psychiatry who felt she did not have good insight into her medical condition and that her health care proxy should be invoked. patient was eventually weaned down to 5L n.c and will be discharged to SNF for STR. Time Spent with Patient Time attestation: Total time spent providing and/or coordinating discharge services: Discharge coordination time: Greater than 30 minutes Quality: Stroke Does the patient have a stroke diagnosis?: No Physical Exam Vital Signs: Vital Signs: Last Vital Signs Temp 98.6 F 01/20/21 07:03 Pulse 80 01/20/21 07:45 Resp 18 01/20/21 07:03 BP 118/64 01/20/21 07:03 Pulse Ox 94 01/20/21 07:03 Body Mass Index 22.8 Gen: in no acute distress HEENT: sclera anicteric, moist mucus membranes Neck: supple Lungs: decreased air entry L base Heart: regular rate and rhythm, no murmurs Abd: soft, non-tender, non-distended Ext: no edema Skin: warm/well-perfused Neuro: alert and oriented x3, no focal findings Psych: appropriate affect Discharge Plan Discharge Patient Disposition: Xfer SNF Discharge Diagnosis: copd, resp failure Referrals: [facility] [Outside] - 1 Week Lee Peterson PA-C [Physician Communications Scientist] - 2 Weeks Physician,Unknown [Primary Care Provider] - 1 Week Discharge Medications: New albuterol sulfate 2.5 mg /3 mL (0.083 %) Solution For Nebulization 2.5 mg inhalation Q2H PRN (Reason: shortness of breath/wheeze) Qty: 0 RF: 0 Spiriva with HandiHaler 18 mcg Capsule, W/Inhalation Device 1 puff inhalation RDAILY Qty: 0 RF: 0 acetaminophen 325 mg Tablet 650 mg PO Q6H PRN (Reason: Pain, Mild (Pain Scale 1-3)) Qty: 0 RF: 0 acetazolamide 250 mg Tablet 250 mg PO DAILY Qty: 0 RF: 0 calcium carbonate [Tums] 300 mg (750 mg) Tablet,Chewable 750 mg PO Q6H PRN (Reason: heartburn) Qty: 0 RF: 0 mirtazapine 7.5 mg Tablet 7.5 mg PO BEDTIME Qty: 0 RF: 0 loperamide 2 mg Capsule 2 mg PO Q4H PRN (Reason: diarrhea) Qty: 0 RF: 0 magnesium hydroxide [Milk of Magnesia] 400 mg/5 mL Suspension 30 ml PO DAILY PRN (Reason: Constipation) Qty: 0 RF: 0 polyethylene glycol 3350 17 gram Powder In Packet 17 g PO DAILY PRN (Reason: constipation) Qty: 0 RF: 0 omeprazole 20 mg Capsule,Delayed Release(Dr/Ec) 20 mg PO BID@0630,1630 Qty: 0 RF: 0 Breo Ellipta 200-25 mcg/dose Blister With Device 1 puff inhalation RDAILY Qty: 0 RF: 0 guaifenesin [Mucinex] 600 mg Tablet Extended Release 12hr 600 mg PO BID Qty: 0 RF: 0 nystatin 100,000 unit/gram Cream 1 appl topical BID Qty: 0 RF: 0 Discharge Orders: Discharge Order (Routine); Ordered 01/20/21 Ordered By: Mike Munoz Diet: advance to usual diet and regular diet Activity on Discharge: No heavy lifting Stand Alone Forms: Patient Portal Discharge page Care Plan Goals: Restore function of joint Health Concerns: copd, fractures Plan of Treatment: Physical Therapy Pain management DVT prophylaxis Assessment: * Physical Therapy for hip pinning: no precautions, gait training, ROM, strength * Limit stair climbing * No showering, no tub bath-keep dressing clean, dry and intact * No driving x6 weeks * Continue Lovenox once a day x 4 weeks * Follow up with [facility] in 2 weeks
--- NOTE | 2021-01-20 08:31 | MHC.CM.PN ---
Insurance auth has been obtained. Patient dc time is 1PM and MD & RN made aware.See previous CM documentation for details.
[2021-01-20] MEDS: acetaZOLAMIDE 250 MG TABLET PO (09:40)
[2021-01-20] MEDS: guaiFENesin LA 600 MG TAB.ER.12H PO (09:40)
[2021-01-20] MEDS: 0.9 % Sodium Chloride Flush 3 ML SYRINGE IVFLUSH (09:41)
[2021-01-20] MEDS: Nystatin Cream 15 GM TUBE 1 APPL TOPICAL (09:45)
[2021-01-20 12:00] VITALS: BP 102/60; PULSE 88; RESP 28; TEMP 36.4; O2SAT 98
[2021-01-20 12:04] VITALS: PULSE 98; O2SAT 95
== END 2021-01-20 13:47 | disposition skilled nursing facility (03) | DRG 480 ==
LOC: HO.ED 03:45 → HO.EDOVER 04:47 → HO.IMC 08:22 → HO.ICU 11:29 → HO.IMC 12-15 02:45
PROVIDERS: Anesthesiology; Family Medicine; Internal Medicine; Internal Medicine Cardiovascular Disease; Orthopaedic Surgery; Physician Assistant; Radiology Diagnostic Radiology; Student in an Organized Health Care Education/Training Program; Admitting Provider Hospitalist; Emergency Provider Emergency Medicine; Visit Provider Internal Medicine
PROC: 0QS734Z Reposition Left Upper Femur with Internal Fixation Device, Percutaneous Approach (ICD-10-PCS; principal; 2020-12-12 11:30)
PROC: 0W993ZZ Drainage of Right Pleural Cavity, Percutaneous Approach (ICD-10-PCS; principal; 2020-12-25 09:30)
DX: S72.012A Unspecified intracapsular fracture of left femur, initial encounter for closed fracture (principal); J96.02 Acute respiratory failure with hypercapnia; J96.22 Acute and chronic respiratory failure with hypercapnia; J96.21 Acute and chronic respiratory failure with hypoxia; G92 Toxic encephalopathy; N39.0 Urinary tract infection, site not specified; J44.1 Chronic obstructive pulmonary disease with (acute) exacerbation; J44.0 Chronic obstructive pulmonary disease with (acute) lower respiratory infection; J91.8 Pleural effusion in other conditions classified elsewhere; J98.11 Atelectasis; F05 Delirium due to known physiological condition; F33.9 Major depressive disorder, recurrent, unspecified; R45.851 Suicidal ideations; S72.009A Fracture of unspecified part of neck of unspecified femur, initial encounter for closed fracture; F17.210 Nicotine dependence, cigarettes, uncomplicated; Z71.6 Tobacco abuse counseling; R29.6 Repeated falls; Z91.81 History of falling; Z20.822 Contact with and (suspected) exposure to COVID-19; I10 Essential (primary) hypertension; Z99.81 Dependence on supplemental oxygen; W18.30XA Fall on same level, unspecified, initial encounter; J20.9 Acute bronchitis, unspecified; K59.00 Constipation, unspecified; E87.5 Hyperkalemia; Y93.9 Activity, unspecified; Y92.009 Unspecified place in unspecified non-institutional (private) residence as the place of occurrence of the external cause; Y99.9 Unspecified external cause status; Z79.51 Long term (current) use of inhaled steroids; Z79.899 Other long term (current) drug therapy; Z66 Do not resuscitate
CPT/HCPCS: 32557; 36415; 70450; 71045; 71046; 71275; 72125; 73030; 73070; 73502; 80048; 80053; 80202; 81001; 81003; 82565; 82803; 82945; 82947; 83615; 83735; 83880; 84100; 84145; 84157; 84439; 84443; 84484; 85025; 85027; 85379; 85610; 85730; 86850; 86900; 86901; 87086; 87635; 89051; 93005; 93306; 94640; 94660; 94799; 96365; 96375; 97110; 97116; 97163; 97167; 97530; 97535; 99221; 99284; 99285; C1713; C1758; C1769; J0131; J0690; J0696; J1100; J1170; J1650; J1940; J2060; J2270; J2370; J2405; J2920; J3010; J3370; Q9967

== ENCOUNTER 2021-04-11 18:41 | Inpatient (IN) | payer MEDICARE, SELFPAY ==
--- NOTE | ~2021-04-11 | US_ITS ---
EXAMINATION: US VENOUS ULTRASOUND WITH DOPPLER LOWER EXTREMITY, BILATERAL CLINICAL INFORMATION: Bilateral lower extremity edema COMPARISON: None TECHNIQUE: Ultrasound of the deep veins is performed from the hip to the calf with compression sonography and color and pulse Doppler assessment. Spectral analysis with color-flow imaging is performed. FINDINGS: RIGHT: Acute right lower extremity DVT is present with thrombus present in the femoral vein and popliteal vein as well as the proximal great saphenous vein. LEFT: On the left, there is nonocclusive thrombus present in the left common femoral vein. The left lower extremity is otherwise normal with normal venous compression and respiratory variation and augmented flow. The visualized femoral vein, superficial femoral vein, profunda femoral vein, popliteal vein, and the trifurcation region shows no evidence of deep venous thrombosis. There is no significant popliteal fossa cyst. US/US venous duplex LE BI IMPRESSION: Bilateral DVT, right greater than left. An addendum will be issued after the referring clinician is reached.
--- NOTE | ~2021-04-11 | CT_ITS ---
EXAMINATION: CT ANGIOGRAM OF THE CHEST WITH AND WITHOUT CONTRAST (CT PULMONARY ANGIOGRAM FOR PE) CLINICAL INFORMATION: Reason for Exam tachypnea, DVT + COMPARISON: 12/13/2020 TECHNIQUE: Prior to contrast administration, noncontrast localization images were obtained. Subsequently, multidetector volumetric imaging was performed from the thoracic inlet to below the diaphragms following the administration of 80 mL Omnipaque 350 intravenous contrast. No contrast reaction reported Sagittal, coronal, and MIP oblique sagittal reformatted images were obtained on the CT workstation, uploaded to PACS, and reviewed. This CT examination was performed using dose optimization techniques as appropriate, variously including the following: *Automated exposure control *Adjustment of mA and/or kV according to patient size (this includes techniques or standardized protocols for targeted exams where dose is matched to indication/reason for exam; i.e. extremities or head) *Use of iterative reconstruction technique Total exam dose-length product 272 mGy-cm FINDINGS: QUALITY OF STUDY/CONTRAST BOLUS: Satisfactory. PULMONARY ARTERIES: There is segmental to subsegmental pulmonary embolus in the right upper lobe on image 169/[id number]. THORACIC AORTA: No aneurysm or dissection. There is atherosclerotic calcification along the aorta. LUNG: There is mild upper lobe predominant emphysema. There is partial atelectasis of the left lower lobe posteriorly. There is a superior right lower lobe nodule measuring 1.7 cm on image [id number] with spiculated margins; this portion of the lung was collapsed on 12/13/2020. There is a 0.6 cm right middle lobe nodule on image 289/45 laterally, unchanged from 12/13/2020. PLEURA: Small left pleural effusion is present. No pneumothorax. MEDIASTINUM: Redemonstrated nodule extending off the inferior aspect of the left thyroid lobe. No discrete mediastinal lymphadenopathy is seen. Cardiac size is within normal limits; no pericardial effusion. Coronary artery calcifications are present. CHEST WALL/AXILLA: No axillary or internal mammary lymphadenopathy. OSSEOUS STRUCTURES: Degenerative changes are noted in the spine. UPPER ABDOMEN: Posterior left renal cyst is noted measuring approximately 1.6 cm; no follow-up recommended. Thickened adrenal glands again noted, left greater than right. Patient is status post cholecystectomy. No reflux of contrast into the hepatic veins to suggest elevated right heart pressures. CT/CT angio chest PE protocol IMPRESSION: 1. Segmental to subsegmental right upper lobe pulmonary embolus. 2. Right lower lobe nodule measuring 1.7 cm with spiculated margins, suspicious for malignancy. Further workup is recommended which may be performed with biopsy and/or PET/CT. 3. Small left pleural effusion. 4. Nonspecific right middle lobe nodule measuring 0.6 cm, unchanged from prior. VTE: positive This critical result was discussed with Dr. Everett on 04/12/2021 12:16 AM, and it was ascertained that the content and urgency of the report was understood at the time of direct communication.
--- NOTE | ~2021-04-11 | XR_ITS ---
EXAMINATION: XR CHEST CLINICAL INFORMATION: Shortness of breath COMPARISON: 01/17/2021 TECHNIQUE: Frontal view of the chest was obtained. FINDINGS: Stable cardiomediastinal silhouette. Calcifications of the thoracic aorta. There is a small left pleural effusion with associated atelectasis at the left lung base. Previously seen right pleural effusion has since resolved. The right lung is clear. No acute osseous abnormality. Degenerative changes of the bilateral shoulders and the thoracic spine. There are surgical clips in the right axillary region. XR/XR chest 1V IMPRESSION: Small left pleural effusion with associated atelectasis at the left lung base.
[2021-04-11 18:57] VITALS: BP 153/51; BP 170/70; PULSE 80; PULSE 90; RESP 21; TEMP 37.4; O2SAT 97; BMI 21.4
--- NOTE | 2021-04-11 19:16 | ECG_ITS ---
Test Reason : dyspnea Blood Pressure : / mmHG Vent. Rate : 087 BPM Atrial Rate : 087 BPM P-R Int : 148 ms QRS Dur : 078 ms QT Int : 378 ms P-R-T Axes : 073 025 076 degrees QTc Int : 454 ms Normal sinus rhythm Low voltage QRS RSR' or QR pattern in V1 suggests right ventricular conduction delay Nonspecific T wave abnormality Lateral leads Nonspecific ST abnormality Inferior leads Abnormal ECG When compared with ECG of 09-DEC-2020 01:29, Nonspecific ST abnormality Inferior leads is new Referred By: Ana M Everett Electronically Signed By:MERE RAYO MD
--- NOTE | 2021-04-11 19:41 | PC.NURSE ---
Labs collected and sent for processing. PCT at bedside obtaining EKG. Pt's daughter at bedside
[2021-04-11 19:44] LABS: MANUAL DIFF FLAG NO
--- NOTE | 2021-04-11 19:46 | ED_ITS ---
HPI - Extremity Problem General Chief complaint: Extremity Problem Stated complaint: dvt to both legs Time Seen by Provider: 04/11/21 19:15 Source: patient Mode of arrival: EMS History of Present Illness HPI Narrative: This is a 75-year-old female with history of COPD who arrives via EMS for 2 weeks of worsening bilateral lower extremity swelling that has not been associated with recent travel, changes in her baseline shortness of breath from her COPD for which she is currently on 2 L of nasal cannula. She denies any palpitations or fevers. In addition, patient denies any diagnoses heart failure and denies being on any medications such as diuretics. She states that the swelling does go down somewhat when she elevates her legs but that she cannot do that for too long as her ?butt gets sore?. Patient does have recent significant history of hip fracture. Related Data Home Medications Medication Instructions Recorded Confirmed albuterol sulfate 2.5 mg INHALATION Q4H PRN 04/11/21 04/11/21 Previous Rx's Medication Instructions Recorded acetazolamide 250 mg tablet 250 mg PO DAILY #0 tab 01/20/21 calcium carbonate 300 mg (750 mg) 750 mg PO Q6H PRN #0 tab 01/20/21 chewable tablet (Tums) fluticasone furoate 200 1 puff INHALATION RDAILY #0 ea 01/20/21 mcg-vilanterol 25 mcg/dose inhalation powder (Breo Ellipta) guaifenesin 600 mg tablet, 600 mg PO BID #0 tab 01/20/21 extended release 12 hr (Mucinex) loperamide 2 mg capsule 2 mg PO Q4H PRN #0 cap 01/20/21 mirtazapine 7.5 mg tablet 7.5 mg PO BEDTIME #0 tab 01/20/21 omeprazole 20 mg capsule,delayed 20 mg PO BID@0630,1630 #0 cap 01/20/21 release polyethylene glycol 3350 17 gram 17 g PO DAILY PRN #0 ea 01/20/21 oral powder packet tiotropium bromide 18 mcg capsule 1 puff INHALATION RDAILY #0 01/20/21 with inhalation device (Spiriva with HandiHaler) Allergies Allergy/AdvReac Type Severity Reaction Status Date / Time No Known Allergies Allergy Verified 04/11/21 19:00 Review of Systems Review of Systems: Pertinent positives and negatives as stated in HPI and 10 point review of systems is otherwise negative. [facility] Past Medical History Source: nursing notes reviewed Medical History Acute and chronic respiratory failure COPD (chronic obstructive pulmonary disease) COPD exacerbation Hypertension Pleural effusion, bacterial Respiratory failure, acute and chronic Social History Social History Household Members: Children Housing: House Do you presently have visiting nurse or other home services: No Patient Tobacco Use Status: Current everyday Tobacco user Tobacco use type: Cigarette Cigarette Packs Per Day: 1 Cigarettes Per Day: 20.0 e-Cigarette/Vaping Use: Never Used Advance Directives: No Advance Directives Information Provided: No service: No Current occupational status: retired Physical Exam Vital Signs: Vital Signs: Last Vital Signs Temp 99.4 F 04/11/21 18:57 Pulse 86 04/11/21 21:52 Resp 24 H 04/11/21 21:52 BP 131/60 04/11/21 21:52 Pulse Ox 97 04/11/21 21:52 Oxygen Flow Rate 2 04/11/21 18:57 Body Mass Index 21.4 VITAL SIGNS: Reviewed. GENERAL: Cachectic, chronically ill, no acute distress. HEAD: Normocephalic/atraumatic EYES: PERRLA, EOMI OROPHARYNX: no oral lesions noted, posterior pharynx clear NECK: Supple, no adenopathy LUNGS: Normal breath sounds, no rales/rhonchi noted, tachypnea, no noted increased work of breathing SpO2<97> on 2 L via nasal cannula CARDIOVASCULAR: Regular rate and rhythm without noted murmurs, no JVD but blanco ateral 1 to 2+ pitting edema noted to mid calf without erythema/induration. ABDOMEN: Soft, non-tender, non-distended with bowel sounds. MUSCULOSKELETAL: No tenderness, deformities, or effusions noted on gross inspection. EXTREMITIES: No cyanosis, clubbing or but bilateral pitting edema noted without erythema/induration SKIN: Inspection of the skin reveals no rashes NEUROLOGIC: Alert and oriented x 4. Course Course Course Narrative: 75-year-old female with history and clinical presentation sug gestive of possible COPD, on CHF, but doubt DVT. Review of all investigations does not support COPD or CHF exacerbation and ironically patient is found to have bilateral lower extremity DVTs right greater than left which is likely secondary to patient's recent hip fracture and recovery course in a rehab facility. Patient was provided with treatment with Lovenox and will also undergo CT angio with PE protocol due to noted hip via without evidence for COPD/CHF. I discussed this case with the inpatient hospitalist who accepts admission. MDM - Extremity (Nontraumatic) Lab Data Result diagrams: 04/11/21 19:38 04/11/21 19:38 Labs: Lab Results 04/11/21 04/11/21 04/11/21 Range/Units 19:38 19:38 19:38 WBC 7.4 (4.8-10.8) X10*3/uL RBC 3.48 L (4.20-5.50) X10*6/uL Hgb 9.7 L (12.0-16.0) g/dl Hct 31.8 L (37.0-47.0) % MCV 91.4 (80.0-98.0) fL MCH 27.9 (27.0-33.0) pg MCHC 30.5 L (31.0-35.0) g/dl RDW 14.7 (11.0-16.0) % Plt Count 437 H (160-400) X10*3/uL MPV 8.1 L (9.4-12.3) fL Immature Gran % (Auto) 0.4 (0.0-0.4) % Neut % (Auto) 52.6 (45-73) % Lymph % (Auto) 29.6 (20-40) % [place] % (Auto) 10.1 (2-11) % Eos % (Auto) 6.5 H (0-4) % Baso % (Auto) 0.8 (0-2) % Lymph # (Auto) 2.2 (1.2-4.9) X10*3/uL [place] # (Auto) 0.8 (0.1-1.2) X10*3/uL Eos # (Auto) 0.5 H (0.0-0.4) X10*3/uL Baso # (Auto) 0.1 (0.0-0.2) X10*3/uL Abs Immat Gran (auto) 0.03 (0.00-0.03) X10*3/uL Absolute Neuts (auto) 3.9 (2.0-8.3) x10*3/uL Absolute Nucleated RBC 0.000 (0.0-0.012) X10*3/uL Nucleated RBC % (auto) 0.0 (0.0-0.2) /100WBC PT INR D-Dimer High Sensitivty NG/ML VBG pH (7.32-7.43) VBG pCO2 mmHg VBG pO2 mmHg VBG HCO3 (22-26) mmol/L VBG O2 Saturation % VBG Base Excess mmol/L Sodium 136 (135-145) mmol/L Potassium 4.4 (3.3-5.1) mmol/L Chloride 103 (96-108) mmol/L Carbon Dioxide 25 (22-29) mmol/L Anion Gap 12 (12-20) BUN 9 (9-16) mg/dL Creatinine 0.58 (0.5-1.4) mg/dL Estim Creat Clear Calc 59.2 Estimated GFR > 60 Random Glucose 105 (60-115) mg/dL Calcium 8.7 D (8.4-10.2) mg/dL Total Bilirubin < 0.2 (0.0-1.0) mg/dL AST 17 D (5-31) U/L ALT 7 (0-31) U/L Alkaline Phosphatase 71 D (39-117) U/L B-Natriuretic Peptide 64 (<100) pg/mL Total Protein 6.8 D (6.5-8.0) g/dL Albumin 3.2 L (3.5-5.0) g/dL COVID-19 ([place]) (Negative) COVID-19 Clin Com 04/11/21 04/11/21 04/11/21 Range/Units 19:38 19:38 19:38 WBC (4.8-10.8) X10*3/uL RBC (4.20-5.50) X10*6/uL Hgb (12.0-16.0) g/dl Hct (37.0-47.0) % MCV (80.0-98.0) fL MCH (27.0-33.0) pg MCHC (31.0-35.0) g/dl RDW (11.0-16.0) % Plt Count (160-400) X10*3/uL MPV (9.4-12.3) fL Immature Gran % (Auto) (0.0-0.4) % Neut % (Auto) (45-73) % Lymph % (Auto) (20-40) % [place] % (Auto) (2-11) % Eos % (Auto) (0-4) % Baso % (Auto) (0-2) % Lymph # (Auto) (1.2-4.9) X10*3/uL [place] # (Auto) (0.1-1.2) X10*3/uL Eos # (Auto) (0.0-0.4) X10*3/uL Baso # (Auto) (0.0-0.2) X10*3/uL Abs Immat Gran (auto) (0.00-0.03) X10*3/uL Absolute Neuts (auto) (2.0-8.3) x10*3/uL Absolute Nucleated RBC (0.0-0.012) X10*3/uL Nucleated RBC % (auto) (0.0-0.2) /100WBC PT Cancelled 11.2 INR Cancelled 1.0 D-Dimer High Sensitivty 1850 NG/ML VBG pH (7.32-7.43) VBG pCO2 mmHg VBG pO2 mmHg VBG HCO3 (22-26) mmol/L VBG O2 Saturation % VBG Base Excess mmol/L Sodium (135-145) mmol/L Potassium (3.3-5.1) mmol/L Chloride (96-108) mmol/L Carbon Dioxide (22-29) mmol/L Anion Gap (12-20) BUN (9-16) mg/dL Creatinine (0.5-1.4) mg/dL Estim Creat Clear Calc Estimated GFR Random Glucose (60-115) mg/dL Calcium (8.4-10.2) mg/dL Total Bilirubin (0.0-1.0) mg/dL AST (5-31) U/L ALT (0-31) U/L Alkaline Phosphatase (39-117) U/L B-Natriuretic Peptide (<100) pg/mL Total Protein (6.5-8.0) g/dL Albumin (3.5-5.0) g/dL COVID-19 ([place]) Negative (Negative) COVID-19 Clin Com See Note 04/11/21 Range/Units 19:43 WBC (4.8-10.8) X10*3/uL RBC (4.20-5.50) X10*6/uL Hgb (12.0-16.0) g/dl Hct (37.0-47.0) % MCV (80.0-98.0) fL MCH (27.0-33.0) pg MCHC (31.0-35.0) g/dl RDW (11.0-16.0) % Plt Count (160-400) X10*3/uL MPV (9.4-12.3) fL Immature Gran % (Auto) (0.0-0.4) % Neut % (Auto) (45-73) % Lymph % (Auto) (20-40) % [place] % (Auto) (2-11) % Eos % (Auto) (0-4) % Baso % (Auto) (0-2) % Lymph # (Auto) (1.2-4.9) X10*3/uL [place] # (Auto) (0.1-1.2) X10*3/uL Eos # (Auto) (0.0-0.4) X10*3/uL Baso # (Auto) (0.0-0.2) X10*3/uL Abs Immat Gran (auto) (0.00-0.03) X10*3/uL Absolute Neuts (auto) (2.0-8.3) x10*3/uL Absolute Nucleated RBC (0.0-0.012) X10*3/uL Nucleated RBC % (auto) (0.0-0.2) /100WBC PT INR D-Dimer High Sensitivty NG/ML VBG pH 7.36 (7.32-7.43) VBG pCO2 56 mmHg VBG pO2 41 mmHg VBG HCO3 32 H (22-26) mmol/L VBG O2 Saturation 63.0 % VBG Base Excess 5.7 mmol/L Sodium (135-145) mmol/L Potassium (3.3-5.1) mmol/L Chloride (96-108) mmol/L Carbon Dioxide (22-29) mmol/L Anion Gap (12-20) BUN (9-16) mg/dL Creatinine (0.5-1.4) mg/dL Estim Creat Clear Calc Estimated GFR Random Glucose (60-115) mg/dL Calcium (8.4-10.2) mg/dL Total Bilirubin (0.0-1.0) mg/dL AST (5-31) U/L ALT (0-31) U/L Alkaline Phosphatase (39-117) U/L B-Natriuretic Peptide (<100) pg/mL Total Protein (6.5-8.0) g/dL Albumin (3.5-5.0) g/dL COVID-19 ([place]) (Negative) COVID-19 Clin Com ECG Data Attestation EKG: I personally reviewed and interpreted this ECG as follows: Prior ECG tracings: available for review (12/09/2020) Interpretation: Sinus rhythm, HR-87, no STEMI, UT/QRS/QTC are within normal limits. Discharge Plan Discharge Clinical Impression: Deep vein thrombosis (DVT) of both lower extremities, COPD (chronic obstructive pulmonary disease) Patient Disposition: Admitted As Inpatient Prescriptions: No Action Spiriva with HandiHaler 18 mcg Capsule, W/Inhalation Device 1 puff inhalation RDAILY Qty: 0 RF: 0 acetazolamide 250 mg Tablet 250 mg PO DAILY Qty: 0 RF: 0 calcium carbonate [Tums] 300 mg (750 mg) Tablet,Chewable 750 mg PO Q6H PRN (Reason: heartburn) Qty: 0 RF: 0 mirtazapine 7.5 mg Tablet 7.5 mg PO BEDTIME Qty: 0 RF: 0 loperamide 2 mg Capsule 2 mg PO Q4H PRN (Reason: diarrhea) Qty: 0 RF: 0 polyethylene glycol 3350 17 gram Powder In Packet 17 g PO DAILY PRN (Reason: constipation) Qty: 0 RF: 0 omeprazole 20 mg Capsule,Delayed Release(Dr/Ec) 20 mg PO BID@0630,1630 Qty: 0 RF: 0 Breo Ellipta 200-25 mcg/dose Blister With Device 1 puff inhalation RDAILY Qty: 0 RF: 0 guaifenesin [Mucinex] 600 mg Tablet Extended Release 12hr 600 mg PO BID Qty: 0 RF: 0 albuterol sulfate 2.5 mg /3 mL (0.083 %) solution for nebulization 2.5 mg inhalation Q4H PRN (Reason: shortness of breath/wheeze) RF: 0
[2021-04-11 19:50] LABS: VBG Base Excess 5.7 mmol/L; VBG HCO3 32 mmol/L (22-26); VBG pCO2 56 mmHg; VBG pH 7.36 (7.32-7.43); VBG pO2 41 mmHg
[2021-04-11 19:50] LABS: Venous Blood Gas Refer to POC result
[2021-04-11 19:53] LABS: Basophils Absolute Auto 0.1 X10*3/uL (0.0-0.2); Basophils Percent Auto 0.8 % (0-2); Eosinophils Absolute Auto 0.5 X10*3/uL (0.0-0.4); Eosinophils Percent Auto 6.5 % (0-4); Hematocrit 31.8 % (37.0-47.0); Hemoglobin 9.7 g/dl (12.0-16.0); Imm Gran Abs Auto 0.03 X10*3/uL (0.00-0.03); Imm Gran Pct Auto 0.4 % (0.0-0.4); Lymphocytes Absolute Auto 2.2 X10*3/uL (1.2-4.9); Lymphocytes Percent Auto 29.6 % (20-40); Mean Corpuscular HGB Conc 30.5 g/dl (31.0-35.0); Mean Corpuscular Hemoglobin 27.9 pg (27.0-33.0); Mean Corpuscular Volume 91.4 fL (80.0-98.0); Mean Platelet Volume 8.1 fL (9.4-12.3); Monocytes Absolute Auto 0.8 X10*3/uL (0.1-1.2); Monocytes Percent Auto 10.1 % (2-11); Neutrophils Absolute Auto 3.9 x10*3/uL (2.0-8.3); Neutrophils Percent Auto 52.6 % (45-73); Platelet Count 437 X10*3/uL (160-400); Red Blood Count 3.48 X10*6/uL (4.20-5.50); Red Cell Distribution Width 14.7 % (11.0-16.0); White Blood Count 7.4 X10*3/uL (4.8-10.8)
[2021-04-11 19:55] LABS: Prothrombin Time 11.2 SEC (9.9-13.0)
[2021-04-11 19:56] LABS: D Dimer High Sensitivity 1850 NG/ML
--- NOTE | 2021-04-11 19:59 | PHA.MEDREC ---
Pharmacy Consult ? Medication Reconciliation Pharmacy has completed the medication reconciliation.
[2021-04-11 20:04] LABS: COVID-19 Test Negative (Negative)
[2021-04-11 20:08] LABS: B Type Natriuretic Peptide 64 pg/mL (<100)
[2021-04-11 20:10] LABS: Alanine Aminotransferase 7 U/L (0-31); Albumin Level 3.2 g/dL (3.5-5.0); Alkaline Phosphatase 71 U/L (39-117); Anion Gap 12 (12-20); Aspartate Amino Transferase 17 U/L (5-31); Bilirubin Total < 0.2 mg/dL (0.0-1.0); Blood Urea Nitrogen 9 mg/dL (9-16); Calcium 8.7 mg/dL (8.4-10.2); Carbon Dioxide 25 mmol/L (22-29); Chloride 103 mmol/L (96-108); Creatinine Clr Calc Pharmacy 59.2; Estimated Glomerular Filt Rate > 60; Glucose Random 105 mg/dL (60-115); Potassium 4.4 mmol/L (3.3-5.1); Sodium 136 mmol/L (135-145); Total Protein 6.8 g/dL (6.5-8.0)
[2021-04-11 21:52] VITALS: BP 131/60; PULSE 86; RESP 24; O2SAT 97
--- NOTE | 2021-04-11 23:03 | PM.IMHP ---
History of Present Illness Date of Service: 04/11/21 Chief Complaint: b/l Leg Swelling 75F with a past medical history of hypertension, COPD on home oxygen presented to the hospital today with a chief complaint of bilateral leg swelling. Patient denies any cough or sputum production. Denies any chest pain or palpitations. Denies any shortness of breath. Reports that she has been on home oxygen. Mentions that she had recent travel. Denies any GI or symptoms. Denies any signs of bleeding Review of all other systems is negative except mentioned above ER course: Per ER team patient noted a bilateral leg swelling; venous duplex showed bilateral DVT; CT chest was done which showed segmental to subsegmental right upper lobe pulmonary embolism. Right lower lobe nodule 1. 7 cm with spiculated margins-concern for malignancy and nonspecific right middle lobe nodule. Patient was given Lovenox. Admitted for further management. [facility] Medical History Acute and chronic respiratory failure COPD (chronic obstructive pulmonary disease) COPD exacerbation Hypertension Pleural effusion, bacterial Respiratory failure, acute and chronic Pertinent family history: reviewed Social History Household Members: Children Housing: House Do you presently have visiting nurse or other home services: No Patient Tobacco Use Status: Current everyday Tobacco user Tobacco use type: Cigarette Cigarette Packs Per Day: 1 Cigarettes Per Day: 20.0 e-Cigarette/Vaping Use: Never Used Advance Directives: No Advance Directives Information Provided: No service: No Current occupational status: retired Meds Allergies Allergy/AdvReac Type Severity Reaction Status Date / Time No Known Allergies Allergy Verified 04/11/21 19:00 Active Medications: Current Medications Acetaminophen (Acetaminophen 325 Mg Tablet) 650 mg PO Q6H PRN PRN Reason: Pain, Mild (Pain Scale 1-3) Acetazolamide (Acetazolamide 250 Mg Tablet) 250 mg PO DAILY OMID Albuterol/Ipratropium (Albuterol/Iprat 2.5/0.5mg 3 Ml Ampul.Neb) 3 ml INHALE RQ4H PRN PRN Reason: Shortness of Breath/Wheezing Calcium Carbonate (Calcium Carbonate 750 Mg Tab.Chew) 750 mg PO Q6H PRN PRN Reason: heartburn Enoxaparin Sodium (Enoxaparin Sodium 120 Mg/0.8 Ml Syringe) 50 mg 1 mg/kg (50 mg) SUBCUT Q12H [facility] Fluticasone/Vilanterol (Fluticasone/Vilanterol 200/25 Blst.W.Dev) 1 puff INHALE RDAILY [facility] Guaifenesin (Guaifenesin [place] 600 Mg Tab.Er.12h) 600 mg PO BID [facility] Loperamide HCl (Loperamide Hcl 2 Mg Capsule) 2 mg PO Q4H PRN PRN Reason: diarrhea Melatonin (Melatonin 3 Mg Tablet) 6 mg PO BEDTIME PRN PRN Reason: Insomnia Mirtazapine (Mirtazapine 7.5 Mg Tablet) 7.5 mg PO BEDTIME [facility] Omeprazole (Omeprazole 20 Mg Capsule.Dr) 20 mg PO BID@0630,1630 [facility] Pharmacy Consult (Consult Rx Perform Med Rec) 1 each MISCELLANE ONCE PRN PRN Reason: Consult order Polyethylene Glycol (Polyethylene Glycol 3350 17 Gm Powd.Pack) 17 gm PO DAILY PRN PRN Reason: constipation Senna (Sennosides 8.6 Mg Tablet) 17.2 mg PO BEDTIME PRN PRN Reason: Constipation Sodium Chloride (0.9 % Sodium Chloride Flush 3 Ml Syringe) 3 ml IVFLUSH QSHIFT [facility] Tiotropium [place] (Tiotropium [place] 18 Mcg Cap.W.Dev) 1 puff INHALE RDAILY [facility] Home Medications Medication Instructions Recorded Confirmed Last Taken Type albuterol sulfate 2.5 mg INHALATION Q4H PRN 04/11/21 04/11/21 04/11/21 History Physical Exam Vital Signs and Narrative: Vital Signs: Last Vital Signs Temp 99.4 F 04/11/21 18:57 Pulse 86 04/11/21 21:52 Resp 24 H 04/11/21 21:52 BP 131/60 04/11/21 21:52 Pulse Ox 97 04/11/21 21:52 Oxygen Flow Rate 2 04/11/21 18:57 Body Mass Index 21.4 Gen: Appears be in no acute distress HEENT: NCAT, Moist mucosa. Pulmonary: Vesicular breath sounds, fair air entry CVS: Normal S1-S2 Abdomen: BS+, Soft, Nontender Extremities: Warm well perfused; mild tenderness on bilateral legs noted. 2+ edema bilaterally. Neuro: Alert and awake. Results Labs CBC and Chem 7: 04/11/21 23:18 04/11/21 19:38 Labs: Laboratory Results - last 24 hr 04/11/21 04/11/21 04/11/21 19:38 19:38 19:38 MCV 91.4 MCH 27.9 MCHC 30.5 L RDW 14.7 Plt Count 437 H MPV 8.1 L Immature Gran % (Auto) 0.4 Neut % (Auto) 52.6 Lymph % (Auto) 29.6 [place] % (Auto) 10.1 Eos % (Auto) 6.5 H Baso % (Auto) 0.8 Lymph # (Auto) 2.2 [place] # (Auto) 0.8 Eos # (Auto) 0.5 H Baso # (Auto) 0.1 Abs Immat Gran (auto) 0.03 Absolute Neuts (auto) 3.9 Absolute Nucleated RBC 0.000 Nucleated RBC % (auto) 0.0 PT INR D-Dimer High Sensitivty VBG pH VBG pCO2 VBG pO2 VBG HCO3 VBG O2 Saturation VBG Base Excess Anion Gap 12 Estim Creat Clear Calc 59.2 Estimated GFR > 60 Random Glucose 105 Calcium 8.7 D Total Bilirubin < 0.2 AST 17 D ALT 7 Alkaline Phosphatase 71 D B-Natriuretic Peptide 64 Total Protein 6.8 D Albumin 3.2 L COVID-19 ([place]) COVIDbMenu 04/11/21 04/11/21 04/11/21 19:38 19:38 19:38 MCV MCH MCHC RDW Plt Count MPV Immature Gran % (Auto) Neut % (Auto) Lymph % (Auto) [place] % (Auto) Eos % (Auto) Baso % (Auto) Lymph # (Auto) [place] # (Auto) Eos # (Auto) Baso # (Auto) Abs Immat Gran (auto) Absolute Neuts (auto) Absolute Nucleated RBC Nucleated RBC % (auto) PT Cancelled 11.2 INR Cancelled 1.0 D-Dimer High Sensitivty 1850 VBG pH VBG pCO2 VBG pO2 VBG HCO3 VBG O2 Saturation VBG Base Excess Anion Gap Estim Creat Clear Calc Estimated GFR Random Glucose Calcium Total Bilirubin AST ALT Alkaline Phosphatase B-Natriuretic Peptide Total Protein Albumin COVID-19 ([place]) Negative [facility]-[place] Com See Note 04/11/21 19:43 MCV MCH MCHC RDW Plt Count MPV Immature Gran % (Auto) Neut % (Auto) Lymph % (Auto) [place] % (Auto) Eos % (Auto) Baso % (Auto) Lymph # (Auto) [place] # (Auto) Eos # (Auto) Baso # (Auto) Abs Immat Gran (auto) Absolute Neuts (auto) Absolute Nucleated RBC Nucleated RBC % (auto) PT INR D-Dimer High Sensitivty VBG pH 7.36 VBG pCO2 56 VBG pO2 41 VBG HCO3 32 H VBG O2 Saturation 63.0 VBG Base Excess 5.7 Anion Gap Estim Creat Clear Calc Estimated GFR Random Glucose Calcium Total Bilirubin AST ALT Alkaline Phosphatase B-Natriuretic Peptide Total Protein Albumin COVID-19 ([place]) COVID-19 Clin Com Imaging Radiologist's Impressions: Impressions Chest X-Ray 04/11/21 19:16 IMPRESSION: Small left pleural effusion with associated atelectasis at the left lung base. Venous Duplex 04/11/21 20:27 IMPRESSION: Bilateral DVT, right greater than left. An addendum will be issued after the referring clinician is reached. Assessment and Plan (1) DVT (deep venous thrombosis): Status: Acute 75F with a past medical history of hypertension, COPD on home oxygen, anxiety, depression presented to the hospital today with a chief complaint of bilateral leg swelling. Noted to have DVT/PE. Admitted for further management. DVT/PE: Continue Lovenox. Will obtain echocardiogram. Currently vitals are stable. Troponin pending. CT did not report any evidence of right heart strain. COPD: Continue home oxygen. Stable. Pulmonary nodule: Right upper lobe nodule measuring 1.7 cm spiculated. Concern for malignancy. Oncology consult. For all other chronic conditions, home medications Code status: Full code Quality Stroke Does the patient have a stroke diagnosis?: No VTE Prior VTE?: No VTE Risk Level:: Medical - moderate - high VTE Device Contraindication: Treatment Not Indicated VTE Drug Contraindication: N/A - Med Ordered
--- NOTE | 2021-04-11 23:19 | PC.NURSE ---
This RN awaiting RN Sup to bring peg to dept.
[2021-04-11 23:20] VITALS: BP 128/48; PULSE 85; RESP 22; O2SAT 95
[2021-04-11 23:25] LABS: Hematocrit 31.1 % (37.0-47.0); Hemoglobin 9.3 g/dl (12.0-16.0); Mean Corpuscular HGB Conc 29.9 g/dl (31.0-35.0); Mean Corpuscular Hemoglobin 27.3 pg (27.0-33.0); Mean Corpuscular Volume 91.2 fL (80.0-98.0); Mean Platelet Volume 8.5 fL (9.4-12.3); Platelet Count 347 X10*3/uL (160-400); Red Blood Count 3.41 X10*6/uL (4.20-5.50); Red Cell Distribution Width 14.7 % (11.0-16.0)
[2021-04-11] MEDS: iohexoL 350 MG/ML 100 ML INFUS..BTL 65 ML IV (23:48)
[2021-04-12] VITALS: BP 124/56; PULSE 91; RESP 15; TEMP 37.4; O2SAT 96
[2021-04-12 00:07] LABS: Prothrombin Time 11.4 SEC (9.9-13.0)
[2021-04-12 00:10] LABS: Partial Thromboplastin Time 33.1 SEC (24.1-38.0)
[2021-04-12] MEDS: Enoxaparin Sodium 60 MG/0.6 ML SYRINGE 50 MG SUBCUT ×3 (00:14→21:46)
[2021-04-12 03:32] VITALS: BP 111/57; PULSE 74; RESP 20; O2SAT 95
[2021-04-12 05:48] LABS: MANUAL DIFF FLAG NO
[2021-04-12 05:50] LABS: Basophils Percent Auto 0.7 % (0-2); Eosinophils Absolute Auto 0.4 X10*3/uL (0.0-0.4); Eosinophils Percent Auto 6.6 % (0-4); Hematocrit 30.3 % (37.0-47.0); Hemoglobin 9.1 g/dl (12.0-16.0); Imm Gran Abs Auto 0.02 X10*3/uL (0.00-0.03); Imm Gran Pct Auto 0.3 % (0.0-0.4); Lymphocytes Absolute Auto 1.8 X10*3/uL (1.2-4.9); Lymphocytes Percent Auto 30.8 % (20-40); Mean Corpuscular Hemoglobin 27.5 pg (27.0-33.0); Mean Corpuscular Volume 91.5 fL (80.0-98.0); Mean Platelet Volume 8.2 fL (9.4-12.3); Monocytes Absolute Auto 0.7 X10*3/uL (0.1-1.2); Monocytes Percent Auto 11.2 % (2-11); Neutrophils Percent Auto 50.4 % (45-73); Platelet Count 395 X10*3/uL (160-400); Red Blood Count 3.31 X10*6/uL (4.20-5.50); Red Cell Distribution Width 14.8 % (11.0-16.0); White Blood Count 5.9 X10*3/uL (4.8-10.8)
[2021-04-12 05:54] VITALS: BP 107/47; PULSE 70; RESP 19; O2SAT 95
[2021-04-12 06:10] VITALS: BP 115/51; PULSE 72; RESP 20; O2SAT 93
[2021-04-12 06:18] LABS: Anion Gap 11 (12-20); Blood Urea Nitrogen 8 mg/dL (9-16); Calcium 8.4 mg/dL (8.4-10.2); Carbon Dioxide 28 mmol/L (22-29); Chloride 103 mmol/L (96-108); Creatinine Clr Calc Pharmacy 63.6; Estimated Glomerular Filt Rate > 60; Glucose Random 90 mg/dL (60-115); Potassium 4.3 mmol/L (3.3-5.1); Sodium 138 mmol/L (135-145)
[2021-04-12] MEDS: Omeprazole 20 MG CAPSULE.DR PO ×2 (06:28→15:45)
--- NOTE | 2021-04-12 06:47 | PC.NURSE ---
Pt repositioned to back with pillows padded beneath pt for comfort and skin precautions. Pt purewick remains in place, draining appropriately. Pt offers no complaints of pain/discomfort. Pt medicated per JUL. Stretcher in lowest locked position, rails raised, call pritchett within reach.
[2021-04-12] MEDS: acetaZOLAMIDE 250 MG TABLET PO (08:22)
[2021-04-12] MEDS: 0.9 % Sodium Chloride Flush 3 ML SYRINGE IVFLUSH ×2 (08:22→15:45)
[2021-04-12] MEDS: guaiFENesin LA 600 MG TAB.ER.12H PO ×2 (08:22→21:06)
[2021-04-12] MEDS: Fluticasone/Vilanterol 200/25 BLST.W.DEV 1 PUFF INHALE (09:39)
[2021-04-12 09:41] VITALS: PULSE 78; O2SAT 95
--- NOTE | 2021-04-12 10:30 | MHC.CM.PN ---
Met with pt and her dtr/HCP Martha to discuss d/c plans. Martha resides with [facility] and provides much of pt's care. In addition, pt is active with [facility] and has a skilled RN, PT and OT as well as MD home visits. [employer] is her O2 vendor and she has essential adaptive equipment including a walker, hospital bed and commode. Pt was recently d/c'd from [facility] in [place] and would like to return to home if at all possible. Re-referred to [facility] IMM given, HCP/MOLST on file reviewed and current, COVID vax [facility] [employer] [facility] this summer. Pt will likely need BLS transport home d/t O2 needs.
--- NOTE | 2021-04-12 11:38 | P.CNHO_ITS ---
Subjective - Subjective Chief complaint: pulmonary embolism Patient: new to practice Consult date: 04/12/21 Primary Care Provider: Deon Rose MD HPI - Consult Narrative Narrative: Alexandra Roa is a 75 year old female She is a 75 year old former smoker who presented to the ER last night with bilateral lower extremity DVTs and a pulmonary embolism. On the CTA a 1.7 cm ma ss was seen in the right lower lobe of the lung. It is suspicious for neoplasm. Oncology was consulted. Review of Systems - Constitutional Reports lack of energy, Reports malaise - Cardiovascular Reports fast heart rate, Reports leg swelling, Reports lightheadedness - Respiratory Reports hemoptysis - Gastrointestinal Reports excessive passing of gas - Genitourinary Reports absent period - Musculoskeletal Reports muscle weakness - Integumentary/Breasts Skin/Breast: Reports other - Neurologic Reports weakness PMFSH Medical History: Medical History (Last Reviewed 04/11/21 @ 19:49 by Ana M Everett MD) Acute and chronic respiratory failure COPD (chronic obstructive pulmonary disease) COPD exacerbation Hypertension Pleural effusion, bacterial Respiratory failure, acute and chronic Social History: Social History (Last Reviewed 04/11/21 @ 19:49 by Ana M Everett MD) Living Situation History: Household Members: Children Housing: House Do you presently have visiting nurse or other home services: No Tobacco History: Patient Tobacco Use Status: Current everyday Tobacco Tobacco use type: Cigarette Cigarette Packs Per Day: 1 Cigarettes Per Day: 20.0 e-Cigarette/Vaping Use: Never Used Advance Directives: Advance Directives: Yes Advance Directives Information Provided: No Advance Directives on File: Yes Advance Directives Date on File: 01/23/21 Occupation Assessmet: service: No Current occupational status: retired Home Medications and Allergies Current Medications: Current Medications Acetaminophen (Acetaminophen 325 Mg Tablet) 650 mg PO Q6H PRN PRN Reason: Pain, Mild (Pain Scale 1-3) Acetazolamide (Acetazolamide 250 Mg Tablet) 250 mg PO DAILY [facility] Last Admin: 04/12/21 08:22 Dose: 250 mg Documented by: Albuterol/Ipratropium (Albuterol/Iprat 2.5/0.5mg 3 Ml Ampul.Neb) 3 ml INHALE RQ4H PRN PRN Reason: Shortness of Breath/Wheezing Calcium Carbonate (Calcium Carbonate 750 Mg Tab.Chew) 750 mg PO Q6H PRN PRN Reason: heartburn Enoxaparin Sodium (Enoxaparin Sodium 60 Mg/0.6 Ml Syringe) 50 mg 1 mg/kg (50 mg) SUBCUT Q12H [facility] Last Admin: 04/12/21 08:22 Dose: 50 mg Documented by: Fluticasone/Vilanterol (Fluticasone/Vilanterol 200/25 Blst.W.Dev) 1 puff INHALE RDAILY [facility] Last Admin: 04/12/21 09:39 Dose: 1 puff Documented by: Guaifenesin (Guaifenesin [place] 600 Mg Tab.Er.12h) 600 mg PO BID [facility] Last Admin: 04/12/21 08:22 Dose: 600 mg Documented by: Loperamide HCl (Loperamide Hcl 2 Mg Capsule) 2 mg PO Q4H PRN PRN Reason: diarrhea Melatonin (Melatonin 3 Mg Tablet) 6 mg PO BEDTIME PRN PRN Reason: Insomnia Mirtazapine (Mirtazapine 7.5 Mg Tablet) 7.5 mg PO BEDTIME [facility] Omeprazole (Omeprazole 20 Mg Capsule.Dr) 20 mg PO BID@0630,1630 [facility] Last Admin: 04/12/21 06:28 Dose: 20 mg Documented by: Pharmacy Consult (Consult Rx Perform Med Rec) 1 each MISCELLANE ONCE PRN PRN Reason: Consult order Polyethylene Glycol (Polyethylene Glycol 3350 17 Gm Powd.Pack) 17 gm PO DAILY PRN PRN Reason: constipation Senna (Sennosides 8.6 Mg Tablet) 17.2 mg PO BEDTIME PRN PRN Reason: Constipation Sodium Chloride (0.9 % Sodium Chloride Flush 3 Ml Syringe) 3 ml IVFLUSH QSHIFT [facility] Last Admin: 04/12/21 08:22 Dose: 3 ml Documented by: Tiotropium [place] (Tiotropium [place] 18 Mcg Cap.W.Dev) 1 puff INHALE RDAILY [facility] Last Admin: 04/12/21 09:39 Dose: 1 puff Documented by: Home Medications Medication Instructions Recorded Confirmed Type albuterol sulfate 2.5 mg INHALATION Q4H PRN 04/11/21 04/11/21 History Allergies Allergy/AdvReac Type Severity Reaction Status Date / Time No Known Allergies Allergy Verified 04/11/21 19:00 Physical Exam Vital signs: Vital Signs Temp 99.3 F 04/12/21 00:00 Pulse 72 04/12/21 06:10 Resp 20 04/12/21 06:10 BP 115/51 L 04/12/21 06:10 Pulse Ox 93 04/12/21 06:10 Intake & Output 04/11/21 04/12/21 04/12/21 18:59 06:59 18:59 Other: Weight 49.895 kg Weight 49.895 kg - Constitutional Present: no acute distress - Routine HEENT Exam Head: Present: atraumatic, normal inspection - Routine Neck Exam Present: supple - Routine Respiratory Exam Present: decreased breath sounds - Routine Cardiovascular Exam Cardiovascular: Present: RRR, tachycardia - Routine Abdominal Exam Present: hypoactive bowel sounds - Routine Extremities Exam Present: pedal edema, nontender Hem/Onc Consult Result - Labs CBC & Chem 7: 04/12/21 05:42 04/12/21 05:42 Labs: Short CBC 04/11/21 04/11/21 04/12/21 Range/Units 19:38 23:18 05:42 WBC 7.4 6.0 5.9 (4.8-10.8) X10*3/uL Hgb 9.7 L 9.3 L 9.1 L (12.0-16.0) g/dl Hct 31.8 L 31.1 L 30.3 L (37.0-47.0) % Plt Count 437 H 347 395 (160-400) X10*3/uL BMP 04/11/21 04/12/21 19:38 05:42 Sodium 136 138 Potassium 4.4 4.3 Chloride 103 103 Carbon Dioxide 25 28 BUN 9 8 L Creatinine 0.58 0.54 Calcium 8.7 D 8.4 Liver Function 04/11/21 Range/Units 19:38 Total Bilirubin < 0.2 (0.0-1.0) mg/dL AST 17 D (5-31) U/L ALT 7 (0-31) U/L Alkaline Phosphatase 71 D (39-117) U/L Albumin 3.2 L (3.5-5.0) g/dL Assessment and Plan Patient Active problem list reviewed?: Yes (1) DVT (deep venous thrombosis) Status: Acute Assessment and plan: She will need a thrombophilia laboratory work up. I have discussed this with Dr. Tillman. She is anticoagulated with lovenox at present. jEither apixaban or warfarin may be used jail. She will need an evaluation of the lung tumor with PET/CT, FNA, pfts and thoracic surgery likely. I will folow over this long weekend. - Time Spent With Patient Time Spent with Patient (in minutes): 30
--- NOTE | 2021-04-12 13:45 | P.PNIM_ITS ---
Subjective Subjective Date of Service: 04/12/21 Interval History: No acute issues overnight. Remains hemodynamically stable Review of Systems Denies chest pain Denies shortness of breath Denies social vomiting diarrhea Physical Exam Vital Signs: Vital Signs: Last Vital Signs Temp 99.3 F 04/12/21 00:00 Pulse 72 04/12/21 06:10 Resp 20 04/12/21 06:10 BP 115/51 L 04/12/21 06:10 Pulse Ox 93 04/12/21 06:10 Oxygen Flow Rate 2 04/11/21 18:57 Body Mass Index 21.4 Const: Other: Awake alert oriented x3 no acute distress Resp: Other: Clear but diminished all renae; no rales rhonchi or wheezes Cardio: Other: Distant heart sounds; no S4; positive S1-S2; no S3 murmurs rubs gallops GI: Other: Soft nontender nondistended with normoactive bowel sounds Extrem: Other: No edema bilaterally Objective Data Active Medications Acetaminophen (Acetaminophen 325 Mg Tablet) 650 mg PO Q6H PRN PRN Reason: Pain, Mild (Pain Scale 1-3) Acetazolamide (Acetazolamide 250 Mg Tablet) 250 mg PO DAILY [facility] Last Admin: 04/12/21 08:22 Dose: 250 mg Documented by: MALENA Albuterol/Ipratropium (Albuterol/Iprat 2.5/0.5mg 3 Ml Ampul.Neb) 3 ml INHALE RQ4H PRN PRN Reason: Shortness of Breath/Wheezing Calcium Carbonate (Calcium Carbonate 750 Mg Tab.Chew) 750 mg PO Q6H PRN PRN Reason: heartburn Enoxaparin Sodium (Enoxaparin Sodium 60 Mg/0.6 Ml Syringe) 50 mg 1 mg/kg (50 mg) SUBCUT Q12H [facility] Last Admin: 04/12/21 08:22 Dose: 50 mg Documented by: MALENA Fluticasone/Vilanterol (Fluticasone/Vilanterol 200/25 Blst.W.Dev) 1 puff INHALE RDAILY [facility] Last Admin: 04/12/21 09:39 Dose: 1 puff Documented by: LOYD Guaifenesin (Guaifenesin [place] 600 Mg Tab.Er.12h) 600 mg PO BID [facility] Last Admin: 04/12/21 08:22 Dose: 600 mg Documented by: MALENA Loperamide HCl (Loperamide Hcl 2 Mg Capsule) 2 mg PO Q4H PRN PRN Reason: diarrhea Melatonin (Melatonin 3 Mg Tablet) 6 mg PO BEDTIME PRN PRN Reason: Insomnia Mirtazapine (Mirtazapine 7.5 Mg Tablet) 7.5 mg PO BEDTIME [facility] Omeprazole (Omeprazole 20 Mg Capsule.Dr) 20 mg PO BID@0630,1630 [facility] Last Admin: 04/12/21 06:28 Dose: 20 mg Documented by: LEE Pharmacy Consult (Consult Rx Perform Med Rec) 1 each MISCELLANE ONCE PRN PRN Reason: Consult order Polyethylene Glycol (Polyethylene Glycol 3350 17 Gm Powd.Pack) 17 gm PO DAILY PRN PRN Reason: constipation Senna (Sennosides 8.6 Mg Tablet) 17.2 mg PO BEDTIME PRN PRN Reason: Constipation Sodium Chloride (0.9 % Sodium Chloride Flush 3 Ml Syringe) 3 ml IVFLUSH QSHIFT [facility] Last Admin: 04/12/21 08:22 Dose: 3 ml Documented by: MALENA Tiotropium [place] (Tiotropium [place] 18 Mcg Cap.W.Dev) 1 puff INHALE RDAILY [facility] Last Admin: 04/12/21 09:39 Dose: 1 puff Documented by: LOYD Labs CBC & Chem 7: 04/12/21 05:42 04/12/21 05:42 Labs: Laboratory Results - last 24 hr 04/11/21 04/11/21 04/11/21 19:38 19:38 19:38 MCV 91.4 MCH 27.9 MCHC 30.5 L RDW 14.7 Plt Count 437 H MPV 8.1 L Immature Gran % (Auto) 0.4 Neut % (Auto) 52.6 Lymph % (Auto) 29.6 [place] % (Auto) 10.1 Eos % (Auto) 6.5 H Baso % (Auto) 0.8 Lymph # (Auto) 2.2 [place] # (Auto) 0.8 Eos # (Auto) 0.5 H Baso # (Auto) 0.1 Abs Immat Gran (auto) 0.03 Absolute Neuts (auto) 3.9 Absolute Nucleated RBC 0.000 Nucleated RBC % (auto) 0.0 PT INR APTT D-Dimer High Sensitivty VBG pH VBG pCO2 VBG pO2 VBG HCO3 VBG O2 Saturation VBG Base Excess Anion Gap 12 Estim Creat Clear Calc 59.2 Estimated GFR > 60 Random Glucose 105 Calcium 8.7 D Total Bilirubin < 0.2 AST 17 D ALT 7 Alkaline Phosphatase 71 D B-Natriuretic Peptide 64 Total Protein 6.8 D Albumin 3.2 L COVID-19 ([place]) COVID-19 Clin Com 04/11/21 04/11/21 04/11/21 19:38 19:38 19:38 MCV MCH MCHC RDW Plt Count MPV Immature Gran % (Auto) Neut % (Auto) Lymph % (Auto) [place] % (Auto) Eos % (Auto) Baso % (Auto) Lymph # (Auto) [place] # (Auto) Eos # (Auto) Baso # (Auto) Abs Immat Gran (auto) Absolute Neuts (auto) Absolute Nucleated RBC Nucleated RBC % (auto) PT Cancelled 11.2 INR Cancelled 1.0 APTT D-Dimer High Sensitivty 1850 VBG pH VBG pCO2 VBG pO2 VBG HCO3 VBG O2 Saturation VBG Base Excess Anion Gap Estim Creat Clear Calc Estimated GFR Random Glucose Calcium Total Bilirubin AST ALT Alkaline Phosphatase B-Natriuretic Peptide Total Protein Albumin COVID-19 ([place]) Negative COVID-19 Clin Com See Note 04/11/21 04/11/21 04/11/21 19:43 23:18 23:56 MCV 91.2 MCH 27.3 MCHC 29.9 L RDW 14.7 Plt Count 347 MPV 8.5 L Immature Gran % (Auto) Neut % (Auto) Lymph % (Auto) [place] % (Auto) Eos % (Auto) Baso % (Auto) Lymph # (Auto) [place] # (Auto) Eos # (Auto) Baso # (Auto) Abs Immat Gran (auto) Absolute Neuts (auto) Absolute Nucleated RBC 0.000 Nucleated RBC % (auto) 0.0 PT 11.4 INR 1.0 APTT 33.1 D D-Dimer High Sensitivty VBG pH 7.36 VBG pCO2 56 VBG pO2 41 VBG HCO3 32 H VBG O2 Saturation 63.0 VBG Base Excess 5.7 Anion Gap Estim Creat Clear Calc Estimated GFR Random Glucose Calcium Total Bilirubin AST ALT Alkaline Phosphatase B-Natriuretic Peptide Total Protein Albumin COVID-19 ([place]) COVID-19 Clin Com 04/12/21 04/12/21 05:42 05:42 MCV 91.5 MCH 27.5 MCHC 30.0 L RDW 14.8 Plt Count 395 MPV 8.2 L Immature Gran % (Auto) 0.3 Neut % (Auto) 50.4 Lymph % (Auto) 30.8 [place] % (Auto) 11.2 H Eos % (Auto) 6.6 H Baso % (Auto) 0.7 Lymph # (Auto) 1.8 [place] # (Auto) 0.7 Eos # (Auto) 0.4 Baso # (Auto) 0.0 Abs Immat Gran (auto) 0.02 Absolute Neuts (auto) 3.0 Absolute Nucleated RBC 0.000 Nucleated RBC % (auto) 0.0 PT INR APTT D-Dimer High Sensitivty VBG pH VBG pCO2 VBG pO2 VBG HCO3 VBG O2 Saturation VBG Base Excess Anion Gap 11 L Estim Creat Clear Calc 63.6 Estimated GFR > 60 Random Glucose 90 Calcium 8.4 Total Bilirubin AST ALT Alkaline Phosphatase B-Natriuretic Peptide Total Protein Albumin COVID-19 ([place]) COVID-19 Clin Com Assessment and Plan (1) Deep vein thrombosis (DVT) of both lower extremities: Status: Acute (2) COPD (chronic obstructive pulmonary disease): Status: Acute (3) Pulmonary emboli: Status: Acute Assessment and Plan: 75F with a past medical history of hypertension, COPD on home oxygen, anxiety, depression presented to the hospital today with a chief complaint of bilateral leg swelling. Noted to have DVT/PE. Admitted for further management. 1. Segmental to subsegmental right upper lobe pulmonary embolus Remains stable on b.i.d. Lovenox dosing. As per Oncology, will draw a hypercoagulability workup and then switch to Eliquis . 2. Right lower lobe nodule 1.7 cm with spiculated margins on CT As per Oncology, high suspicion for malignancy. No mediastinal adenopathy noted on CT Will need PET scan and thoracic surgery follow-up as outpatient; will arrange at discharge 3. COPD Stable at this time Continue Breo and Spiriva as per outpatient Courtney p.r.n. Code status: Full code Lovenox Quality Stroke Does the patient have a stroke diagnosis?: No VTE Prior VTE?: No VTE Risk Level:: Medical - moderate - high VTE Device Contraindication: Treatment Not Indicated VTE Drug Contraindication: N/A - Med Ordered
[2021-04-12 18:32] VITALS: BP 107/48; PULSE 77; PULSE 78; RESP 18; RESP 22; TEMP 36.9; O2SAT 95
[2021-04-12 20:18] LABS: Prothrombin Time 11.5 SEC (9.9-13.0)
[2021-04-12 20:20] LABS: Partial Thromboplastin Time 34.7 SEC (24.1-38.0)
[2021-04-12] MEDS: Mirtazapine 7.5 MG TABLET PO (21:06)
[2021-04-12 22:45] LABS: Prothrombin Time 11.8 SEC (9.9-13.0)
[2021-04-13] VITALS (7 sets, daily range): BP systolic 108–160; BP diastolic 58–73; PULSE 75–84; RESP 14–19; TEMP 36.6–37; O2SAT 90–99
[2021-04-13] MEDS: 0.9 % Sodium Chloride Flush 3 ML SYRINGE IVFLUSH ×3 (00:09→17:07)
[2021-04-13] MEDS: Omeprazole 20 MG CAPSULE.DR PO ×2 (06:34→17:06)
[2021-04-13] MEDS: Fluticasone/Vilanterol 200/25 BLST.W.DEV 1 PUFF INHALE (07:34)
[2021-04-13] MEDS: acetaZOLAMIDE 250 MG TABLET PO (09:06)
[2021-04-13] MEDS: guaiFENesin LA 600 MG TAB.ER.12H PO ×2 (09:06→21:14)
[2021-04-13] MEDS: Enoxaparin Sodium 60 MG/0.6 ML SYRINGE 50 MG SUBCUT ×2 (09:07→21:14)
--- NOTE | 2021-04-13 10:13 | P.CDIC_ITS ---
CDI Concurrent Query Documentation Clarification: PHYSICIAN'S DOCUMENTATION REQUEST Date of Query: 04/13/21 1013 Patient Name: Alexandra Roa Admit Date: 04/11/21 Dear Doctor, A review of the medical record indicates additional documentation may be needed. Please review below and update the documentation accordingly. Risk Factors/Clinical Indicators/Treatments H&P: 04/11 - COPD on 2 liters home oxygen. Oncology note: PMH: Acute on chronic respiratory failure. Home oxygen 2 liters. Supplemental oxygen 2 liters w pulse ox 97% RR 24. ABGs (1 or more) Symptoms: ? PO2 <60 or RA SpO2 <91% ? Tachypnea, SOB, dyspnea ? PcO2 >50 and pH <7.35 ? Pallor or cyanosis ? pO2 decrease or pcO2 increase ? Anxiety or restlessness by 10 mm/Hg from baseline if known ? Use of accessory muscles ? Retractions (grunting in newborns) ? Unable to speak in complete sentences Based on the above information and the recognized standard for respiratory failure could you please verify this diagnoses is accurate and reflective of the patient?s condition to ensure quality of the medical record. Please clarify in the Progress Notes: Chronic respiratory failure on Home oxygen Acute on chronic respiratory failure * Respiratory failure/treating/rule out/resolved etc. * Other (please specify) * Unable to determine Use of terms such as suspected, likely, concern for, or probable (associated with a specific diagnosis that is being evaluated, monitored, or treated as if it exists) are acceptable and can be coded in the inpatient setting, when documented at the time of discharge. Thank you, Elvia Slater [facility], CDIS Extension: [id number] acute on chronic respiratory failure secondary to pulmonary emboli Please use your independent medical judgment in providing your response. THIS QUERY IS PART OF THE PERMANENT MEDICAL RECORD Provider Response: COPD
--- NOTE | 2021-04-13 15:00 | P.PNIM_ITS ---
Subjective Subjective Date of Service: 04/13/21 Interval History: no acute issues overnight Review of Systems denies chest pain Denies shortness of breath Denies nausea vomiting diarrhea Physical Exam Vital Signs: Vital Signs: Last Vital Signs Temp 97.8 F 04/13/21 07:57 Pulse 75 04/13/21 07:57 Resp 14 04/13/21 07:57 BP 124/61 04/13/21 07:57 Pulse Ox 99 04/13/21 07:57 Oxygen Flow Rate 2 04/11/21 18:57 Body Mass Index 21.4 Const: Other: Awake alert oriented x3 no acute distress Resp: Other: Clear but diminished all renae; no rales rhonchi or wheezes Cardio: Other: Distant heart sounds; no S4; positive S1-S2; no S3 murmurs rubs gallops GI: Other: Soft nontender nondistended with normoactive bowel sounds Extrem: Other: No edema bilaterally Objective Data Active Medications Acetaminophen (Acetaminophen 325 Mg Tablet) 650 mg PO Q6H PRN PRN Reason: Pain, Mild (Pain Scale 1-3) Acetazolamide (Acetazolamide 250 Mg Tablet) 250 mg PO DAILY [facility] Last Admin: 04/13/21 09:06 Dose: 250 mg Documented by: EMEKA Albuterol/Ipratropium (Albuterol/Iprat 2.5/0.5mg 3 Ml Ampul.Neb) 3 ml INHALE RQ4H PRN PRN Reason: Shortness of Breath/Wheezing Calcium Carbonate (Calcium Carbonate 750 Mg Tab.Chew) 750 mg PO Q6H PRN PRN Reason: heartburn Enoxaparin Sodium (Enoxaparin Sodium 60 Mg/0.6 Ml Syringe) 50 mg 1 mg/kg (50 mg) SUBCUT Q12H [facility] Last Admin: 04/13/21 09:07 Dose: 50 mg Documented by: EMEKA Fluticasone/Vilanterol (Fluticasone/Vilanterol 200/25 Blst.W.Dev) 1 puff INHALE RDAILY [facility] Last Admin: 04/13/21 07:34 Dose: 1 puff Documented by: EMEKA Guaifenesin (Guaifenesin [place] 600 Mg Tab.Er.12h) 600 mg PO BID [facility] Last Admin: 04/13/21 09:06 Dose: 600 mg Documented by: EMEKA Loperamide HCl (Loperamide Hcl 2 Mg Capsule) 2 mg PO Q4H PRN PRN Reason: diarrhea Melatonin (Melatonin 3 Mg Tablet) 6 mg PO BEDTIME PRN PRN Reason: Insomnia Mirtazapine (Mirtazapine 7.5 Mg Tablet) 7.5 mg PO BEDTIME [facility] Last Admin: 04/12/21 21:06 Dose: 7.5 mg Documented by: SIVA Omeprazole (Omeprazole 20 Mg Capsule.) 20 mg PO BID@0630,1630 [facility] Last Admin: 04/13/21 06:34 Dose: 20 mg Documented by: SIVA Pharmacy Consult (Consult Rx Perform Med Rec) 1 each MISCELLANE ONCE PRN PRN Reason: Consult order Polyethylene Glycol (Polyethylene Glycol 3350 17 Gm Powd.Pack) 17 gm PO DAILY PRN PRN Reason: constipation Senna (Sennosides 8.6 Mg Tablet) 17.2 mg PO BEDTIME PRN PRN Reason: Constipation Sodium Chloride (0.9 % Sodium Chloride Flush 3 Ml Syringe) 3 ml IVFLUSH QSHIFT [facility] Last Admin: 04/13/21 07:34 Dose: 3 ml Documented by: EMEKA Tiotropium [place] (Tiotropium [place] 18 Mcg Cap.W.Dev) 1 puff INHALE RDAILY [facility] Last Admin: 04/13/21 07:34 Dose: 1 puff Documented by: EMEKA Labs CBC & Chem 7: 04/12/21 05:42 04/12/21 05:42 Labs: Laboratory Results - last 24 hr 04/12/21 04/12/21 19:49 22:27 PT 11.5 11.8 INR 1.0 1.0 APTT 34.7 Assessment and Plan (1) Pulmonary emboli: Status: Acute (2) Deep vein thrombosis (DVT) of both lower extremities: Status: Acute (3) Pulmonary nodule: Status: Acute Assessment and Plan: 75F with a past medical history of hypertension, COPD on home oxygen, anxiety, depression presented to the hospital today with a chief complaint of bilateral leg swelling. Noted to have DVT/PE. Admitted for further management. 1. Segmental to subsegmental right upper lobe pulmonary embolus Remains stable on b.i.d. Lovenox dosing. As per Oncology, will draw a hypercoagulability workup and then switch to Coumadin; Lovenox until INR greater than equal to 2 . 2. Right lower lobe nodule 1.7 cm with spiculated margins on CT As per Oncology, high suspicion for malignancy. No mediastinal adenopathy noted on CT; Discussed at length with patient and daughter. Will hopefully discharge patient in a.m. with Lovenox bridge until INR > 2.0; will follow-up with Dr. Webb; outpatient PET scan and biopsy to be scheduled 3. COPD Stable at this time Continue Breo and Spiriva as per outpatient Courtney p.r.n. Code status: Full code Lovenox Quality Stroke Does the patient have a stroke diagnosis?: No VTE Prior VTE?: No VTE Risk Level:: Medical - moderate - high VTE Device Contraindication: Treatment Not Indicated VTE Drug Contraindication: N/A - Med Ordered
[2021-04-13 16:38] LABS: Prothrombin Time 11.5 SEC (9.9-13.0)
[2021-04-13] MEDS: Warfarin Sodium 2.5 MG TABLET PO (17:06)
[2021-04-13] MEDS: Mirtazapine 7.5 MG TABLET PO (21:14)
[2021-04-14] MEDS: 0.9 % Sodium Chloride Flush 3 ML SYRINGE IVFLUSH ×2 (00:09→09:42)
[2021-04-14 03:30] VITALS: BP 121/63; PULSE 84; RESP 18; TEMP 36.9; O2SAT 93
[2021-04-14] MEDS: Omeprazole 20 MG CAPSULE.DR PO (06:16)
[2021-04-14 06:32] LABS: Prothrombin Time 11.5 SEC (9.9-13.0)
[2021-04-14 07:55] VITALS: BP 142/68; PULSE 78; RESP 20; TEMP 36.3; O2SAT 94
[2021-04-14] MEDS: Fluticasone/Vilanterol 200/25 BLST.W.DEV 1 PUFF INHALE (08:37)
[2021-04-14 08:41] VITALS: PULSE 76; O2SAT 95
[2021-04-14] MEDS: Enoxaparin Sodium 60 MG/0.6 ML SYRINGE 50 MG SUBCUT (09:37)
[2021-04-14] MEDS: acetaZOLAMIDE 250 MG TABLET PO (09:42)
[2021-04-14] MEDS: guaiFENesin LA 600 MG TAB.ER.12H PO (09:42)
--- NOTE | 2021-04-14 12:52 | PM.DS ---
DS: Providers Provider Date of Service: 04/14/21 Date of admission: 04/11/21 23:00 Date of discharge: 04/14/21 Primary care physician: Deon Rose MD Consults: 04/12/21 02:02 Consult to Hematology / Oncology Routine Consulting Provider: Luis Henry Reason for consultation: DVT/PE; Lung nodule->?Malignancy DS: Diagnosis Discharge Diagnosis (1) Pulmonary emboli: Status: Acute (2) Deep vein thrombosis (DVT) of both lower extremities: Status: Acute (3) Pulmonary nodule: Status: Acute DS: Summary Hospital Course Hospital Course: 75-year-old female with history of O2 dependent COPD presents with worsening shortness of breath and leg swelling. Workup demonstrates bilateral DVTs along with subsegmental PE; also documented was a right lower lobe spiculated nodule measuring approximately 1.7 cm. She was seen in consultation by Oncology; plan is to start Coumadin with Lovenox bridge patient will be followed up as outpatient for tissue biopsy and PET scan. Further plans based on forthcoming data. Patient lives with daughter who is actively involved in the care; is comfortable doing Lovenox and has demonstrated same to nurse. Patient will be discharged with Lovenox and Coumadin VNA to follow for INR Time Spent with Patient Time attestation: Total time spent providing and/or coordinating discharge services: Discharge coordination time: Greater than 30 minutes Quality: Stroke Does the patient have a stroke diagnosis?: No Physical Exam Vital Signs: Vital Signs: Last Vital Signs Temp 97.4 F 04/14/21 07:55 Pulse 78 04/14/21 07:55 Resp 20 04/14/21 07:55 BP 142/68 H 04/14/21 07:55 Pulse Ox 94 04/14/21 07:55 Oxygen Flow Rate 2 04/11/21 18:57 Body Mass Index 21.4 Const: Other: Awake alert oriented x3 no acute distress Resp: Other: Clear but diminished all renae; no rales rhonchi or wheezes Cardio: Other: Distant heart sounds; no S4; positive S1-S2; no S3 murmurs rubs gallops GI: Other: Soft nontender nondistended with normoactive bowel sounds Extrem: Other: No edema bilaterally DS: Data Data Completed and Pending Completed studies during hospitalization [Text1]: Procedures Assistance with Respiratory Ventilation, Less than 24 Consecutive Hours, Continuous Positive Airway Pressure (12/09/20) Drainage of Right Pleural Cavity, Percutaneous Approach (12/09/20) Reposition Left Upper Femur with Internal Fixation Device, Percutaneous Approach (12/09/20) Labs on day of discharge: Laboratory Results - last 24 hr 04/13/21 04/14/21 16:13 05:56 PT 11.5 11.5 INR 1.0 1.0 Discharge Plan Discharge Patient Disposition: Home Health Service Discharge Diagnosis: pulmonary emboli; DVT; spiculated left lung mass Referrals: [facility] [Outside] - 1 Week Deon Rose MD [Primary Care Provider] - 1 Week Discharge Medications: New warfarin [Jantoven] 2.5 mg Tablet 2.5 mg PO DAILY@1800 Qty: 30 RF: 0 enoxaparin 60 mg/0.6 mL Syringe 50 mg subcut Q12H Qty: 14 RF: 1 Continued Spiriva with HandiHaler 18 mcg Capsule, W/Inhalation Device 1 puff inhalation RDAILY Qty: 0 RF: 0 acetazolamide 250 mg Tablet 250 mg PO DAILY Qty: 0 RF: 0 calcium carbonate [Tums] 300 mg (750 mg) Tablet,Chewable 750 mg PO Q6H PRN (Reason: heartburn) Qty: 0 RF: 0 mirtazapine 7.5 mg Tablet 7.5 mg PO BEDTIME Qty: 0 RF: 0 loperamide 2 mg Capsule 2 mg PO Q4H PRN (Reason: diarrhea) Qty: 0 RF: 0 polyethylene glycol 3350 17 gram Powder In Packet 17 g PO DAILY PRN (Reason: constipation) Qty: 0 RF: 0 omeprazole 20 mg Capsule,Delayed Release(Dr/Ec) 20 mg PO BID@0630,1630 Qty: 0 RF: 0 Breo Ellipta 200-25 mcg/dose Blister With Device 1 puff inhalation RDAILY Qty: 0 RF: 0 guaifenesin [Mucinex] 600 mg Tablet Extended Release 12hr 600 mg PO BID Qty: 0 RF: 0 albuterol sulfate 2.5 mg /3 mL (0.083 %) solution for nebulization 2.5 mg inhalation Q4H PRN (Reason: shortness of breath/wheeze) RF: 0 Discharge Orders: Discharge Order (Routine); Ordered 04/14/21 Ordered By: Arnaldo Tillman Diet: advance to usual diet Activity on Discharge: As tolerated Stand Alone Forms: Patient Portal Discharge page Care Plan Goals: VNA to follow INR Health Concerns: follow-up with Dr. Webb as an outpatient Plan of Treatment: Coumadin therapy and Lovenox bridge Assessment: stable
== END 2021-04-14 14:32 | disposition home health service (06) | DRG 299 ==
LOC: HO.ED 23:06 → HO.EDOVER 04-12 03:37 → HO.IMC 04-13 14:33
PROVIDERS: Admitting Provider Hospitalist; Emergency Provider Student in an Organized Health Care Education/Training Program; PCP Internal Medicine; Visit Provider Hospitalist
DX: I82.403 Acute embolism and thrombosis of unspecified deep veins of lower extremity, bilateral (principal); I26.93 Single subsegmental thrombotic pulmonary embolism without acute cor pulmonale; J96.20 Acute and chronic respiratory failure, unspecified whether with hypoxia or hypercapnia; R91.1 Solitary pulmonary nodule; J44.9 Chronic obstructive pulmonary disease, unspecified; Z99.81 Dependence on supplemental oxygen; Z87.891 Personal history of nicotine dependence; Z79.01 Long term (current) use of anticoagulants; Z79.899 Other long term (current) drug therapy
CPT/HCPCS: 36415; 71045; 71275; 80048; 80053; 82803; 83880; 85025; 85027; 85379; 85610; 85730; 87635; 93005; 93970; 99285; J1650; Q9967

== ENCOUNTER 2021-06-05 09:58 | Outpatient (REF) | payer MEDICARE, SELFPAY ==
--- NOTE | ~2021-06-05 | PE_ITS ---
EXAMINATION: Fluorine-18 FDG PET/CT Scan CLINICAL INDICATION: Initial treatment management. Right lower lobe pulmonary nodule. PROCEDURE: 71 minutes following the intravenous administration of 14.5 mCi of fluorine 18 FDG, images from the base of the skull to the mid thighs were obtained using a combined PET/CT scanner with CT scan based attenuation correction. No oral contrast was administered. No intravenous contrast was administered. Transverse, coronal, sagittal, and volume reconstruction projections were obtained. The patient's blood glucose as determined by a finger stick, was 92 mg/dl immediately prior to injection. Total CT exam dose-length product 352.22 mGy-cm * These CT images were obtained using dose optimization techniques as appropriate, variously including the following: Automated exposure control * Adjustment of mA and/or kV according to patient size (this includes techniques or standardized protocols for targeted exams where dose is matched to indication/reason for exam; i.e. extremities or head) * Use of iterative reconstruction technique COMPARISON: No previous PET/CT scan is available for comparison. CT angiogram of the chest dated 04/11/2021 is available for comparison. FINDINGS: (Slice numbers described in this report are numbered superiorly to inferiorly with slice #1 in the head) NECK AND VISUALIZED HEAD: No foci of abnormal FDG activity are noted. The distribution of FDG activity is physiological. There is no cervical lymphadenopathy. THORAX: There is abnormal FDG activity associated with a solid right lower lobe pulmonary nodule, SUVmax 6.6, slice 75/223. On the CT images this measures 1.6 x 1.4 cm in largest transverse dimensions and approximately 1.6 cm cephalocaudad. It does not appear significantly changed from the CT angiogram dated 04/11/2021. There is a 0.6 cm right middle lobe pulmonary nodule that is also unchanged from 04/11/2021, slice 88/223, and this is too small to be characterized on the FDG PET images. A densely calcified subpleural granulomas present in the superior segment of the right lower lobe, 0.4 cm, unchanged from 04/11/2021. No additional pulmonary nodules are visualized. A small amount of left-sided pleural fluid is present and this pleural effusion is significantly smaller than on 04/11/2021. It shows weak diffuse FDG activity without a focal component. There are no additional foci of abnormal FDG activity in the chest. There is no mediastinal, supraclavicular, or axillary lymphadenopathy. Multiple metallic surgical clips are present in the right axilla with no associated abnormal FDG activity and there is at least one metallic clip in the right breast, also with no associated abnormal FDG activity. Dense aortic and mitral valve calcifications are present. ABDOMEN AND PELVIS: There is a focus of abnormally increased FDG activity associated with some skin thickening in the right labial region, SUVmax 7.1, slice 208/223. On the CT images this measures approximately 2.7 x 1.4 cm in largest transverse dimensions. There are no other foci of abnormal FDG activity in the abdomen or pelvis. There is mild FDG activity throughout the gastrointestinal tract without a suspicious focal component. There is diverticulosis without evidence of diverticulitis. The hollow viscera are otherwise unremarkable. The liver and spleen are unremarkable. The gallbladder has been resected and there are metallic surgical clips in the gallbladder bed. There is a hypodense 1.9 cm posteromedial cyst in the mid left kidney, and this is markedly FDG photopenic. The kidneys are otherwise unremarkable. The adrenal glands and pancreas are unremarkable. The pelvic organs are unremarkable. There is no retroperitoneal, mesenteric, pelvic or inguinal lymphadenopathy. A small fat-containing periumbilical hernia is present. MUSCULOSKELETAL: There is mildly increased FDG activity in the shoulders bilaterally, likely arthritic. There are no other foci of abnormal FDG activity in the osseous structures. There are degenerative changes in the spine and a mild thoracolumbar scoliosis with lumbar convexity to the right is noted. There are no suspicious sclerotic or lytic lesions visualized. 2 pins stabilizing an old left femoral neck fracture are noted somewhat no associated abnormal FDG activity. VASCULAR: Diffuse vascular calcifications including coronary are noted. PET/PET CT fusion skull to thigh IMPRESSION: 1. An FDG avid right lower lobe pulmonary nodule is noted as described above and is most likely malignant. 2. There is a focus of FDG avid skin thickening in the right labial region. While this may be a focal inflammatory cutaneous lesion, a malignant lesion at this site cannot be ruled out and is of concern because of the intensity of the FDG activity. Initial follow-up with direct visualization is recommended. 3. No additional abnormalities suspicious for metastatic or other malignant lesions are noted. 4. Diffuse vascular calcifications including coronary.
== END 2021-06-05 09:59 | disposition home or self-care (01) ==
LOC: HO.PET 09:58
PROVIDERS: Visit Provider Internal Medicine Medical Oncology
DX: Z13.89 Encounter for screening for other disorder (principal)

== ENCOUNTER → 2021-06-29 11:08 | Outpatient (BNVA) | payer MEDICARE, SELFPAY | PROVIDERS: PCP Internal Medicine; Visit Provider Surgery | DX: J44.9 Chronic obstructive pulmonary disease, unspecified (principal); R91.1 Solitary pulmonary nodule; Z87.891 Personal history of nicotine dependence; Z79.899 Other long term (current) drug therapy; Z79.01 Long term (current) use of anticoagulants; Z99.81 Dependence on supplemental oxygen | CPT/HCPCS: 99212 ==

== ENCOUNTER 2022-11-15 10:22 | Outpatient (REF) | payer MEDICARE, SELFPAY ==
--- NOTE | ~2022-11-15 | XR_ITS ---
EXAMINATION: XR CHEST CLINICAL INFORMATION: Cough and congestion, question pneumonia COMPARISON: 06/05/2021 PET/CT and 04/11/[address] TECHNIQUE: 2 views of the chest were obtained. FINDINGS: 5.5 x 5.1 x 5.2 cm superior segment right lower lobe mass is seen. Heart and mediastinum within normal limits. Aortic calcifications identified. Demineralization and degenerative changes. XR/XR chest 2V IMPRESSION: 5.5 cm right lower lobe lung mass suspicious for enlarging neoplasm.
== END 2022-11-15 10:23 | disposition home or self-care (01) ==
LOC: HO.XRAY 10:22
PROVIDERS: Visit Provider Internal Medicine Medical Oncology
DX: I26.99 Other pulmonary embolism without acute cor pulmonale (principal)
CPT/HCPCS: 71046

== ENCOUNTER 2022-12-11 12:49 | Outpatient (REF) | payer MEDICARE, SELFPAY | END 2022-12-11 12:50 | disposition home or self-care (01) | LOC: HO.MDS 12:49 | PROVIDERS: Visit Provider Internal Medicine Medical Oncology | DX: D64.9 Anemia, unspecified (principal) | CPT/HCPCS: 96365; J1439 ==

== ENCOUNTER 2022-12-18 11:25 | Outpatient (REF) | payer MEDICARE, SELFPAY ==
[2022-12-18 12:13] LABS: MANUAL DIFF FLAG NO
[2022-12-18 12:17] LABS: Basophils Absolute Auto 0.1 X10*3/uL (0.0-0.2); Eosinophils Absolute Auto 0.2 X10*3/uL (0.0-0.4); Eosinophils Percent Auto 2.3 % (0-4); Hemoglobin 9.6 g/dl (12.0-16.0); Imm Gran Abs Auto 0.06 X10*3/uL (0.00-0.03); Imm Gran Pct Auto 0.9 % (0.0-0.4); Lymphocytes Absolute Auto 1.5 X10*3/uL (1.2-4.9); Lymphocytes Percent Auto 21.2 % (20-40); Mean Corpuscular HGB Conc 28.2 g/dl (31.0-35.0); Mean Corpuscular Hemoglobin 26.9 pg (27.0-33.0); Mean Corpuscular Volume 95.2 fL (80.0-98.0); Mean Platelet Volume 8.3 fL (9.4-12.3); Monocytes Absolute Auto 0.6 X10*3/uL (0.1-1.2); Monocytes Percent Auto 8.2 % (2-11); Neutrophils Absolute Auto 4.6 x10*3/uL (2.0-8.3); Neutrophils Percent Auto 66.4 % (45-73); Platelet Count 333 X10*3/uL (160-400); Red Blood Count 3.57 X10*6/uL (4.20-5.50); Red Cell Distribution Width 14.6 % (11.0-16.0); White Blood Count 6.9 X10*3/uL (4.8-10.8)
== END 2022-12-18 11:26 | disposition home or self-care (01) ==
LOC: HO.MDS 11:25
PROVIDERS: Visit Provider Internal Medicine Medical Oncology
DX: D64.9 Anemia, unspecified (principal)
CPT/HCPCS: 36415; 85025; 96365

== ENCOUNTER 2023-03-24 11:52 | Emergency (ER) | payer MEDICARE, SELFPAY ==
--- NOTE | ~2023-03-24 | CT_ITS ---
EXAMINATION: CT ABDOMEN AND PELVIS WITH CONTRAST CLINICAL INFORMATION: abdominal pain, diarrhea, lung ca COMPARISON: 06/05/2021 PET/CT scan TECHNIQUE: Multidetector volumetric imaging was performed from the superior aspect of the liver through the pubic symphysis following administration of 85 mL Omnipaque 300 intravenous contrast. Sagittal and coronal reformatted images were obtained on the technologist workstation.. This CT examination was performed using dose optimization techniques as appropriate, variously including the following: *Automated exposure control *Adjustment of mA and/or kV according to patient size (this includes techniques or standardized protocols for targeted exams where dose is matched to indication/reason for exam; i.e. extremities or head) *Use of iterative reconstruction technique DLP: 671 mGy-cm FINDINGS: LUNG BASES: Linear scarring or atelectasis. Prominent mitral annular calcification seen. LIVER, GALLBLADDER, AND BILIARY TREE: Low-attenuation somewhat wedge-shaped subcapsular probable perfusional abnormality or focal fatty infiltration seen on the inferior most aspect of segment 5 of the liver. There is some subtle capsular retraction in this location. Unfortunately this is not well delineated on the prior chest CT scans which does not extend to this area but there is no abnormal FDG activity in this location on the 06/05/2021 PET/CT scan. Gallbladder surgically absent. PANCREAS: Unremarkable. SPLEEN: Unremarkable. ADRENAL GLANDS: There is fullness to both adrenal glands noted with a more discrete 1 cm right adrenal nodule. The left adrenal gland fullness is similar to the prior CT scans dating back to 2020 although the nodular right adrenal gland. This is new from the 202 CT scans and more prominent from the PET CT scan. KIDNEYS AND URETERS: The kidneys are normal in size, shape, and attenuation. There are several low-attenuation probable cortical cysts bilaterally left more so than right. No hydronephrosis, hydroureter, or calculi seen. No perinephric stranding. BLADDER: Mild bladder wall thickening for the degree of distention GASTROINTESTINAL TRACT: Rectum is decompressed and I cannot exclude some subtle rectal wall thickening possibly representing a mild proctitis. There is colonic diverticulosis. I do not appreciate any significant colonic wall thickening or pericolonic inflammatory change. 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 ABDOMINAL WALL: Fat containing midline periumbilical hernia LYMPHOVASCULAR STRUCTURES: Extensive vascular calcification within the aorta iliac system. No bulky adenopathy PELVIC VISCERA: Unremarkable. OSSEOUS STRUCTURES: Multilevel degenerative changes in the spine with degenerative changes in the hips and postoperative changes in the left femoral neck CT/CT abdomen pelvis w IV con IMPRESSION: 1. There is diverticulosis but no obvious diverticulitis. The rectum is decompressed and I cannot exclude some subtle rectal wall thickening possibly representing a mild proctitis in this setting. Clinical correlation would be helpful. 2. There is a wedge-shaped area of low attenuation along the inferior most aspect of segment 5 of the liver. This is not well delineated on the prior chest CT scans but there is no abnormal FDG activity in this location on the 06/05/2021 PET/CT scan. This could represent a perfusional abnormality or focal fatty infiltration. This could be further evaluated with a dynamic MRI of the liver. 3. There is fullness to both adrenal glands with a more discrete 1 cm right adrenal gland nodule. This is new from the 2020 CT scans and more prominent from the 06/05/2021 PET/CT scan.
[2023-03-24 13:33] VITALS: BP 133/48; PULSE 79; RESP 18; TEMP 37; O2SAT 98; BMI 30.7
--- NOTE | 2023-03-24 13:33 | ED_ITS ---
HPI - General Adult General Chief complaint: Nausea/Vomiting/Diarrhea Stated complaint: diarrhea 3xdays/ on blood thinners/ cancer pt Time Seen by Provider: 03/24/23 14:38 Source: patient and family Mode of arrival: ambulatory History of Present Illness HPI narrative: 77-year-old female with known metastatic CA, she is interested in hospice/palliative services. She arrives today for 3 days persistent, nonbloody diarrhea and has been on stool softeners but since Friday it was stopped and patient was started on intermittent Imodium. She denies any associated fever, chills and has shortness of breath at baseline and is on chronic nasal cannula supplementation for known lung CA. she is not currently on any chemotherapy Related Data Home Medications Medication Instructions Recorded Confirmed albuterol sulfate 2.5 mg/3 mL 2.5 mg inhalation Q4H PRN 04/11/21 11/15/22 (0.083 %) solution for nebulization shortness of breath/wheeze warfarin 2.5 mg tablet (Jantoven) 5 mg PO DAILY@1800 05/03/21 11/15/22 albuterol 90 mcg/actuation aerosol 90 mcg inhalation Q2-4H PRN 07/16/21 11/15/22 inhaler Shortness Of Breath Previous Rx's Medication Instructions Recorded acetazolamide 250 mg tablet 250 mg PO DAILY #0 tabs 01/20/21 calcium carbonate 300 mg (750 mg) 750 mg (2.5 x 300 mg (750 mg)) PO 01/20/21 chewable tablet (Tums) Q6H PRN heartburn #0 tabs fluticasone furoate 200 1 puff inhalation RDAILY #0 ea 01/20/21 mcg-vilanterol 25 mcg/dose inhalation powder (Breo Ellipta) guaifenesin 600 mg tablet, 600 mg PO BID #0 tabs 01/20/21 extended release 12 hr (Mucinex) loperamide 2 mg capsule 2 mg PO Q4H PRN diarrhea #0 caps 01/20/21 mirtazapine 7.5 mg tablet 7.5 mg PO BEDTIME #0 tabs 01/20/21 omeprazole 20 mg capsule,delayed 20 mg PO BID@0630,1630 #0 caps 01/20/21 release polyethylene glycol 3350 17 gram 17 g PO DAILY PRN constipation #0 01/20/21 oral powder packet ea tiotropium bromide 18 mcg capsule 1 puff inhalation RDAILY ##0 01/20/21 with inhalation device (Spiriva with HandiHaler) cefuroxime axetil 500 mg tablet 500 mg PO Q12H 5 days #10 tabs 03/24/23 Allergies Allergy/AdvReac Type Severity Reaction Status Date / Time No Known Allergies Allergy Verified 11/15/22 08:58 Review of Systems 2 Review of Systems: Pertinent positives and negatives as stated in [facility] Past Medical History Source: nursing notes reviewed Medical History History of infiltrating ductal carcinoma of breast (~1990) Pulmonary emboli (~03/2021) Deep vein thrombosis (DVT) of both lower extremities (~03/2021) Pleural effusion, bacterial (~2020) Respiratory failure, acute and chronic Hypertension COPD (chronic obstructive pulmonary disease) Surgical History History of lumpectomy of right breast (~1990) History of hip surgery (~11/2020) History of thoracentesis (~12/2020) History of appendectomy History of cholecystectomy Family History Family History Mother Cervical cancer Daughter Uterus cancer Maternal Grandmother Cancer Social History Social History Household Members: Family Housing: House Are you a primary occasional caregiver to a significant other at home: No Do you presently have visiting nurse or other home services: Yes ([facility]) Alcohol intake: former Patient Tobacco Use Status: Former Tobacco user Tobacco use type: Cigarette Cigarette Packs Per Day: 1 e-Cigarette/Vaping Use: Never Used Advance Directives Date on File: 01/23/21 service: No Current occupational status: retired Physical Exam ED Vital Signs: Vital Signs - 24 hr 03/24/23 13:33 03/24/23 14:22 03/24/23 18:11 Temperature 98.6 F Pulse Rate 79 82 85 Respiratory Rate 18 14 16 Blood Pressure 133/48 L 132/54 L 137/47 L Pulse Oximetry 98 98 98 Oxygen Delivery Method Nasal Cannula Room Air Room Air BMI result Body Mass Index 30.7 VITAL SIGNS: Reviewed. GENERAL: Well developed, well nourished, in no acute distress. HEAD: Normocephalic/atraumatic EYES: PERRLA, EOMI EARS: Ext canals without abnormality NOSE: Nares patent bilateral OROPHARYNX: no oral lesions noted, posterior pharynx clear NECK: Supple, no adenopathy LUNGS: Normal breath sounds. No adventitious sounds or accessory muscle use. SpO2<98> on chronic 2 L nasal cannula CARDIOVASCULAR: Regular rate and rhythm without noted murmurs, no JVD or lower extremity edema. ABDOMEN: Soft, diffuse tenderness without rebound, non-distended with bowel sounds. MUSCULOSKELETAL: No tenderness, deformities, or effusions noted on gross inspection. EXTREMITIES: No cyanosis, clubbing or edema. SKIN: Inspection of the skin reveals no rashes NEUROLOGIC: Alert and oriented x 4. Strength and sensation to light touch were grossly intact x 4. Course Course Course Narrative: RME- 77-year-old female with past medical history significant for lung cancer not currently being treated (electively), DVT on Eliquis, COPD presents for evaluation of diarrhea as for the last 5 days. Denies any risk factors for C diff. Plan for labs, stool studies Medications Administered Discontinued Medications Generic Name Dose Route Start Last Admin Trade Name Freq PRN Reason Stop Dose Admin Iohexol 100 ml 03/24/23 16:35 03/24/23 16:36 Iohexol 350 Mg/Ml 100 Ml Infus..Btl IV 03/24/23 16:36 85 ml ONCE ONE Administration Medical Decision Making Medical Decision Making [facility] Narrative: 1500: 77-year-old female with history and clinical presentation, DDX: Colitis, metastatic CA, gastroenteritis, contaminated food, over medication with stool softeners. 1509: I discussed with Hedy and she will be reaching out to the agency and hopefully someone will be able to see the patient here in the emergency room prior to discharge or even admission depending on how the interview goes. 1730: I reviewed all investigations and hematologic indices are negative for leuk leukocytosis or left shift, patient has a stable macrocytic anemia and no evidence of thrombocytopenia. Chemistry indices are grossly within normal limits and there is no demonstration of MCKINLEY or electrolytes/liver enzyme abnormalities. Urinalysis is still pending and will place order for straight cath. Reviewed remaining investigations, specifically C diff is negative and CT scan does not identify any acute intra-abdominal pathologies. Patient will receive Imodium, I do suspect that patient may have a urinary tract infection likely secondary to the episodes of diarrhea although patient is able to tolerate food and liquids. Patient and family have also been given all necessary brochures and documents regarding palliative services and hospice services. UTI as positive, she received initial antibiotics here. Differential Diagnosis Differential Diagnoses: The differential diagnosis associated with the presentation includes Please see the discussion above Admission/Observation Consideration of admission/observation: Escalation of care including admission/observation considered Please see the discussion above Lab Data MDM Lab Attestation statement: I reviewed the patient's lab results. Please see the discussion above 03/24/23 14:08 03/24/23 14:08 Labs: Lab Results 03/24/23 03/24/23 03/24/23 Range/Units 14:08 16:00 18:27 WBC 8.6 (4.8-10.8) X10*3/uL RBC 3.37 L (4.20-5.50) X10*6/uL Hgb 10.1 L (12.0-16.0) g/dl Hct 34.1 L (37.0-47.0) % MCV 101.2 H (80.0-98.0) fL MCH 30.0 (27.0-33.0) pg MCHC 29.6 L (31.0-35.0) g/dl RDW 14.2 (11.0-16.0) % Plt Count 376 (160-400) X10*3/uL MPV 8.4 L (9.4-12.3) fL Immature Gran % (Auto) 0.5 H (0.0-0.4) % Neut % (Auto) 70.1 (45-73) % Lymph % (Auto) 19.4 L (20-40) % [place] % (Auto) 7.9 (2-11) % Eos % (Auto) 1.5 (0-4) % Baso % (Auto) 0.6 (0-2) % Lymph # (Auto) 1.7 (1.2-4.9) X10*3/uL [place] # (Auto) 0.7 (0.1-1.2) X10*3/uL Eos # (Auto) 0.1 (0.0-0.4) X10*3/uL Baso # (Auto) 0.1 (0.0-0.2) X10*3/uL Abs Immat Gran (auto) 0.04 H (0.00-0.03) X10*3/uL Absolute Neuts (auto) 6.1 (2.0-8.3) x10*3/uL Absolute Nucleated RBC 0.000 (0.0-0.012) X10*3/uL Nucleated RBC % (auto) 0.0 (0.0-0.2) /100WBC Sodium 139 (135-145) mmol/L Potassium 3.4 D (3.3-5.1) mmol/L Chloride 101 (96-108) mmol/L Carbon Dioxide 29 (22-29) mmol/L Anion Gap 12 (12-20) BUN 8 L (9-16) mg/dL Creatinine 0.77 (0.5-1.4) mg/dL Estim Creat Clear Calc 53.0 Estimated GFR > 60 Random Glucose 106 (60-115) mg/dL Calcium 9.2 (8.4-10.2) mg/dL Magnesium 2.1 (1.6-2.6) mg/dL Total Bilirubin 0.2 (0.0-1.0) mg/dL AST 18 (5-31) U/L ALT 11 (0-31) U/L Alkaline Phosphatase 90 (39-117) U/L Total Protein 7.4 (6.5-8.0) g/dL Albumin 3.6 (3.5-5.0) g/dL Lipase 17 (8-78) U/L Urine Color Yellow Urine Appearance Urine pH (5.0-9.0) Ur Specific [place] (1.005-1.025) Urine Protein (Neg-Trace) mg/dL Urine Glucose (UA) (Negative) mg/dL Urine Ketones (Negative) mg/dL Urine Blood (Negative) Urine Nitrite (Negative) Ur Leukocyte Esterase (Negative) Urine RBC (0-2) /HPF Urine WBC (0-5) /HPF Urine WBC Clumps Ur Squamous Epith Cells (0-2) /HPF Ur Transition Epith Cell Ur Renal Epithelial Cell Calcium Oxalate Crystal Leucine Crystals Cystine Crystals Tyrosine Crystals Other Crystals Urine Bacteria (None Seen) Urine Parasites Bilirubin Casts Epithelial Casts Fatty Casts Hyaline Casts (0-2) /LPF Granular Casts Waxy Casts Broad Casts RBC Casts WBC Casts Other Casts Urine Trichomonas Urine Yeast C. difficile Tox B Gene NEGATIVE (Negative) 03/24/23 03/24/23 03/24/23 Range/Units 18:27 18:27 18:27 WBC (4.8-10.8) X10*3/uL RBC (4.20-5.50) X10*6/uL Hgb (12.0-16.0) g/dl Hct (37.0-47.0) % MCV (80.0-98.0) fL MCH (27.0-33.0) pg MCHC (31.0-35.0) g/dl RDW (11.0-16.0) % Plt Count (160-400) X10*3/uL MPV (9.4-12.3) fL Immature Gran % (Auto) (0.0-0.4) % Neut % (Auto) (45-73) % Lymph % (Auto) (20-40) % [place] % (Auto) (2-11) % Eos % (Auto) (0-4) % Baso % (Auto) (0-2) % Lymph # (Auto) (1.2-4.9) X10*3/uL [place] # (Auto) (0.1-1.2) X10*3/uL Eos # (Auto) (0.0-0.4) X10*3/uL Baso # (Auto) (0.0-0.2) X10*3/uL Abs Immat Gran (auto) (0.00-0.03) X10*3/uL Absolute Neuts (auto) (2.0-8.3) x10*3/uL Absolute Nucleated RBC (0.0-0.012) X10*3/uL Nucleated RBC % (auto) (0.0-0.2) /100WBC Sodium (135-145) mmol/L Potassium (3.3-5.1) mmol/L Chloride (96-108) mmol/L Carbon Dioxide (22-29) mmol/L Anion Gap (12-20) BUN (9-16) mg/dL Creatinine (0.5-1.4) mg/dL Estim Creat Clear Calc Estimated GFR Random Glucose (60-115) mg/dL Calcium (8.4-10.2) mg/dL Magnesium (1.6-2.6) mg/dL Total Bilirubin (0.0-1.0) mg/dL AST (5-31) U/L ALT (0-31) U/L Alkaline Phosphatase (39-117) U/L Total Protein (6.5-8.0) g/dL Albumin (3.5-5.0) g/dL Lipase (8-78) U/L Urine Color Cancelled Urine Appearance Turbid Cancelled Urine pH 6.5 Cancelled (5.0-9.0) Ur Specific [place] >= 1.030 H (1.005-1.025) Urine Protein (Neg-Trace) mg/dL Urine Glucose (UA) (Negative) mg/dL Urine Ketones (Negative) mg/dL Urine Blood (Negative) Urine Nitrite (Negative) Ur Leukocyte Esterase (Negative) Urine RBC (0-2) /HPF Urine WBC (0-5) /HPF Urine WBC Clumps Ur Squamous Epith Cells (0-2) /HPF Ur Transition Epith Cell Ur Renal Epithelial Cell Calcium Oxalate Crystal Leucine Crystals Cystine Crystals Tyrosine Crystals Other Crystals Urine Bacteria (None Seen) Urine Parasites Bilirubin Casts Epithelial Casts Fatty Casts Hyaline Casts (0-2) /LPF Granular Casts Waxy Casts Broad Casts RBC Casts WBC Casts Other Casts Urine Trichomonas Urine Yeast C. difficile Tox B Gene (Negative) 03/24/23 03/24/23 03/24/23 Range/Units 18:27 18:27 18:27 WBC (4.8-10.8) X10*3/uL RBC (4.20-5.50) X10*6/uL Hgb (12.0-16.0) g/dl Hct (37.0-47.0) % MCV (80.0-98.0) fL MCH (27.0-33.0) pg MCHC (31.0-35.0) g/dl RDW (11.0-16.0) % Plt Count (160-400) X10*3/uL MPV (9.4-12.3) fL Immature Gran % (Auto) (0.0-0.4) % Neut % (Auto) (45-73) % Lymph % (Auto) (20-40) % [place] % (Auto) (2-11) % Eos % (Auto) (0-4) % Baso % (Auto) (0-2) % Lymph # (Auto) (1.2-4.9) X10*3/uL [place] # (Auto) (0.1-1.2) X10*3/uL Eos # (Auto) (0.0-0.4) X10*3/uL Baso # (Auto) (0.0-0.2) X10*3/uL Abs Immat Gran (auto) (0.00-0.03) X10*3/uL Absolute Neuts (auto) (2.0-8.3) x10*3/uL Absolute Nucleated RBC (0.0-0.012) X10*3/uL Nucleated RBC % (auto) (0.0-0.2) /100WBC Sodium (135-145) mmol/L Potassium (3.3-5.1) mmol/L Chloride (96-108) mmol/L Carbon Dioxide (22-29) mmol/L Anion Gap (12-20) BUN (9-16) mg/dL Creatinine (0.5-1.4) mg/dL Estim Creat Clear Calc Estimated GFR Random Glucose (60-115) mg/dL Calcium (8.4-10.2) mg/dL Magnesium (1.6-2.6) mg/dL Total Bilirubin (0.0-1.0) mg/dL AST (5-31) U/L ALT (0-31) U/L Alkaline Phosphatase (39-117) U/L Total Protein (6.5-8.0) g/dL Albumin (3.5-5.0) g/dL Lipase (8-78) U/L Urine Color Urine Appearance Urine pH (5.0-9.0) Ur Specific [place] Cancelled (1.005-1.025) Urine Protein 30 (1+) H Cancelled (Neg-Trace) mg/dL Urine Glucose (UA) Negative Cancelled (Negative) mg/dL Urine Ketones Negative (Negative) mg/dL Urine Blood (Negative) Urine Nitrite (Negative) Ur Leukocyte Esterase (Negative) Urine RBC (0-2) /HPF Urine WBC (0-5) /HPF Urine WBC Clumps Ur Squamous Epith Cells (0-2) /HPF Ur Transition Epith Cell Ur Renal Epithelial Cell Calcium Oxalate Crystal Leucine Crystals Cystine Crystals Tyrosine Crystals Other Crystals Urine Bacteria (None Seen) Urine Parasites Bilirubin Casts Epithelial Casts Fatty Casts Hyaline Casts (0-2) /LPF Granular Casts Waxy Casts Broad Casts RBC Casts WBC Casts Other Casts Urine Trichomonas Urine Yeast C. difficile Tox B Gene (Negative) 03/24/23 03/24/23 03/24/23 Range/Units 18:27 18:27 18:27 WBC (4.8-10.8) X10*3/uL RBC (4.20-5.50) X10*6/uL Hgb (12.0-16.0) g/dl Hct (37.0-47.0) % MCV (80.0-98.0) fL MCH (27.0-33.0) pg MCHC (31.0-35.0) g/dl RDW (11.0-16.0) % Plt Count (160-400) X10*3/uL MPV (9.4-12.3) fL Immature Gran % (Auto) (0.0-0.4) % Neut % (Auto) (45-73) % Lymph % (Auto) (20-40) % [place] % (Auto) (2-11) % Eos % (Auto) (0-4) % Baso % (Auto) (0-2) % Lymph # (Auto) (1.2-4.9) X10*3/uL [place] # (Auto) (0.1-1.2) X10*3/uL Eos # (Auto) (0.0-0.4) X10*3/uL Baso # (Auto) (0.0-0.2) X10*3/uL Abs Immat Gran (auto) (0.00-0.03) X10*3/uL Absolute Neuts (auto) (2.0-8.3) x10*3/uL Absolute Nucleated RBC (0.0-0.012) X10*3/uL Nucleated RBC % (auto) (0.0-0.2) /100WBC Sodium (135-145) mmol/L Potassium (3.3-5.1) mmol/L Chloride (96-108) mmol/L Carbon Dioxide (22-29) mmol/L Anion Gap (12-20) BUN (9-16) mg/dL Creatinine (0.5-1.4) mg/dL Estim Creat Clear Calc Estimated GFR Random Glucose (60-115) mg/dL Calcium (8.4-10.2) mg/dL Magnesium (1.6-2.6) mg/dL Total Bilirubin (0.0-1.0) mg/dL AST (5-31) U/L ALT (0-31) U/L Alkaline Phosphatase (39-117) U/L Total Protein (6.5-8.0) g/dL Albumin (3.5-5.0) g/dL Lipase (8-78) U/L Urine Color Urine Appearance Urine pH (5.0-9.0) Ur Specific [place] (1.005-1.025) Urine Protein (Neg-Trace) mg/dL Urine Glucose (UA) (Negative) mg/dL Urine Ketones Cancelled (Negative) mg/dL Urine Blood Moderate (2+) H Cancelled (Negative) Urine Nitrite Positive H Cancelled (Negative) Ur Leukocyte Esterase Large (3+) H (Negative) Urine RBC (0-2) /HPF Urine WBC (0-5) /HPF Urine WBC Clumps Ur Squamous Epith Cells (0-2) /HPF Ur Transition Epith Cell Ur Renal Epithelial Cell Calcium Oxalate Crystal Leucine Crystals Cystine Crystals Tyrosine Crystals Other Crystals Urine Bacteria (None Seen) Urine Parasites Bilirubin Casts Epithelial Casts Fatty Casts Hyaline Casts (0-2) /LPF Granular Casts Waxy Casts Broad Casts RBC Casts WBC Casts Other Casts Urine Trichomonas Urine Yeast C. difficile Tox B Gene (Negative) 03/24/23 03/24/23 03/24/23 Range/Units 18:27 18:27 18:27 WBC (4.8-10.8) X10*3/uL RBC (4.20-5.50) X10*6/uL Hgb (12.0-16.0) g/dl Hct (37.0-47.0) % MCV (80.0-98.0) fL MCH (27.0-33.0) pg MCHC (31.0-35.0) g/dl RDW (11.0-16.0) % Plt Count (160-400) X10*3/uL MPV (9.4-12.3) fL Immature Gran % (Auto) (0.0-0.4) % Neut % (Auto) (45-73) % Lymph % (Auto) (20-40) % [place] % (Auto) (2-11) % Eos % (Auto) (0-4) % Baso % (Auto) (0-2) % Lymph # (Auto) (1.2-4.9) X10*3/uL [place] # (Auto) (0.1-1.2) X10*3/uL Eos # (Auto) (0.0-0.4) X10*3/uL Baso # (Auto) (0.0-0.2) X10*3/uL Abs Immat Gran (auto) (0.00-0.03) X10*3/uL Absolute Neuts (auto) (2.0-8.3) x10*3/uL Absolute Nucleated RBC (0.0-0.012) X10*3/uL Nucleated RBC % (auto) (0.0-0.2) /100WBC Sodium (135-145) mmol/L Potassium (3.3-5.1) mmol/L Chloride (96-108) mmol/L Carbon Dioxide (22-29) mmol/L Anion Gap (12-20) BUN (9-16) mg/dL Creatinine (0.5-1.4) mg/dL Estim Creat Clear Calc Estimated GFR Random Glucose (60-115) mg/dL Calcium (8.4-10.2) mg/dL Magnesium (1.6-2.6) mg/dL Total Bilirubin (0.0-1.0) mg/dL AST (5-31) U/L ALT (0-31) U/L Alkaline Phosphatase (39-117) U/L Total Protein (6.5-8.0) g/dL Albumin (3.5-5.0) g/dL Lipase (8-78) U/L Urine Color Urine Appearance Urine pH (5.0-9.0) Ur Specific [place] (1.005-1.025) Urine Protein (Neg-Trace) mg/dL Urine Glucose (UA) (Negative) mg/dL Urine Ketones (Negative) mg/dL Urine Blood (Negative) Urine Nitrite (Negative) Ur Leukocyte Esterase Cancelled (Negative) Urine RBC 0-2 Cancelled (0-2) /HPF Urine WBC >50 H Cancelled (0-5) /HPF Urine WBC Clumps Cancelled Ur Squamous Epith Cells 3-5 (0-2) /HPF Ur Transition Epith Cell Ur Renal Epithelial Cell Calcium Oxalate Crystal Leucine Crystals Cystine Crystals Tyrosine Crystals Other Crystals Urine Bacteria (None Seen) Urine Parasites Bilirubin Casts Epithelial Casts Fatty Casts Hyaline Casts (0-2) /LPF Granular Casts Waxy Casts Broad Casts RBC Casts WBC Casts Other Casts Urine Trichomonas Urine Yeast C. difficile Tox B Gene (Negative) 03/24/23 03/24/23 03/24/23 Range/Units 18:27 18:27 18:27 WBC (4.8-10.8) X10*3/uL RBC (4.20-5.50) X10*6/uL Hgb (12.0-16.0) g/dl Hct (37.0-47.0) % MCV (80.0-98.0) fL MCH (27.0-33.0) pg MCHC (31.0-35.0) g/dl RDW (11.0-16.0) % Plt Count (160-400) X10*3/uL MPV (9.4-12.3) fL Immature Gran % (Auto) (0.0-0.4) % Neut % (Auto) (45-73) % Lymph % (Auto) (20-40) % [place] % (Auto) (2-11) % Eos % (Auto) (0-4) % Baso % (Auto) (0-2) % Lymph # (Auto) (1.2-4.9) X10*3/uL [place] # (Auto) (0.1-1.2) X10*3/uL Eos # (Auto) (0.0-0.4) X10*3/uL Baso # (Auto) (0.0-0.2) X10*3/uL Abs Immat Gran (auto) (0.00-0.03) X10*3/uL Absolute Neuts (auto) (2.0-8.3) x10*3/uL Absolute Nucleated RBC (0.0-0.012) X10*3/uL Nucleated RBC % (auto) (0.0-0.2) /100WBC Sodium (135-145) mmol/L Potassium (3.3-5.1) mmol/L Chloride (96-108) mmol/L Carbon Dioxide (22-29) mmol/L Anion Gap (12-20) BUN (9-16) mg/dL Creatinine (0.5-1.4) mg/dL Estim Creat Clear Calc Estimated GFR Random Glucose (60-115) mg/dL Calcium (8.4-10.2) mg/dL Magnesium (1.6-2.6) mg/dL Total Bilirubin (0.0-1.0) mg/dL AST (5-31) U/L ALT (0-31) U/L Alkaline Phosphatase (39-117) U/L Total Protein (6.5-8.0) g/dL Albumin (3.5-5.0) g/dL Lipase (8-78) U/L Urine Color Urine Appearance Urine pH (5.0-9.0) Ur Specific [place] (1.005-1.025) Urine Protein (Neg-Trace) mg/dL Urine Glucose (UA) (Negative) mg/dL Urine Ketones (Negative) mg/dL Urine Blood (Negative) Urine Nitrite (Negative) Ur Leukocyte Esterase (Negative) Urine RBC (0-2) /HPF Urine WBC (0-5) /HPF Urine WBC Clumps Ur Squamous Epith Cells Cancelled (0-2) /HPF Ur Transition Epith Cell Cancelled Ur Renal Epithelial Cell Cancelled Calcium Oxalate Crystal Cancelled Leucine Crystals Cancelled Cystine Crystals Cancelled Tyrosine Crystals Cancelled Other Crystals Cancelled Urine Bacteria 4+ Cancelled (None Seen) Urine Parasites Cancelled Bilirubin Casts Cancelled Epithelial Casts Cancelled Fatty Casts Cancelled Hyaline Casts 0-2 Cancelled (0-2) /LPF Granular Casts Cancelled Waxy Casts Cancelled Broad Casts Cancelled RBC Casts Cancelled WBC Casts Cancelled Other Casts Cancelled Urine Trichomonas Cancelled Urine Yeast Cancelled C. difficile Tox B Gene (Negative) Radiology Impression Discussion of test interpretation with radiology: I have reviewed the radiologist's reading. Radiologist Impression: Please see the discussion above External Record Review External record reviewed: Outpatient record, Prior outpatient labs and Prior outpatient radiology Chronic Conditions Patient?s care impacted by: Other COPD, lung ca Critical Care Time Critical Care Time Critical Care Time: Yes Total Critical Care Time: 45 Attestation: I personally attest to this time spent taking care of the patient. Discharge Plan Discharge Clinical Impression: Diarrhea, Acute UTI Patient Disposition: Home, Self-Care Instructions: Urinary Tract Infection in Women (ED), Acute Diarrhea (ED), Nutrition Tips for Relief of Diarrhea (ED) Additional Instructions: 1. Resume all home medications as prescribed except any medications for stool softener or constipation. 2. Please review the nutritional tips for relief of your diarrhea. Stop taking all medications for treatment of constipation. 3. Follow-up with primary care provider by calling the office in the morning. Continue to drink plenty of water. Return to the ER for any worsening symptoms. Prescriptions: New cefuroxime axetil 500 mg tablet 500 mg PO Q12H 5 Days Qty: 10 0RF No Action Spiriva with HandiHaler 18 mcg Capsule, W/Inhalation Device 1 puff inhalation RDAILY Qty: 0 0RF acetazolamide 250 mg Tablet 250 mg PO DAILY Qty: 0 0RF calcium carbonate [Tums] 300 mg (750 mg) Tablet,Chewable 750 mg PO Q6H PRN (Reason: heartburn) Qty: 0 0RF mirtazapine 7.5 mg Tablet 7.5 mg PO BEDTIME Qty: 0 0RF loperamide 2 mg Capsule 2 mg PO Q4H PRN (Reason: diarrhea) Qty: 0 0RF polyethylene glycol 3350 17 gram Powder In Packet 17 g PO DAILY PRN (Reason: constipation) Qty: 0 0RF omeprazole 20 mg Capsule,Delayed Release(Dr/Ec) 20 mg PO BID@0630,1630 Qty: 0 0RF fluticasone furoate-vilanterol [Breo Ellipta] 200-25 mcg/dose Blister With Device 1 puff inhalation RDAILY Qty: 0 0RF guaifenesin [Mucinex] 600 mg Tablet Extended Release 12hr 600 mg PO BID Qty: 0 0RF albuterol sulfate 2.5 mg /3 mL (0.083 %) solution for nebulization 2.5 mg inhalation Q4H PRN (Reason: shortness of breath/wheeze) warfarin [Jantoven] 2.5 mg tablet 5 mg PO DAILY@1800 albuterol 90 mcg/actuation Aerosol 90 mcg INHALATION Q2-4H PRN (Reason: Shortness Of Breath) Referrals: Dinesh Lugo MD [Primary Care Provider] -
[2023-03-24 14:12] LABS: MANUAL DIFF FLAG NO
[2023-03-24 14:14] LABS: Basophils Absolute Auto 0.1 X10*3/uL (0.0-0.2); Basophils Percent Auto 0.6 % (0-2); Eosinophils Absolute Auto 0.1 X10*3/uL (0.0-0.4); Eosinophils Percent Auto 1.5 % (0-4); Hematocrit 34.1 % (37.0-47.0); Hemoglobin 10.1 g/dl (12.0-16.0); Imm Gran Abs Auto 0.04 X10*3/uL (0.00-0.03); Imm Gran Pct Auto 0.5 % (0.0-0.4); Lymphocytes Absolute Auto 1.7 X10*3/uL (1.2-4.9); Lymphocytes Percent Auto 19.4 % (20-40); Mean Corpuscular HGB Conc 29.6 g/dl (31.0-35.0); Mean Corpuscular Volume 101.2 fL (80.0-98.0); Mean Platelet Volume 8.4 fL (9.4-12.3); Monocytes Absolute Auto 0.7 X10*3/uL (0.1-1.2); Monocytes Percent Auto 7.9 % (2-11); Neutrophils Absolute Auto 6.1 x10*3/uL (2.0-8.3); Neutrophils Percent Auto 70.1 % (45-73); Platelet Count 376 X10*3/uL (160-400); Red Blood Count 3.37 X10*6/uL (4.20-5.50); Red Cell Distribution Width 14.2 % (11.0-16.0); White Blood Count 8.6 X10*3/uL (4.8-10.8)
[2023-03-24 14:22] VITALS: BP 132/54; PULSE 82; RESP 14; O2SAT 98
[2023-03-24 14:27] LABS: Alanine Aminotransferase 11 U/L (0-31); Albumin Level 3.6 g/dL (3.5-5.0); Alkaline Phosphatase 90 U/L (39-117); Anion Gap 12 (12-20); Aspartate Amino Transferase 18 U/L (5-31); Bilirubin Total 0.2 mg/dL (0.0-1.0); Blood Urea Nitrogen 8 mg/dL (9-16); Calcium 9.2 mg/dL (8.4-10.2); Carbon Dioxide 29 mmol/L (22-29); Chloride 101 mmol/L (96-108); Estimated Glomerular Filt Rate > 60; Glucose Random 106 mg/dL (60-115); Lipase 17 U/L (8-78); Magnesium 2.1 mg/dL (1.6-2.6); Potassium 3.4 mmol/L (3.3-5.1); Sodium 139 mmol/L (135-145); Total Protein 7.4 g/dL (6.5-8.0)
--- NOTE | 2023-03-24 15:17 | MHC.CM.ED ---
Received case management consult from Dr Everett. Patient has a history of lung CA with mets. Patient came to the ER due to diarrhea. Patient's family has been trying to care for patient at home. Patient's symptoms seem to be worsening. Dr Everett discussed palliative care vs hospice care with family. They are interested in discussing this. Referral made to [facility] for on-site informational meeting. Dr Everett aware. Continue to monitor for d/c needs.
[2023-03-24] MEDS: iohexoL 350 MG/ML 100 ML INFUS..BTL IV (16:36)
[2023-03-24 18:05] LABS: CDiff Gene PCR NEGATIVE (Negative)
[2023-03-24 18:11] VITALS: BP 137/47; PULSE 85; RESP 16; O2SAT 98
[2023-03-24 18:37] LABS: Appearance Urine Turbid; Color Urine Yellow; Glucose Urine UA Negative (Negative); Leukocyte Esterase Urine Large (3+) (Negative); Nitrite Urine Positive (Negative); PH 6.5 (5.0-9.0); Specific Gravity - Urine >= 1.030 (1.005-1.025); UMIC TRIGGER UACC YES; Urine Blood Moderate (2+) (Negative); Urine Ketones Negative (Negative); Urine Protein 30 (1+) mg/dL (Neg-Trace)
[2023-03-24 18:51] LABS: Bacteria Urine 4+ (None Seen); Hyaline Casts Urine 0-2 /LPF (0-2); RBC Urine 0-2 /HPF (0-2); UACC Culture Trigger YES; WBC Urine >50 /HPF (0-5)
[2023-03-24] MEDS: Loperamide HCl 2 MG CAPSULE PO (19:26)
[2023-03-24] MEDS: cefuroxime axetiL 500 MG TABLET PO (19:26)
[2023-03-25 08:34] LABS: Adenovirus F 40/41 Not Detected (Not Detect.); Astrovirus Not Detected (Not Detect.); Campylobacter Not Detected (Not Detect.); Cryptosporidium Not Detected (Not Detect.); Cyclospora cayetanensis Not Detected (Not Detect.); E. coli EAEC Not Detected (Not Detect.); E. coli EPEC Not Detected (Not Detect.); E. coli ETEC Not Detected (Not Detect.); E. coli STEC Not Detected (Not Detect.); Entamoeba histolytica Not Detected (Not Detect.); Giardia lamblia Not Detected (Not Detect.); Norovirus GI/GII Not Detected (Not Detect.); Plesiomonas shigelloides Not Detected (Not Detect.); Rotavirus A Not Detected (Not Detect.); Salmonella Not Detected (Not Detect.); Sapovirus Not Detected (Not Detect.); Shigella sp./EIEC Not Detected (Not Detect.); Vibrio Not Detected (Not Detect.); Vibrio Cholerae Not Detected (Not Detect.); Yersinia enterocolitica Not Detected (Not Detect.)
== END 2023-03-24 19:42 | disposition home or self-care (01) ==
PROVIDERS: Physician Assistant; Emergency Provider Student in an Organized Health Care Education/Training Program; PCP Internal Medicine
DX: N39.0 Urinary tract infection, site not specified (principal); R11.2 Nausea with vomiting, unspecified; R19.7 Diarrhea, unspecified; Z11.52 Encounter for screening for COVID-19; Z20.822 Contact with and (suspected) exposure to COVID-19; Z79.899 Other long term (current) drug therapy; Z87.891 Personal history of nicotine dependence
CPT/HCPCS: 36415; 51701; 74177; 80053; 81001; 83690; 83735; 85025; 87086; 87493; 87507; 99284; Q9967